=== PATIENT | female | born 1955 | race Caucasian/White ===

== ENCOUNTER 2023-06-20 20:48 | Outpatient (REF) | payer MEDICARE, OTHER, SELFPAY ==
[2023-06-25 12:09] LABS: Age Gdln ACOG Testing Note (.); Pap IG (Image Guided) Note (.)
== END 2023-06-20 20:49 | disposition home or self-care (01) ==
LOC: LAB 20:48
PROVIDERS: PCP Family Medicine; Visit Provider Obstetrics & Gynecology
DX: Z12.4 Encounter for screening for malignant neoplasm of cervix (principal)
CPT/HCPCS: G0145

== ENCOUNTER 2023-11-05 07:23 | Outpatient (RCR) | payer MEDICARE, OTHER, SELFPAY | END 2023-11-06 23:59 | disposition home or self-care (01) | LOC: INF 07:23 | PROVIDERS: PCP Family Medicine; Visit Provider Internal Medicine Hematology & Oncology | DX: C50.912 Malignant neoplasm of unspecified site of left female breast (principal); Z15.09 Genetic susceptibility to other malignant neoplasm; I10 Essential (primary) hypertension; Z87.891 Personal history of nicotine dependence | CPT/HCPCS: 36415; G0463 ==

== ENCOUNTER 2023-11-26 07:37 | Outpatient (RCR) | payer MEDICARE, OTHER, SELFPAY | END 2023-12-05 23:59 | disposition home or self-care (01) | LOC: INF 07:37 | PROVIDERS: PCP Family Medicine; Visit Provider Internal Medicine Hematology & Oncology | DX: C50.912 Malignant neoplasm of unspecified site of left female breast (principal); Z15.09 Genetic susceptibility to other malignant neoplasm | CPT/HCPCS: G0463 ==

== ENCOUNTER 2023-12-24 07:25 | Outpatient (RCR) | payer MEDICARE, OTHER, SELFPAY | END 2024-01-05 23:59 | disposition home or self-care (01) | LOC: INF 07:25 | PROVIDERS: PCP Family Medicine; Visit Provider Internal Medicine Hematology & Oncology | DX: C50.912 Malignant neoplasm of unspecified site of left female breast (principal); Z15.09 Genetic susceptibility to other malignant neoplasm; Z87.891 Personal history of nicotine dependence; I10 Essential (primary) hypertension; Z80.6 Family history of leukemia; Z17.0 Estrogen receptor positive status [ER+] | CPT/HCPCS: G0463 ==

== ENCOUNTER 2024-02-04 07:27 | Outpatient (RCR) | payer MEDICARE, OTHER, SELFPAY ==
[2024-02-04 09:49] LABS: Basophils Absolute Auto 0.1 10^3/uL (0.0-0.1); Basophils Percent Auto 0.8 % (0.2-2.0); Eosinophils Absolute Auto 0.1 10^3/uL (0.0-0.7); Eosinophils Percent Auto 1.2 % (0.9-7.0); Hematocrit 43.4 % (36.0-48.0); Immature Granulocytes Abs Auto 0.03 10^3/uL (0.00-0.03); Immature Granulocytes Pct Auto 0.4 % (0.0-0.5); Lymphocytes Absolute Auto 1.9 10^3/uL (1.2-3.8); Lymphocytes Percent Auto 21.7 % (20.5-60.0); Mean Corpuscular HGB Conc 32.3 g/dL (29.9-35.2); Mean Corpuscular Hemoglobin 29.2 pg (26.7-34.0); Mean Corpuscular Volume 90.4 fL (81.0-99.0); Mean Platelet Volume 9.9 fL (9.5-13.5); Monocytes Absolute Auto 0.6 10^3/uL (0.3-0.8); Monocytes Percent Auto 6.7 % (1.7-12.0); Neutrophils Absolute Auto 5.9 10^3/uL (1.4-6.5); Neutrophils Percent Auto 69.2 % (43.0-75.0); Platelet Count 289 10^3/uL (150-450); Red Cell Distribution Width 12.9 % (11.0-15.0); White Blood Count 8.6 10^3/uL (4.0-11.0)
[2024-02-04 10:03] LABS: Alanine Aminotransferase 41 U/L (14-59); Albumin Globulin Ratio 0.9; Albumin Level 3.5 g/dL (3.4-5.0); Alkaline Phosphatase 101 U/L (46-116); Anion Gap 15.3; Aspartate Amino Transferase 24 U/L (15-37); BUN Creatinine Ratio 21.9; Bilirubin Total 0.4 mg/dL (0.2-1.0); Calcium 9.3 mg/dL (8.5-10.1); Carbon Dioxide 24.6 mmol/L (21.0-32.0); Chloride 104 mmol/L (98-107); Estimated GFR (African America >60 (>=60); Estimated GFR (Non-African Ame >60 (>=60); Glucose 140 mg/dL (74-106); Potassium 3.9 mmol/L (3.5-5.1); Sodium 140 mmol/L (136-145); Total Protein 7.5 g/dL (6.4-8.2)
== END 2024-02-04 23:59 | disposition home or self-care (01) ==
LOC: INF 07:27
PROVIDERS: PCP Family Medicine; Visit Provider Internal Medicine Hematology & Oncology
DX: C50.912 Malignant neoplasm of unspecified site of left female breast (principal); Z15.09 Genetic susceptibility to other malignant neoplasm
CPT/HCPCS: 36415; 80053; 82306; 85025; G0463

== ENCOUNTER 2024-06-09 07:10 | Outpatient (RCR) | payer MEDICARE, OTHER, SELFPAY ==
[2024-06-09 09:50] LABS: Basophils Absolute Auto 0.1 10^3/uL (0.0-0.1); Basophils Percent Auto 0.7 % (0.2-2.0); Eosinophils Absolute Auto 0.1 10^3/uL (0.0-0.7); Eosinophils Percent Auto 0.8 % (0.9-7.0); Hemoglobin 14.5 g/dL (12.0-16.0); Immature Granulocytes Abs Auto 0.03 10^3/uL (0.00-0.03); Immature Granulocytes Pct Auto 0.3 % (0.0-0.5); Lymphocytes Absolute Auto 1.6 10^3/uL (1.2-3.8); Lymphocytes Percent Auto 18.6 % (20.5-60.0); Mean Corpuscular HGB Conc 32.2 g/dL (29.9-35.2); Mean Corpuscular Hemoglobin 29.7 pg (26.7-34.0); Monocytes Absolute Auto 0.5 10^3/uL (0.3-0.8); Neutrophils Absolute Auto 6.5 10^3/uL (1.4-6.5); Neutrophils Percent Auto 73.6 % (43.0-75.0); Platelet Count 314 10^3/uL (150-450); Red Blood Count 4.89 10^6/uL (4.20-5.40); Red Cell Distribution Width 13.1 % (11.0-15.0); White Blood Count 8.8 10^3/uL (4.0-11.0)
[2024-06-09 10:00] LABS: Alanine Aminotransferase 31 U/L (14-59); Albumin Level 3.6 g/dL (3.4-5.0); Alkaline Phosphatase 92 U/L (46-116); Anion Gap 16.1; Aspartate Amino Transferase 20 U/L (15-37); Bilirubin Total 0.4 mg/dL (0.2-1.0); Calcium 9.4 mg/dL (8.5-10.1); Carbon Dioxide 27.1 mmol/L (21.0-32.0); Chloride 104 mmol/L (98-107); Estimated GFR (African America >60 (>=60); Estimated GFR (Non-African Ame >60 (>=60); Globulin 3.7 g/dL; Glucose 154 mg/dL (74-106); Potassium 5.2 mmol/L (3.5-5.1); Sodium 142 mmol/L (136-145); Total Protein 7.3 g/dL (6.4-8.2)
== END 2024-07-06 23:59 | disposition home or self-care (01) ==
LOC: HEMC 07:10
PROVIDERS: PCP Family Medicine; Visit Provider Internal Medicine Hematology & Oncology
DX: C50.412 Malignant neoplasm of upper-outer quadrant of left female breast (principal); Z15.09 Genetic susceptibility to other malignant neoplasm; Z87.891 Personal history of nicotine dependence
CPT/HCPCS: 36415; 80053; 82306; 85025; G0463

== ENCOUNTER 2024-06-25 19:02 | Outpatient (REF) | payer MEDICARE, OTHER, SELFPAY ==
--- OUTSIDE RECORDS SUMMARY | 2024-06-25 19:07 | XMS_ITS | CCD ---
Author Organization [facility] CliniSywy Care Team Providers Care Child Health Associate Name Role Phone MD Quinton Dan Primary Care Provider Crow Kruse Attending Provider NI, DR FONSECA Primary Care Unavailable BIANCA ENGEL Admitting Unavailable MAREN, BIANCA Attending Unavailable EVELYN, DR SAVANNAH Hall Consulting Unavailable BIANCA ENGEL Consulting Unavailable SOO, DR COLLINS Admitting Unavailable SOO, DR COLLINS Attending Unavailable SOO, DR COLLINS Consulting Unavailable SOO, DR COLLINS Admitting Unavailable SOO, DR COLLINS Attending Unavailable UNION, DR EDGAR Irby Consulting Unavailable SOO, DR COLLINS Consulting Unavailable MD Quinton Dan Primary Care Provider MD Quinton Dan Attending Provider [phone] Rodney Peña Unavailable DO Rodney Peña Attending Provider Cecilia Vital Unavailable MD Quinton Dan Primary Care Provider [phone] MD Quinton Dan Primary Care Provider DO Rodney Peña Attending Provider Crow Kruse Attending Provider MD Quinton Dan Primary Care Provider Quinton Dan MD Primary Care Provider Quinton Dan MD Unavailable QUINTON DAN Primary Care Physician Unavail able Crow Kruse DO Unavailable Rodney Peña MD Unavailable MD Quinton Dan Primary Care Provider [phone] Crow Kruse Attending Provider MD Addison Hamm Attending Provider MD Silvia Eckert Referring Provider [phone] Crow KRUSE R Referring Unavailable NILL, Adrian R Attending Unavailable NILL, Adrian R Attending Unavailable NILL, Adrian R Referring Unavailable NILL, Adrian R Admitting Unavailable NILL, Adrian R Attending Unavailable NILL, Adrian R Attending Unavailable NILL, Adrian R Attending Unavailable NILL, Adrian R Referring Unavailable NILL, Adrian R Admitting Unavailable Rafia, Jeff L Consulting Unavailable Rafia, Jeff L Consulting Unavailable Rafai, Jeff L Consulting Unavailable Rafia, Jfef L Consulting Unavailable Rafia, Jeff L Consulting Unavailable Rafia, Jeff L Consulting Unavailable Rafia, Jeff L Consulting Unavailable Rafia, Jeff L Consulting Unavailable Rafia, Jeff L Consulting Unavailable Rafia, Jeff L Consulting Unavailable NILL, Adrian R Attending Unavailable NILL, Adrian R Referring Unavailable NILL, Adrian R Admitting Unavailable MD Quinton Dan Primary Care Provider MD Addison Hamm Attending Provider MD Silvia Eckert Referring Provider QUINTON DAN Attending Unavailable QUINTON DAN Attending Unavailable QUINTON DAN Attending Unavailable QUINTON DAN Attending Unavailable QUINTON DAN Attending Unavailable QUINTON DAN Attending Unavailable QUINTON DAN Attending Unavailable MD Quinton Dan Primary Care Provider MD Silvia Eckert Attending Provider Quinton Dan Primary Care Unavailable Crow Kruse Admitting Unavailable Crow Kruse Attending Unavailable Crow Kruse Admitting Unavailable Quinton Dan Primary Care Unavailable Maribel Krusey Attending Unavailable Quinton Dan Primary Care Unavailable Babar, Silvia Admitting Unavailable Sudheer Eckertorva Attending Unavailable Rodney Peña Admitting Unavailable Rodney Peña Attending Unavailable Quinton Dan Primary Care Unavailable Quinton Dan Primary Care Unavailable Crow Kruse Admitting Unavailable Crow Kruse Attending Unavailable Quinton Dan Primary Care Unavailable Addison Hamm Admitting Unavailable Addison Hamm Attending Unavailable Silvia Eckert Referring Unavailable Allergies Allergy Classification Reported Allergen(s) Allergy Type Date of Onset Reaction(s) Facility (20 sources) Amoxicillin; Translations: [Amoxicillin] Drug Allergy 08-08-20 14 [facility] (16 sources) Sulfamethoxazole; Translations: [sulfamethoxazole] Drug Allergy 11-10-19 22 Abdominal Pain, Abdominal Pain, stomach upset [facility] (11 sources) Trimethoprim; Translations: [trimethoprim] Drug Allergy 11-10-19 22 Abdominal Pain, Abdominal Pain, stomach upset [facility] (17 sources) erythromycin base; Translations: [Erythromycin Base] Allergy to substance 08-08-20 14 [facility] (10 sources) HYDROcodone; Translations: [HYDROcodone] Drug Allergy 11-10-19 15 Abdominal Pain, Abdominal Pain, stomach cramps and dry heaves [facility] (2 sources) Sulfamethoxazole / Trimethoprim; Translations: [Bactrim] Drug Allergy 08-08-20 14 [facility] (10 sources) traMADol; Translations: [traMADol] Drug Allergy 06-01-20 16 Vomiting [facility] (11 sources) Erythromycin; Translations: [erythromycin] Drug Allergy [facility] (4 sources) HYDROcodone Drug Allergy stomach cramps and dry heaves [facility] Other (10 sources) Sulfamethoxazole / Trimethoprim; Translations: [sulfamethoxazole-t rimethoprim] Drug Allergy stomach upset, Nausea [facility] (20 sources) homatropine; Translations: [homatropine] Drug Allergy 07-17-20 22 Vomiting (disorder) [facility] (5 sources) Fenofibrate Drug Allergy 10-16-19 24 [facility] Work Phone: (11 sources) HYDROcodone; Translations: [hydrocodone] Drug Allergy 07-17-20 22 Vomiting (disorder) [facility] (11 sources) traMADol; Translations: [tramadol] Drug Allergy 07-17-20 Nausea and vomiting (disorder) [facility] (5 sources) Amoxicillin-Pot Clavulanate Drug Allergy 07-17-20 [facility] (1 source) HYDROcodone Drug Allergy 06-12-20 [facility] (1 source) traMADol Drug Allergy 04-30-20 [facility] Medications Current Medications Medication Drug Class(es) Dates Sig (Normalized) Sig (Original) acetaminophen 325 mg / oxyCODONE hydrochloride 5 mg oral tablet (1 source) Opioid Agonist Start: 12-05-2023 End: 12-10-2023 take 1 tablet by mouth every six hours Percocet 5 mg-325 mg oral tablet 1 tab(s), Oral, q6hr, 10 tab(s), Refill(s) 0, not to exceed 4000 mg acetaminophen per day take with food or milk, [facility] [id number], 165, cm, 11/20/23 6:04:00 EST, Height/Length Dosing, 73.3, kg, 11/20/23 6:04:00 EST, Weight Dosing Start Date: 12/05/23 Stop Date: 12/10/23 Status: Ordered albuterol 0.83 mg/ml inhalation solution (5 sources) beta2-Adrenergic Agonist Start: 09-25-2023 albuterol (2.5 MG/3ML) 0.083% nebulizer solution Indications: Bronchitis Take 3 mL (2.5 mg) by nebulization every 6 (six) hours if needed for wheezing 150 mL 0 09/25/2023 Active amLODIPine 10 mg oral tablet (20 sources) Dihydropyridine Calcium Channel Leonel Start: 04-16-2023 End: 04-13-2024 take 10 mg by mouth once daily in the morning Amlodipine Active 10 MG PO Every morning April 16, 2023 12:00am Aspir-81 (2 sources) Aspir-81 3x week Active aspirin 81 mg delayed release oral tablet (15 sources) Platelet Aggregation Inhibitor, Nonsteroidal Anti-inflammatory Drug Start: 04-16-2023 take 1 tablet by mouth once Aspirin (Aspir-81) 81 mg Tablet,Delayed Release (Dr/Ec) Active 81 MG PO every Saturday, Saturday, and Sunday April 16, 2023 12:00am take 1 tablet by mouth in the mo rning aspirin 81 MG EC tablet Take 81 mg by mouth in the morning. 0 Active take 1 tablet by mouth twice leno ly Aspirin 81 81 MG 1 tablet Orally BID Active ciprofloxacin 500 mg oral tablet (20 sources) Quinolone Antimicrobial Start: 11-20-2023 End: 11-30-2023 take 1 tablet by mouth in the morning ciprofloxacin (Cipro) 500 MG tablet Indications: Diverticulitis Take 1 tablet (500 mg) by mouth in the morning and 1 tablet (500 mg) before bedtime. Do all this for 10 days. 20 tablet 0 11/20/2023 11/30/2023 Active Start: 11-10-2021 End: 04-16-2023 take 500 mg by mouth twice daily Ciprofloxacin Hcl Discontinued 500 MG PO Twice daily November 10, 2021 1:00am April 16, 2023 9:50am Start: 11-10-2021 End: 04-16-2023 take 1 dose by mouth every two hours Ciprofloxacin Hcl Discontinued 500 MG PO Twice daily November 10, 2021 1:00am April 16, 2023 9:50am Administer dose at least 2 hrs before/6 hrs after dairy products, calcium, zinc, and/or iron-containing products Cranberry preparation (13 sources) Non-Standardized Food Allergenic Extract, Non-Standardized Plant Allergenic Extract Start: 11-19-2023 cranberry oral table t See Instructions, Prophylaxis, Refill(s) 0 Start Date: 11/19/23 Status: Ordered Start: 04-16-2023 take 100 mg by mouth once daily at mealtime Cranberry Active 100 MG PO Every morning April 15, 2023 11:00pm administer with meals Start: 04-16-2023 take 100 mg by mouth once daily at mealtime Cranberry Active 100 MG PO Every morning April 16, 2023 12:00am administer with meals Culturelle Abdominal Support and Comfort (5 sources) Start: 11-19-2023 take 15 mg by mouth once daily Culturelle Abdominal Support and Comfort 15 mg, Oral, Daily Prophylaxis, Refill(s) 0 Start Date: 11/19/23 Status: Ordered docosahexaenoic acid 120 mg / eicosapentaenoic acid 180 mg oral capsule (5 sources) Start: 10-16-2023 End: 01-09-2025 take 1 capsule by mouth in the morning fish oil concentrate ([place]-3) 1000 MG capsule Indications: Mixed hyperlipidemia (CMS/HCC) Take 4 capsules (4 g) by mouth in the morning. Actually Eicosamax liquid 1 tsp = 4 grams. 0 10/16/2023 10/15/2024 Active Elderberry preparation (5 sources) Start: 11-19-2023 take 1 capsule by mouth once daily as needed elderberry 350 mg oral capsule 350 mg = 1 cap(s), Oral, Daily, PRN Prophylaxis, Refills(s) 0 Start Date: 11/19/23 Status: Ordered Fish Oils (6 sources) Start: 10-30-2023 take 4 capsules by mouth once daily Fish Oil 1000 mg oral capsule 4,000 mg = 4 cap(s), Oral, Daily, Refills(s) 0, Other (see comment) Start Date: 10/30/23 Status: Ordered Start: 10-30-2023 take 4 capsules by m outh once daily Fish Oil 1000 mg oral capsule 4,000 mg = 4 cap(s), Oral, Daily, Refills(s) 0 Start Date: 10/30/23 Status: Ordered Sasha Car Jensen, Rha mn ([facility]) 12 billion cell Tablet,Chewable (8 sources) Start: 04-16-2023 Sasha Car Jensen, Rha mn ([facility]) 12 billion cell Tablet,Chewable Active 1 TAB PO 4 times per week April 15, 2023 11:00pm Start: 04-16-2023 Law Car Jensen, Rhamn ([facility]) 12 billion cell Tablet,Chewable Active 1 TAB PO 4 times per week April 16, 2023 12:00am losartan potassium 100 mg oral tablet (20 sources) Angiotensin 2 Receptor Leonel Start: 11-10-2021 End: 04-13-2024 take 100 mg by mouth once daily in the morning Losartan Active 100 MG PO Every morning November 10, 2021 1:00am metroNIDAZOLE 250 mg oral tablet (20 sources) Nitroimidazole Antimicrobial Start: 11-20-2023 End: 11-30-2023 take 1 tablet by mouth in the morning, then take 1 tablet by mouth in the evening, then take 1 tablet by mouth at bedtime metroNIDAZOLE (Flagyl) 250 MG tablet Indications: Diverticulitis Take 1 tablet (250 mg) by mouth in the morning and 1 tablet (250 mg) in the evening and 1 tablet (250 mg) before bedtime. Do all this for 10 days. 30 tablet 0 11/20/2023 11/30/2023 Active Start: 11-10-2021 End: 04-16-2023 take 500 mg by mouth twice daily Metronidazole Discontinued 500 MG PO Twice daily November 10, 2021 1:00am April 16, 2023 9:51am mometasone furoate 1 mg/ml topical cream (3 sources) Corticosteroid Start: 12-26-2023 Mometasone Act osiel 1 APPLIC TOPICAL Daily December 26, 2023 12:00am Apply to radiation site, once a day, AFTER radiation treatment. Pd-Ec-Txgjh-Lutein- Herbal 293 (Alive Women's 50 Plus Gummy) 120 mcg-150 mcg -37.5 mg Tablet,Chewable (8 sources) Start: 04-16-2023 take 2 tablets by mouth once daily in the morning Pa-Qu-Yrgwn-Lutein -Herbal 293 (Alive Women's 50 Plus Gummy) 120 mcg-150 mcg -37.5 mg Tablet,Chewable Active 2 TAB PO Every morning April 15, 2023 11:00pm Start: 04-16-2023 take 2 tablets by [facility] once daily in the morning Ra-Bh-Jeouz-Lutein-Herbal 293 (Alive Women's 50 Plus Gummy) 120 mcg-150 mcg -37.5 mg Tablet,Chewable Active 2 TAB PO Every morning April 16, 2023 12:00am naproxen sodium 220 mg oral tablet (5 sources) Nonsteroidal Anti-inflammatory Drug Start: 11-19-2023 take 1 tablet by mouth every eight hours for headache Aleve Easy Open Arthritis 220 mg oral tablet 220 mg, 1 tab(s), Oral, q8hr for headache, 40 tab(s), Refill(s) 0 Start Date: 11/19/23 Status: Ordered oxyCODONE hydrochloride 5 mg oral capsule (7 sources) Opioid Agonist Start: 04-30-2023 take 5 mg by mouth every four to six hours Oxycodone Active 5 MG PO EVERY 4-6 HOURS 30 7 April 30, 2023 Tocopherols (Natural Mixed Tocopherols) 30 % powder (5 sources) Start: 10-16-2023 End: 10-15-2024 take 400 mg by mouth in the morning Tocopherols (Natural Mixed Tocopherols) 30 % powder Indications: Mixed hyperlipidemia (CMS/HCC) Take 400 mg by mouth in the morning. 0 10/16/2023 10/15/2024 Active Vit C-Zinc Citrate-Elderberry (Sambucus Elderberry) 30-1.1-25 mg Tablet,Chewable (8 sources) Start: 04-16-2023 take 2 tablets by mouth once daily in the morning Vit C-Zinc Citrate-Elderberry (Sambucus Elderberry) 30-1.1-25 mg Tablet,Chewable Active 2 TAB PO Every morning April 15, 2023 11:00pm Start: 04-16-2023 take 2 tablets by mo uth once daily in the morning Vit C-Zinc Citrate-Elderberry (Sambucus Elderberry) 30-1.1-25 mg Tablet,Chewable Active 2 TAB PO Every morning April 16, 2023 12:00am Completed/Discontinued Medications Medication Drug Class(es) Dates Sig (Normalized) Sig (Original) cefTRIAXone (4 sources) Cephalosporin Antibacterial Start: 06-30-2016 Rocephin 500 mg Jun, 250 mg Essential Biotic Complete Prob (8 sources) Start: 04-16-2023 take 1 capsule by mouth three times weekly Essential Biotic Complete Prob Active 1 CAP PO 3 Times a week April 15, 2023 11:00pm Start: 04-16-2023 take 1 capsule by mo uth three times weekly Essential Biotic Complete Prob Active 1 CAP PO 3 Times a week April 16, 2023 12:00am nabumetone (4 sources) Nonsteroidal Anti-inflammatory Drug Nabumetone Not-Taking Nabumetone 750 M G as directed Orally Not-Taking ondansetron 4 mg disintegrating oral tablet (10 sources) Serotonin-3 Receptor Antagonist Start: 11-10-2021 End: 04-16-2023 Ondansetron Discontinued 4 MG PO every 6 to 8 hours November 10, 2021 1:00am April 16, 2023 9:51am vitamin e 100 unt oral capsule (5 sources) Start: 11-19-2023 take 1 capsule by mouth once daily as needed vitamin E 100 intl units oral capsule 100 International_Unit = 1 cap(s), Oral, Daily, PRN Prophylaxis Start Date: 11/19/23 Status: Ordered Problems Active Problems Problem Classification Problem Date Documented Date Episodic/Chronic Abdominal pain (7 sources) Unspecified abdominal pain; Translations: [Pelvic and perineal pain] Onset: 07-26-2022 Episodic Acute bronchitis (4 sources) Acute bronchitis; Translations: [Acute bronchitis] Episodic Cancer of breast (20 sources) Infiltrating lobular carcinoma of breast; Translations: [Malignant neoplasm of unspecified site of left female breast] Onset: 10-29-2023 10-29-2023 Chronic Chronic kidney disease (11 sources) Chronic kidney disease stage 2; Translations: [Chronic kidney disease, stage 2 (mild)] Onset: 10-10-2020 04-16-2023 Chronic Conduction disorders (11 sources) Right bundle branch block; Translations: [Unspecified right bundle-branch block] Onset: 07-08-2015 04-16-2023 Chronic Diabetes mellitus without complication (6 sources) Diabetes mellitus 10-30-2023 Chronic Disorders of lipid metabolism (11 sources) Mixed hyperlipidemia; Translations: [Mixed hyperlipidemia] Onset: 08-19-2015 04-16-2023 Chronic Diverticulosis and diverticulitis (20 sources) Diverticulitis of colon; Translations: [Diverticulitis of large intestine without perforation or abscess without bleeding] Onset: 06-12-2022 11-10-2021 Chronic Essential hypertension (17 sources) Benign essential hypertension; Translations: [Essential (primary) hypertension] Onset: 07-08-2015 04-16-2023 Chronic Hypertension with complications and secondary hypertension (11 sources) Hypertensive renal disease; Translations: [Hypertensive chronic kidney disease with stage 1 through stage 4 chronic kidney disease, or unspecified chronic kidney disease] Onset: 04-14-2020 04-16-2023 Chronic Immunizations and screening for infectious disease (1 source) Encounter for screening for human papillomavirus (HPV); Translations: [ENC SCREENING HUMAN PAPILLOMAVIRUS] Onset: 06-23-2022 Episodic Joint disorders and dislocations; trauma-related (3 sources) Other tear of medial meniscus, current injury, right knee, initial encounter; Translations: [Other tear of medial meniscus, current injury, right knee, subsequent encounter] Episodic Malaise and fatigue (11 sources) Chronic fatigue syndrome; Translations: [Chronic fatigue syndrome] Onset: 06-29-2016 04-16-2023 Chronic Menopausal disorders (6 sources) Menopausal syndrome 12-18-2013 Chronic Noninfectious gastroenteritis (1 source) Noninfective gastroenteritis and colitis, unspecified; Translations: [NONINFECTIVE GE AND COLITIS UNS] Onset: 09-03-2022 Episodic Nonmalignant breast conditions (6 sources) Breast lump; Translations: [Unspecified lump in the left breast, unspecified quadrant] 10-21-2023 Episodic Other aftercare (1 source) half-way (current) use of aspirin; Translations: [SHELTER CURRENT USE OF ASPIRIN] Onset: 09-03-2022 Episodic Other aftercare (1 source) 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; Translations: [OTH SHELTER CURRENT DRUG THERAPY] Onset: 09-03-2022 Episodic Other aftercare (1 source) Encounter for removal of sutures Episodic Other connective tissue disease (1 source) Synovial cyst of popliteal space [Pepe], right knee Episodic Other ear and sense organ disorders (11 sources) Mixed conductive AND sensorineural hearing loss; Translations: [Mixed conductive and sensorineural hearing loss, unilateral, left ear with restricted hearing on the contralateral side] Onset: 08-11-2019 04-16-2023 Chronic Other nervous system disorders (11 sources) White matter disease; Translations: [White matter disease, unspecified] Onset: 07-23-2018 04-16-2023 Episodic Other nutritional; endocrine; and metabolic disorders (11 sources) Overweight; Translations: [Overweight] Onset: 08-15-2017 Resolved: 04-16-2023 04-16-2023 Episodic Other nutritional; endocrine; and metabolic disorders (6 sources) Overweight in adulthood with body mass index of 25 or more but less than 30 11-14-2023 Episodic Residual codes; unclassified (4 sources) Other specified postprocedural states Episodic Residual codes; unclassified (7 sources) History of arthroscopy of knee joint; Translations: [Other specified postprocedural states] 04-30-2023 Episodic Screening and history of mental health and substance abuse codes (11 sources) Ex-smoker; Translations: [Personal history of nicotine dependence] Onset: 08-15-2017 04-16-2023 Episodic Thyroid disorders (6 sources) Hypothyroidism 12-18-2013 Chronic Thyroid disorders (11 sources) Sick-euthyroid syndrome; Translations: [Sick-euthyroid syndrome] Onset: 08-19-2015 04-16-2023 Episodic Unclassified (1 source) Unspecified lump in the left breast, upper outer quadrant; Translations: [Unspecified lump in the left breast, upper outer quadrant] Onset: 10-21-2023 Unclassified (1 source) Encounter for screening mammogram for malignant neoplasm of breast; Translations: [Encounter for screening mammogram for malignant neoplasm of breast] Onset: 09-19-2023 Unclassified (1 source) Other tear of medial meniscus, current injury, right knee, subsequent encounter; Translations: [Other tear of medial meniscus, current injury, right knee, subsequent encounter] Onset: 06-27-2023 Past or Other Problems Problem Classification Problem Date Documented Date Episodic/Chronic Conditions associated with dizziness or vertigo (5 sources) Vertigo; Translations: [Dizziness and giddiness] Onset: 06-29-2016 04-16-2023 Episodic Other ear and sense organ disorders (5 sources) Tinnitus of left ear; Translations: [Tinnitus, left ear] Onset: 08-11-2019 04-16-2023 Episodic Other nutritional; endocrine; and metabolic disorders (5 sources) Body mass index 25-29 - overweight; Translations: [Overweight] Onset: 06-12-2022 04-16-2023 Episodic Other screening for suspected conditions (not mental disorders or infectious disease) (5 sources) Encounter for screening for malignant neoplasm of cervix; Translations: [Other abnormal and inconclusive findings on diagnostic imaging of breast] Onset: 06-19-2022 Episodic Otitis media and related conditions (5 sources) Perforation of tympanic membrane; Translations: [Unspecified perforation of tympanic membrane, unspecified ear] Onset: 12-28-2017 04-16-2023 Episodic Residual codes; unclassified (5 sources) Cardiovascular event risk; Translations: [Other specified personal risk factors, not elsewhere classified] Onset: 06-12-2022 04-16-2023 Episodic Results Test Name Value Interpretation Reference Range Facil ity MM diagnostic mammo LT w/CAD on 06-16-2024 MM diagnostic mammo LT w/CAD [facility] [place] [address] Mammography Report Signed Patient: Christal Chen MR#: [id number] : 1955 Acct:[id number] Age/Sex: 69 / F ADM Date: 06/16/24 Loc: [place] Room: Type: [facility] Attending Dr: Silvia Eckert MD Copies to: MD Quinton Corey MD Ordering Provider: Silvia Eckert MD Date of Service: 06/16/24 MM/MM diagnostic mammo LT w/CAD: PREV BREAST CA DIAGNOSTIC LEFT MAMMOGRAM - FULL FIELD DIGITAL WITH TOMOSYNTHESIS CLINICAL DATA: Left-sided breast cancer with recent lumpectomy and radiation Tomosynthesis Craniocaudal and mediolateral oblique views of the left breast were obtained using low-dose digital technique. Comparison is made to prior studies from 12/05/2023, 10/21/2023, 09/19/2023, 07/26/2022, 03/14/2019, and 03/11/2018. This examination was reviewed with the aid of CAD. Scattered fibroglandular tissue is present. Skin thickening is noted consistent with the history of previous radiation therapy. Benign-appearing calcifications are present. Posttreatment changes are noted in the upper outer left breast. This is new when compared to the prior exam. There are no dominant masses, typically malignant calcifications or architectural distortion, otherwise. MM/MM diagnostic mammo LT w/CAD IMPRESSION: POSTTREATMENT CHANGES ARE NOTED IN THE UPPER OUTER LEFT BREAST. THIS IS NEW WHEN COMPARED TO THE PRIOR EXAM. NO MAMMOGRAPHIC EVIDENCE OF MALIGNANCY. ROUTINE FOLLOW-UP IS RECOMMENDED IN ONE YEAR. RESULT CODE: 2 Benign Findings(s) DENSITY CODE: 2 (approximately 25-50% glandular) FOLLOW UP: 1YR The false-negative rate of mammography is approximately 10-percent. Management of a palpable abnormality must be based on clinical grounds. Impression dictated by: Cristian Jeffery M.D.06/16/2024 8:12 AM Dictation Location: [facility] Transcribed By: ROSALINDA 06/16/24811 Dictated By: Cristian Jeffery II, MD 06/16/24 075 Signed By: 06/16/24811 [facility] Consultation Noteon 02-10-20 Consultation Note [id number] .00TIFF Normal [facility] Consultation Noteon 01-06-20 Consultation Note [id number] .00TIFF Normal [facility] Consultation Noteon 01-05-20 Consultation Note [id number] .00TIFF Normal [facility] HER-2 IHC Rfx to FISHon 12-06 Fixation Time Comment Invalid Interpretation Code [facility] Comment on above: Result Comment: Tiss ue biopsy fixation was between 6 and 72 hours. Performed By: #### 1 [id number] ####[id number] [place] [address] Fixative Comment Invalid Interpretation Code [facility] Comment on above: Result Comment: 10% neutral buffered formalin Time to fixation (cold ischemic time) is less than or equal to 1 hour. Performed By: #### 1 [id number] ####[place] [id number] HER2 Ag Immune stain Ql (Tiss) 0 Invalid Interpretation Code [facility] Comment on above: Performed By: #### 1 [id number] ####[place] [id number] client solutions director name Nom (Provider) Comment Invalid Interpretation Code [facility] Comment on above: Result Comment: Thes e results were reviewed and interpreted by Kathy Lieberman MD [facility] [place], [place] Performed at: [facility] [address] [place], [place] [id number] [facility] Jonelle Torres Performed By: #### 1 [id number] ####[place] [id number] Reference Lab Test Reference Range Comment Invalid Interpretation Code [facility] Comment on above: Result Comment: Scor e Staining Pattern Interpretation ------ 0 No staining observed or incomplete, Negative faint membrane staining in less than or equal to 10% of tumor cells. 1+ Incomplete, faint membrane staining HER2-Low in >10% of tumor cells. Expression* 2+ Weak to moderate complete membrane staining observed in >10% of tumor cells. 3+ Intense, complete membrane staining HER2 Positive in >10% of tumor cells. * While current CAP/ASCO guidelines define HER2 1+ as Negative , a HER2 score of 1+ may be used to qualify patients with HER2-low cancers. HER2-low results (IHC 1+ or IHC 2+/NIKHIL non-amplified) by this test can be used to identify patients eligible for ENHERTU(R) (fam-trastuzumab deruxtecan-nxki) therapy according to the MATT- Breast 04 trial. For a score of 2+, correlation with FISH or equivalent test for amplification is necessary to determine Her2 expression status. IHC 2+ with NIKHIL non-amplified is considered HER2 low. IHC2+ with HER2 amplification by NIKHIL is considered HER2 positive. HER2 positive tumors (HER2 IHC score of 3+, or IHC 2+ with HER2 amplification by FISH), may benefit from HERCEPTIN(R) (Trastuzumab) or KADCYLA(R) (Trastuzumab emtansine) therapy. Unless otherwise indicated, only the invasive component is considered for scoring. PATHWAY anti-HER-2/rosamaria (4B5) Rabbit Monoclonal Primary Antibody (PATHWAY anti-HER2 (4B5) antibody) is a rabbit monoclonal antibody intended for laboratory use for the semi-quantitative detection of HER2 antigen by immunohistochemistry (IHC) in sections of formalin- fixed, paraffin-embedded normal and neoplastic breast tissue using the ultraView [place] DAB Detection Kit on a BenchMark ULTRA instrument. This IHC device is indicated for identifying breast cancer patients who are eligible for treatment with Herceptin(R) (IHC 3+ or IHC 2+/NIKHIL amplified), KADCYLA(R) (IHC 3+ or IHC 2+/NIKHIL amplified) or ENHERTU(R) (IHC 1+ or IHC 2+/NIKHIL non-amplified). Specimen Handling: FFPE tissue, preserved in 10% neutral buffered formalin, fixed for 18-24 hours. ASCO/CAP guidelines requires fixation for a minimum of 6 and a maximum of 72 hours. The time from biopsy/ excision to fixation in formalin (cold ischemic time) must be less than an hour. Time to fixation (cold ischemic time) greater than one hour should be interpreted with caution. Fixation times outside these guidelines, use of other fixatives, decalcification, or excessive time between acquisition and fixation may affect the staining and results should be interpreted accordingly. References: Jez Gonzalez et al. Trastuzumab Deruxtecan in Previously Treated HER2- Low Advanced Breast Cancer. N Engl J Med: 387(1):9-20. 2021Apr 12. Clinical Trial Deb PATHWAY anti-HER-2/rosamaria (4B5) Rabbit Monoclonal Primary Antibody Package Insert, 2022-07-05. Dejuan Villanuevaet al. Human Epidermal Growth Factor Receptor 2 Testing in Breast Cancer: [place] [employer] of [employer] On[employer]/College of [place] [employer] Clinical Practice Guideline Focused Update. J Clin Oncol 6:3450-4336. 2018 PMID: [id number]). Performed By: #### 1 [id number] ####[facility] [id number] [place] [address] Ambulatory Visit Summaryon 0 12-24-2023 Ambulatory Visit Summary CHRISTAL CHEN :1955 Visit Date:12/24/2023 Ambulatory Visit Instructions Your Care Team Attending Physician - TONY PATEL, Adrian Hall Primary Care Physician - NI PATEL, QUINTON Malik This Is Your Medications List amlodipine (amLODIPine 10 mg Tab) bacillus coagulans (Culturelle Abdominal Support and Comfort) cranberry (cranberry oral tablet) elderberry (elderberry 350 mg oral capsule) losartan (losartan 100 mg Tab) naproxen (Aleve Easy Open Arthritis 220 mg oral tablet) omega-3 polyunsaturated fatty acids (Fish Oil 1000 mg oral capsule) vitamin E (vitamin E 100 intl units oral capsule) Procedures Performed Lumpectomy of left breast (12/05/2023), Biopsy of breast, section, section, section, Closed reduction of nasal fracture, Colonoscopy, Colonoscopy, Meniscal repair, Myringotomy, Tonsillectomy and adenoidectomy, wisdom teeth. Medications What How Much When Instructions Unchanged amlodipine (amLODIPine 10 mg Tab) 1 Tablets By Mouth Every day Unchanged bacillus coagulans (Culturelle Abdominal Support and Comfort) 15 Milligram By Mouth Every day as needed for Prophylaxis Unchanged cranberry (cranberry oral tablet) See instructions Unchanged elderberry (elderberry 350 mg oral capsule) 1 Capsules By Mouth Every day as needed for Prophylaxis Unchanged losartan (losartan 100 mg Tab) 1 Tablets By Mouth Every day Unchanged naproxen (Aleve Easy Open Arthritis 220 mg oral tablet) 1 Tablets By Mouth Every 8 hours as needed for for headache Unchanged omega-3 polyunsaturated fatty acids (Fish Oil 1000 mg oral capsule) 4 Capsules By Mouth Every day Unchanged vitamin E (vitamin E 100 intl units oral capsule) 1 Capsules By Mouth Every day as needed for Prophylaxis Allergies Bactrim (Nausea) HYDROcodone (Vomiting) amoxicillin (Hives) erythromycin (Hives) homatropine (Vomiting) traMADol (Nausea and vomiting) Problems Ongoing - Any problem that you are currently receiving treatment for. BMI 27.0-27.9,adult Chronic fatigue syndrome Diverticulosis Former smoker HTN (hypertension) Hyperlipidemia Hypertensive nephropathy Invasive lobular carcinoma of left breast in female Lobular carcinoma of left breast Mixed conductive and sensorineural hearing loss Overweight RBBB (right bundle branch block) Sick-euthyroid syndrome Stage 2 chronic kidney disease White matter disease Historical - Any problem that you are no longer receiving treatment for. Diabetes Hypertension Hypothyroid Menopause Patient Survey You may receive a survey via text or e-mail asking about your office visit. Please share your experience with us by completing your survey. We appreciate your feedback and thank you for choosing us for your care. Normal [facility] General Surgery Office/Clini c Noteon 12-24-2023 General Surgery Office/Clinic Note Chief Complaint post operative follow up HPI Staff 19 day post operative follow up post left breast lumpectomy with sentinel biopsy. Minimal discomfort, scant use of Aleve. Denies bleeding or drainage. History of Present Illness almost 3 weeks s/p left breast lumpectomy with sentinel lymph node biopsy; doing well; some soreness of upper arm and axillary incision, no drainage; saw Oncologist today; referred for XRT; pathology reviewed, T1cN0 lesion, 3 sentinel lymph nodes negative for metastatic disease. Review of Systems ROS - Provider Constitutional: no fever, no sweats, no weight loss. Eyes: no glasses, no blurred vision, no visual loss. ENMT: no dentures, no hoarseness, no swallowing difficulties, no hearing loss, no ear infection(s), no nose bleeds. Cardiovascular: normal blood pressure, no chest pain, regular heartbeat, no heart murmur. Respiratory: no shortness of breath, no cough, no asthma, no wheezing. Gastrointestinal: no nausea, no vomiting, no diarrhea, no constipation, no blood in stool, no change in bowel habits, no abdominal pain, no hepatitis. Genitourinary: no kidney stones, no urine infection, no dysuria. Musculoskeletal: no pain, no weakness. Skin: no changing moles, no rash, no skin lumps. Neurologic: no seizures, no epilepsy, no headache. Psychiatric: no emotional or psychiatric problem. Heme/Lymph: no bleeding problems, no anemia, no blood clots, no transfusions. Allergy/Immunologic: no swollen lymph nodes/glands, no IV drug abuse. Other: Additional ROS info: Except as noted in the above Review of Systems and in the History of Present Illness, all other systems have been reviewed and are negative or noncontributory. Physical Exam skin: incisions healing well, no erythema or drainage, no ecchymoses. Assessment/Plan 1. Invasive lobular carcinoma of left breast in female (C50.412: Malignant neoplasm of upper-outer quadrant of left female breast) doing well; recommend new baseline left mammogram 6 months after completion of XRT, then bilateral yearly mammograms; call with problems/quesitons. Follow-up No qualifying data available Problem List/Past Medical History Ongoing BMI 27.0-27.9,adult Chronic fatigue syndrome Diverticulosis Former smoker HTN (hypertension) Hyperlipidemia Hypertensive nephropathy Invasive lobular carcinoma of left breast in female Lobular carcinoma of left breast Mixed conductive and sensorineural hearing loss Overweight RBBB (right bundle branch block) Sick-euthyroid syndrome Stage 2 chronic kidney disease White matter disease Historical Diabetes Hypertension Hypothyroid Menopause Procedure/Surgical History Lumpectomy of left breast (12/05/2023), Biopsy of breast, section, section, section, Closed reduction of nasal fracture, Colonoscopy, Colonoscopy, Meniscal repair, Myringotomy, Tonsillectomy and adenoidectomy, wisdom teeth. Medications Aleve Easy Open Arthritis 220 mg oral tablet, 220 mg= 1 tab(s), Oral, q8hr, PRN amLODIPine 10 mg Tab, 10 mg= 1 tab(s), Oral, Daily cranberry oral tablet, See Instructions, PRN Culturelle Abdominal Support and Comfort, 15 mg, Oral, Daily, PRN elderberry 350 mg oral capsule, 350 mg= 1 cap(s), Oral, Daily, PRN Fish Oil 1000 mg oral capsule, 4000 mg= 4 cap(s), Oral, Daily losartan 100 mg Tab, 100 mg= 1 tab(s), Oral, Daily vitamin E 100 intl units oral capsule, 100 International_Unit= 1 cap(s), Oral, Daily, PRN Allergies Bactrim (Nausea) HYDROcodone (Vomiting) amoxicillin (Hives) erythromycin (Hives) homatropine (Vomiting) traMADol (Nausea and vomiting) Social History Alcohol - Denies Alcohol Use, 12/28/2010 Substance Abuse - Denies Substance Abuse, 12/28/2010 Tobacco Never (less than 100 in lifetime) Tobacco Use:. Never Smokeless Tobacco Use:., 11/14/2023 Family History Heart disease: Father. Immunizations Vaccine Date Status Comments influenza virus vaccine, inactivated - Not Given Patient Refuses Normal [facility] Comment on above: Result Comment: Elec tronically Signed By: TONY PATEL, Adrian Hall\.br\Date and Time Signed: 12/24/23 14:31 EDT HER-2 IHC Rfx to [facility] 12-05 AP Tissue Block Number [id number] Invalid Interpretation Code [facility] Comment on above: Performed By: #### 1 [id number] ####[facility] [id number] [place] [address] Ambulatory Visit Summaryon 0 12-13-2023 Ambulatory Visit Summary CHRISTAL CHEN :1955 Visit Date:12/13/2023 Ambulatory Visit Instructions Your Care Team Attending Physician - TONY PATEL, Adrian Hall Primary Care Physician - NI PATEL, QUINTON Malik This Is Your Medications List amlodipine (amLODIPine 10 mg Tab) bacillus coagulans (Culturelle Abdominal Support and Comfort) cranberry (cranberry oral tablet) elderberry (elderberry 350 mg oral capsule) losartan (losartan 100 mg Tab) naproxen (Aleve Easy Open Arthritis 220 mg oral tablet) omega-3 polyunsaturated fatty acids (Fish Oil 1000 mg oral capsule) vitamin E (vitamin E 100 intl units oral capsule) Procedures Performed Lumpectomy of left breast (12/05/2023), Biopsy of breast, section, section, section, Closed reduction of nasal fracture, Colonoscopy, Colonoscopy, Meniscal repair, Myringotomy, Tonsillectomy and adenoidectomy, wisdom teeth. Medications What How Much When Instructions Unchanged amlodipine (amLODIPine 10 mg Tab) 1 Tablets By Mouth Every day Unchanged bacillus coagulans (Culturelle Abdominal Support and Comfort) 15 Milligram By Mouth Every day as needed for Prophylaxis Unchanged cranberry (cranberry oral tablet) See instructions Unchanged elderberry (elderberry 350 mg oral capsule) 1 Capsules By Mouth Every day as needed for Prophylaxis Unchanged losartan (losartan 100 mg Tab) 1 Tablets By Mouth Every day Unchanged naproxen (Aleve Easy Open Arthritis 220 mg oral tablet) 1 Tablets By Mouth Every 8 hours as needed for for headache Unchanged omega-3 polyunsaturated fatty acids (Fish Oil 1000 mg oral capsule) 4 Capsules By Mouth Every day Unchanged vitamin E (vitamin E 100 intl units oral capsule) 1 Capsules By Mouth Every day as needed for Prophylaxis Allergies Bactrim (Nausea) HYDROcodone (Vomiting) amoxicillin (Hives) erythromycin (Hives) homatropine (Vomiting) traMADol (Nausea and vomiting) Problems Ongoing - Any problem that you are currently receiving treatment for. BMI 27.0-27.9,adult Chronic fatigue syndrome Diverticulosis Former smoker HTN (hypertension) Hyperlipidemia Hypertensive nephropathy Invasive lobular carcinoma of left breast in female Lobular carcinoma of left breast Mixed conductive and sensorineural hearing loss Overweight RBBB (right bundle branch block) Sick-euthyroid syndrome Stage 2 chronic kidney disease White matter disease Historical - Any problem that you are no longer receiving treatment for. Diabetes Hypertension Hypothyroid Menopause Patient Survey You may receive a survey via text or e-mail asking about your office visit. Please share your experience with us by completing your survey. We appreciate your feedback and thank you for choosing us for your care. Normal [facility] General Surgery Office/Clini c Noteon 12-13-2023 General Surgery Office/Clinic Note Chief Complaint post operative follow up HPI Staff 8 day post operative follow up post left breast lumpectomy with sentinel biopsy. Denies discomfort, no use of pain medication. Denies bleeding, drainage or significant bruising. History of Present Illness 8 days s/p left breast lumpectomy with sentinel lymph node biopsy; doing well, mild soreness; no drainage, no pain meds. pathology pending. Review of Systems ROS - Provider Constitutional: no fever, no sweats, no weight loss. Eyes: no glasses, no blurred vision, no visual loss. ENMT: no dentures, no hoarseness, no swallowing difficulties, no hearing loss, no ear infection(s), no nose bleeds. Cardiovascular: normal blood pressure, no chest pain, regular heartbeat, no heart murmur. Respiratory: no shortness of breath, no cough, no asthma, no wheezing. Gastrointestinal: no nausea, no vomiting, no diarrhea, no constipation, no blood in stool, no change in bowel habits, no abdominal pain, no hepatitis. Genitourinary: no kidney stones, no urine infection, no dysuria. Musculoskeletal: no pain, no weakness. Skin: no changing moles, no rash, no skin lumps. Neurologic: no seizures, no epilepsy, no headache. Psychiatric: no emotional or psychiatric problem. Heme/Lymph: no bleeding problems, no anemia, no blood clots, no transfusions. Allergy/Immunologic: no swollen lymph nodes/glands, no IV drug abuse. Other: Additional ROS info: Except as noted in the above Review of Systems and in the History of Present Illness, all other systems have been reviewed and are negative or noncontributory. Physical Exam skin: incisions healing well, glue intact, no erythema or drainage; minimal resolving ecchymoses. Assessment/Plan 1. Invasive lobular carcinoma of left breast in female (C50.412: Malignant neoplasm of upper-outer quadrant of left female breast) doing well, continue to wear bra even at night for next 10 days; ibuprofen prn; f/u in 2 weeks, will call patient with pathology results, call sooner if problems/questions. Follow-up No qualifying data available Problem List/Past Medical History Ongoing BMI 27.0-27.9,adult Chronic fatigue syndrome Diverticulosis Former smoker HTN (hypertension) Hyperlipidemia Hypertensive nephropathy Invasive lobular carcinoma of left breast in female Lobular carcinoma of left breast Mixed conductive and sensorineural hearing loss Overweight RBBB (right bundle branch block) Sick-euthyroid syndrome Stage 2 chronic kidney disease White matter disease Historical Diabetes Hypertension Hypothyroid Menopause Procedure/Surgical History Lumpectomy of left breast (12/05/2023), Biopsy of breast, section, section, section, Closed reduction of nasal fracture, Colonoscopy, Colonoscopy, Meniscal repair, Myringotomy, Tonsillectomy and adenoidectomy, wisdom teeth. Medications Aleve Easy Open Arthritis 220 mg oral tablet, 220 mg= 1 tab(s), Oral, q8hr, PRN amLODIPine 10 mg Tab, 10 mg= 1 tab(s), Oral, Daily cranberry oral tablet, See Instructions, PRN Culturelle Abdominal Support and Comfort, 15 mg, Oral, Daily, PRN elderberry 350 mg oral capsule, 350 mg= 1 cap(s), Oral, Daily, PRN Fish Oil 1000 mg oral capsule, 4000 mg= 4 cap(s), Oral, Daily losartan 100 mg Tab, 100 mg= 1 tab(s), Oral, Daily vitamin E 100 intl units oral capsule, 100 International_Unit= 1 cap(s), Oral, Daily, PRN Allergies Bactrim (Nausea) HYDROcodone (Vomiting) amoxicillin (Hives) erythromycin (Hives) homatropine (Vomiting) traMADol (Nausea and vomiting) Social History Alcohol - Denies Alcohol Use, 12/28/2010 Substance Abuse - Denies Substance Abuse, 12/28/2010 Tobacco Never (less than 100 in lifetime) Tobacco Use:. Never Smokeless Tobacco Use:., 11/14/2023 Family History Heart disease: Father. Immunizations Vaccine Date Status Comments influenza virus vaccine, inactivated - Not Given Patient Refuses Normal [facility] Comment on above: Result Comment: Elec tronically Signed By: Adrian JIMENEZ MD\.br\Date and Time Signed: 12/13/23 16:16 EST IntraOperative Documentson 0 12-13-2023 IntraOperative Documents [id number] Normal [facility] Main OR Intraoperative Recor don 12-10-2023 Main OR Intraoperative Record IntraOp Document Type FT Summary Primary Physician: Adrian JIMENEZ MD Finalized Date/Time: 12/10/23 09:51:34 Pt. Name: CHRISTAL CHEN D.O.B./Sex: 1955 Female Med Rec #: [id number] Physician: Adrian JIMENEZ MD Financial #: [id number] Pt. Type: A Room/Bed: [facility] Admit/Disch: 12/05/23 06:51:15 - 12/05/23 17:20:00 Institution: Case Times FT Entry 1 Patient Times In Room 12/05/23 11:10:00 Out Room 12/05/23 13:12:00 Procedure Times Start 12/05/23 11:34:00 Stop 12/05/23 13:03:00 Anesthesia Times Start 12/05/23 11:10:00 Stop 12/05/23 13:12:00 Last Modified By: Breanna MCDONALD, Helen Mccormick 12/05/23 13:12:22 General Comments: 12/10/23 Chart opened to review and send charges [facility]oth CSFA Case Attendance FT Entry 1 Entry 2 Entry 3 Case Attendee Maxwell KOCH, Keegan JIMENEZ MD, Pedro Luis Hernandez Role Performed WASHERY BOSS Surgeon - Primary RETAIL MERCHANDISER TECHNICIAN Time In 12/05/23 11:10:00 12/05/23 11:10:00 12/05/23 11:10:00 Time Out 12/05/23 13:12:00 12/05/23 13:12:00 12/05/23 13:12:00 Procedure BREAST BIOPSY(.), BREAST BIOPSY(.), BREAST BIOPSY(.), SENTINEL NODE BIOPSY(.) SENTINEL NODE BIOPSY(.) SENTINEL NODE BIOPSY(.) Comments DR. COON SUPERVISING Last Modified By: Breanna MCDONALD, Helen Robledo RN, Helen Robledo RN, Helen Mccormick 12/05/23 Ella Mccormick 12/05/23 Ella Mccormick 12/05/23 13:12:23 13:12:23 13:12:23 Entry 4 Entry 5 Entry 6 Case Attendee Breanna MCDONALD, Helen Maier RN, CNOR, Henrietta Taylor VENEER STOCK LAYER, Blas Jhaveri Role Performed Batch Heat Treat Operator - Primary Batch Heat Treat Operator - Relief VENEER STOCK LAYER/SA Time In 12/05/23 11:15:00 12/05/23 11:10:00 12/05/23 11:15:00 Time Out 12/05/23 13:12:00 12/05/23 11:30:00 12/05/23 13:12:00 Procedure BREAST BIOPSY(.), BREAST BIOPSY(.), BREAST BIOPSY(.), SENTINEL NODE BIOPSY(.) SENTINEL NODE BIOPSY(.) SENTINEL NODE BIOPSY(.) Comments Last Modified By: Breanna MCDONALD, Helen Robledo RN, Helen Robledo RN, Helen Mccormick 12/05/23 Ella Mccormick 12/05/23 Ella Mccormick 12/05/23 13:12:23 13:12:23 13:12:23 Entry 7 Case Attendee Jovita Padilla CST Role Performed VENEER STOCK LAYER/SA Time In 12/05/23 11:10:00 Time Out 12/05/23 11:20:00 Procedure BREAST BIOPSY(.), SENTINEL NODE BIOPSY(.) Comments LUNCH RELIEF Last Modified By: Breanna MCDONALD, Helen Mccormick 12/05/23 13:12:23 General Comments: FANNY BARBOSA STUDENT, SCRUBBED IN FOR CASE -VTasha ROBLEDO RNautomobile racer Protocols FT Pre-Care Text: Implements protective measures prior to operative or invasive procedure, confirms identity before the operative or invasive procedure, verifies operative procedure, surgical site, and laterality Entry 1 Procedure(s) BREAST BIOPSY(.), Patient Identity Birthday, Blood Band, SENTINEL NODE BIOPSY(.) Verified (select at ID Band Check, Patient least 2): Participation Consents / H and P Anesthesia Consent, Operative Site Present Verified HandP, Surgery/Procedure Marking Verified Consent, Transfusion Consent Surgical Site Yes Laterality Verified Yes Verified Procedure Verified Yes Correct Patient Yes Position Verified Availability Equipment, Medication Prep Dry n/a Verified (If Applicable) PreOp Antibiotic Yes Time Out TONY PATEL, Harsha Mccurdy Participants Keegan Arreola CRNA, Osuna, Alejandro, Ferrer RN, Brandon Marcelo CST, James W Time Out Complete 12/05/23 11:34:00 Outcomes Met? Yes Last Modified By: Breanna MCDONALD, Helen Mccormick 12/05/23 11:47:59 Post-Care Text: The patient is free from signs and symptoms of injury caused by extraneous objects Allergy Information FT Pre-Care Text: Verifies allergies Entry 1 Allergies Reviewed? Yes Allergies Reviewed Self/Patient With Outcomes Met? Yes Last Modified By: Breanna MCDONALD, Helen Mccormick 12/05/23 11:48:05 Post-Care Text: The patient received appropriate medication(s) safely administered during the perioperative period Surgical Procedures FT Entry 1 Entry 2 Procedure Description Procedure BREAST BIOPSY SENTINEL NODE BIOPSY Modifiers . . Surgeon Description LEFT MAMMOGRAM GUIDED LEFT MAMMOGRAM GUIDED NEEDLE LOCALIZED NEEDLE LOCALIZED LUMPECTOMY WITH LUMPECTOMY WITH SENTINAL LYMPH NODE SENTINAL LYMPH NODE BIOPSY BIOPSY Primary Procedure Yes No Primary Surgeon TONY PATEL, Adrian JIMENEZ MD, Adrian Retana 12/05/23 11:34:00 12/05/23 11:34:00 Stop 12/05/23 13:03:00 12/05/23 13:03:00 Anesthesia Type General General Surgical Service General General Wound Class 1 - Clean 1 - Clean Last Modified By: Breanna RN, Helen Robledo RN, Helen Jaramillo P 12/05/23 Ella Mccormick 12/05/23 13:03:45 13:03:49 General Case Data FT Pre-Care Text: Classifies surgical wound, implements aseptic technique, initiates traffic control Entry 1 Case Information OR OR 6 FT Case Level Level 2 Wound Class 1 - Clean Specialty General ASA Class 3 Preop Diagnosis BREAST CANCER Postop Same As Preop Yes Postop Diagnosis BREAST CANCER Outcomes Met? Yes Last Modified By: Breanna (more content not included)... Normal [facility] Progress Note-Physicianon Progress Note-Physician Patient: CHRISTAL CHEN Age: 68 years Sex: Female : 1955 Associated Diagnoses: None Author: MD Jaymie, Laci Hays Postoperative Information Postoperative disposition: Postoperative disposition: To PACU. Optimetrix number: Optimetrix number [id number]. Anesthetic utilized: General. Health Status Allergies: Allergic Reactions (Selected) Severity Not Documented Amoxicillin- Hives. Bactrim- Nausea. Erythromycin- Hives. Nonallergic Reactions (Selected) Severity Not Documented Homatropine- Vomiting. HYDROcodone- Vomiting. TraMADol- Nausea and vomiting. Physical Examination VS/Measurements Pain Assessment: Controlled. General: Awake, Alert, Appropriate. Respiratory: Adequate air exchange. Cardiovascular: Stable, Normal peripheral perfusion. Neurological: Normal sensory function, Normal motor function. Assessment Anesthetic outcome No anesthetic complications noted. Adequate pain relief. able to void without difficulty, able to ambulate with assist, tolerating PO intake, no N/V. Review / Management Condition: Stable. Plan Transfer/Discharge: Transfer/Discharge Discharge when meets criteria ( To home ). Normal [facility] Comment on above: Result Comment: Elec tronically Signed By: MD Jaymie, Laci [place]\.br\Date and Time Signed: 12/09/23 08:12 EST Progress Note-Physician Patient: CHRISTAL CHEN Age: 68 years Sex: Female : 1955 Associated Diagnoses: None Author: MD Coon Ahmad F Preoperative Information Time patient last ate or drank:=== (npo 8 hours) Anesthesia history: Patient history: No prior anesthesia problems. Re-evaluation prior to induction: Completed, Initial evaluation reviewed. Review of Systems Respiratory: No shortness of breath. Cardiovascular: No chest pain. Hematology/Lymphatics : No bruising tendency, No bleeding tendency. Health Status Allergies: Allergic Reactions (All) Severity Not Documented Amoxicillin- Hives. Bactrim- Nausea. Erythromycin- Hives. Nonallergic Reactions (All) Severity Not Documented Homatropine- Vomiting. HYDROcodone- Vomiting. TraMADol- Nausea and vomiting. Current medications: (Selected) Prescriptions Prescribed Percocet 5 mg-325 mg oral tablet: 1 tab(s), Oral, q6hr, 10 tab(s), Refill(s) 0, not to exceed 4000 mg acetaminophen per day take with food or milk, [facility] [id number], 165, cm, 11/20/23 6:04:00 EST, Height/Length Dosing, 73.3, kg, 11/20/23 6:04:00 EST, Weight Dosing Documented Medications Documented Aleve Easy Open Arthritis 220 mg oral tablet: 220 mg, 1 tab(s), Oral, q8hr for headache, 40 tab(s), Refill(s) 0 Culturelle Abdominal Support and Comfort: 15 mg, Oral, Daily Prophylaxis, Refill(s) 0 Fish Oil 1000 mg oral capsule: 4,000 mg = 4 cap(s), Oral, Daily, Refills(s) 0, Other (see comment) amLODIPine 10 mg Tab: 10 mg = 1 tab(s), Oral, Daily, Refills(s) 0, High blood pressure cranberry oral tablet: See Instructions, Prophylaxis, Refill(s) 0 elderberry 350 mg oral capsule: 350 mg = 1 cap(s), Oral, Daily, PRN Prophylaxis, Refills(s) 0 losartan 100 mg Tab: 100 mg = 1 tab(s), Oral, Daily, Refills(s) 0, High blood pressure vitamin E 100 intl units oral capsule: 100 International_Unit = 1 cap(s), Oral, Daily, PRN Prophylaxis Problem list: All Problems Hyperlipidemia / SNOMED CT 33962603 / Confirmed HTN (hypertension) / SNOMED CT 9003519918 / Confirmed Chronic fatigue syndrome / SNOMED CT 75909953 / Confirmed Hypertensive nephropathy / SNOMED CT 81224572 / Confirmed Former smoker / SNOMED CT 26436368 / Confirmed Diverticulosis / SNOMED CT 9322699843 / Confirmed RBBB (right bundle branch block) / SNOMED CT 49066053 / Confirmed Stage 2 chronic kidney disease / SNOMED CT 0352140052 / Confirmed White matter disease / SNOMED CT 8516339023 / Confirmed 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 Hypothyroid (522692012): Resolved. Menopause (279448712): Resolved. Diabetes (319072109): Resolved. Family History: Heart disease Father Procedure history: Left mammogram guided needle localized lumpectomy with sentinel lymph node biopsy (922979443) on 12/05/2023 at 68 Years. wisdom teeth. section (30426585). Colonoscopy (305545561). Colonoscopy (665761747). Myringotomy (5847433932). Tonsillectomy and adenoidectomy (248757268). Closed reduction of nasal fracture (98334082). section (10833612). section (62643051). Meniscal repair (972491783). Biopsy of breast (633922941). Social History Social & Psychosocial Habits Alcohol 11/19/2023 Risk Assessment: Denies Alcohol Use Substance Abuse 11/19/2023 Risk Assessment: Denies Substance Abuse Tobacco 11/19/2023 Tobacco Use: Never (less than 100 in l Smokeless tobacco use: Never . Physical Examination Please see preop flow sheet Airway: Mallampati classification: II (soft palate, fauces, uvula visible). Respiratory: Lungs are clear to auscultation. Cardiovascular: Normal rate, Regular rhythm. Neurologic: Alert. Review / Management Results review Interpretation of Outside Results Chest x-ray results Radiology results ECG interpretation Condition Plan [place] [employer] (ASA) physical status classification: Class III. Anesthetic Preoperative Plan Anesthesia: General. . Anesthetic plan, risks, benefits, and alternatives discussed with the patient and/or family. Risks discussed: nausea, vomiting, headache, sore throat, dental injury, serious complications. Patient verbalized understanding. Communication: face to face with patient 5 minutes. [facility] Comment on above: Result Comment: Elec tronically Signed By: MD Jaymie, Laci [place]\.br\Date and Time Signed: 12/09/23 08:10 EST Consent for Anesthesiaon Consent for Anesthesia [id number]#1 .00TIFF [facility] Discharge Instructionson Discharge Instructions [id number]#1 .00TIFF [facility] IntraOperative Documentson 0 12-06-2023 IntraOperative Documents [id number] .00TIFF [facility] IntraOperative Documents [id number] .00TIFF [facility] Pre-Op Checkliston Pre-Op Checklist [id number]#1 .00TIFF Normal [facility] Consent for Treatmenton 11-08 Consent for Treatment [id number]#1 .00TIFF Normal [facility] Discharge Instructionson Discharge Instructions CHRISTAL CHEN :1955 Visit Date:12/05/2023 Inpatient Discharge Instructions Your Care Team Admitting Physician - Adrian JIMENEZ MD Referring Physician - Adrian JIMENEZ MD Reason for Your Visit BREAST CANCER Your Diagnosis Acute postoperative pain Breast cancer of upper-outer quadrant of left female breast Tests Performed Pathology Tissue Exam -- Results Pending -- MA Breast Needle Loc w/ Guidance, Left MA Surgical Specimen Left NM Lymphoscintigraphy Please visit your patient portal for your results or contact your primary care physician. This Is Your Medications List acetaminophen-oxycodo ne (Percocet 5 mg-325 mg oral tablet) amlodipine (amLODIPine 10 mg Tab) bacillus coagulans (Culturelle Abdominal Support and Comfort) cranberry (cranberry oral tablet) elderberry (elderberry 350 mg oral capsule) losartan (losartan 100 mg Tab) naproxen (Aleve Easy Open Arthritis 220 mg oral tablet) omega-3 polyunsaturated fatty acids (Fish Oil 1000 mg oral capsule) vitamin E (vitamin E 100 intl units oral capsule) Procedure History Biopsy of breast, section, section, section, Closed reduction of nasal fracture, Colonoscopy, Colonoscopy, Meniscal repair, Myringotomy, Tonsillectomy and adenoidectomy, wisdom teeth. What to do next Instructions From Your Doctor Event Name Event Result Discharge Instructions Freetext may shower tomorrow, remove dressing and leave incisions open to air, no tub baths for 10 days; no lifting > 10 lbs for 2 weeks; no driving while taking the Percocet; take ibuprofen or Aleve scheduled for first 5 days after surgery; wear bra at all times. Discharge Activity Arrange for a responsible adult supervision for 24 hours Discharge Restrictions No driving for 24 hrs, Do not operate machinery or tools, Do not make important decisions for 24 hours, Do not drink alcoholic beverages for 24 hours Discharge Diet(s) Regular Call Your Doctor For Persistent or heavy bleeding, Temperature above 101.5 degrees, Redness, swelling, or pus at operative site, Severe pain at the operative site, Persistent vomiting Wound Care Keep incision dry, Remove dressing as instructed Remove Dressing On 1 Discharge Instructions Discharge Instructions New Follow Up Appointments after Discharge Follow Up with Adrian JIMENEZ When: Within 7 to 10 days Where: [facility]ira [facility], [address] [address] [facility] (1) Medications What How Much When Why Instructions Next Dose New acetaminophen-oxycodo ne (Percocet 5 mg-325 mg oral tablet) 1 Tablets By Mouth Every 6 hours Acute postoperative pain not to exceed 4000 mg acetaminophen per day take with food or milk Pickup at [facility] [id number] Unchanged amlodipine (amLODIPine 10 mg Tab) 1 Tablets By Mouth Every day Unchanged bacillus coagulans (Culturelle Abdominal Support and Comfort) 15 Milligram By Mouth Every day as needed for Prophylaxis Unchanged cranberry (cranberry oral tablet) See instructions Unchanged elderberry (elderberry 350 mg oral capsule) 1 Capsules By Mouth Every day as needed for Prophylaxis Unchanged losartan (losartan 100 mg Tab) 1 Tablets By Mouth Every day Unchanged naproxen (Aleve Easy Open Arthritis 220 mg oral tablet) 1 Tablets By Mouth Every 8 hours as needed for for headache Unchanged omega-3 polyunsaturated fatty acids (Fish Oil 1000 mg oral capsule) 4 Capsules By Mouth Every day Unchanged vitamin E (vitamin E 100 intl units oral capsule) 1 Capsules By Mouth Every day as needed for Prophylaxis Pharmacy Information [facility] [id number]: [address], [place] [id number] [phone] Education Materials Breast Biopsy, Care After The following information offers guidance on how to care for yourself after your breast biopsy. Your health care provider may also give you more specific instructions. If you have problems or questions, contact your health care provider. What can I expect after the procedure? After your breast biopsy, it is common to have: ? Bruising on your breast. ? Numbness, tingling, or pain near your biopsy site. This site is where tissue was removed for testing. ? Bleeding or swelling at the biopsy site. ? Changes in the shape of your breast. These are most often short-term and depend on how much tissue was removed. Follow these instructions at home: Medicines ? Take liwq-mwj-kkejoxl and prescription medicines only as told by your health care provider. ? If you were given a sedative during the procedure, it can affect you for several hours. Do not drive or operate machinery until your health care provider says that it is safe. ? Do not drink alcohol while taking pain medicine. ? Ask your health care provider if the medicine prescribed to you requires you to avoid driving or using machinery. Biopsy site care ? Fol (more content not included)... Normal [facility] Comment on above: Result Comment: Elec tronically Signed By: Berta MCDONALD, Diallo [place]\.br\Date and Time Signed: 12/05/23 13:54 EST Inpatient Patient Summaryon 12-05-2023 Inpatient Patient Summary [address] [address] [facility] Clinical Discharge Instructions PERSON INFORMATION Name: CHRISTAL CHEN [facility]#:[id number] PHYSICIANS Admitting Physician: Adrian JIMENEZ MD Attending Physician: Adrian JIMENEZ MD PCP: NI PATEL, QUINTON Malik Discharge Diagnosis: Breast cancer of upper-outer quadrant of left female breast Comment: PATIENT EDUCATION INFORMATION Instructions: Post Op Patient Instructions - FT (CUSTOM) Medication Leaflets: Follow up: With: Address: When: Adrian JIMENEZ [address] [place] [address], [facility] [address] [id number] Business (1) Within 7 to 10 days MEDICATION LIST New Medications [facility] [id number], [address], [place] [id number], [phone] acetaminophen-oxycodo ne (Percocet 5 mg-325 mg oral tablet) 1 Tablets By Mouth every 6 hours. not to exceed 4000 mg acetaminophen per day take with food or milk. Refills: 0. Medications to Continue with No Changes Other Medications amlodipine (amLODIPine 10 mg Tab) 1 Tablets By Mouth every day. bacillus coagulans (Culturelle Abdominal Support and Comfort) 15 Milligram By Mouth every day as needed Prophylaxis. cranberry (cranberry oral tablet) as needed Prophylaxis. elderberry (elderberry 350 mg oral capsule) 1 Capsules By Mouth every day as needed Prophylaxis. losartan (losartan 100 mg Tab) 1 Tablets By Mouth every day. naproxen (Aleve Easy Open Arthritis 220 mg oral tablet) 1 Tablets By Mouth every 8 hours as needed for headache. omega-3 polyunsaturated fatty acids (Fish Oil 1000 mg oral capsule) 4 Capsules By Mouth every day. vitamin E (vitamin E 100 intl units oral capsule) 1 Capsules By Mouth every day as needed Prophylaxis. Comment: Normal [facility] Breast Needle Loc w/ Guid ance, Lefton 12-05-2023 MA Breast Needle Loc w/ Guidance, Left Exam Date/Time: 12/05/2023 09:54 EST Reason for Exam: BREAST CANCER Report [facility] [phone] IMPRESSION: PREOPERATIVE LOCALIZATION PROCEDURE LEFT BREAST. CLINICAL HISTORY: BREAST CANCER. COMMENT: The procedure was discussed with the patient. Using sterile technique, lidocaine infiltration for analgesia, and mammographic localization, a localization needle and wire were introduced into the left breast. The needle was removed and the wire left in place. The localization wire is in close proximity to the small metallic biopsy clip in the posterior upper outer left breast. Ordering Provider: Adrian JIMENEZ FINAL REPORT Dictated: 12/05/2023 1:06 pm Jeff Morataya M.D. Signed (Electronic Signature): 12/05/2023 1:06 pm Signed by: Jeff Morataya M.D. Transcribed by: EFRAIN Technologist: RUBI [facility] MA Surgical Specimen Lefton 12-05-2023 MA Surgical Specimen Left Exam Date/Time: 12/05/2023 12:50 EST Reason for Exam: Biopsy Report [facility] [phone] IMPRESSION: BIOPSY CLIP IN THE LEFT BREAST SURGICAL SPECIMEN. CLINICAL HISTORY: Biopsy. COMMENT: The left breast surgical specimen was radiographed. The end of the localization wire and the small metallic biopsy clip are located within the surgical specimen. Ordering Provider: Adrian JIMENEZ FINAL REPORT Dictated: 12/05/2023 12:54 pm Jeff Morataya M.D. Signed (Electronic Signature): 12/05/2023 12:54 pm Signed by: Jeff Morataya M.D. Transcribed by: EFRAIN Technologist: DIMPLE [facility] Main OR PACU I Recordon 11-08 Main OR PACU I Record PACU Phase I Docum ent Type FT Summary Primary Physician: Adrian JIMENEZ MD Finalized Date/Time: 12/05/23 14:39:43 Pt. Name: CHRISTAL CHEN /Sex: 1955 Female Med Rec #: [id number] Physician: Adrian JIMENEZ MD Financial #: [id number] Pt. Type: A Room/Bed: [place] [address] Admit/Disch: 12/05/23 06:51:15 - Institution: Case Times PACU I FT Pre-Care Text: Identifies barriers to communication and implements measures to provide psychological support Develops individualized plan of care, and ensures continuity of care Maintains patient's dignity and privacy, and maintains patient confidentiality Identifies and reports philosophical, cultural, and spiritual beliefs and values Identifies individual values and wishes concerning care Implements aseptic technique, and administers prescribed antibiotic therapy and immunizing agents as ordered Evaluates postoperative tissue perfusion Implements thermoregulation measures, and monitors body temperature Evaluates postoperative respiratory status Evaluates postoperative cardiac status Evaluates postoperative neurological status Assesses pain control, collaborated in initiating patient-controlled analgesia and implements alternative methods of pain control Verifies allergies, administers prescribed medications and solutions, evaluates response to medications Entry 1 In PACU I 12/05/23 13:14:00 Discharge from PACU 12/05/23 14:30:00 I Outcomes Met? Yes Last Modified By: Donna Manley RN 12/05/23 14:39:35 Post-Care Text: The patient demonstrates knowledge of the expected response to the operative or invasive procedure The patient's care is consistent with the individualized perioperative plan of care The patient's right to privacy is maintained The patient's value system, lifestyle, ethnicity, and culture are considered, respected, and incorporated into the perioperative plan of care The patient participates in decisions affecting his or her perioperative plan of care The patient is free from signs and symptoms of infection The patient has wound/tissue perfusion consistent with or improved from baseline levels established preoperatively The patient is at or returning to normothermia at the conclusion of the immediate postoperative period The patient's respiratory function is consistent with or improved from baseline levels established preoperatively The patient's cardiovascular status is consistent with or improved from baseline levels established preoperatively The patient's cardiovascular status is consistent with or improved from baseline levels established preoperatively The patient demonstrates and/or reports adequate pain control throughout the perioperative period The patient received appropriate medication(s), safely administered during the perioperative period Acuity Level PACU I FT Entry 1 Start Time 12/05/23 13:14:00 Stop Time 12/05/23 14:30:00 Acuity Level Acuity Level I Last Modified By: Donna Manley RN 12/05/23 14:39:24 Finalized By: Donna Manley RN Document Signatures Signed By: Donna Manley RN 12/05/23 14:39 Normal [facility] Main OR Preoperative Recordo n 12-05-2023 Main OR Preoperative Record PreOp Document Type FT Summary Primary Physician: Adrian JIMENEZ MD Finalized Date/Time: 12/05/23 11:57:58 Pt. Name: CHRISTAL CHEN Dakota ChoeB./Sex: 1955 Female Med Rec #: [id number] Physician: Adrian JIMENEZ MD Financial #: [id number] Pt. Type: Room/Bed: [place] [address] Admit/Disch: 12/05/23 06:51:15 - Institution: Case Times PreOp FT Pre-Care Text: Verifies consent for planned procedure, identifies individual values and wishes concerning care, includes family members in perioperative teaching Entry 1 Patient Times. In Pre Surgery 12/05/23 06:55:00 Out Pre Surgery 12/05/23 11:08:00 Outcomes Met? Yes Last Modified By: Helen Robledo RN 12/05/23 11:57:56 Post-Care Text: The patient participates in decisions affecting his or her perioperative plan of care Finalized By: Helen Robledo RN Document Signatures Signed By: Helen Robledo RN 12/05/23 11:57 Normal [facility] Monitor Recordon 12-05-2023 Monitor Record [id number]# 1.00TIFF Normal [facility] NM Lymphoscintigraphyon 11-08 NM Lymphoscintigraphy Exam Date/Time: 12/05/2023 10:31 EST Reason for Exam: BREAST CANCER Report IMPRESSION: NO LEFT AXILLARY SENTINEL LYMPH NODE UPTAKE OF ACTIVITY IS NOTED AT 15 MINUTES POSTINJECTION. CLINICAL HISTORY: BREAST CANCER. COMMENT: The procedure was discussed with the patient. A total of 526 uCi of 99m Technetium Lymphoseek were injected subdermally at 4 periareolar sites in the left breast. There is activity associated with injection sites, but no sentinel lymph node uptake of activity at the left axilla is noted at 15 minutes postinjection. Ordering Provider: Adrian JIMENEZ FINAL REPORT Dictated: 12/05/2023 1:09 pm Jeff Morataya M.D. Signed (Electronic Signature): 12/05/2023 1:09 pm Signed by: Jeff Morataya M.D. Transcribed by: EFRAIN Technologist: ESTEFANI Technical Comments Dose (mCi Tc99m Lymphoseek): 0.5 Normal [facility] Operative Reporton Operative Report SURGERY DATE: 12/05/2023 PREOPERATIVE DIAGNOSIS: Left breast cancer POSTOPERATIVE DIAGNOSIS: Left breast cancer OPERATION: Needle localized left breast lumpectomy with sentinel lymph node biopsy ANESTHESIA: General with laryngeal mask airway ESTIMATED BLOOD LOSS: Less than 15 mL INDICATIONS AND CONSENT: The patient is a 68-year-old female recently diagnosed with invasive lobular cancer of the left upper outer quadrant. She was noted to have limited disease by MRI in just the left breast and negative genetic workup. Indications, risks, benefits, alternatives of proceeding with needle localized lumpectomy and sentinel node biopsy are explained extensively to the patient including risk of bleeding, infection, scarring, pain, nerve injury, blood clot, pulmonary embolus, heart attack, anesthetic complications, need for further breast or axillary surgery or anesthetic complications. All of her questions were answered. Informed consent was obtained. PROCEDURE: The patient was brought to the Operating Room and placed in the supine position. General anesthesia was induced. She had previously undergone needle localization and sentinel node injection in Radiology. She was prepped and draped in the usual sterile fashion. Prior to prepping, 3 cc of half strength methylene blue were injected intradermally near the edge of the nipple/areolar border in the left upper outer quadrant. Curvilinear was then made in the left axilla below the area of hair-bearing skin and carried down through subcutaneous tissue using sharp dissection as well as electrocautery. The clavipectoral fascia was incised. There was noted to be enlarged lymph node in the upper portion of the mid axilla. This had some blue lymphatics going to it as well as partially blue lymph node. It was carefully dissected out. Lymphatics and vessels were controlled with the harmonic scalpel. Ex vivo there was no increased activity by the probe. It was sent off as blue but not hot lymph node. Several other enlarged nodes were identified which were neither blue nor hot by the probe. These were sent as not hot and not blue. Carefully probing the axilla, there were several small lymph nodes that were identified medially below the pectoralis major muscle. These did not have increased blue activity but did have increased activity with the probe. These were sent as hot and not blue. No other abnormal nodes were identified. The axilla was copiously irrigated. There was good hemostasis. The subcutaneous tissue was then reapproximated with interrupted 3-0 Monocryl suture. Skin was closed with a running 4-0 subcuticular Monocryl suture. A sterile towel was then placed over the incision. Curvilinear incision was then made in the left upper outer quadrant of the breast around the area of the wire which was inserted by Radiology. It was carried down through subcutaneous tissue using electrocautery. Superior and inferior skin flaps were raised. The area then around the wire was excised down to the pectoralis fascia. At least 2-3 cm around the wire was excised circumferentially. Hemostasis was achieved with electrocautery as well as with 3-0 Vicryl sutures. The specimen was marked with a short stitch superiorly and long stitch laterally. It was sent to Radiology where the specimen did show evidence of having the biopsy clip in place. The wound was irrigated. There was good hemostasis. The subcutaneous tissue was reapproximated with interrupted 3-0 Monocryl suture. Skin was then closed with a running 4-0 subcuticular Monocryl suture. Skin glue was then applied to both incisions as well as sterile pressure dressing and the patient's bra. Sponge and needle counts were correct x2 per nursing personnel. The patient tolerated the procedure well, was sent to Recovery Room in good condition. Jessica Turner FACS Dictated: 12/05/2023 [id number] Transcribed: 12/05/2023 cc:Jessica Nair [facility] Comment on above: Result Comment: Elec tronically Signed By: TONY PATEL, Adrian Hall\.br\Date and Time Signed: 12/05/23 14:37 EST Outpatient Surgery Discharge Instructionon 12-05-2023 Outpatient Surgery Discharge Instruction [place] [id number] Patient Discharge Instructions PERSON INFORMATION Name: CHRISTAL CHEN Date of : 1955 Current Date: 12/05/2023 13:33:30 PHYSICIANS Admitting Physician: Adrian JIMENEZ MD Discharge Diagnosis: Breast cancer of upper-outer quadrant of left female breast CHRISTAL CHEN has been given the following list of follow-up instructions, prescriptions, and patient education materials: PATIENT FOLLOW-UP INFORMATION Diet: Regular Discharge Activity: Arrange for a responsible adult supervision for 24 hours Discharge Restrictions: No driving for 24 hrs, Do not operate machinery or tools, Do not make important decisions for 24 hours, Do not drink alcoholic beverages for 24 hours Call Your Doctor For: Persistent or heavy bleeding, Temperature above 101.5 degrees, Redness, swelling, or pus at operative site, Severe pain at the operative site, Persistent vomiting Wound Care Instructions: Keep incision dry, Remove dressing as instructed Remove Your Dressing In 1 Days Additional Instructions: may shower tomorrow, remove dressing and leave incisions open to air, no tub baths for 10 days; no lifting > 10 lbs for 2 weeks; no driving while taking the Percocet; take ibuprofen or Aleve scheduled for first 5 days after surgery; wear bra at all times. IF UNABLE TO CONTACT YOUR PHYSICIAN AND YOU FEEL IT IS AN EMERGENCY, GO TO THE NEAREST EMERGENCY ROOM OR CALL 911 I GRADY CHENRICIA [place], have received the attached patient education materials/instruction s and have verbalized understanding: May we do a follow up call? Yes No I was present when discharge instructions were given Patient Signature Date Clinican/Nurse Signature Date Follow up: With: Address: When: Adrian Silva [address], [address], [facility] [address] [place] [address] [facility] (1) Within 7 to 10 days Pharmacy Information: You may receive a survey from [employer] asking you to rate your care experience. Your feedback is important and will help us understand what we do well and how we can improve the quality of care we provide to you, your loved ones and our community. It?s an honor to serve you. Thank you for choosing [facility] HERE ARE THE MEDICATION CHANGES THAT OCCURRED DURING YOUR HOSPITAL STAY New Medications [facility] [id number], [address] [place], [place] [id number], [phone] acetaminophen-oxycodo ne (Percocet 5 mg-325 mg oral tablet) 1 Tablets By Mouth every 6 hours. not to exceed 4000 mg acetaminophen per day take with food or milk. Refills: 0. Medications to Continue with No Changes Other Medications amlodipine (amLODIPine 10 mg Tab) 1 Tablets By Mouth every day. bacillus coagulans (Culturelle Abdominal Support and Comfort) 15 Milligram By Mouth every day as needed Prophylaxis. cranberry (cranberry oral tablet) as needed Prophylaxis. elderberry (elderberry 350 mg oral capsule) 1 Capsules By Mouth every day as needed Prophylaxis. losartan (losartan 100 mg Tab) 1 Tablets By Mouth every day. naproxen (Aleve Easy Open Arthritis 220 mg oral tablet) 1 Tablets By Mouth every 8 hours as needed for headache. omega-3 polyunsaturated fatty acids (Fish Oil 1000 mg oral capsule) 4 Capsules By Mouth every day. vitamin E (vitamin E 100 intl units oral capsule) 1 Capsules By Mouth every day as needed Prophylaxis. PATIENT EDUCATION INFORMATION Instructions: Medication Leaflets: [facility] Patient Education - Texton 0 12-05-2023 Patient Education - Text Obstetrics and Gynecology Breast Biopsy, Care After The following information offers guidance on how to care for yourself after your breast biopsy. Your health care provider may also give you more specific instructions. If you have problems or questions, contact your health care provider. What can I expect after the procedure? After your breast biopsy, it is common to have: ? Bruising on your breast. ? Numbness, tingling, or pain near your biopsy site. This site is where tissue was removed for testing. ? Bleeding or swelling at the biopsy site. ? Changes in the shape of your breast. These are most often short-term and depend on how much tissue was removed. Follow these instructions at home: Medicines ? Take slgv-qct-adzafqs and prescription medicines only as told by your health care provider. ? If you were given a sedative during the procedure, it can affect you for several hours. Do not drive or operate machinery until your health care provider says that it is safe. ? Do not drink alcohol while taking pain medicine. ? Ask your health care provider if the medicine prescribed to you requires you to avoid driving or using machinery. Biopsy site care ? Follow instructions from your health care provider about how to take care of your incision or puncture area. Make sure you: ? Wash your hands with soap and water for at least 20 seconds before and after you change your bandage (dressing). If soap and water are not available, use hand machine maintenance technician. ? Change your dressing as told by your health care provider. ? Leave any stitches (sutures), skin glue, or adhesive strips in place. These skin closures may need to stay in place for 2 weeks or longer. If adhesive strip edges start to loosen and curl up, you may trim the loose edges. Do not remove adhesive strips completely unless your health care provider tells you to do that. ? If you have sutures, keep them dry when bathing. ? Check your incision or puncture area every day for signs of infection. Check for: ? More redness, swelling, or pain. ? More fluid or blood. ? Warmth. ? Pus or a bad smell. ? Protect the biopsy area. Do not let the area get bumped. Managing pain If directed, put ice on the biopsy site to relieve tenderness. To do this: ? Put ice in a plastic bag. ? Place a towel between your skin and the bag. ? Leave the ice on for 20 minutes, 2?3 times a day. ? Remove the ice if your skin turns bright red. This is very important. If you cannot feel pain, heat, or cold, you have a greater risk of damage to the area. Activity ? If an incision was made during your biopsy, avoid activities that may pull the incision open. Avoid stretching, reaching above your head, exercise, sports, or lifting anything that is heavier than 3 lb (1.4 kg). ? Return to your normal activities as told by your health care provider. Ask your health care provider what activities are safe for you. General instructions ? Go back to your usual diet. ? Wear a good support bra for as long as told by your health care provider. ? Get checked for extra fluid around your lymph nodes (lymphedema) as often as told. ? Do not use any products that contain nicotine or tobacco. These products include cigarettes, chewing tobacco, and vaping devices, such as e-cigarettes. If you need help quitting, ask your health care provider. ? Keep all follow-up visits. This is important. Contact a health care provider if: ? You have more redness, swelling, or pain at your biopsy site. ? You have more fluid or blood coming from your biopsy site. ? Your biopsy site feels warm to the touch. ? You have pus or a bad smell coming from your biopsy site. ? Your biopsy site breaks open after any sutures or adhesive strips have been removed. ? You have a rash or a fever. Get help right away if: ? You have trouble breathing. ? You have red streaks around the biopsy site. Summary ? After a breast biopsy, it is common to have bruising, numbness, tingling, or pain near the biopsy site. ? Ask your health care provider if the medicine prescribed to you requires you to avoid driving or using machinery, or to stop drinking alcohol. ? If an incision was made during your procedure, avoid activities that may pull the incision open. Ask your health care provider what activities are safe for you. ? Wear a good support bra for as long as told by your health care provider. This information is not intended to replace advice given to you by your health care provider. Make sure you discuss any questions you have with your health care provider. Document Revised: 08/17/2022 Document Reviewed: 07/03/2022 [employer] Patient Education ? 2022 [employer]. Normal [facility] RAD - MISCon 12-05-2023 RAD - MISC [id number] #1.00TIFF [facility] Consultation Noteon 12-02-19 Consultation Note [id number]#1 .00TIFF [facility] Consent for Procedure/Surger yon 11-20-2023 Consent for Procedure/Surgery [id number]#1 .00TIFF [facility] Consultation Noteon 11-20-19 Consultation Note [id number]#1 .00TIFF [facility] MRI Breast w/o and w/ Contra st, Bilaton 11-20-2023 MRI Breast w/o and w/ Contrast, Bilat Exam Date/Time: 11/19/2023 11:56 EST Reason for Exam: Breast cancer, invasive, staging, prior to preop systemic therapy;Other (please specify) Report IMPRESSION: BI-RADS CATEGORY 6: KNOWN BIOPSY-PROVEN NEOPLASM. CLINICAL HISTORY: Breast cancer, invasive, staging, prior to preop systemic therapy. Ultrasound-guided biopsy left breast on 10/21/2023, 2:00, invasive lobular carcinoma. COMPARISON: Mammograms 09/19/2023 and left breast mammograms and ultrasound on 10/09/2023. COMMENT: Unenhanced and intravenous contrast enhanced images were obtained. There is a scattered amount of fibroglandular tissue in each breast. There is background parenchymal enhancement in each breast, with moderate to severe background parenchymal enhancement in each breast medially and with mild to moderate background parenchymal enhancement elsewhere in the breasts. The distribution of the background parenchymal enhancement is symmetric in comparing right to left. In the posterior left breast, 11 cm from the nipple, and lateral and superior to the nipple line, there is a focal susceptibility artifact, consistent with metallic biopsy clip. Contiguous with this, there is a focal irregularly contoured contrast enhancing mass lesion, with greatest diameter of 2 cm, that based on location and appearance is consistent with the recently biopsied lesion. No contrast-enhancing mass lesion is noted elsewhere in either breast. There are bilateral axillary lymph nodes, and the largest on the right has a long axis diameter of 2.3 cm, and on the left long axis diameter of 2 cm. There are additional smaller bilateral axillary lymph nodes. The bilateral axillary lymph nodes are relatively symmetric right to left. Differentiation between benign and neoplastic lymph nodes is not determined on this study. No chest wall mass is evident. Ordering Provider: Adrian JIMENEZ FINAL REPORT Dictated: 11/20/2023 3:07 pm Jeff Morataya M.D. Signed (Electronic Signature): 11/20/2023 3:07 pm Signed by: Jeff Morataya M.D. Transcribed by: EFRAIN Technologist: ANNIE Technical Comments [employer] Contrast amount in ml's: 7.5 Normal [facility] BMPon 11-19-2023 Anion gap [Moles/Vol] 13 mmol/L Normal 6-16 [facility] Comment on above: Performed By: #### 2 972251, [id number], [id number] ####[facility] [address] [place] [address] BUN/Creat Ratio 24 No Units High 10-20 [facility] Comment on above: Performed By: #### 2 733847, [id number], 3907953 ####[facility] [address] [place] [address] Calcium [Mass/Vol] 9.7 mg/dL Normal 8.9-11.1 [facility] Comment on above: Performed By: #### 2 249403, [id number], 3655618 ####[facility] [address] [place] [address] Chloride [Moles/Vol] 104 mmol/L Normal 101-111 [facility] Comment on above: Performed By: #### 2 513844, 57969585, 8839782 ####[facility] [address] [place] [address] CO2 [Moles/Vol] 26 mmol/L Normal 21-31 [facility] Comment on above: Performed By: #### 2 664333, 03584089, 7634854 ####[facility] [address] [place] [address] Creatinine [Mass/Vol] 0.8 mg/dL Normal 0.5-1.3 [facility] Comment on above: Performed By: #### 2 935506, [id number], 4120334 ####[facility] [address] [place] [address] Glucose [Mass/Vol] 145 mg/dL Normal 55-199 [facility] Comment on above: Performed By: #### 2 201467, 24486848, 7613397 ####[facility] [address] [place] [address] Potassium [Moles/Vol] 3.9 mmol/L Normal 3.5-5.3 [facility] Comment on above: Performed By: #### 2 578910, 07036671, 8218323 ####[facility] [address] [place] [address] Sodium [Moles/Vol] 139 mmol/L Normal 135-145 [facility] Comment on above: Performed By: #### 2 674322, 06218962, 2839575 ####[facility] [address] [place] [address] Urea nitrogen [Mass/Vol] 19 mg/dL Normal 5-21 [facility] Comment on above: Performed By: #### 2 182411, 40238439, 3883168 ####[facility] [address] [place] [address] CBC w/ Auto Diffon 4 Basophil Absolute 0.1 E9/L Normal 0.0-0.2 [facility] Comment on above: Performed By: #### 2 055765, 29212307, 5182120 ####[address] [address] Basophils/100 WBC (Bld) 1.0 % Normal 0.0-2.0 [facility] Comment on above: Performed By: #### 2 614631, 71109292, 9763299 ####[address] [address] Eos Absolute 0.1 E9/L Normal 0.0-0.5 [facility] Comment on above: Performed By: #### 2 720556, 61256526, 8669940 ####[address] [address] Eosinophils/100 WBC (Bld) 0.9 % Normal 0.0-8.0 [facility] Comment on above: Performed By: #### 2 678276, 77354835, 8220129 ####[address] [address] Erythrocyte distribution width (RBC) [Ratio] 13.5 % Normal 10.9-14.2 [facility] Comment on above: Performed By: #### 2 279045, 66266215, 1534021 ####[address] [address] Hematocrit (Bld) [Volume fraction] 46.0 % Normal 34.0-46.0 [facility] Comment on above: Performed By: #### 2 010287, 79936060, 2600784 ####[address] [address] Hemoglobin (Bld) [Mass/Vol] 15.2 g/dL Normal 12.0-16.0 [facility] Comment on above: Performed By: #### 2 711541, 14762513, 9326766 ####[address] [address] Lymph Absolute 1.7 E9/L Normal 1.0-4.0 [facility] Comment on above: Performed By: #### 2 863234, 87444380, 1438731 ####[address] [address] Lymphocytes/100 WBC (Bld) 19.1 % Normal 14.0-50.0 [facility] Comment on above: Performed By: #### 2 370964, 73968901, 2299181 ####[address] [address] MCH (RBC) [Entitic mass] 29.8 pg Normal 27.0-34.0 [facility] Comment on above: Performed By: #### 2 810045, 67188238, 0351363 ####[address] [address] MCHC (RBC) [Mass/Vol] 33.3 g/dL Normal 31.4-36.0 [facility] Comment on above: Performed By: #### 2 412755, 54514461, 0995285 ####[address] [address] MCV (RBC) [Entitic vol] 89.5 fL Normal 80.0-100.0 [facility] Comment on above: Performed By: #### 2 421840, 12807515, 5259282 ####[address] [address] Archuleta Absolute 0.5 E9/L Normal 0.2-1.0 [facility] Comment on above: Performed By: #### 2 582967, 57210925, 5148642 ####[address] [address] Monocytes/100 WBC (Bld) 5.5 % Normal 4.0-14.0 [facility] Comment on above: Performed By: #### 2 211805, 01339666, 9629408 ####[facility] [address] [place] [address] Neutro Absolute 6.5 E9/L Normal 2.0-7.5 [facility] Comment on above: Performed By: #### 2 367686, 95224109, 1746637 ####[address] [address] Neutro Auto 73.5 % Normal 36.0-75.0 [facility] Comment on above: Performed By: #### 2 707518, 46204891, 6449164 ####[address] [address] Platelet 309.0 E9/L Normal 150.0-500.0 [facility] Comment on above: Performed By: #### 2 498699, 14277903, 9420407 ####[address] [address] Platelet mean volume (Bld) [Entitic vol] 8.7 fL Normal 6.4-10.8 [facility] Comment on above: Performed By: #### 2 752682, 39936837, 1337516 ####[address] [address] RBC 5.1 E12/L Normal 4.3-5.9 [facility] Comment on above: Performed By: #### 2 935426, 64391134, 3736982 ####[address] [address] WBC 8.8 E9/L Normal 4.0-11.0 [facility] Comment on above: Performed By: #### 2 789369, 88250592, 1381750 ####[address] [place] [address] CHEMISTRYOrdered By: SYSTEM SYSTEM on 11-19-2023 Anion gap [Moles/Vol] 13 mmol/L Normal 6 - 16 mEq/L R emisol Chem Calcium [Mass/Vol] 9.7 mg/dL Normal 8.9 - 11.1 mg/dL Remisol Chem Chloride [Moles/Vol] 104 mmol/L Normal 101 - 111 mmol/ L [facility] CO2 [Moles/Vol] 26 mmol/L Normal 21 - 31 mmol/L Remis ol Chem Creatinine [Mass/Vol] 0.8 mg/dL Normal 0.5 - 1.3 mg/d L Remisol Chem eGFR 80 mL/min/1.73 m2 Normal >=59mL/min /1.73 m2 Remisol Chem Glucose [Mass/Vol] 145 mg/dL Normal 55 - 199 mg/dL Re misol Chem Potassium [Moles/Vol] 3.9 mmol/L Normal 3.5 - 5.3 mmol /L Remisol Chem Sodium [Moles/Vol] 139 mmol/L Normal 135 - 145 mmol/L Remisol Chem Urea nitrogen [Mass/Vol] 19 mg/dL Normal 5 - 21 mg/dL Rem[facility] Chem Urea nitrogen/Creatinine [Mass ratio] 24 mg/mg High 10 - 20 Rem[facility] Chem Consent for Treatmenton 11-07 Consent for Treatment [id number]#1 .00TIFF Normal [facility] Consent for Treatment [id number]#1 .00TIFF Normal [facility] HEMATOLOGYOrdered By: SYSTEM SYSTEM on 11-19-2023 Basophil Absolute 0.1 E9/L Normal 0.0 - 0.2 E9/L Rem isol Heme Basophils/100 WBC (Bld) 1.0 % Normal 0.0 - 2.0 % Remisol Heme Eos Absolute 0.1 E9/L Normal 0.0 - 0.5 E9/L Remisol Heme Eosinophils/100 WBC (Bld) 0.9 % Normal 0.0 - 8.0 % Remisol Heme Erythrocyte distribution width (RBC) [Ratio] 13.5 % Normal 10.9 - 14.2 % Remisol Heme Hematocrit (Bld) [Volume fraction] 46.0 % Normal 34.0 - 46.0 % Remisol Heme Hemoglobin (Bld) [Mass/Vol] 15.2 g/dL Normal 12.0 - 16.0 gm/dL Remisol Heme Lymph Absolute 1.7 E9/L Normal 1.0 - 4.0 E9/L Remiso l Heme Lymphocytes/100 WBC (Bld) 19.1 % Normal 14.0 - 50.0 % Remisol Heme MCH (RBC) [Entitic mass] 29.8 pg Normal 27.0 - 34.0 pg Remisol Heme MCHC (RBC) [Mass/Vol] 33.3 g/dL Normal 31.4 - 36.0 gm/dL Remisol Heme MCV (RBC) [Entitic vol] 89.5 fL Normal 80.0 - 100.0 fL Remisol Heme Archuleta Absolute 0.5 E9/L Normal 0.2 - 1.0 E9/L Remisol Heme Monocytes/100 WBC (Bld) 5.5 % Normal 4.0 - 14.0 % Remisol Heme Neutro Absolute 6.5 E9/L Normal 2.0 - 7.5 E9/L Remis ol Heme Neutro Auto 73.5 % Normal 36.0 - 75.0 % Remisol Heme Platelet 309.0 E9/L Normal 150.0 - 500.0 E9/L Remisol Heme Platelet mean volume (Bld) [Entitic vol] 8.7 fL Normal 6.4 - 10.8 fL Remisol Heme RBC 5.1 E12/L Normal 4.3 - 5.9 E12/L Remisol Heme WBC 8.8 E9/L Normal 4.0 - 11.0 E9/L Remisol Heme RAD - MRI Screening Formon 0 11-19-2023 RAD - MRI Screening Form [id number]# 1.00TIFF Normal [facility] XR Chest 2 Viewson 4 XR Chest 2 Views Exam Date/Time: 11/19/2023 11:59 EST Reason for Exam: P.A.T. Report IMPRESSION: ATELECTASIS OR FIBROSIS LEFT LUNG BASE. CLINICAL HISTORY: P.A.T.. COMMENT: The heart is normal in size. There is a hiatal hernia. The mediastinum is otherwise unremarkable. Increased density at the left lung base may be due to atelectasis or fibrosis. The right lung appears clear. No consolidated airspace opacification nor pleural effusion is evident. Ordering Provider: Blas Aguirre FINAL REPORT Dictated: 11/19/2023 2:17 pm Jeff Morataya M.D. Signed (Electronic Signature): 11/19/2023 2:17 pm Signed by: Jeff Morataya M.D. Transcribed by: EFRAIN Technologist: DEON Technical Comments Radiation Dose: Ka,r in mGy = . DAP = . Normal [facility] eGFRon 11-19-2023 eGFR 80 mL/min/1.73 m2 Normal >=59 [facility] Comment on above: Order Comment: Order added by Discern Expert. Performed By: #### 2 414861, [id number], [id number] ####[facility] [address] [place] [address] Physician Orderon 11-18-2023 Physician Order [id number]# 1.00TIFF Normal [facility] Lab Reportson 11-15-2023 Lab Reports [id number]#1 .00TIFF Normal [facility] Ambulatory Visit Summaryon 0 11-14-2023 Ambulatory Visit Summary CHRISTAL CHEN :1955 Visit Date:11/14/2023 Ambulatory Visit Instructions Your Diagnosis Malignant neoplasm of upper-outer quadrant of left female breast Lobular carcinoma of left breast Your Care Team Attending Physician - TONY PATEL, Adrian Hall Primary Care Physician - NI PATEL, QUINTON Malik Referring Physician - Crow KRUSE DO This Is Your Medications List amlodipine (amLODIPine 10 mg Tab) losartan (losartan 100 mg Tab) omega-3 polyunsaturated fatty acids (Fish Oil 1000 mg oral capsule) Procedures Performed Biopsy of breast, section, section, section, Closed reduction of nasal fracture, Colonoscopy, Colonoscopy, Meniscal repair, Myringotomy, Tonsillectomy and adenoidectomy, wisdom teeth. Discharge Vitals Heart Rate (Peripheral) 91 Respiratory Rate 16 Blood Pressure 138/85 Height 163.8 cm Height 64 in Weight 73.7 kg Weight 162.14 lb BMI 27.47 What to do next Scheduled Follow-Up Appointments Saturday 9:30 AM EST Where: [facility] Saturday 1:00 PM EST Where: [facility] 2023 9:00 AM EST Where: [facility] 2023 9:30 AM EST Where: [facility] 2023 11:30 AM EST Where: [facility] You Need to Complete the Following MA Breast Needle Loc w/ Guidance, Left, 11/14/23, Routine, Order for Future Visit, Transport Mode: Ambulatory, Reason: Breast Cancer, personal history of, No, Malignant neoplasm of upper-outer quadrant of left female breast Normal Lobular carcinoma of left breast, No, pp_set_radiology _subspecialty, Not Required, [facility]...\.br\ NM Lymphoscintigrap hy, 12/05/23, Routine, Transport Mode: Ambulatory, Reason: BREAST CANCER, 162, MEDICARE, pp_set_radiology _subspecialty, Required & Missing, No, [facility]\.br\ Medications\.br\ What How Much When Instructions\.br \ Unchanged amlodipine (amLODIPine 10 mg Tab) 1 Tablets By Mouth Every day\.br\ Unchanged losartan (losartan 100 mg Tab) 1 Tablets By Mouth Every day\.br\ Unchanged omega-3 polyunsaturated fatty acids (Fish Oil 1000 mg oral capsule) 4 Capsules By Mouth Every day\.br\ Medications and Immunizations Administered\.br \ Not Given\.br\ influenza virus vaccine, inactivated, Patient Refuses\.br\ Allergies\.br\ Bactrim (Nausea)\.br\ HYDROcodone (Vomiting)\.br\ amoxicillin (Hives)\.br\ erythromycin (Hives)\.br\ homatropine (Vomiting)\.br\ traMADol (Nausea and vomiting)\.br\ Problems\.br\ Ongoing - Any problem that you are currently receiving treatment for.\.br\ BMI 27.0-27.9,adult\ .br\ Chronic fatigue syndrome\.br\ Diabetes\.br\ Diverticulosis\. br\ Former smoker\.br\ HTN (hypertension)\. br\ Hyperlipidemia\. br\ Hypertensive nephropathy\.br\ Invasive lobular carcinoma of left breast in female\.br\ Lobular carcinoma of left breast\.br\ Mixed conductive and sensorineural hearing loss\.br\ Overweight\.br\ RBBB (right bundle branch block)\.br\ Sick-euthyroid syndrome\.br\ Stage 2 chronic kidney disease\.br\ White matter disease\.br\ Historical - Any problem that you are no longer receiving treatment for.\.br\ Hypertension\.br \ Hypothyroid\.br\ Menopause\.br\ Patient Survey\.br\ You may receive a survey via text or e-mail asking about your office visit. Please share your experience with us by completing your survey. We appreciate your feedback and thank you for choosing us for your care.\.br\ \.br\ [facility] Consent for Procedure/Surger yon 11-14-2023 Consent for Procedure/Surgery [id number]#1 .00TIFF Normal [facility] Pathology Noteon 11-14-2023 Pathology Note [id number]#1 .00TIFF Normal [facility] Outside Mammographyon 2023 Outside Mammography [id number]#1 .00TIFF Normal [facility] Outside Mammographyon 2023 Outside Mammography [id number]#1 .00TIFF Normal [facility] Pathology Noteon 10-31-2023 Pathology Note [id number]#1 .00TIFF Normal [facility] RAD - Ultrasound Reporton RAD - Ultrasound Report [id number]#1. 00TIFF Normal [facility] Physician Referralon 024 Physician Referral [id number]#1. 00TIFF Normal [facility] Reji 10-21-2023 L Specimen: [id number] Received: 10/21/23 Status: SHAILA Paz Num: [id number] Spec Type: Surgical Subm Dr: Nura Diaz Jr, DO Tissues: A BREAST CORE NO CALCS (LT BREAST BX) Procedures: HE/2, Gross/Micro L4, CAM5.2, E CADHERIN, ER, NE, IHC First AB, IHC Add AB/2, GATA3 Age/ Patient Sex Location Account Attending Physician AprilChristal 68/F WIELE [id number] Crow Kruse SPEC NUM: [id number] RECD: 10/21/23120 STATUS: SHAILA PAZ NUM: [id number] SHABNAM: 10/21/23-[address] [facility] [address]: Nura Diaz Jr, DO ENTERED: 10/21/23-[address] [facility] DR: SPEC TYPE: Surgical DEPT: S ORDERED: HE/2, Gross/Micro L4, CAM5.2, E CADHERIN, ER, NE, IHC First AB, IHC Add AB/2, GATA3 ORDERED: HE/2, Gross/Micro L4, CAM5.2, E CADHERIN, ER, NE, IHC First AB, IHC Add AB/2, IMMUNOHISTOCHEM/2, GATA3 Supplemental Report Addendum 2 Entered: 11/17/23-1326 Supplemental for findings of Oncotype Dx breast recurrence score report: -Recurrent score (RS) result: 17 -Distant recurrence risk at 9 years: 5% -Group average absolute chemotherapy (CT) benefit: <1% Addendum Signed (signature on file) David Vargas MD 11/17/23 1986 -------- Addendum 1 Entered: 10/28/235866 Supplemental for findings of HER2 breast by immunohistochemistry from [facility]: -Negative, Score 0 -------- Specimen: [id number] Received: 10/21/23 Status: SHAILA Paz Num: [id number] Spec Type: Surgical Subm Dr: Nura Diaz Jr, DO Tissues: A BREAST CORE NO CALCS (LT BREAST BX) Procedures: HE/2, Gross/Micro L4, CAM5.2, E CADHERIN, ER, NE, IHC First AB, IHC Add AB/2, GATA3 -------- Patient: Christal Chen [id number] (Continued) -------- Specimen: [id number] Received: 10/21/23 (Continued) Supplemental Report (Continued) Signed (signature on file) David Vargas MD 10/23/23 1248 -------- Specimen: [id number] Received: 10/21/23 Status: SHAILA Paz Num: [id number] Spec Type: Surgical Subm Dr: Nura Diaz Jr, DO Tissues: A BREAST CORE NO CALCS (LT BREAST BX) Procedures: HE/2, Gross/Micro L4, CAM5.2, E CADHERIN, ER, NE, IHC First AB, IHC Add AB/2, GATA3 -------- Patient: Christal Chen [id number] (Continued) -------- Specimen: [id number] Received: 10/21/23 (Continued) Supplemental Report (Continued) Addendum Signed (signature on file) David Vargas MD 10/28/23 0842 -------- Pathological Diagnosis Left breast lesion at 2:00, 10 cm from nipple, core biopsies: - Invasive lobular carcinoma - Please also see cancer summary and synoptic report below [facility] CASE SUMMARY SPECIMEN Procedure: Needle biopsy Specimen Laterality: Left TUMOR Histologic Type: Invasive lobular carcinoma Glandular (Acinar) / Tubular Differentiation: Score 3 Nuclear Pleomorphism: Score 1 Mitotic Rate: Score 1 Overall Grade: Grade 1 (scores of 3, 4 or 5) Largest Invasive Focus in this Limited Biopsy Sample: At least - 9 mm Ductal Carcinoma In Situ (DCIS): Not identified Lobular Carcinoma In Situ (LCIS): Not identified Lymphatic and / or Vascular Invasion: Not identified Microcalcifications: Not identified Tumor biomarkers Test(s) Performed: Estrogen Receptor (ER) Status: Positive (greater than 10% of cells demonstrate nuclear positivity) Percentage of Cells with Nuclear Positivity: 91-100% Average Intensity of Staining: Moderate Progesterone Receptor (PgR) Status: Negative (less than 1%) - Internal control cells present and stain as expected HER2 by Immunohistochemistry: Pending further testing at the reference laboratory to follow Comment(s): -E-cadherin, GATA3, and CAM5.2 immunostains with provided controls also showing findings supporting the above interpretation -------- Specimen: [id number] Received: 10/21/23120 Status: SHAILA Rudy Num: [id number] Spec Type: Surgical Subm Dr: Nura Diaz Jr, DO Tissues: A BREAST CORE NO CALCS (LT BREAST BX) Procedures: HE/2, Gross/Micro L4, CAM5.2, E CADHERIN, ER, NE, IHC First AB, IHC Add AB/2, GATA3 (more content not included)... Normal [facility] RUST breast ndl core biopsy LT on 10-21-2023 US breast ndl core biopsy LT [facility] [place] [address] Ultrasound Report Signed with Addenda Patient: Christal Chen MR#: [id number] : 1955 Acct:[id number] Age/Sex: 68 / F ADM Date: 10/21/23 Loc: [facility] Room: Type: [facility] Attending Dr: Crow Kruse Ordering Provider: Crow Kruse Date of Service: 10/21/23 US/US breast ndl core biopsy LT: R92.0 ([id number]) MM/MM post biopsy LT w/CAD: POST U/S BX WITH CLIP Copies to: Crow Kruse ADDENDUM 1 Addendum for pathology: Ultrasound-guided biopsy left breast mass 2:00 position: Invasive lobular carcinoma. ER/NE positive. NE negative. Finding is malignant and concordant with imaging. Surgical/oncologic management is recommended. Impression dictated by: Nura Diaz Jr., D.OTasha10/24/2023 9:31 AM Dictation Location: [place] [address] Addendum Dictated By: Nura Diaz Jr DO Addendum Signed By: 10/24/23930 Addendum Cosigned By: DD/ TD/TT: 10/24/23 ULTRASOUND GUIDED VACUUM-ASSISTED HOLOGIC ATEC SYSTEM CORE BIOPSIES OF THE LEFT BREAST: CLINICAL DATA: Mass 2:00 position left breast PROCEDURE: The risks, benefits and alternatives to an ultrasound guided vacuum-assisted Hologic ATEC system core biopsy procedure were discussed with the patient and written informed consent was obtained. Ultrasonographic survey of the 2:00 position of the left breast was performed by nuclear medicine technologist . Additional scanning of the right axilla demonstrated no suspicious lymph nodes. The patient's overlying skin was anesthetized with 1% lidocaine. The deeper soft tissues up to and around the mass were anesthetized with lidocaine mixed with epinephrine. Following this, multiple core biopsies of the left breast mass were performed using a 12-gauge [employer] vacuum-assisted core biopsy needle under ultrasound guidance. Multiple core biopsy specimens were obtained. A metallic post biopsy marker was then placed. Post procedure mammograms were performed. The patient tolerated the procedure well without immediate postprocedural complication. POSTPROCEDURE MAMMOGRAMS: Craniocaudal and true lateral views of the left breast were performed using low dose digital technique. The postbiopsy marker is seen at the biopsy site without evidence of migration. US/US breast ndl core biopsy LT IMPRESSION: STATUS POST ULTRASOUND GUIDED VACUUM-ASSISTED CORE BIOPSIES OF THE LEFT BREAST. RESULT CODE: NL Impression dictated by: Nura Diaz Jr., D.OTasha10/21/2023 11:30 AM Dictation Location: [facility] Tech: Marlena Gutierrez; Tanashyam Preciado Transcribed By: ROSALINDA 10/21/23 1130 Dictated By: Nura Diaz Jr DO 10/21/23 1105 Signed By: 10/21/23 1130 Normal [facility] US breast LT limitedon 10-09 US breast LT limited [facility] [place] [address] Mammography Report Signed Patient: Christal Chen MR#: [id number] : 1955 Acct:[id number] Age/Sex: 68 / F ADM Date: 10/09/23 Loc: [place] Room: Type: [facility] Attending Dr: Crow Kruse Copies to: DO Quinton Mcgregor MD Ordering Provider: Crow Kruse DO Date of Service: 10/09/23 MM/MM special view LT w/CAD: R92.8 ([id number]) US/US breast LT limited: R92.8 DIAGNOSTIC LEFT BREAST MAMMOGRAM - FULL FIELD DIGITAL WITH TOMOSYNTHESIS CLINICAL DATA: Focal asymmetry in left breast Tomosynthesis mediolateral and spot compressed Craniocaudal and mediolateral oblique views of the left breast were obtained using low-dose digital technique. Comparison is made to prior studies from 09/19/2023, 07/26/2022, 03/14/2019, and 03/11/2018. This examination was reviewed with the aid of CAD. Scattered fibroglandular tissue is noted bilaterally. Punctate benign-appearing calcifications are present bilaterally. There is a persistent focal asymmetry with spiculated margins in the left breast at approximately the 2 to 3:00 position 11 cm from the nipple. There has been no significant interval change. Limited left breast ultrasound: There is a taller than wide hypoechoic to anechoic 1.3 x 1.5 x 0.9 cm structure with irregular margins and surrounding architectural distortion at the 2:00 position in the left breast 10 cm from nipple there this is suspicious for malignancy. MM/MM special view LT w/CAD IMPRESSION: There is a taller than wide hypoechoic to anechoic 1.3 x 1.5 x 0.9 cm structure with irregular margins and surrounding architectural distortion at the 2:00 position in the left breast 10 cm from nipple there this is suspicious for malignancy. Further evaluation with ultrasound-guided biopsy is recommended. RESULT CODE: 4 Suspicious Abnormality - Biopsy Considered DENSITY CODE: 2 (approximately 25-50% glandular) FOLLOW UP: BIO The false-negative rate of mammography is approximately 10-percent. Management of a palpable abnormality must be based on clinical grounds. Impression dictated by: Cristian Jeffery M.D.10/09/2023 8:48 AM Dictation Location: [facility] Transcribed By: [facility] 10/09/23 0848 Dictated By: Cristian Jeffery II, MD 10/09/23 08 Signed By: 10/09/23 0848 Normal [facility] MM screening mammo BI w/CADo n 09-19-2023 MM screening mammo BI w/CAD [facility] [place] [address] Mammography Report Signed Patient: Christal Chen MR#: [id number] : 1955 Acct:[id number] Age/Sex: 68 / F ADM Date: 09/19/23 Loc: [place] Room: Type: [facility] Attending Dr: Crow Kruse Copies to: DO Quinton Mcgregor MD Ordering Provider: Crow Kruse DO Date of Service: 09/19/23 MM/MM screening mammo BI w/CAD: SCREENING CLINICAL DATA: Screening for malignancy. SCREENING MAMMOGRAM - FULL FIELD DIGITAL WITH TOMOSYNTHESIS AND CAD COMPARISON:Mammograms dating back to 2014 Tomosynthesis craniocaudal and mediolateral oblique views of both breasts were obtained using low- dose digital technique. This examination was reviewed with the aid of CAD. The breast tissue is composed of scattered fibroglandular densities. Focal asymmetry upper outer quadrant of the left breast, posterior depth with what appears to be underlying architectural distortion. MM/MM screening mammo BI w/CAD IMPRESSION: Focal asymmetry upper outer QUADRANT of the left breast, posterior depth with what appears to be underlying architectural distortion. SPOT COMPRESSION/TRUE LATERAL VIEWS, POSSIBLE ULTRASOUND ARE RECOMMENDED. RESULT CODE: 0 Incomplete: Needs Additional Imaging Evaluation DENSITY CODE: 2 (approximately 25-50% glandular) FOLLOW UP: ADD The false-negative rate of mammography is approximately 10-percent. Management of a palpable abnormality must be based on clinical grounds. Patient was entered into a reminder system with a target due date for the next mammogram. Impression dictated by: Nura Diaz Jr., D.OTasha09/19/2023 9:57 AM Dictation Location: [facility] Transcribed By: ROSALINDA 09/19/23 0957 Dictated By: Nura Diaz Jr, DO 09/19/23 0953 Signed By: 09/19/23 0957 Normal [facility] Alanine aminotransferase [En zymatic activity/volume] in Serum or PlasmaOrdered By: Rodney Peña on 04-16-2023 ALT [Catalytic activity/Vol] 24 U/L 7-52 [facility] Albumin [Mass/volume] in Ser um or Plasma by Bromocresol green (BCG) dye binding methoOrdered By: Rodney Peña on 04-16-2023 Albumin BCG dye [Mass/Vol] 4.4 g/dL 3.5-5.7 [facility] Alkaline phosphatase [Enzyma tic activity/volume] in Serum or PlasmaOrdered By: Rodney Peña on 04-16-2023 ALP [Catalytic activity/Vol] 86 U/L 34-104 [facility] Aspartate aminotransferase [ Enzymatic activity/volume] in Serum or PlasmaOrdered By: Rodney Peña on 04-16-2023 AST [Catalytic activity/Vol] 18 U/L 13-39 [facility] Basophils Auto (Bld) [#/Vol] Ordered By: Rodney Peña on 04-16-2023 Basophils (Bld) [#/Vol] 0.1 10*3/uL 0.0-0.2 [facility] Basophils/100 WBC Auto (Bld) Ordered By: Rodney Peña on 04-16-2023 Basophils/100 WBC (Bld) 0.6 % . [facility] Bilirubin.total [Mass/volume ] in Serum or PlasmaOrdered By: Rodney Peña on 04-16-2023 Bilirubin [Mass/Vol] 0.5 mg/dL 0.3-1.0 [facility] Calcium [Mass/volume] in Ser um or PlasmaOrdered By: Rodney Peña on 04-16-2023 Calcium [Mass/Vol] 9.5 mg/dL 8.6-10.3 [facility] Carbon dioxide, total [Moles /volume] in Serum or PlasmaOrdered By: Rodney Peña on 04-16-2023 CO2 [Moles/Vol] 23.3 mmol/L 21.0-31.0 [facility] Chloride [Moles/volume] in S sophia or PlasmaOrdered By: Rodney Peña on 04-16-2023 Chloride [Moles/Vol] 105 mmol/L 98-107 [facility] Creatinine [Mass/volume] in Serum or PlasmaOrdered By: Rodney Peña on 04-16-2023 Creatinine [Mass/Vol] 0.63 mg/dL 0.60-1.20 [facility] Eosinophils Auto (Bld) [#/Vo l]Ordered By: Rodney Peña on 04-16-2023 Eosinophils (Bld) [#/Vol] 0.1 10*3/uL 0.0-0.45 [facility] Eosinophils/100 WBC Auto (Bl d)Ordered By: Rodney Peña on 04-16-2023 Eosinophils/100 WBC (Bld) 0.7 % . [facility] Erythrocyte distribution wid th Auto (RBC) [Ratio]Ordered By: Rodney Peña on 04-16-2023 Erythrocyte distribution width (RBC) [Ratio] 12.9 % 11.9-15.3 [facility] Globulin Calc (S) [Mass/Vol] Ordered By: Rodney Peña on 04-16-2023 Globulin (S) [Mass/Vol] 3.0 g/dL [facility] Glucose [Mass/volume] in Ser um or PlasmaOrdered By: Rodney Peña on 04-16-2023 Glucose [Mass/Vol] 124 mg/dL 70-100 [facility] Comment on above: ADA recommended refe rence range Glucose mean value [Mass/vol ume] in Blood Estimated from glycated hemoglobinOrdered By: Rodney Peña on 04-16-2023 Average glucose Estimated from glycated hemoglobin (Bld) [Mass/Vol] 151 mg/dL [facility] Hematocrit Auto (Bld) [Volum e fraction]Ordered By: Rodney Peña on 04-16-2023 Hematocrit (Bld) [Volume fraction] 44.4 % 34.0-46.4 [facility] Hemoglobin [Mass/volume] in BloodOrdered By: Rodney Peña on 04-16-2023 Hemoglobin (Bld) [Mass/Vol] 14.8 g/dL 11.8-15.4 [facility] Laboratory - Hematology and Cell countsOrdered By: Rodney Peña on 04-16-2023 HbA1c (Bld) [Mass fraction] 6.9 % 4.3-5.6 [facility] Comment on above: Increased risk for d iabetes: 5.7 - 6.4diabetes: >6.4glycemic control for adults with diabetes: <7.0 Leukocytes [#/volume] correc eulalia for nucleated erythrocytes in Blood by Automated counOrdered By: Rodney Peña on 04-16-2023 WBC corrected for nucl RBC Auto (Bld) [#/Vol] 9.1 10*3/uL 3.8-11.6 [facility] Lymphocytes Auto (Bld) [#/Vo l]Ordered By: Rodney Peña on 04-16-2023 Lymphocytes (Bld) [#/Vol] 1.7 10*3/uL 1.00-4.8 [facility] Lymphocytes/100 WBC Auto (Bl d)Ordered By: Rodney Peña on 04-16-2023 Lymphocytes/100 WBC (Bld) 18.2 % . [facility] MCH Auto (RBC) [Entitic mass ]Ordered By: Rodney Peña on 04-16-2023 MCH (RBC) [Entitic mass] 29.5 pg 24.7-34.3 [facility] MCHC Auto (RBC) [Mass/Vol]Or dered By: Rodney Peña on 04-16-2023 MCHC (RBC) [Mass/Vol] 33.3 g/dL 32.0-35.0 [facility] MCV Auto (RBC) [Entitic vol] Ordered By: Rodney Peña on 04-16-2023 MCV (RBC) [Entitic vol] 88.6 fL 80-100 [facility] Monocytes Auto (Bld) [#/Vol] Ordered By: Rodney Peña on 04-16-2023 Monocytes (Bld) [#/Vol] 0.4 10*3/uL 0.0-0.8 [facility] Monocytes/100 WBC Auto (Bld) Ordered By: Rodney Peña on 04-16-2023 Monocytes/100 WBC (Bld) 4.1 % . [facility] Neutrophils Auto (Bld) [#/Vo l]Ordered By: Rodney Peña on 04-16-2023 Neutrophils (Bld) [#/Vol] 6.9 10*3/uL 1.8-7.7 [facility] Neutrophils/100 WBC Auto (Bl d)Ordered By: Rodney Peña on 04-16-2023 Neutrophils/100 WBC (Bld) 76.4 % . [facility] No Panel InformationOrdered By: Rodney Peña on 04-16-2023 Estimated GFR (CKD-EPI) > 60.0 mL/Min [facility] Creatinine Clearance (Chem N/A [facility] Nucleated erythrocytes [Pres ence] in Blood by Automated countOrdered By: Rodney Peña on 04-16-2023 Nucleated RBC Auto Ql (Bld) 0.0 /100{WBC} 0-0.5 [facility] Platelet mean volume Auto (B ld) [Entitic vol]Ordered By: Rodney Peña on 04-16-2023 Platelet mean volume (Bld) [Entitic vol] 8.0 fL 6.3-10.7 [facility] Platelets Auto (Bld) [#/Vol] Ordered By: Rdoney Peña on 04-16-2023 Platelets (Bld) [#/Vol] 338 10*3/uL 150-450 [facility] Potassium [Moles/volume] in Serum or PlasmaOrdered By: Rodney Peña on 04-16-2023 Potassium [Moles/Vol] 4.0 mmol/L 3.5-5.1 [facility] Protein [Mass/volume] in Ser um or PlasmaOrdered By: Rodney Peña on 04-16-2023 Protein [Mass/Vol] 7.4 g/dL 6.4-8.9 [facility] RBC Auto (Bld) [#/Vol]Ordere d By: Rodney Peña on 04-16-2023 RBC (Bld) [#/Vol] 5.00 10*6/uL 3.60-5.00 [facility] Serum or plasma albumin/glob ulin mass ratioOrdered By: Rodney Peña on 04-16-2023 Albumin/Globulin [Mass ratio] 1.5 {ratio} [facility] Serum or plasma anion gap de terminationOrdered By: Rodney Peña on 04-16-2023 Anion gap [Moles/Vol] 14.7 mmol/L 6.0-15.0 [facility] Sodium [Moles/volume] in Ser um or PlasmaOrdered By: Rodney Peña on 04-16-2023 Sodium [Moles/Vol] 139 mmol/L 136-145 [facility] Urea nitrogen [Mass/volume] in Serum or PlasmaOrdered By: Rodney Peña on 04-16-2023 Urea nitrogen [Mass/Vol] 13 mg/dL 7-25 [facility] WBC Auto (Bld) [#/Vol]Ordere d By: Rodney Peña on 04-16-2023 WBC (Bld) [#/Vol] 9.1 10*3/uL 3.8-11.6 [facility] AMYLASEon 08-29-2022 Amylase [Catalytic activity/Vol] 70 U/L Normal 25-115 [facility] Comment on above: Performed By: #### C MP, TEENA, LIPA #### [facility] [address] [place] [address] [address] Joe Vargas CBC AUTO DIFFon 08-29-2022 BASO # 0.1 103/ul Normal 0.0-0.1 [facility] Comment on above: Performed By: #### C BC #### [facility] [address] [place] [address] Dr. Joe Vargas Basophils/100 WBC (Bld) 0.7 % Normal 0.2-2.0 [facility] Comment on above: Performed By: #### C BC #### [facility] [address] [place] [address] Dr. Joe Vargas EO # 0.1 103/ul Normal 0.0-0.7 [facility] Comment on above: Performed By: #### C BC #### [facility] [address] [place] [address] Dr. Joe Vargas Eosinophils/100 WBC (Bld) 0.9 % Normal 0.9-7.0 [facility] Comment on above: Performed By: #### C BC #### [facility] [address] [place] [address] Dr. Joe Vargas Erythrocyte distribution width (RBC) [Ratio] 12.6 % Normal 11.0-15.0 [facility] Comment on above: Performed By: #### C BC #### [facility] [address] [place] [address] Dr. Joe Vargas Hematocrit (Bld) [Volume fraction] 45.5 % Normal 36.0-48.0 [facility] Comment on above: Performed By: #### C BC #### [facility] [address] [place] [address] Dr. Joe Vargas Hemoglobin (Bld) [Mass/Vol] 15.4 g/dL Normal 12.0-16.0 [facility] Comment on above: Performed By: #### C BC #### [facility] [address] [place] [address] Dr. Joe Vargas IG # 0.04 10e3/ul Critically high 0.00-0.03 [facility] Comment on above: Performed By: #### C BC #### [facility] [address] [place] [address] Dr. Joe Vargas IG % 0.4 % Normal 0.0-0.5 [facility] Comment on above: Performed By: #### C BC #### [facility] [address] [place] [address] Dr. Joe Vargas LYMPH # 1.9 103/ul Normal 1.2-3.8 [facility] Comment on above: Performed By: #### C BC #### [facility] [address] [place] [address] Dr. Joe Vargas Lymphocytes/100 WBC (Bld) 20.5 % Normal 20.5-60.0 [facility] Comment on above: Performed By: #### C BC #### [facility] [address] [place] [address] Dr. Joe Vargas MANUAL DIFF REQ NO Normal [facility] Comment on above: Performed By: #### C BC #### [facility] [address] [place] [address] Dr. Joe Vargas MCH (RBC) [Entitic mass] 30.1 pg Normal 26.7-34.0 [facility] Comment on above: Performed By: #### C BC #### [facility] [address] [place] [address] Dr. Joe Vargas MCHC (RBC) [Mass/Vol] 33.8 g/dL Normal 29.9-35.2 [facility] Comment on above: Performed By: #### C BC #### [facility] [address] [place] [address] Dr. Joe Vargas MCV (RBC) [Entitic vol] 88.9 fL Normal 81.0-99.0 [facility] Comment on above: Performed By: #### C BC #### [facility] [address] [place] [address] Dr. Joe Vargas MONO # 0.6 103/ul Normal 0.3-0.8 [facility] Comment on above: Performed By: #### C BC #### [facility] [address] [place] [address] Dr. Joe Vargas Monocytes/100 WBC (Bld) 6.2 % Normal 1.7-12.0 [facility] Comment on above: Performed By: #### C BC #### [facility] [address] [place] [address] Dr. Joe Vargas NEUT # 6.7 103/ul Critically high 1.4-6.5 [facility] Comment on above: Performed By: #### C BC #### [facility] [address] [place] [address] Dr. Joe Vargas Neutrophils/100 WBC (Bld) 71.3 % Normal 43.0-75.0 [facility] Comment on above: Performed By: #### C BC #### [facility] [address] [place] [address] Dr. Joe Vargas Platelet mean volume (Bld) [Entitic vol] 11.1 fL Normal 9.5-13.5 [facility] Comment on above: Performed By: #### C BC #### [facility] [address] [place] [address] Dr. Joe Vargas PLT 277 103/ul Normal 150-450 [facility] Comment on above: Performed By: #### C BC #### [facility] [address] [place] [address] Dr. Joe Vargas RBC 5.12 106/ul Normal 4.20-5.40 [facility] Comment on above: Performed By: #### C BC #### [facility] [address] [place] [address] Dr. Joe Vargas WBC 9.4 103/ul Normal 4.0-11.0 [facility] Comment on above: Performed By: #### C BC #### [facility] [address] [place] [address] ABD/PELV W CONon 08-29-20 CT ABD/PELV W CON EXAMINATION: CT ABD/PELV W CON HISTORY: GENERALIZED ABDOMINAL PAIN ; acute right upper quadrant pain COMPARISON: No relevant comparison available. TECHNIQUE: Axial, Coronal, and Sagittal images were obtained without and/or with IV contrast as indicated by examination type. Dose reduction techniques were achieved by using automated exposure control and/or adjustment of mA and/or kV according to patient size and/or use of iterative reconstruction technique. FINDINGS: LUNG BASES: No visible pulmonary or pleural disease. LIVER: Fatty infiltration. No enlargement, atrophy, suspicious density, or significant focal lesion. BILIARY: No dilatation or calcification. PANCREAS: No lesion, fluid collection, or abnormal duct dilatation. SPLEEN: No enlargement or focal lesion. ADRENALS: No mass or enlargement. KIDNEYS: Small benign-appearing left renal cyst. No mass, obstruction, or calcification. BOWEL/MESENTERY: Small hiatal hernia. Marked diverticulosis of sigmoid colon without acute inflammatory changes. Circumference wall thickening of terminal ileum, 9 mm in thickness; no surrounding inflammatory changes. Normal appendix AORTA/VASCULAR: No aneurysm or dissection. RETROPERITONEUM: No mass or adenopathy. LYMPH NODES: No adenopathy. URINARY BLADDER: No visible focal wall thickening, lesion, or calculus. PELVIC ORGANS: No visible mass. Pelvic organs appropriate for patient age. ABDOMINAL WALL: Small fat filled paraumbilical and infraumbilical hernia without strangulation. BONES: L4-L5 mild grade 1 anterior listhesis with posterior disc bulging likely causing moderate central canal and foramen narrowing. OTHER: Negative. IMPRESSION: 1. Mild supratentorial wall thickening of terminal ileum, nonspecific but typically associated with Crohn's disease. No surrounding inflammatory changes, or bowel obstruction. 2. 2 separate small fat filled ventral hernias without bowel involvement or strangulation. 3. L4-L5 degenerative disc disease likely causing moderate central canal and foramen narrowing. 4. Small hiatal hernia and marked sigmoid diverticulosis. Electronically authenticated by: SAVANNAH RIVAS Date: 2022-08-29 09:33 Normal [facility] ER URINE PROFILEon 2 Bilirubin Ql (U) Negative Normal NEGATIVE [facility] Comment on above: Performed By: #### E RUR #### [facility] Laboratory [address] [address] [address] Joe Vargas Clarity (U) CLEAR Normal CLEAR [facility] Comment on above: Performed By: #### E RUR #### [facility] [address] [address] [address] Joe Vargas Color (U) LT. YELLOW Normal YELLOW [facility] Comment on above: Performed By: #### E RUR #### [facility] [address] [place] [address] Dr. Joe RESENDEZ A micrscopic examination will be performed if indicated. Normal [facility] Comment on above: Performed By: #### E RUR #### [facility] [address] [place] [address] Dr. Joe Vargas Glucose Ql (U) Negative Normal NEGATIVE [facility] Comment on above: Performed By: #### E RUR #### [facility] [address] [place] [address] Dr. Joe Vargas Hemoglobin Ql (U) Negative Normal NEGATIVE [facility] Comment on above: Performed By: #### E RUR #### [facility] [address] [place] [address] Dr. Joe Vargas Ketones Ql (U) Negative Normal NEGATIVE [facility] Comment on above: Performed By: #### E RUR #### [facility] [address] [place] [address] Dr. Joe Vargas LEUKOCYTES Negative Normal NEGATIVE [facility] Comment on above: Performed By: #### E RUR #### [facility] [address] [place] [address] Dr. Joe Vargas Nitrite Ql (U) Negative Normal NEGATIVE [facility] Comment on above: Performed By: #### E RUR #### [facility] [address] [place] [address] Dr. Joe Vargas pH (U) 6.0 [pH] Normal 5-9 [facility] Comment on above: Performed By: #### E RUR #### [facility] [address] [place] [address] Dr. Joe Vargas SPEC GRAVITY <=1.005 Abnormal 1.005-<=1.025 [facility] Comment on above: Performed By: #### E RUR #### [facility] [address] [place] [address] Dr. Joe Vargas UA PROTEIN Negative Normal NEGATIVE/ TRACE [facility] Comment on above: Performed By: #### E RUR #### [facility] [address] [place] [address] Dr. Joe Vargas UR MICRO IND NOT INDICATED Normal [facility] Comment on above: Performed By: #### E RUR #### [facility] [address] [place] [address] Dr. Joe Vargas Urobilinogen Qn (U) 0.2 {Flora'U}/dL Normal 0.2 - 1. 0 [facility] Comment on above: Performed By: #### E RUR #### [facility] [address] [place] [address] Dr. Joe Vargas LIPASEon 08-29-2022 Lipase [Catalytic activity/Vol] 243.0 U/L Normal 73.0-393.0 [facility] Comment on above: Performed By: #### C MP, TEENA, LIPA #### [facility] [address] [place] [address] Dr. Joe Vargas PROF 14(COMP METB)on 022 Albumin [Mass/Vol] 4.0 g/dL Normal 3.4-5.0 [facility] Comment on above: Performed By: #### C MP TEENA, LIPA #### [facility] [address] [place] [address] Dr. Joe Vargas Albumin/Globulin [Mass ratio] 1.0 {ratio} Normal [facility] Comment on above: Performed By: #### C MP, TEENA, LIPA #### [facility] [address] [place] [address] Dr. Joe Vargas ALP [Catalytic activity/Vol] 92 U/L Normal 46-116 [facility] Comment on above: Performed By: #### C MP, TEENA, LIPA #### [facility] [address] [place] [address] Dr. Joe Vargas ALT [Catalytic activity/Vol] 43 U/L Normal 14-59 [facility] Comment on above: Performed By: #### C MP, TEENA, LIPA #### [facility] [address] [place] [address] Dr. Joe Vargas Anion gap [Moles/Vol] 10.4 mmol/L Normal [facility] Comment on above: Performed By: #### C MP, TEENA, LIPA #### [facility] [address] [address] [address] Joe Vargas AST [Catalytic activity/Vol] 18 U/L Normal 15-37 [facility] Comment on above: Performed By: #### C MP, TEENA, LIPA #### [facility] [address] [place] [address] Dr. Joe Vargas Bilirubin [Mass/Vol] 0.4 mg/dL Normal 0.2-1.0 [facility] Comment on above: Performed By: #### C MP, TEENA, LIPA #### [facility] [address] [place] [address] Dr. Joe Vargas Calcium [Mass/Vol] 9.2 mg/dL Normal 8.5-10.1 [facility] Comment on above: Performed By: #### C MP TEENA, LIPA #### [facility] [address] [place] [address] Dr. Joe Vargas Chloride [Moles/Vol] 104 mmol/L Normal 98-107 [facility] Comment on above: Performed By: #### C MP, TEENA, LIPA #### [facility] [address] [place] [address] Dr. Joe Vargas CO2 [Moles/Vol] 28.5 mmol/L Normal 21.0-32.0 [facility] Comment on above: Performed By: #### C MP, TEENA, LIPA #### [facility] [address] [place] [address] Dr. Joe Vargas Creatinine [Mass/Vol] 0.65 mg/dL Normal 0.55-1.02 [facility] Comment on above: Performed By: #### C MP TEENA, LIPA #### [facility] [address] [place] [address] Dr. Joe Vargas EGFR-AF GREENLANDIC >60 Normal >=60 [facility] Comment on above: Performed By: #### C MP, TEENA, LIPA #### [facility] [address] [place] [address] Dr. Joe Vargas EGFR-NON AF GREENLANDIC >60 Normal >=60 [facility] Comment on above: Performed By: #### C TEENA ECKERT LIPA #### [facility] [address] [place] [address] Dr. Joe Vargas Globulin (S) [Mass/Vol] 4.0 g/dL Normal [facility] Comment on above: Performed By: #### C TEENA ECKERT LIPA #### [facility] [address] [place] [address] Dr. Joe Vargas Glucose [Mass/Vol] 129 mg/dL Critically high 74-106 T [facility] Comment on above: Performed By: #### C TEENA ECKERT LIPA #### [facility] [address] [place] [address] Dr. Joe Vargas Potassium [Moles/Vol] 4.5 mmol/L Normal 3.5-5.1 [facility] Comment on above: Performed By: #### C TEENA ECKERT LIPA #### [facility] [address] [place] [address] Dr. Joe Vargas Protein [Mass/Vol] 8.0 g/dL Normal 6.4-8.2 [facility] Comment on above: Performed By: #### C TEENA ECKERT LIPA #### [facility] [address] [place] [address] Dr. Joe Vargas Sodium [Moles/Vol] 141 mmol/L Normal 136-145 [facility] Comment on above: Performed By: #### C TEENA ECKERT LIPA #### [facility] [address] [place] [address] Dr. Joe Vargas Urea nitrogen [Mass/Vol] 17.0 mg/dL Normal 7.0-18.0 [facility] Comment on above: Performed By: #### C TEENA ECKERT LIPA #### [facility] [address] [place] [address] Dr. Joe Vargas Urea nitrogen/Creatinine [Mass ratio] 26.1 mg/mg Normal [facility] Comment on above: Performed By: #### C TEENA ECKERT LIPA #### [facility] [address] [address] [address] Joe Vargas US PELVIS AND TRANSVAGon US PELVIS AND TRANSVAG EXAMINATION: US PELVIS AND TRANSVAG HISTORY: Pelvic and perineal pain COMPARISON: No relevant comparison available. FINDINGS: The uterus is retroverted. The uterus is normal in size, contour and echotexture measuring 7.3 x 3.9 x 4.7 cm. Focal myometrial mass measuring 1.5 x 1.3 x 0.9 cm. The endometrium measures 3 mm, normal The right ovary measures 2.4 x 1.5 x 1.7 cm. Normal color and Doppler flow Echogenic area measuring 8 mm with acoustic shadowing. The left ovary measures 1.9 x 1.5 x 1.5 cm. Normal color and Doppler flow. IMPRESSION: 1.5 cm myometrial mass. A fibroid is statistically favored 8 mm echogenic focus in the right ovary. Calcification favored, nonspecific Electronically authenticated by: EDGAR KEYES Date: 2022-07-26 17:19 Normal [facility] PAP ACOG PANEL 2: 30 to 65on 06-25-2022 . . Normal [facility] Comment on above: Performed By: #### [id number] #### [facility] [address] [address] [address] Joe Vargas Age Gdln ACOG Testing Comment Normal [facility] Comment on above: Result Comment: <21 or >65 or no age provided Performed By: #### [id number] #### [facility] [address] [address] [address] Joe Vargas DIAGNOSIS: Comment Normal [facility] Comment on above: Result Comment: NEGA TIVE FOR INTRAEPITHELIAL LESION OR MALIGNANCY. Performed By: #### [id number] #### [facility] [address] [address] [address] Joe Vargas Methodology: Comment [facility] Comment on above: Result Comment: This liquid based ThinPrep(R) pap test was screened with the use of an image guided system. Performed By: #### 4 [id number] #### [facility] [address] [address] [address] Joe Vargas Note: Comment [facility] Comment on above: Result Comment: The Pap smear is a screening test designed to aid in the detection of premalignant and malignant conditions of the uterine cervix. It is not a diagnostic procedure and should not be used as the sole means of detecting cervical cancer. Both false-positive and false-negative reports do occur. . Performed By: #### [id number] #### [facility] [address] [address] [address] Joe Vargas Performed by: Comment Normal [facility] Comment on above: Result Comment: Farrah Glover, Fire Chief (ASCP) Performed By: #### 4 [id number] #### [facility] [address] [address] [address] Joe Vargas Specimen adequacy: Comment Normal [facility] Comment on above: Result Comment: Sati sfactory for evaluation. Endocervical and/or squamous metaplastic cells (endocervical component) are present. Performed By: #### 4 [id number] #### [facility] [address] [address] [address] Joe Vargas Q - CULTURE,URINE,ROUTINEon 11-23-2021 CULTURE, URINE, ROUTINE SEE NOTE Abnormal [facility] Carpenter Comment on above: Order Comment: [facility] performed at: [facility], [facility], [address] [place] [address], [address] [place] [address], [id number], Die Baker: Herve Sahni MD [facility] Collection Date/Time: [id number] [facility] Results Received Date/Time: [facility] Reported Date/Time: FASTING: NO Result Comment: CULT URE, URINE, ROUTINE Micro Number: [id number] Test Status: Final Specimen Source: Urine Specimen Quality: Adequate Result: Greater than 100,000 CFU/mL of Escherichia coli (ESBL) E.coli (ESBL) INT TARYN AMOX/CLAVULANATE I 16 AMPICILLIN R >=32 1 AMP/SULBACTAM R >=32 CEFAZOLIN R >=64 2 CEFEPIME I 8 CEFTRIAXONE R >=64 CIPROFLOXACIN R >=4 ERTAPENEM S <=0.5 GENTAMICIN S <=1 IMIPENEM S <=0.25 LEVOFLOXACIN R >=8 NITROFURANTOIN S <=16 PIP/TAZOBACTAM S <=4 TOBRAMYCIN S <=1 TRIMETHOPRIM/SULFA R >=320 ESBL RESULT: * 3 S=Susceptible I=Intermediate R=Resistant * = Not Tested NR = Not Reported NN = See Therapy Comments THERAPY COMMENTS Note 1: Extended spectrum beta-lactamase (ESBL) producing organisms demonstrate decreased activity with penicillins, cephalosporins and aztreonam. Note 2: For uncomplicated UTI caused by E. coli, K. pneumoniae or P. mirabilis: Cefazolin is susceptible if TARYN <32 mcg/mL and predicts susceptible to the oral agents cefaclor, cefdinir, cefpodoxime, cefprozil, cefuroxime, cephalexin and loracarbef. Note 3: The organism has been confirmed as an ESBL web producer. Performed By: #### [id number] #### [facility] [address] [place] [id number] Comprehensive Metabolic Pane [facility] 09-20-2021 Albumin [Mass/Vol] 4.6 g/dL Normal 3.6-5.1 [facility] Comment on above: Performed By: #### L IPD, CMP, LDLD #### [facility] [address] [place], [place] [id number] Albumin/Globulin [Mass ratio] 1.8 {ratio} Normal 1.0-2.5 [facility] Comment on above: Performed By: #### L IPD, CMP, LDLD #### [facility] [address] [place], [place] [id number] ALP [Catalytic activity/Vol] 99 U/L Normal 35-119 [facility] Comment on above: Performed By: #### L IPD, CMP, LDLD #### [facility] [address] [place], [place] [id number] ALT [Catalytic activity/Vol] 61 U/L High 6-33 [facility] Comment on above: Result Comment: 09/06 Female reference range changed. Performed By: #### L IPD, CMP, LDLD #### [facility] [address] [place], [place] [id number] Anion gap [Moles/Vol] 19 mmol/L Normal 12-20 [facility] Comment on above: Result Comment: Effe ctive 10/12/2019 reference range changed. Performed By: #### L IPD, CMP, LDLD #### [facility] [address] [place], [place] [id number] AST [Catalytic activity/Vol] 33 U/L Normal 9-34 [facility] Comment on above: Performed By: #### L IPD, CMP, LDLD #### [facility] [address] [place], [place] [id number] Bilirubin [Mass/Vol] 0.36 mg/dL Normal 0.30-1.20 [facility] Comment on above: Performed By: #### L IPD, CMP, LDLD #### [facility] [address] [place], [place] [id number] BUN/CREA 26 Ratio High 6-22 [facility] Comment on above: Performed By: #### L IPD, CMP, LDLD #### [facility] [address] [place], [place] [id number] Calcium [Mass/Vol] 9.7 mg/dL Normal 8.6-10.2 [facility] Comment on above: Performed By: #### L IPD, CMP, LDLD #### [facility] [address] [place], [place] [id number] Chloride [Moles/Vol] 101 mmol/L Normal 98-107 [facility] Comment on above: Performed By: #### L IPD, CMP, LDLD #### [facility] [address] [place], [place] [id number] CO2 [Moles/Vol] 24 mmol/L Normal 20-31 [facility] Comment on above: Performed By: #### L IPD, CMP, LDLD #### [facility] [address] [place], [place] [id number] Creatinine [Mass/Vol] 0.6 mg/dL Normal 0.6-1.4 [facility] Comment on above: Performed By: #### L IPD, CMP, LDLD #### [facility] [address] [place], [place] [id number] eGFRAA 117 mL/min/1.73m2 Normal >60 [facility] Comment on above: Performed By: #### L IPD, CMP, LDLD #### [facility] [address] [place], [place] [id number] eGFRNAA 97 mL/min/1.73m2 Normal >60 [facility] Specialist Comment on above: Performed By: #### L IPD, CMP, LDLD #### [facility] [address] [place], [place] [id number] Globulin (S) [Mass/Vol] 2.5 g/dL Normal 1.9-3.7 [facility] Comment on above: Performed By: #### L IPD, CMP, LDLD #### [facility] [address] [place], [place] [id number] Glucose [Mass/Vol] 128 mg/dL High 65-[address] [facility] Special[facility] Comment on above: Result Comment: For FASTING Glucose --- ADA reference ranges: Normal 65-99 mg/dl Prediabetes 100-125 Diabetes >/= 126 Performed By: #### L IPD, CMP, LDLD #### [facility] [address] [place], [place] [id number] Potassium [Moles/Vol] 4.3 mmol/L Normal 3.5-5.5 [facility] Comment on above: Performed By: #### L IPD, CMP, LDLD #### [facility] [address] [place], [place] [id number] Protein [Mass/Vol] 7.1 g/dL Normal 6.1-8.[address] [facility] Comment on above: Performed By: #### L IPD, CMP, LDLD #### [facility] [address] [place], [place] [id number] Sodium [Moles/Vol] 140 mmol/L Normal 135-146 [facility] Comment on above: Performed By: #### L IPD, CMP, LDLD #### [facility] [address] [place], [place] [id number] Urea nitrogen [Mass/Vol] 16 mg/dL Normal 7-25 [facility] Comment on above: Performed By: #### L IPD, CMP, LDLD #### [facility] [address] [facility] [place] [id number] LDL-Directon 09-20-2021 Cholesterol in LDL [Mass/Vol] 166 mg/dL Normal [facility] Comment on above: Result Comment: LDL ATP III CLASSIFICATION LDL less than 100 mg/dl Optimal LDL 100-129 mg/dl Near or above optimal LDL 130-159 Borderline high LDL 160-189 High LDL greater than 189 mg/dl Very High Performed By: #### L IPD, CMP, LDLD #### [facility] [address] [place], [place] [id number] Lipid Panelon 09-20-2021 Cholesterol [Mass/Vol] 292 mg/dL High 125-200 [facility] Comment on above: Result Comment: Low risk < 200mg/dL Borderline risk 201-239 mg/dl High risk > or equal to 240 Performed By: #### L IPD, CMP, LDLD #### [facility] [address] [place], [place] [id number] Cholesterol in HDL [Mass/Vol] 46 mg/dL Normal >40 [facility] Trim Carpenter Comment on above: Result Comment: High Cardiovascular Risk HDL <40 mg/dL Low Cardiovascular Risk HDL > or equal to 60 mg/dl Performed By: #### L IPD, CMP, LDLD #### [facility] [address] [place], [place] [id number] Cholesterol in VLDL [Mass/Vol] 88 mg/dL Normal [facility] Specialist Comment on above: Performed By: #### L IPD, CMP, LDLD #### [facility] [address] [place], [place] [id number] Cholesterol.total/Chol esterol in HDL [Mass ratio] 6 {ratio} Normal [facility] Specialist Comment on above: Performed By: #### L IPD, CMP, LDLD #### [facility] [address] [place], [place] [id number] LDLD REFLEX LDL-DIRECT Normal [facility] Specialist Comment on above: Performed By: #### L IPD, CMP, LDLD #### [facility] [address] [facility] [place] [id number] Triglyceride [Mass/Vol] 441 mg/dL High 30-150 [facility] Trim Carpenter Comment on above: Result Comment: TRIG ATPIII CLASSIFICATIONS TRIG less than 150 mg/dl Normal TRIG 150-199 mg/dl Borderline High TRIG 200-500 mg/dl High TRIG greather than 500 mg/dl Very High Performed By: #### L IPD, CMP, LDLD #### [facility] [address] [place], [place] [id number] Vital Signs Date Time Vital Sign Value Performing Clinician Facility 02-27-2024 10:42-0400 Body weight 75.29 kg MD Quinton Dan Work Phone: [facility] 02-27-2024 10:42-0400 Diastolic blood pressure 89 mm[Hg] MD Quinton Dan Work Phone: [facility] 02-27-2024 10:42-0400 Heart rate 77 /min MD Quinton Dan Work Phone: [facility] 02-27-2024 10:42-0400 Respiratory rate 18 /min MD Quinton Dan Work Phone: [facility] 02-27-2024 10:42-0400 SaO2% (BldA) [Mass fraction] 97 % MD Quinton Dan Work Phone: [facility] 02-27-2024 10:42-0400 Systolic blood pressure 145 mm[Hg] MD Quinton Dan Work Phone: [facility] 12-26-2023 13:03-0400 Body height 162.56 cm MD Quinton Dan Work Phone: [facility] 12-26-2023 13:03-0400 Body mass index (BMI) [Ratio] 27.8 kg/m2 MD Quinton Dan Work Phone: [facility] 12-26-2023 13:03-0400 Body weight 73.48 kg MD Quinton Dan Work Phone: [facility] 12-26-2023 13:03-0400 Diastolic blood pressure 62 mm[Hg] MD Quinton Dan Work Phone: [facility] 12-26-2023 13:03-0400 Heart rate 87 /min MD Quinton Dan Work Phone: [facility] 12-26-2023 13:03-0400 Respiratory rate 16 /min MD Quinton Dan Work Phone: [facility] 12-26-2023 13:03-0400 SaO2% (BldA) [Mass fraction] 99 % MD Quinton Dan Work Phone: [facility] 12-26-2023 13:03-0400 Systolic blood pressure 148 mm[Hg] MD Quinton Dan Work Phone: [facility] 12-05-2023 17:13-0500 Heart rate 73 /min Adrian NILL [facility] 12-05-2023 17:13-0500 SaO2% (BldA) [Mass fraction] 96 % Adrian NILL [facility] 12-05-2023 17:13-0500 Respiratory rate 18 /min Adrian NILL [facility] 12-05-2023 17:12-0500 Diastolic blood pressure 86 mm[Hg] Adrian NILL [facility] 12-05-2023 17:12-0500 Mean blood pressure 101 mm[Hg] Adrian NILL [facility] 12-05-2023 17:12-0500 Systolic blood pressure 132 mm[Hg] Adrian NILL [facility] 12-05-2023 14:37-0500 Heart rate 88 /min Adrian NILL [facility] 12-05-2023 14:37-0500 SaO2% (BldA) [Mass fraction] 98 % Adrian NILL [facility] 12-05-2023 14:35-0500 Respiratory rate 16 /min Adrian NILL [facility] 12-05-2023 14:34-0500 Diastolic blood pressure 76 mm[Hg] Adrian NILL [facility] 12-05-2023 14:34-0500 Mean blood pressure 91 mm[Hg] Adrian NILL [facility] 12-05-2023 14:34-0500 Systolic blood pressure 119 mm[Hg] Adrian NILL [facility] 12-05-2023 14:25-0500 Blood Pressure Location Adrian NILL [facility] 12-05-2023 14:25-0500 Body temperature 97.16 [degF] Adrian NILL [facility] 12-05-2023 14:25-0500 Mean blood pressure 87 mm[Hg] Adrian NILL [facility] 12-05-2023 14:25-0500 Respiratory rate 10 /min Adrian NILL [facility] 12-05-2023 14:10-0500 Blood Pressure Location Adrian NILL [facility] 12-05-2023 14:10-0500 Mean blood pressure 82 mm[Hg] Adrian NILL [facility] 12-05-2023 14:10-0500 Respiratory rate 12 /min Adrian NILL [facility] 12-05-2023 14:00-0500 Mean blood pressure 79 mm[Hg] Adrian NILL [facility] 12-05-2023 13:14-0500 Body temperature 97.52 [degF] Adrian NILL [facility] 12-05-2023 07:09-0500 Body temperature 97.7 [degF] Adrian NILL [facility] 11-20-2023 08:27-0500 Body height 163.8 cm Quinton Dan MD Work Phone: [facility] 11-20-2023 08:27-0500 Body mass index (BMI) [Ratio] 27.04 kg/m2 Quinton Dan MD Work Phone: [facility] 11-20-2023 08:27-0500 Body weight 72.58 kg Quinton Dan MD Work Phone: [facility] 11-19-2023 10:05-0500 Diastolic blood pressure 81 mm[Hg] Adrian NILL [facility] 11-19-2023 10:05-0500 Heart rate 90 /min Adrian NILL [facility] 11-19-2023 10:05-0500 Mean blood pressure 97 mm[Hg] Adrian NILL [facility] 11-19-2023 10:05-0500 Systolic blood pressure 128 mm[Hg] Adrian NILL [facility] 11-19-2023 10:05-0500 Heart rate 88 /min Adrian NILL [facility] 11-19-2023 10:05-0500 SaO2% (BldA) [Mass fraction] 96 % Adrian NILL [facility] 11-19-2023 10:04-0500 Diastolic blood pressure 76 mm[Hg] Adrian NILL [facility] 11-19-2023 10:04-0500 Mean blood pressure 90 mm[Hg] Adrian NILL [facility] 11-19-2023 10:04-0500 Systolic blood pressure 119 mm[Hg] Adrian NILL [facility] 11-19-2023 10:04-0500 Respiratory rate 18 /min Adrian NILL [facility] 11-14-2023 09:37-0500 Blood Pressure Location Adrian NILL [facility] [place] 11-14-2023 09:37-0500 Diastolic blood pressure 85 mm[Hg] Adrian NILL [facility] [place] 11-14-2023 09:37-0500 Heart rate 91 /min Adrian NILL [facility] [place] 11-14-2023 09:37-0500 Respiratory rate 16 /min Adrian NILL [facility] [place] 11-14-2023 09:37-0500 Systolic blood pressure 138 mm[Hg] Adrian NILL [facility] [place] 10-21-2023 11:05-0500 Body temperature 98.2 [degF] MD Quinton Dan Work Phone: [facility] 10-21-2023 11:05-0500 Diastolic blood pressure 83 mm[Hg] MD Quinton Dan Work Phone: [facility] 10-21-2023 11:05-0500 Heart rate 102 /min MD Quinton Dan Work Phone: [facility] 10-21-2023 11:05-0500 Respiratory rate 20 /min MD Quinton Dan Work Phone: [facility] 10-21-2023 11:05-0500 SaO2% (BldA) [Mass fraction] 99 % MD Quinton Dan Work Phone: [facility] 10-21-2023 11:05-0500 Systolic blood pressure 143 mm[Hg] MD Quinton Dan Work Phone: [facility] 06-12-2023 08:00-0400 Body height 167.64 cm Rodney Peña Other [employer] Other 06-12-2023 08:00-0400 Body mass index (BMI) [Ratio] 26.79 kg/m2 Rodney Peña Other [employer] Other 06-12-2023 08:00-0400 Body weight 75.3 kg Rodney Peña Other [employer] Other 04-30-2023 13:47-0400 Body height 163.83 cm MD Quinton Dan Work Phone: [facility] 04-30-2023 13:47-0400 Body mass index (BMI) [Ratio] 28.3 kg/m2 MD Quinton Dan Work Phone: [facility] 04-30-2023 13:47-0400 Body weight 76 kg MD Quinton Dan Work Phone: [facility] 04-30-2023 12:20-0400 Diastolic blood pressure 76 mm[Hg] MD Quinton Dan Work Phone: [facility] 04-30-2023 12:20-0400 Heart rate 73 /min MD Quinton Dan Work Phone: [facility] 04-30-2023 12:20-0400 Respiratory rate 16 /min MD Quinton Dan Work Phone: [facility] 04-30-2023 12:20-0400 SaO2% (BldA) [Mass fraction] 96 % MD Quinton Dan Work Phone: [facility] 04-30-2023 12:20-0400 Systolic blood pressure 132 mm[Hg] MD Quinton Dan Work Phone: [facility] 04-30-2023 11:25-0400 Body temperature 97 [degF] MD Quinton Dan Work Phone: [facility] 04-30-2023 11:00-0400 Inhaled oxygen flow rate 10 L/min MD Quinton Dan Work Phone: [facility] 04-05-2023 11:00-0400 Body height 167.64 cm Rodney Peña Other [employer] [facility] [employer] Other 04-05-2023 11:00-0400 Body mass index (BMI) [Ratio] 26.63 kg/m2 Rodney Peña Other [employer] Other 04-05-2023 11:00-0400 Body weight 74.84 kg Rodney Peña Other [employer] Other Encounters Encounter Date Encounter Type Care Provider Facility Start: 06-16-2024 End: 06-16-2024 Patient encounter procedure MD Quinton Dan Work Phone: [facility] Work Phone: Start: 06-16-2024 End: 06-16-2024 ambulatory MD Quinton Dan Work Phone: [facility] Work Phone: Start: 04-27-2024 End: 04-27-2024 ambulatory QUINTON DAN Not Available Start: 04-06-2024 End: 04-06-2024 ambulatory QUINTON DAN Not Available Start: 02-27-2024 End: 02-27-2024 ambulatory MD Quinton Dan Work Phone: [facility] Work Phone: Start: 02-27-2024 End: 02-27-2024 Patient encounter procedure MD Quinton Dan Work Phone: [facility] Work Phone: Start: 02-27-2024 Registered Recurring MD Quinton Dan Work Phone: [facility] Work Phone: Start: 02-27-2024 ambulatory Quinton Dan Facili ty:[facility] Start: 02-06-2024 End: 02-06-2024 ambulatory QUINTON DAN Not Available Start: 01-20-2024 Non-patient / Non-visit MD Aimee Dan Work Phone: [facility] Work Phone: Start: 01-16-2024 Non-patient / Non-visit MD Aimee Dan Work Phone: [facility] Work Phone: Start: 01-07-2024 Non-patient / Non-visit MD Aimee Dan Work Phone: [facility] Work Phone: Start: 12-26-2023 Registered Recurring MD Quinton Dan Work Phone: [facility] Work Phone: Start: 12-26-2023 End: 12-26-2023 ambulatory MD Quinton Dan Work Phone: [facility] Work Phone: Start: 12-26-2023 End: 12-26-2023 Patient encounter procedure MD Quinton Dan Work Phone: [facility] Work Phone: Start: 12-24-2023 End: 12-25-2023 ambulatory Adrian JIMENEZ Facility:[facility] [place] Start: 12-24-2023 End: 12-24-2023 Patient encounter procedure Adrian JIMENEZ General Surgery [facility] [place] Start: 12-13-2023 End: 12-14-2023 ambulatory Adrian R NILL Facility: [place] Start: 12-13-2023 End: 12-13-2023 Patient encounter procedure Adrian R NILL General Surgery Nill/Said [place] Start: 12-05-2023 End: 12-05-2023 ambulatory Adrian R NILL Facility:[facility] Start: 12-05-2023 End: 12-05-2023 Admission to same day surgery center Adrian R NILL [facility] Start: 11-20-2023 Bamboo flowsheet Quinton albright MD Work Phone: [facility] Start: 11-20-2023 Bamboo flowsheet Quinton albright MD Work Phone: [facility] Start: 11-20-2023 End: 11-20-2023 Office outpatient visit 25 minutes Quinton Dan MD Work Phone: [facility] Comment on above: Diverticulitis (Prim emy Dx); Diverticulosis of colon Start: 11-20-2023 End: 11-20-2023 ambulatory QUINTON DAN Not Available Start: 11-19-2023 Chart abstracting Quinton huerta MD Work Phone: [facility] Start: 11-19-2023 End: 11-20-2023 ambulatory Adrian R NILL Facility:[facility] Start: 11-19-2023 End: 11-20-2023 ambulatory Adrian R NILL Facility:[facility] Start: 11-19-2023 End: 11-19-2023 Patient encounter procedure Adrian R NILL [facility] Start: 11-19-2023 End: 11-19-2023 Patient encounter procedure Adrian R NILL [facility] Start: 11-14-2023 End: 11-15-2023 ambulatory Crow COTTONO Facility:[facility] Start: 11-14-2023 End: 11-14-2023 Patient encounter procedure Adrian JIMENEZ [facility] [place] Start: 11-11-2023 ambulatory Crow KRUSE Facility:[facility] Start: 11-10-2023 Chart abstracting Quinton huerta MD Work Phone: [facility] Start: 10-29-2023 ambulatory Crow KRUSE Facility:[facility] [place] Start: 10-21-2023 End: 10-21-2023 Admission to same day surgery center MD Quinton Dan Work Phone: [facility] Start: 10-21-2023 End: 10-21-2023 ambulatory MD Quinton Dan Work Phone: [facility] Work Phone: Start: 10-14-2023 End: 10-14-2023 ambulatory QUINTON DAN Not Available Start: 10-09-2023 End: 10-09-2023 Patient encounter procedure MD Quinton Dan Work Phone: [facility] Work Phone: Start: 10-09-2023 End: 10-09-2023 ambulatory MD Quinton Dan Work Phone: [facility] Work Phone: Start: 10-02-2023 End: 10-02-2023 ambulatory QUINTON DAN Not Available Start: 09-25-2023 End: 09-25-2023 ambulatory QUINTON DAN Not Available Start: 09-19-2023 End: 09-19-2023 Patient encounter procedure MD Quinton Dan Work Phone: [facility] Work Phone: Start: 09-19-2023 End: 09-19-2023 ambulatory MD Quinton Dan Work Phone: [facility] Work Phone: Start: 06-27-2023 End: 06-27-2023 ambulatory MD Quinton Dan Work Phone: [facility] Work Phone: Start: 06-27-2023 End: 06-27-2023 Discharged Recurring MD Quinton Dan Work Phone: [facility] [place] Work Phone: Start: 06-12-2023 End: 06-12-2023 ambulatory Rodney Peña Other [employer] Other Start: 06-12-2023 Postop follow up vis it related to original px Rodney Peña [facility] Start: 05-07-2023 End: 05-07-2023 ambulatory Cecilia Vital Other [employer] Other Start: 05-07-2023 Postop follow up vis it related to original px Cecilia Amanuel [facility] Start: 05-02-2023 End: 05-02-2023 ambulatory Rodney Peña Other [employer] Other Start: 05-02-2023 Telephone encounter Rodney Peña [facility] Start: 04-30-2023 End: 04-30-2023 Admission to same day surgery center MD Quinton Dan Work Phone: [facility] [address] [place] Start: 04-16-2023 End: 04-16-2023 ambulatory MD Quinton Dan Work Phone: [facility] Work Phone: Start: 04-16-2023 End: 04-16-2023 Patient encounter procedure MD Quinton Dan Work Phone: [facility] Work Phone: Start: 04-05-2023 End: 04-05-2023 ambulatory Rodney Peña Other [employer] Other Start: 04-05-2023 Encounter for other preprocedural examination Rodney Peña [facility] Start: 04-05-2023 Office outpatient ne w 45 minutes Rodney Peña [facility] Start: 03-08-2023 End: 03-08-2023 ambulatory MD Quinton Dan Work Phone: [facility] Work Phone: Start: 03-08-2023 End: 03-08-2023 Patient encounter procedure MD Quinton Dan Work Phone: [facility] [address] Work Phone: Start: 08-29-2022 End: 08-29-[address] QUINTON DAN Facility:[facility] Start: 07-26-2022 End: 07-27-[address] CROW KRUSE Facility:[facility] Start: 07-26-2022 End: 07-26-2022 ambulatory MD Quinton Dan Work Phone: [facility] Work Phone: Start: 07-26-2022 End: 07-26-2022 Patient encounter procedure MD Quinton Dan Work Phone: [facility] Start: 06-19-2022 End: 06-19-[address] CROW KRUSE Facility:[facility] Procedures Date Procedure Procedure Detail Performing Clinician Start: 06-16-2024 Mammography of left breast MD Quinton Dan Work Phone: Start: 12-05-2023 Biopsy of breast Michae catrina JIMENEZ Start: 12-05-2023 Lumpectomy of left breast Adrian JIMENEZ Start: 10-21-2023 Core needle biopsy o f breast using ultrasound guidance MD Quinton Dan Work Phone: Start: 10-21-2023 Mammography of left breast MD Quinton Dan Work Phone: Start: 10-09-2023 Mammography of left breast MD Quinton Dan Work Phone: Start: 10-09-2023 Ultrasonography of l eft breast MD Quinton Dan Work Phone: Start: 09-19-2023 Screening mammograph y of bilateral breasts MD Quinton Dan Work Phone: Start: 04-30-2023 Arthroscopy of knee MD Quinton Dan Work Phone: Start: 03-08-2023 X-ray of right knee MD Quinton Dan Work Phone: Start: 11-07-2022 Colonoscopy Quinton Smith eyeusman PATEL Work Phone: Start: 07-26-2022 Dual energy X-ray absorptiometry MD Quinton Dan Work Phone: Start: 07-26-2022 Screening mammograph y of bilateral breasts MD Quinton Dan Work Phone: Biopsy of breast Adrian Tyler section Adrian NIL L section Adrian NIL L Closed reduction of nasal fracture Adrian NILL Colonoscopy Adrian NILL Repair of meniscus Adrian N ILL Tonsillectomy and adenoidectomy Adrian NILL Tympanotomy Adrian NILCatrina wisdom teeth Adrian JIMENEZ Plan of Treatment Date Care Activity Detail Author Start: 11-07-2032 Screening for malign ant neoplasm of colon [facility] Start: 06-25-2024 End: 06-25-2024 Patient encounter procedure 06/25/2024 8:30 AM EDT Office Visit [facility] [address] [place] [address] Crow Kruse DO [address] [place] [address] [facility] Start: 06-20-2024 Medicare Annual Wellness (AWV) Medicare Annual Wellness (AWV) [facility] Start: 04-06-2024 End: 04-06-2024 Patient encounter procedure 04/06/2024 8:30 AM EDT Office Visit [facility] [address] [facility] [place] [address] Quinton Dan MD [address] [facility] [place] [address] (Fax) [facility] Start: 11-20-2023 End: 11-20-2023 Patient encounter procedure [facility] Comment on above: Arrived Start: 11-11-2023 End: 11-11-2023 Patient encounter procedure 11/11/2023 9:00 AM EST Office Visit [facility] [address] [facility] [place] [address] Quinton Dan MD [address] [facility] [place] [address] (Fax) [facility] Start: 06-07-2023 Influenza vaccination Influenza Vacc ine (#1) [facility] Start: 04-30-2023 [facility] Start: 04-30-2023 [facility] Start: 02-09-2021 Pneumococcal Vaccine : 65+ Years (1 - PCV) Pneumococcal Vaccine: 65+ Years (1 - PCV) [facility] Start: 1955 Screening for malign ant neoplasm of colon [facility] Computed tomography for radiotherapy planning [facility] Patient referral [facility] Work Phone: Immunizations Immunization Date Immunization Notes Care Provider Bravo alicea 07-21-2018 influenza, injectable, quadrivalent, preservative free Quinton Dan MD Work Phone: [facility] 07-21-2018 influenza virus vaccine, unspecified formulation Quinton Dan MD Work Phone: [facility] 07-17-2018 Influenza, injectable, Madin [place] Canine Kidney, preservative free, quadrivalent Quinton Dan MD Work Phone: [facility] 09-03-2015 influenza, seasonal, injectable, preservative free Quinton Dan MD Work Phone: [facility] 07-08-2015 influenza, injectable, quadrivalent, preservative free Quinton Dan MD Work Phone: [facility] 07-14-2014 influenza, seasonal, injectable Quinton Dan MD Work Phone: [facility] 08-15-2013 influenza, seasonal, injectable, preservative free Quinton Dan MD Work Phone: [facility] 08-11-2013 tetanus toxoid, reduced diphtheria toxoid, and acellular pertussis vaccine, adsorbed Quinton Dan MD Work Phone: [facility] NEGATED: Highlighted row has not occurred!11-14-2023 influenza virus vaccine, unspecified formulation Adrian JIMENEZ [facility] [place] Payers Date Payer Category Payer Self-pay [id number] 2021 Medicare MEDICARE MEDICAR E PART B [id number] 2021-[place] [address] [place] [address] Medicare [id number] 2012 Unknown [id number] 1959 Medicare [id number] 1959 Unknown [id number] 1956 Unknown [id number] 2.16.840.1.573609.3.579 .2.593 1956 Unknown [id number] 2.16.840.1.865048.3.579 .2.593 1956 Unknown [id number] 2.16.840.1.384154.3.579 .2.593 1956 Unknown [id number] 2.16.840.1.658678.3.579 .2.727 1956 Unknown [id number] 2.16.840.1.735894.3.579 .2.727 1956 Unknown [id number] 2.16.840.1.156894.3.579 .2.727 1956 Unknown [id number] 2.16.840.1.197023.3.579 .2.727 1956 Unknown [id number] 2.16.840.1.088649.3.579 .2.727 1956 Unknown [id number] 2.16.840.1.431654.3.579 .2.727 1956 Unknown [id number] 2.16.840.1.906646.3.579 .2.727 1956 Unknown [id number] 2.16.840.1.620481.3.579 .2.1259 1956 Unknown [id number] 2.16.840.1.322379.3.579 .2.1259 1956 Unknown [id number] 2.16.840.1.106394.3.579 .2.1259 1956 Unknown [id number] 2.16.840.1.685295.3.579 .2.1258 1956 Unknown [id number] 2.16.840.1.427274.3.579 .2.1258 1956 Unknown [id number] 2.16.840.1.472602.3.579 .2.1258 1956 Unknown [id number] 2.16.840.1.184059.3.579 .2.1259 Private Health Insurance [facility] [id number] Private Health Insurance [id number] Unknown Regular Insurance [id number] Unknown [id number] 2.16.840.1.942463.19 Unknown [id number] 2.16.840.1.504360.3.579 .2.531 Unknown [id number] 2.16840.1.227546.3.579 .2.531 Unknown [id number] 2.16840.1.940675.3.579 .2.531 Unknown [id number] 2.16840.1.021029.3.579 .2.531 Unknown [id number] 2.16840.1.164559.3.579 .2.531 Unknown [id number] 2.840.1.722896.3.579 .2.531 Social History Date Type Detail Facility Start: 11-10-2021 End: 10-21-2023 Tobacco smoking status NHIS Never smoked tobacco (finding) [facility] Start: 1955 Sex Assigned At Female [facility] Start: 04-21-2023 End: 09-25-2023 Sex Assigned At [facility] Start: 10-02-2023 Tobacco smoking stat [facility] Ex-smoker [facility] History of tobacco use Current smoker [facility] History of tobacco use Cigarette Smoker [facility] Start: 10-02-2023 Tobacco use and exposure Smokeless tobacco non-user [facility] Start: 11-10-2023 End: 11-20-2023 Alcohol intake Ex-drinker (finding) [facility] Start: 04-21-2023 End: 09-25-2023 History of Social function [facility] Within the last year , have you been afraid of your partner or ex-partner? Patient refused [facility] Are you now , , , , never or living with a partner? Refused [facility] Do you feel stress - tense, restless, nervous, or anxious, or unable to sleep at night because your mind is troubled all the time - these days [OSQ] Only a little [facility] (I/We) worried wheth er (my/our) food would run out before (I/we) got money to buy more. DK or Refused [facility] Start: 04-19-2023 Alcohol Comment Caffeine intak e: coffee [facility] Start: 1955 Sex Assigned At Not on file [facility] Goals Date Patient Goal Desired Activity /State Functional Status Date Assessment Result Facility 11-19-2023 Functional Status No [facility] 11-14-2023 Functional Status N/A [facility] [place] Clinical Notes 04-05-2023 to 12-05-2023 Quinton Dan MD - 11/20/2023 8:30 AM ESTRadiology Note Date & Type Note Facility 12-05-2023 Hospital Discharge instructions Patient Education 12/05/2023 13:52:39 Breast Biopsy, Care After Breast Biopsy, Care After The following information offers guidance on how to care for yourself after your breast biopsy. Your health care provider may also give you more specific instructions. If you have problems or questions, contact your health care provider. What can I expect after the procedure? After your breast biopsy, it is common to have: Bruising on your breast. Numbness, tingling, or pain near your biopsy site. This site is where tissue was removed for testing. Bleeding or swelling at the biopsy site. Changes in the shape of your breast. These are most often short-term and depend on how much tissue was removed. Follow these instructions at home: Medicines Take qqlm-uht-oxskyrj and prescription medicines only as told by your health care provider. If you were given a sedative during the procedure, it can affect you for several hours. Do not drive or operate machinery until your health care provider says that it is safe. Do not drink alcohol while taking pain medicine. Ask your health care provider if the medicine prescribed to you requires you to avoid driving or using machinery. Biopsy site care Follow instructions from your health care provider about how to take care of your incision or puncture area. Make sure you: ?Wash your hands with soap and water for at least 20 seconds before and after you change your bandage (dressing). If soap and water are not available, use hand machine maintenance technician. ?Change your dressing as told by your health care provider. ?Leave any stitches (sutures), skin glue, or adhesive strips in place. These skin closures may need to stay in place for 2 weeks or longer. If adhesive strip edges start to loosen and curl up, you may trim the loose edges. Do not remove adhesive strips completely unless your health care provider tells you to do that. If you have sutures, keep them dry when bathing. Check your incision or puncture area every day for signs of infection. Check for: ?More redness, swelling, or pain. ?More fluid or blood. ?Warmth. ?Pus or a bad smell. Protect the biopsy area. Do not let the area get bumped. Managing pain If directed, put ice on the biopsy site to relieve tenderness. To do this: Put ice in a plastic bag. Place a towel between your skin and the bag. Leave the ice on for 20 minutes, 2 3 times a day. Remove the ice if your skin turns bright red. This is very important. If you cannot feel pain, heat, or cold, you have a greater risk of damage to the area. Activity If an incision was made during your biopsy, avoid activities that may pull the incision open. Avoid stretching, reaching above your head, exercise, sports, or lifting anything that is heavier than 3 lb (1.4 kg). Return to your normal activities as told by your health care provider. Ask your health care provider what activities are safe for you. General instructions Go back to your usual diet. Wear a good support bra for as long as told by your health care provider. Get checked for extra fluid around your lymph nodes (lymphedema) as often as told. Do not use any products that contain nicotine or tobacco. These products include cigarettes, chewing tobacco, and vaping devices, such as e-cigarettes. If you need help quitting, ask your health care provider. Keep all follow-up visits. This is important. Contact a health care provider if: You have more redness, swelling, or pain at your biopsy site. You have more fluid or blood coming from your biopsy site. Your biopsy site feels warm to the touch. You have pus or a bad smell coming from your biopsy site. Your biopsy site breaks open after any sutures or adhesive strips have been removed. You have a rash or a fever. Get help right away if: You have trouble breathing. You have red streaks around the biopsy site. Summary After a breast biopsy, it is common to have bruising, numbness, tingling, or pain near the biopsy site. Ask your health care provider if the medicine prescribed to you requires you to avoid driving or using machinery, or to stop drinking alcohol. If an incision was made during your procedure, avoid activities that may pull the incision open. Ask your health care provider what activities are safe for you. Wear a good support bra for as long as told by your health care provider. This information is not intended to replace advice given to you by your health care provider. Make sure you discuss any questions you have with your health care provider. Document Revised: 08/17/2022 Document Reviewed: 07/03/2022 [employer] Patient Education 2022 [employer]. 12/05/2023 13:22:39 Post Op Patient Instructions - FT (CUSTOM) Follow Up Care 11/19/2023 10:30:49 With:Adrian JIMENEZ Address: [address] [place] [address], [facility] [address] [phone] Business (1) When:7 to 10 days [facility] 12-05-2023 Note Patient: MARY CHEN Age: 68 years Sex: Female : 1955 Associated Diagnoses: None Author: NILL MD, Adrian R Subjective no changes to [facility] Comment on above: Result Comment: Elec tronically Signed By: Adrian JIMENEZ MD\.br\Date and Time Signed: 12/05/23 07:42 EST 11-20-2023 Note [id number] [facility] 11-20-2023 History of Present illness Narrative Patient ID: Christal Chen is a 68 y.o. female who presents for: Diverticulitis Patient complains of diarrhea and LLQ abdominal pain. The pain is described as pressure-like, and is a 5/10 in intensity. Onset was 4 days ago. Symptoms have been gradually worsening since that time. Associated symptoms: none. Aggravating factors: bowel movement and eating. Alleviating factors: none. The patient denies chills, fever, nausea, and vomiting. Review of Systems Constitutional: Negative for chills and fever. Respiratory: Negative for cough, shortness of breath and wheezing. Cardiovascular: Negative for chest pain and palpitations. Gastrointestinal: Positive for abdominal pain. Genitourinary: Negative for frequency and urgency. Objective In general she appears her usual self in no distress. There is no evidence of icterus, jaundice, and her mucosal surfaces are moist. No specific CVA tenderness. The abdomen is soft and nondistended. There is no organomegaly or masses. There is only some mild to moderate tenderness in the left lower quadrant with some guarding. There is no evidence of true rebound or peritoneal signs. Visit Vitals Ht 5' 4.5 Wt 160 lb BMI 27.04 kg/m OB Status Postmenopausal Smoking Status Former BSA 1.82 m Allergies Allergen Reactions Amoxicillin Other Reaction(s): Welts / Rash Amoxicillin-Pot Clavulanate Other Reaction(s): Unknown Erythromycin Base Other Reaction(s): Abdominal Pain Homatropine Other Reaction(s): vomiting Hydrocodone Other Reaction(s): vomiting Sulfamethoxazole Other Reaction(s): Nausea Tramadol Other Reaction(s): nausea and vomiting Tricor [Fenofibrate] myalgias Current Outpatient Medications Medication Instructions albuterol 2.5 mg, Nebulization, Every 6 hours PRN amLODIPine (NORVASC) 10 mg, Oral, Daily aspirin 81 mg, Oral, Daily ciprofloxacin (CIPRO) 500 mg, Oral, 2 times daily fish oil concentrate 4 g, Oral, Daily, Actually Eicosamax liquid 1 tsp = 4 grams losartan (COZAAR) 100 mg, Oral, Daily metroNIDAZOLE (FLAGYL) 250 mg, Oral, 3 times daily Natural Mixed Tocopherols 400 mg, Oral, Daily Assessment/Plan Diagnoses and all orders for this visit: Diverticulitis - ciprofloxacin (Cipro) 500 MG tablet; Take 1 tablet (500 mg) by mouth in the morning and 1 tablet (500 mg) before bedtime. Do all this for 10 days. - metroNIDAZOLE (Flagyl) 250 MG tablet; Take 1 tablet (250 mg) by mouth in the morning and 1 tablet (250 mg) in the evening and 1 tablet (250 mg) before bedtime. Do all this for 10 days. I discussed with her going to a full liquid diet for 2 days. In prescribing a new medication consideration of the following encompasses moderate decision making: the current prescriptions and supplements, the current allergies and medication intolerances, the current medical conditions, and potential drug interactions. Drug interaction screening is reviewed and there are moderate to major severity ratings to consider during prescription drug management. If the new medication is considered a controlled substance, then the OARRS and NARX scores are obtained and reviewed. Risks, benefits, and reason for starting their medication were discussed. The patient was given a chance to ask questions today and all questions were answered. The patient is to contact us, preferably by using the patient portal, or call if any other questions arise or if any problems occur with the adjustment in their medication. 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 I discussed how this is related to chronic constipation. She states she moves her bowels regularly and she is not taking anything to help them. She does have laxative at home though. I discussed with her that I really want her to try regular twice daily dosing day and in the out for at least 2 weeks of either Benefiber, inulin, or MiraLAX. I discussed with her how this could be preventative for the diverticulosis. documented in this encounter [facility] 11-17-2023 Note HPI Staff 68 year old female presents on consultation from Dr. rKuse for invasive lobular carcinoma left breast. Denies breast pain. Denies palpable lumps. Denies skin changes. Denies nipple discharge or inversion. No known family history of breast cancer. History of Present Illness 68 yo female with h/o htn, hyperlipidemia, CKD, RBBB, referred for invasive lobular carcinoma of left breast; patient had routine screening mammograms that revealed distortion left upper outer quadrant; compression/magnification views and US obtained, revealed 1.3 x 1.5 x 0.9 cm irregular mass with surrounding architectural distortion at 2 0'clock position of left breast; patient denies breast pain, no skin changes or nipple discharge, no previous breast biopsies; seen by Oncology, had Oncotype Dx, 17, negative genetic workup; no asa or NSAID use; no hormone therapy; no tobacco use; no fmhx of GI malignancy or IBD. Review of Systems PHQ Score Initial Depression Screen Score: 0 SCORE ROS - Provider Constitutional: no fever, no sweats, no weight loss. Eyes: no glasses, no blurred vision, no visual loss. ENMT: no dentures, no hoarseness, no swallowing difficulties, no hearing loss, no ear infection(s), no nose bleeds. Cardiovascular: normal blood pressure, no chest pain, regular heartbeat, no heart murmur. Respiratory: no shortness of breath, no cough, no asthma, no wheezing. Gastrointestinal: no nausea, no vomiting, no diarrhea, no constipation, no blood in stool, no change in bowel habits, no abdominal pain, no hepatitis. Genitourinary: no kidney stones, no urine infection, no dysuria. Musculoskeletal: no pain, no weakness. Skin: no changing moles, no rash, no skin lumps. Neurologic: no seizures, no epilepsy, no headache. Psychiatric: no emotional or psychiatric problem. Heme/Lymph: no bleeding problems, no anemia, no blood clots, no transfusions. Allergy/Immunologic: no swollen lymph nodes/glands, no IV drug abuse. Other: Additional ROS info: Except as noted in the above Review of Systems and in the History of Present Illness, all other systems have been reviewed and are negative or noncontributory. Physical Exam Vitals & Measurements HR: 91(Peripheral) RR: 16 BP: 138/85 HT: 64 in HT: 163.8 cm WT: 73.7 kg WT: 162.14 lb BMI: 27.47 HEENT: normal conjunctiva, sclera clear, no scleral icterus, EOM intact, PERRLA. oral mucosa moist without lesions Neck: trachea midline , no mass, symmetric, no thyromegaly or nodules. no adenopathy Respiratory: lungs CTA, respirations non labored. Cardiovascular: regular rate and rhythm, no murmur, , no pedal edema or varicosities. Chest (Breasts): symmetric, no discharge, no palpable breast or axillary lumps, masses or tenderness; no skin or nipple changes. Gastrointestinal: soft, non distended, no tenderness, no masses, no palpable hernias, diastasis recti no, no hepatosplenomegaly. normal bs Lymphatic: no cervical adenopathy, no axillary adenopathy, no supraclavicular adenopathy. Musculoskeletal: gait, digits and nails without infection, nodes, cyanosis, clubbing. Skin: no rashes, no lesions, no ulcers, no subcutaneous nodules, induration. Psychiatric/Neuro: oriented to time, place, person, judgement normal, affect appropriate for age, insight intact, no focal deficits. Tests: labs reviewed, x-rays reviewed, review of old records completed , Discussed surgical options, risks, and possible complications with patient. Assessment/Plan 1. Malignant neoplasm of upper-outer quadrant of left female breast (C50.412: Malignant neoplasm of upper-outer quadrant of left female breast) plan bilateral breast MRI for operative planning, due to increased risk of multifocal and bilateral disease, as well as to better determine extent of lesion since mammogram/US not as reliable for lobular carcinoma; plan needle-localized left breast lumpectomy with sentinel lymph node biopsy, informed consent obtained. Levaquin 750 mg IV prior to OR SCDs 2. Lobular carcinoma of left breast (C50.912: Malignant neoplasm of unspecified site of left female breast) see # 1 Follow-up No qualifying data available Problem List/Past Medical History Ongoing BMI 27.0-27.9,adult Chronic fatigue syndrome Diabetes Diverticulosis Former smoker HTN (hypertension) Hyperlipidemia Hypertensive nephropathy Invasive lobular carcinoma of left breast in female Lobular carcinoma of left breast Mixed conductive and sensorineural hearing loss Overweight RBBB (right bundle branch block) Sick-euthyroid syndrome Stage 2 chronic kidney disease White matter disease Historical Hypertension Hypothyroid Menopause Procedure/Surgical History Biopsy of breast, section, section, section, Closed reduction of nasal fracture, Colonoscopy, Colonoscopy, Meniscal repair, Myringotomy, Tonsillectomy and adenoidectomy, wisdom teeth. Medications amLODIPine 10 mg Tab, 10 mg= 1 tab(s), Oral, Daily Fish (more content not included)... [facility] Comment on above: Result Comment: Elec tronically Signed By: TONY PATEL, Adrian Goldsmith\Date and Time Signed: 11/17/23 11:29 EST 11-14-2023 Evaluation + Plan note Future Scheduled TestsMA Breast Needle Loc w/ Guidance, Left 11/14/23NM Lymphoscintigraphy 11/14/23 [facility] 06-12-2023 Evaluation note Encounter Date Diagnosis Assessment Notes Jun, Tear of medial meniscus of right knee, unspecified tear type, unspecified whether old or current tear, subsequent encounter (ICD-10 - S83.241D) Christal is here now 6 weeks s/p right knee arthroscopy with partial medial meniscectomy. She is doing well. She has no complaints today. She is not taking pain medications. She is still in physical therapy and like to continue this for a little bit longer. She is increasing activities as tolerated without restrictions. At this point I would allow her to return to all activities without restrictions. We will be treating her arthritis from here on out. Anti-inflammat ories as needed. Return with any issues or if she would like to have her Pepe's cyst drained Jun, Status post arthroscopic knee surgery (ICD-10 - Z98.890) Jun, Other specified postprocedural states (ICD-10 - Z98.890) Patient is progressing well from surgery. Continue physical therapy exercises. Discussed may consider aspiration of pepe's cyst if does not resolve and is bothersome. Progress activity as tolerated. Instructed on NSAIDs as needed for discomort/swe lling. Call with questions/con cerns. Jun, Other See orders for this visit as documented in the electronic medical record. [facility] Other 08-01-2023 Evaluation note* Encounter Date Diagnosis Assessment Notes Treatment Notes Treatment Clinical Notes May, Tear of medial meniscus of right knee, unspecified tear type, unspecified whether old or current tear, subsequent encounter (ICD-10 - S83.241D) May, Status post arthroscopic knee surgery (ICD-10 - Z98.890) Physical examination of the right knee was performed today. Patient is progressing well, she is advised to ice and elevate the knee when needed. Sutures were removed today. Order for therapy was given. Patient can f/u in [address] Peña. May, Other specified postprocedural states (ICD-10 - Z98.890) May, Encounter for remova l of sutures (ICD-10 - Z48.02) [facility] Other 06-30-2023 Evaluation note* Encounter Date Diagnosis Assessment Notes Treatment Notes Treatment Clinical Notes Mar, Acute medial meniscus tear of right knee, initial encounter (ICD-10 - S83.241A) Christal presents with right knee DJD and medial meniscus tear. At this juncture we have discussed the findings and diagnosis as well as personally reviewed appropriate imaging and performed interpretation of related testing and examination with the patient in office today. Prior medical notes from Dr. Dan and history have been reviewed. Today we have discussed degenerative joint disease of the knee and its treatment. Imaging was discussed and explained to the patient. We discussed recommended conservative therapies including physical therapy, anti-inflammatory medications, and weight loss strategies. We also discussed other treatment options including cortisone injections, Visco supplementation injections which are options for treatment. I have laid out the course of knee DJD including the end-stage treatment of total joint arthroplasty. The patient recognizes and understands our options and goals and we will move forward with our treatment. Based on her clinical exam as well as history I believe she is having symptoms from her medial meniscus tear. We did discuss conservative treatment options including physical therapy and anti-inflammatory medications/injection s but she opts for surgical treatment with knee arthroscopy. At this juncture we have discussed the findings and diagnosis as well as reviewed appropriate imaging and performed interpretation of testing. Surgical intervention is recommended. Prior medical notes and history have been reviewed. Surgical versus non-operative management have been discussed in detail and non-operative management was given as an option. The risks of surgical intervention were given. Pre-operative optimization will be done prior to surgical procedure to limit verónica-operative risks. I have discussed the planned procedure, how and who performs the procedure, and the personnel involved. Cardiovascular, pulmonary, and other life threatening episodes can occur during surgery although there is a low risk of these happening. Surgical risks including bleeding, neurovascular injury, wound closure problems and infection were discussed. Verónica-operative risks including infection, bleeding, wound healing problems, and need for further surgery were discussed. It was discussed that there is a possibility of blood transfusion with any surgical procedure and the risks involved in receiving a blood transfusion. Possibility of, and need for, future bracing or DME use, physical or occupational therapy, mental therapy, rehabilitation, pain management and need for secondary procedures was discussed. I have warned against smoking and the use of tobacco products due to the risks associated with them, in particular, poor healing. 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 I have advised to follow all post-operative instructions in order to obtain the best outcome. Informed consent has been verbally affirmed and signed as indicated. We have explicitly discussed the possibility of symptomatic arthritis after this procedure. The patient has been involved in our cooperative treatment plan and agrees to move forward with treatment at this time. Radiograph images and MRI results reviewed with patient. Discussed treatment options as cortisone injection to the knee versus knee arthroscopy. Patient opts to proceed with arthroscopy at this time. We will plan on arthroscopy and menisectemy. We have discussed continued non-operative treatments including gentle exercise, use of medications and activity modification. Patient states that they would like to proceed with surgery at this time. We discussed the surgery process in detail including nothing by mouth 8 hrs prior to sugery, thorough washing of leg pior to coming to surgery. We discussed the multiple potential risks of anesthesia including respiratory, cardiac and patient positioning issues. We discussed the multiple risks of surgery particularly wound infection, deep venous thrombosis(DVT), persistent swelling, pain and stiffness after surgery, as well as worsening of pre-existing arthritic symptoms. Patient has agreed to understanding of these risks and would like to proceed. Mar, Synovial cyst of popliteal space [Pepe], right knee (ICD-10 - M71.21) Mar, Pre-op exam (ICD-10 - Z01.818) Mar, Other See orders for this visit as documented in the electronic medical record. [facility] Other Evaluation + Plan note Future Appointments Appointment Date:11/19/2023 09:30:00 AM Scheduled Provider: Location:[facility] Appointment Type:Surgical PAT FT Appointment Date:11/19/2023 01:00:00 PM Scheduled Provider: [facility] Type:MRI Breast (FT) Appointment Date:12/05/2023 09:00:00 AM Scheduled Provider: Location:.MAMMOGRAM Appointment Type:MA Needle Loc (FT) Appointment Date:12/05/2023 09:30:00 AM Scheduled Provider: Location:.[facility] Appointment Type:NM Lymphoscintigraphy (FT) Appointment Date:12/05/2023 11:30:00 AM Scheduled Provider: Location:[facility] Appointment Type:Surgery FT Future Scheduled Tests Radiology* MA Breast Needle Loc w/ Guidance, Left 11/14/23 * MA Breast Needle Loc w/ Guidance, Left 12/05/23 * MRI Breast w/o and w/ Contrast, Bilat 11/19/23 * NM Lymphoscintigraphy 11/14/23 * NM Lymphoscintigraphy 12/05/23 [facility] [place] Evaluation + Plan note Future Appointments Appointment Date:12/05/2023 09:00:00 AM Scheduled Provider: [facility] Appointment Type:MA Needle Loc (FT) Appointment Date:12/05/2023 09:30:00 AM Scheduled Provider: Location:.[facility] Appointment Type:NM Lymphoscintigraphy (FT) Appointment Date:12/05/2023 11:30:00 AM Scheduled Provider: Location:[facility] Appointment Type:Surgery FT Future Scheduled Tests Radiology* MA Breast Needle Loc w/ Guidance, Left 11/14/23 * MA Breast Needle Loc w/ Guidance, Left 12/05/23 * NM Lymphoscintigraphy 11/14/23 * NM [facility]intigraphy [facility] Future [facility]ments Appointment Date:12/24/2023 01:00:00 PM Scheduled Provider:Adrian JIMENEZ MD Location: [facility] Appointment Type: Post Op 15 Future Scheduled Tests Radiology* MA Breast Needle Loc w/ Guidance, Left 11/14/23 * NM Lymphoscintigraphy 11/14/23 [facility] [place] Evaluation noteNo assessment information available [facility] Work Phone: Evaluation noteNo InformationNortLehigh [facility] [employer] Other Evaluation note* Diagnosis Diverticulitis- Primary Diverticulitis of colon (without mention of hemorrhage) Diverticulosis of colon Diverticulosis of colon (without mention of hemorrhage) [facility] Diagnosis Onset Date Resolution Status Left breast mass acute Breast cancer, left acute [facility] Work Phone: Evaluation note* Diagnosis Onset Date Resolution Status Breast cancer, left acute Breast cancer, left acute [facility] Work Phone: Evaluation note* Diagnosis Onset Date Resolution Status Left breast mass acute [facility] Work Phone: History general Narrative - Reported* Type Description Date Medical History high blood pressure Surgical History csection Hospitalization History childbirth [facility] Other History general Narrative - Reported* Type Description Date Medical History high blood pressure Surgical History csection Surgical History Arthroscopic partial right medial meniscectomy, medial femoral chondroplasty 2022 Hospitalization History childbirth [facility] Other Hospital course Narrative No data available for this section [facility] [place] [facility] Discharge instructions No data available for this section [facility] [place] Progress note No data available for this section [facility] [place] Progrtst note Author Addison Hamm [facility] December 26, 2023 1:37pm Note Date/Time December 26, 2023 12: 15pm [facility] [place] [address] Cancer Center Note Signed Patient: Christal Chen MR#: [id number] : 1955 Acct:[id number] Age/Sex: 68 / F Type: REG AMB Date of Service: 12/26/23 Copies to: MD Quinton Corey MD Michael R Nill, MD [facility]~ Assessment & Plan (1) Breast cancer, left: Plan: CT simulation prone position (wait at least 2 weeks for healing) -plan for wholebreast radiation 26 Bender in 5 fractions daily Assessment: 68-year-old female with pT1cN0 invasive lobular carcinoma of the left breast, ERpositive NE negative HER2 negative. On December 05, 2023 patient underwent leftbreast lumpectomy and sentinel lymph node biopsy. Final pathology showed 1.8 cmof grade 1 invasive lobular carcinoma with associated LCIS. The surgical marginwas 5 mm from invasive carcinoma. The previous biopsy site was present. 0 out of 3 lymph nodes. There was no LVSI. Her Oncotype returned 17 and she is planned for endocrine therapy. We discussed the role of adjuvant radiation in the treatment of invasive lobularcarcinoma. We discussed whole breast radiation as well as partial breast radiation. Overall this is very favorable pathology however it is lobular and NE negative. Patient is agreeable to whole breast radiation in the prone position for cardiac sparing. Her incision and cavity appear very lateral whichshould be conducive to prone positioning. We discussed delivery of the FAST FORWARD regimen, 26 Bender in 5 fractions delivered daily. Patient does need additional time to heal so we will push her simulation out 2 weeks. I provided a general overview of radiation treatment planning and delivery. We discussed the need for immobilization and CT simulation. Short and long-term side effects were reviewed in detail and her questions were answered. She was consented to receive care. Orders: Orders CT Simulation 1 Week C50.912 - Malignant neoplasm of unspecified site of left female breast Medications: New mometasone 0.1% Apply to radiation site, once a day, AFTER radiation treatment. 1 applic topical DAILY 45 grams 0RF C50.912 - Malignant neoplasm of unspecified site of left female breast History of Present Illness HPI 68-year-old female who presented with an abnormal screening mammogram. Oncologic history: September 2023 screening mammogram showed a focal asymmetry in the upper outer quadrant of the left breast. Posterior depth with architectural distortion. October 09, 2023 patient underwent diagnostic mammogram confirming the focal asymmetry with spiculated margins in the left breast 2 to 3 o'clock position, 11cm from the nipple. ultrasound of the breast noting a persistent focal asymmetry with spiculated margins in the left breast approximately 2 to 3 o'clock position 11 cm from the nipple. Patient was Toller hypoechoic measuring1.5 cm with irregular margins and surrounding architectural distortion. October 21, 2023 Ultrasound-guided biopsy with pathology confirming invasive lobular carcinoma, grade 1. ER positive NE negative HER2 was 0. Oncotype testing returned 17. November 20, 2023 MRI of the breast shows a focal mass in the left breast measuring 2 cm. There were bilateral axillary lymph nodes but these were symmetric. They measured 2 and 2.3 cm. All December 05, 2023 patient underwent left breast lumpectomy and sentinel lymph node biopsy. Final pathology showed 1.8 cm of grade 1 invasive lobular carcinoma with associated LCIS. The surgical margin was 5 mm from invasive carcinoma. The previous biopsy site was present. 0 out of 3 lymph nodes. There was no LVSI. pT1cN0 [employer] testing was sent and negative for genetic mutation. She has seen medical oncology and is planned for 5 years of endocrine therapy. Intake Vitals/Pain Assessment 12/26/23 13:03 Height 5 ft 4 in Weight 73.482 kg BMI 27.8 Body Fat % 43.43 BP 148/62 H Blood Pressure Location Lt brachial Position Sitting Pulse 87 Pulse Source NIBP Respiration 16 Pulse Oximetry (%) 99 Oxygen Delivery Method room air Are you having pain? No Intake Visit Reasons: New Patient, Left Breast Cancer Allergies amoxicillin Allergy (Unknown, Unverified 06/12/23 08:10) Hives erythromycin base Allergy (Unknown, Unverified 06/12/23 08:10) Hives hydrocodone Allergy (Unknown, Unverified 06/12/23 08:10) Abdominal Pain, stomach cramps and dry heaves sulfamethoxazole [From Bactrim] Allergy (Unknown, Unverified 06/12/23 08:10) Abdominal Pain, stomach upset trimethoprim [From Bactrim] Allergy (Unknown, Unverified 06/12/23 08:10) Abdominal Pain, stomach upset homatropine Adverse Reaction (Verified 04/30/23 08:21) Abdominal Pain tramadol Adverse Reaction (Verified 04/30/23 08:21) Vomiting Nurse's Note: Patient presents to clinic to discuss radiation treatment options for left breast cancer. [facility] Medical History Medical History (Updated 12/26/23 @ 10:25 by Addison Hamm MD) Breast cancer, left Arthritis Perforated eardrum Pt. reports hole in left eardrum Hypertension Diverticulitis Surgical History Surgical History History of tubal ligation History of ear surgery left ear to repair hole in eardrum History of nasal surgery H/O section x3 Family History Family History Mother Leukemia Father Stroke Diabetes Brother Heart problem Father History of stroke Father History of stroke Legacy FamHx Problem: Diagnosed with Stroke Mother Cancer Legacy FamHx Problem: Diagnosed with Cancer Leukemia Social History Social History Smoking status: Never smoker Within the past year, how often did you have a drink containing alcohol: monthly or less Physical Exam EXAM Physical exam: KPS 90 General: Alert and oriented, no acute distress. HEENT: Normocephalic, extraocular movements intact Chest: Normal work of breathing on room air Breast: Left breast shows surgical incisions healing well. Residual Steri-Strips in place. Mild resolving hematoma midline with residual blue ink. No palpable mass or abnormality. Questionable seroma in the left sella. Contralateral breast within normal limits. Breasts are bilaterally dense. Lymph: No palpable cervical, supraclavicular, axillary lymphadenopathy bilaterally. Abdomen: Nonacute MSK: Extremities within normal limits Results - [facility] (Rad [facility]c) LAB RESULTS No Data to Display Dictated By: Addison Hamm MD DD/ [id number] Signed By: <Electronically signed by Addison Hamm MD> 12/26/23 [facility] Work Phone: Progress note Author Addison Hamm [facility] February 27, 2024 11:12am Note Date/Time February 27, 2024 9:54a m [facility] [place] [address] Cancer Center Note Signed Patient: Christal Chen MR#: [id number] : 1955 Acct:[id number] Age/Sex: 69 / F Type: [facility] Date of Service: 02/27/24 Copies to: MD Quinton Corey MD~ Assessment & Plan (1) Breast cancer, left: Plan: Return to clinic as needed Assessment: 68-year-old female with pT1cN0 invasive lobular carcinoma of the left breast, ERpositive NE negative HER2 negative. On December 05, 2023 patient underwent leftbreast lumpectomy and sentinel lymph node biopsy. Final pathology showed 1.8 cmof grade 1 invasive lobular carcinoma with associated LCIS. The surgical marginwas 5 mm from invasive carcinoma. The previous biopsy site was present. 0 out of 3 lymph nodes. There was no LVSI. Her Oncotype returned 17 and she is planned for endocrine therapy. January 24, 2024 patient completed whole breast radiation using fast forward to 26Gray in 5 fractions daily. She was treated in the prone position for cardiac sparing. She returns to clinic today and has done quite well with no significant skin change from the radiation. She has been initiated on anastrozole and has follow-up with medical oncology. She also has follow-up scheduled with surgery. We will discharge her today and the other providers care. We are happy to see her back if there is a need for additional radiation or radiation related concern. History of Present Illness HPI 68-year-old female who presented with an abnormal screening mammogram. Oncologic history: September 2023 screening mammogram showed a focal asymmetry in the upper outer quadrant of the left breast. Posterior depth with architectural distortion. October 09, 2023 patient underwent diagnostic mammogram confirming the focal asymmetry with spiculated margins in the left breast 2 to 3 o'clock position, 11cm from the nipple. ultrasound of the breast noting a persistent focal asymmetry with spiculated margins in the left breast approximately 2 to 3 o'clock position 11 cm from the nipple. Patient was Toller hypoechoic measuring1.5 cm with irregular margins and surrounding architectural distortion. October 21, 2023 Ultrasound-guided biopsy with pathology confirming invasive lobular carcinoma, grade 1. ER positive NE negative HER2 was 0. Oncotype testing returned 17. November 20, 2023 MRI of the breast shows a focal mass in the left breast measuring 2 cm. There were bilateral axillary lymph nodes but these were symmetric. They measured 2 and 2.3 cm. All December 05, 2023 patient underwent left breast lumpectomy and sentinel lymph node biopsy. Final pathology showed 1.8 cm of grade 1 invasive lobular carcinoma with associated LCIS. The surgical margin was 5 mm from invasive carcinoma. The previous biopsy site was present. 0 out of 3 lymph nodes. There was no LVSI. pT1cN0 [employer] testing was sent and negative for genetic mutation. She has seen medical oncology and is planned for 5 years of endocrine therapy. January 24, 2024 patient completed whole breast radiation using fast forward to 26Gray in 5 fractions daily. She was treated in the prone position for cardiac sparing. Tolerated radiation therapy well with no significant dermatitis at theend of treatment. Patient returns to clinic today and denies any significant side effects from theradiation. She has been initiated on anastrozole which she is tolerating well with no complaints. Intake Vitals/Pain Assessment 02/27/24 10:42 Weight 75.296 kg BP 145/89 H Blood Pressure Location Rt brachial Position Sitting Pulse 77 Pulse Source NIBP Respiration 18 Pulse Oximetry (%) 97 Oxygen Delivery Method room air Are you having pain? No Intake Visit Reasons: 1 Month Follow Up Allergies amoxicillin Allergy (Unknown, Unverified 06/12/23 08:10) Hives erythromycin base Allergy (Unknown, Unverified 06/12/23 08:10) Hives hydrocodone Allergy (Unknown, Unverified 06/12/23 08:10) Abdominal Pain, stomach cramps and dry heaves sulfamethoxazole [From Bactrim] Allergy (Unknown, Unverified 06/12/23 08:10) Abdominal Pain, stomach upset trimethoprim [From Bactrim] Allergy (Unknown, Unverified 06/12/23 08:10) Abdominal Pain, stomach upset homatropine Adverse Reaction (Verified 04/30/23 08:21) Abdominal Pain tramadol Adverse Reaction (Verified 04/30/23 08:21) Vomiting [facility] Medical History Medical History (Updated 12/26/23 @ 10:25 by Addison Hamm MD) Breast cancer, left Arthritis Perforated eardrum Pt. reports hole in left eardrum Hypertension Diverticulitis Surgical History Surgical History History of tubal ligation History of ear surgery left ear to repair hole in eardrum History of nasal surgery H/O section x3 Family History Family History Mother Leukemia Father Stroke Diabetes Brother Heart problem Father History of stroke Father History of stroke Legacy FamHx Problem: Diagnosed with Stroke Mother Cancer Legacy FamHx Problem: Diagnosed with Cancer Leukemia Social History Social History Smoking status: Never smoker Within the past year, how often did you have a drink containing alcohol: monthly or less Physical Exam EXAM Physical exam: KPS 90 General: Alert and oriented, no acute distress. HEENT: Normocephalic, extraocular movements intact Chest: Normal work of breathing on room air Breast: Left breast shows no skin change from the prior radiation. Lateral surgical incisions are well-healed. No palpable mass or abnormality. Abdomen: Nonacute MSK: Extremities within normal limits [facility] - [facility] (Rad Onc) LAB RESULTS No Data to Display Dictated By: Addison Hamm MD DD/ [id number] Signed By: <Electronically signed by Addison Hamm MD> 02/27/24 [facility] Work Phone: Summary Purpose Family History No Family History Records Found Relationship Condition Age at Onset Recorded Date/T valeri Not Specified Leukemia Unknown father Cerebrovascular accident (CVA) Unknown Diabetes mellitus Unknown brother Heart problem Unknown Relationship Condition Age at Onset Recorded Date/T valeri Not Specified Leukemia Unknown father Cerebrovascular accident (CVA) Unknown Diabetes mellitus Unknown brother Heart problem Unknown father Unknown History of stroke Unknown father History of stroke Unknown Not Specified Unknown Malignant neoplasm Unknown Leukemia Unknown Relationship Condition Age at Onset Recorded Date/T valeri mother Leukemia Unknown father Cerebrovascular accident (CVA) Unknown Diabetes mellitus Unknown brother Heart problem Unknown father Unknown History of stroke Unknown father History of stroke Unknown mother Unknown Malignant neoplasm Unknown Leukemia Unknown Advance Directives No Advanced Directives Records Found Advance Directive Response Recorded Date/ Time Advance Directives No March 04 9:30am Advance Directive Response Recorded Date/ Time Advance Directives No March 04 8 8:30am Documents on File Type Date Recorded 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 Advance Directives and Living Will 04/14/2020 2019-12-01 Power Of Machine 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 Advance Directives and Living Will 04/14/2020 2019-12-01 Living wi ll Chief Complaint and Reason for Visit Chief Complaint Z78.0 Chief Complaint M25.561 Knee Pain Chief Complaint Knee Pain Knee Pain s/p menisectomy - right knee Chief Complaint s/p menisectomy - ri ght knee Screening Chief Complaint Screening r92.8 Chief Complaint r92.8 Mass New Patient, Left Breast Cancer breast cancer Reason for Visit Left breast mass Breast cancer, left Chief Complaint New Patient, Left Br east Cancer Left Breast Cancer Left Breast Cancer Left Breast Cancer Left Breast Cancer 1 Month Follow Up Reason for Visit Breast cancer, left Breast cancer, left Chief Complaint Screening r92.8 Mass Reason for Visit Left breast mass Chief Complaint hx left sided breast ca Additional Source Comments INFORMATION SOURCE (unrecogn ized section and content) DATE CREATED AUTHOR 11/26/2021 [facility] Special[facility] DATE CREATED AUTHOR AUTHOR'S ORGANIZ ATION 09/03/2022 [facility] DATE CREATED AUTHOR AUTHOR'S ORGANIZ ATION 02/11/2024 [place] DATE CREATED AUTHOR AUTHOR'S ORGANIZ ATION 04/29/2024 [facility] DATE CREATED AUTHOR AUTHOR'S ORGANIZ ATION 06/23/2024 [facility] y[facility] Care Teams (unrecognized sec tion and content) Team Status: Inactive Member Role Status Dates Quinton Dan MD Primary Care Provider Active Crow Kruse Attending Provider Active Team Status: Active Member Role Status Dates Quinton Dan MD Primary Care Provider Active Team Status: Inactive Member Role Status Dates Quinton Dan MD Primary Care Provider, Attending Provider Active Team Status: Inactive Member Role Status Dates Quinton Dan MD Primary Care Provider Active Rodney Peña DO Attending Provider Active Child Health Associate Relationship Specialty Start Date End Date Quinton Dan MD [address] [place] [phone] PCP - General Family Medicine 02/21/23 Quinton Dan MD [address] [facility] [place] [address] PCP - ACO Reach 02/28/23 Child Health Associate Relationship Specialty Start Date End Date Quinton Dan MD [address] [place] [phone] PCP - General Family Medicine 02/21/23 Quinton Dan MD [address] [place] [address] (Fax) PCP - ACO Reach 02/28/23 Crow Kruse DO [facility] [address] [facility] [place] [address] Referring Physician Obstetrics and Gynecology 11/14/23 Rodney Peña MD [address] [place] [phone] Referring Physician Orthopaedic Surgery 11/14/23 Child Health Associate Relationship Specialty Start Date End Date Quinton Dan MD [address] [place] [address] PCP - General Family [facility] 02/21/23 Quinton Dan MD [address] [place] [address] (Fax) PCP - ACO Reach 02/28/23 Crow Kruse DO [facility] [address] [place], [place] [id number] Referring Physician Obstetrics and Gynecology 11/14/23 Rodney Peña MD [address] [place] [phone] Referring Physician Orthopaedic Surgery 11/14/23 Team Status: Inactive Member Role Status Dates Quinton Dan MD Primary Care Provider Active Start: October 09, 2023 End: October 09, 2023 Crow Kruse Attending Provider Active Start: Elfego emy 2023 End: October 09, 2023 Team Status: Inactive Member Role Status Dates Quinton Dan MD Primary Care Provider Active Start: October 21, 2023 End: October 21, 2023 Crow Kruse Attending Provider Active Start: Elfego hall 2023 End: October 21, 2023 Team Status: Inactive Member Role Status Dates Quinton Dan MD Primary Care Provider Active Start: December 26, 2023 End: December 26, 2023 Addison Hamm MD Attending Provider Active Start: December 26, 2023 End: December 26, 2023 Silvia Eckert MD Referring Provider Active St art: December 26, 2023 End: December 26, 2023 Team Status: Active Member Role Status Dates Quinton Dan MD Primary Care Provider Active Start: December 26, 2023 Addison Hamm MD Attending Provider Active Start: December 26, 2023 Silvia Eckert MD Referring Provider Active St art: December 26, 2023 Team Status: Active Member Role Status Dates Quinton Dan MD Primary Care Provider Active Start: January 07, 2024 Addison Hamm MD Attending Provid er, Other Provider Active Start: January 07, 2024 Silvia Eckert MD Referring Provider Active St art: January 07, 2024 Team Status: Active Member Role Status Dates Quinton Dan MD Primary Care Provider Active Start: January 16, 2024 Addison Hamm MD Attending Provid er, Other Provider Active Start: January 16, 2024 Silvia Eckert MD Referring Provider Active St art: January 16, 2024 Team Status: Active Member Role Status Dates Quinton Dan MD Primary Care Provider Active Start: January 20, 2024 Addison Hamm MD Attending Provid er, Other Provider Active Start: January 20, 2024 Silvia Eckert MD Referring Provider Active St art: January 20, 2024 Team Status: Active Member Role Status Dates Quinton Dan MD Primary Care Provider Active Start: February 27, 2024 Addison Hamm MD Attending Provider Active Start: February 27, 2024 Silvia Eckert MD Referring Provider Active St art: February 27, 2024 Team Status: Inactive Member Role Status Dates Quinton Dan MD Primary Care Provider Active Start: February 27, 2024 End: February 27, 2024 Addison Hamm MD Attending Provider Active Start: February 27, 2024 End: February 27, 2024 Team Status: Inactive Member Role Status Dates Quinton Dan MD Primary Care Provider Active Start: September 19, 2023 End: September 19, 2023 Crow Kruse Attending Provider Active Start: 2022 End: September 19, 2023 Team Status: Inactive Member Role Status Dates Quinton Dan MD Primary Care Provider Active Start: June 16, 2024 End: June 16, 2024 Silvia Eckert MD Attending Provider Active St art: June 16, 2024 End: June 16, 2024 Goals (unrecognized section and content) Goals may be documented in a n alternate sectionGoals may be documented in an alternate sectionNo InformationGoals may be documented in an alternate sectionNo InformationNo InformationNo InformationGoals may be documented in an alternate sectionGoals may be documented in an alternate section No data available for this section No data available for this section No data available for this section No data available for this section No data available for this section No data available for this sectionGoals may be documented in an alternate sectionGoals may be documented in an alternate sectionGoals may be documented in an alternate sectionGoals may be documented in an alternate section REASON FOR VISIT (unrecogniz ed section and content) Reason Comments Abdominal Pain FOR RECORDS PERTAINING TO PATIENTS WHO ARE OR HAVE BEEN ENROLLED IN A CHEMICAL DEPENDENCY/SUBSTANCEABUSE PROGRAM, SOME INFORMATION MAY BE OMITTED. This clinical summary was aggregated from multiple sources. Caution should be exercised in using it in the provision of clinical care. This summary normalizes information from multiple sources, and as a consequence, information in this document may materially change the coding, format and clinical context of patient data. In addition, data may be omitted in some cases. CLINICAL DECISIONS SHOULD BE BASED ON THE PRIMARY CLINICAL RECORDS. [facility] [place] [employer] [facility] provides no warranty or guarantee of the accuracy or completeness of information in this document.
[2024-06-30 16:10] LABS: Age Gdln ACOG Testing Note (.); Pap IG (Image Guided) Note (.)
== END 2024-06-25 19:03 | disposition home or self-care (01) ==
LOC: LAB 19:02
PROVIDERS: PCP Family Medicine; Visit Provider Obstetrics & Gynecology
DX: Z01.419 Encounter for gynecological examination (general) (routine) without abnormal findings (principal)
CPT/HCPCS: 88175

== ENCOUNTER 2024-12-15 07:32 | Outpatient (RCR) | payer MEDICARE, OTHER, SELFPAY ==
[2024-12-07 14:03] LABS: Basophils Absolute Auto 0.1 10^3/uL (0.0-0.1); Basophils Percent Auto 0.5 % (0.2-2.0); Eosinophils Absolute Auto 0.1 10^3/uL (0.0-0.7); Eosinophils Percent Auto 0.8 % (0.9-7.0); Hemoglobin 15.4 g/dL (12.0-16.0); Immature Granulocytes Abs Auto 0.03 10^3/uL (0.00-0.03); Immature Granulocytes Pct Auto 0.2 % (0.0-0.5); Lymphocytes Absolute Auto 2.7 10^3/uL (1.2-3.8); Lymphocytes Percent Auto 21.8 % (20.5-60.0); Mean Corpuscular HGB Conc 33.5 g/dL (29.9-35.2); Mean Corpuscular Hemoglobin 29.7 pg (26.7-34.0); Mean Corpuscular Volume 88.8 fL (81.0-99.0); Mean Platelet Volume 9.9 fL (9.5-13.5); Monocytes Absolute Auto 0.7 10^3/uL (0.3-0.8); Monocytes Percent Auto 6.1 % (1.7-12.0); Neutrophils Absolute Auto 8.6 10^3/uL (1.4-6.5); Neutrophils Percent Auto 70.6 % (43.0-75.0); Platelet Count 325 10^3/uL (150-450); Red Blood Count 5.18 10^6/uL (4.20-5.40); Red Cell Distribution Width 12.3 % (11.0-15.0); White Blood Count 12.2 10^3/uL (4.0-11.0)
[2024-12-07 14:22] LABS: Alanine Aminotransferase 51 U/L (14-59); Albumin Globulin Ratio 0.8; Albumin Level 3.8 g/dL (3.4-5.0); Alkaline Phosphatase 114 U/L (46-116); Aspartate Amino Transferase 30 U/L (15-37); BUN Creatinine Ratio 23.4; Bilirubin Total 0.6 mg/dL (0.2-1.0); Calcium 9.8 mg/dL (8.5-10.1); Carbon Dioxide 26.7 mmol/L (21.0-32.0); Chloride 102 mmol/L (98-107); Estimated GFR (African America >60 (>=60 mL/min/1.73m^2); Estimated GFR (Non-African Ame 51 (>=60 mL/min/1.73m^2); Globulin 4.6 g/dL; Glucose 128 mg/dL (74-106); Potassium 3.7 mmol/L (3.5-5.1); Sodium 141 mmol/L (136-145); Total Protein 8.4 g/dL (6.4-8.2)
== END 2024-12-16 08:02 | disposition home or self-care (01) ==
LOC: HEMC 07:32
PROVIDERS: PCP Family Medicine; Visit Provider Internal Medicine Hematology & Oncology
DX: C50.412 Malignant neoplasm of upper-outer quadrant of left female breast (principal); Z15.09 Genetic susceptibility to other malignant neoplasm; Z87.891 Personal history of nicotine dependence
CPT/HCPCS: 36415; 80053; 82306; 85025; G0463

== ENCOUNTER 2025-06-22 08:51 | Outpatient (RCR) | payer MEDICARE, OTHER, SELFPAY ==
[2025-06-14 11:24] LABS: Hematocrit 46.2 % (36.0-48.0); Hemoglobin 15.4 g/dL (12.0-16.0); Immature Granulocytes Abs Auto 0.04 10^3/uL (0.00-0.03); Immature Granulocytes Pct Auto 0.4 % (0.0-0.5); Lymphocytes Absolute Auto 2.0 10^3/uL (1.2-3.8); Mean Corpuscular HGB Conc 33.3 g/dL (29.9-35.2); Mean Corpuscular Hemoglobin 30.1 pg (26.7-34.0); Mean Corpuscular Volume 90.2 fL (81.0-99.0); Platelet Count 279 10^3/uL (150-450); Red Blood Count 5.12 10^6/uL (4.20-5.40); White Blood Count 10.4 10^3/uL (4.0-11.0)
[2025-06-14 11:38] LABS: Alanine Aminotransferase 59 U/L (14-59); Albumin Globulin Ratio 0.8; Albumin Level 3.8 g/dL (3.4-5.0); Alkaline Phosphatase 109 U/L (46-116); Anion Gap 17.1; Aspartate Amino Transferase 33 U/L (15-37); Blood Urea Nitrogen 15.0 mg/dL (7.0-18.0); Calcium 9.3 mg/dL (8.5-10.1); Carbon Dioxide 26.1 mmol/L (21.0-32.0); Chloride 102 mmol/L (98-107); Estimated GFR (African America >60 (>=60 mL/min/1.73m^2); Estimated GFR (Non-African Ame >60 (>=60 mL/min/1.73m^2); Globulin 4.6 g/dL; Glucose 142 mg/dL (74-106); Potassium 4.2 mmol/L (3.5-5.1); Sodium 141 mmol/L (136-145); Total Protein 8.4 g/dL (6.4-8.2)
== END 2025-07-06 23:59 | disposition home or self-care (01) ==
LOC: HEMC 08:51
PROVIDERS: PCP Family Medicine; Visit Provider Internal Medicine Hematology & Oncology
DX: C50.412 Malignant neoplasm of upper-outer quadrant of left female breast (principal); Z15.09 Genetic susceptibility to other malignant neoplasm; I10 Essential (primary) hypertension; Z17.0 Estrogen receptor positive status [ER+]; Z17.32 Human epidermal growth factor receptor 2 negative status; Z87.891 Personal history of nicotine dependence; Z80.6 Family history of leukemia; M25.50 Pain in unspecified joint; Z79.899 Other long term (current) drug therapy
CPT/HCPCS: 36415; 80053; 82306; 85025; G0463

== ENCOUNTER 2025-06-28 12:52 | Outpatient (REF) | payer MEDICARE, OTHER, SELFPAY ==
--- OUTSIDE RECORDS SUMMARY | 2024-02-04 05:15 | XMS_ITS ---
Author Organization [facility] in [place] Address [address] [place] [address] Care Team Providers Care Crime Lab Analyst Name Role Phone Ahmet PATEL, Quinton Primary Care Provider Unavail Silvia Anguiano Unavailable [phone] REASON FOR VISIT MD Encounters Encounter Location Date Provider Diagnosis [facility] Oncology [address] [place] [phone] 02/04/2024 Silvia Eckert Plan Of Treatment Next Appt Details Provider Name:Silvia Eckert , 12/21/2025 09:00:00 AM, [address] [place], [address], Progress Notes * Chantale MARTINEZ ADOB:[birth year] (70 yo F)Acc No.[id number]:02/04/2024 UNLOCKED PROGRESS NOTE Progress Notes Patient: Chantale MORALES Provider: Dakota Eckert M.D. :1955 A ge:68 Y S ex:Female Date:02/04/2024 Address:[address] [place] [phone] Pcp:Quinton Leo MD Subjective: * Chief Complaints: * 1 . MD. * Medical History: Objective: * Vitals: Assessment: Plan: * Treatment: * * Electronic signature of Preston Eckert MD, [id number] on 06/28/2025 at 08:22 AM EDT Sign off status: Pending Visit Status: V CRYSTALG (Voice) * Provider: Dakota Eckert M.D. Date: 0 02/04/2024 Generated for Marely james/Ethan/Carson on: 0 06/28/2025 08:22 AM EDT
--- OUTSIDE RECORDS SUMMARY | 2024-06-09 04:30 | XMS_ITS ---
Author Organization [facility] in [place] Address [address] [place] [address] Care Team Providers Care Brooch Maker Novelty Name Role Phone Ahmet PATEL, Quinton Primary Care Provider Unavail Silvia Anguiano Unavailable [phone] REASON FOR VISIT MD Encounters Encounter Location Date Provider Diagnosis [facility] Oncology [address] [place] [phone] 06/09/2024 Silvia Eckert Plan Of Treatment Next Appt Details Provider Name:Silvia Eckert , 12/21/2025 09:00:00 AM, [address] [place], [address], Progress Notes * Chantale MARTINEZ ADOB:[birth year] (70 yo F)Acc No.[id number]:06/09/2024 UNLOCKED PROGRESS NOTE Progress Notes Patient: Chantale MORALES Provider: Dakota Eckert M.D. :1955 A ge:69 Y S ex:Female Date:06/09/2024 Address:[address] [place] [phone] Pcp:Quinton Leo MD Subjective: * Chief Complaints: * 1 . MD. * Medical History: Objective: * Vitals: Assessment: Plan: * Treatment: * * Electronic signature of Preston Eckert MD, [id number] on 06/28/2025 at 08:22 AM EDT Sign off status: Pending Visit Status: V CRYSTALG (Voice) * Provider: Dakota Eckert M.D. Date: 0 06/09/2024 Generated for Marely james/Ethan/Carson on: 0 06/28/2025 08:22 AM EDT
--- OUTSIDE RECORDS SUMMARY | 2024-11-24 04:00 | XMS_ITS ---
Author Organization [facility] [place] Address [address] [place] [address] Care Team Providers Care Radiation Monitor Name Role Phone Ahmet PATEL, Quinton Primary Care Provider Unavail Silvia Anguiano Unavailable [phone] REASON FOR VISIT MD Encounters Encounter Location Date Provider Diagnosis [facility] [address] [place] [phone] 11/24/2024 Silvia Eckert Plan Of Treatment Next Appt Details Provider Name:Silvia Eckert , 12/21/2025 09:00:00 AM, [address] [place], [address], Progress Notes * Chantale MARTINEZ ADOB:[birth year] (70 yo F)Acc No.[id number]:11/24/2024 UNLOCKED PROGRESS NOTE Progress Notes Patient: Chantale MORALES Provider: Dakota Eckert M.D. :1955 A ge:69 Y S ex:Female Date:11/24/2024 Address:[address] [place] [phone] Pcp:Quinton Leo MD Subjective: * Chief Complaints: * 1 . MD. * Medical History: Objective: * Vitals: Assessment: Plan: * Treatment: * * Electronic signature of Preston Eckert MD, [id number] on 06/28/2025 at 08:22 AM EDT Sign off status: Pending Visit Status: C ANC (Cancelled) * Provider: Dakota Eckert M.D. Date: 0 11/24/2024 Generated for Marely james/Ethan/Carson on: 0 06/28/2025 08:22 AM EDT
--- OUTSIDE RECORDS SUMMARY | 2024-12-15 04:30 | XMS_ITS ---
Author Organization [facility] [place] Address [address] [place] [address] Care Team Providers Care Toll Collector Name Role Phone Ahmet PATEL, Quinton Primary Care Provider Unavail Silvia Anguiano Unavailable [phone] REASON FOR VISIT MD Encounters Encounter Location Date Provider Diagnosis [facility] [address] [place] [phone] 12/15/2024 Silvia Eckert Plan Of Treatment Next Appt Details Provider Name:Silvia Eckert , 12/21/2025 09:00:00 AM, [address] [place], [address], Progress Notes * Chantale MARTINEZ ADOB:[birth year] (70 yo F)Acc No.[id number]:12/15/2024 UNLOCKED PROGRESS NOTE Progress Notes Patient: Chantale MORALES Provider: Dakota Eckert M.D. :1955 A ge:69 Y S ex:Female Date:12/15/2024 Address:[address] [place] [phone] Pcp:Quinton Leo MD Subjective: * Chief Complaints: * 1 . MD. * Medical History: Objective: * Vitals: Assessment: Plan: * Treatment: * * Electronic signature of Preston Eckert MD, [id number] on 06/28/2025 at 08:22 AM EDT Sign off status: Pending Visit Status: Salvador JONES (Voice) * Provider: Dakota Eckert M.D. Date: 0 12/15/2024 Generated for Marely james/Ethan/Carson on: 0 06/28/2025 08:22 AM EDT
--- OUTSIDE RECORDS SUMMARY | 2025-06-22 05:00 | XMS_ITS ---
Author Organization [facility] [place] Address [address] [place] [address] Care Team Providers Care Process Improvement Engineer Name Role Phone Ahmet PATEL, Quinton Primary Care Provider Unavail Silvia Anguiano Unavailable [phone] REASON FOR VISIT MD Encounters Encounter Location Date Provider Diagnosis [facility] [address] [place] [phone] 06/22/2025 Silvia Eckert Plan Of Treatment Next Appt Details Provider Name:Silvia Eckert , 12/21/2025 09:00:00 AM, [address] [place], [address], Progress Notes * Chantale MARTINEZ ADOB:[birth year] (70 yo F)Acc No.[id number]:06/22/2025 UNLOCKED PROGRESS NOTE Progress Notes Patient: Chantale MORALES Provider: Dakota Eckert M.D. :1955 A ge:70 Y S ex:Female Date:06/22/2025 Address:[address] [place] [phone] Pcp:Quinton Leo MD Subjective: * Chief Complaints: * 1 . MD. * Medical History: Objective: * Vitals: Assessment: Plan: * Treatment: * * Electronic signature of Preston Eckert MD, [id number] on 06/28/2025 at 08:22 AM EDT Sign off status: Pending Visit Status: Salvador JONES (Voice) * Provider: Dakota Eckert M.D. Date: 0 06/22/2025 Generated for Marely james/Ethan/Carson on: 0 06/28/2025 08:22 AM EDT
--- OUTSIDE RECORDS SUMMARY | 2025-06-28 08:30 | XMS_ITS | Encounter Summary ---
Author Organization [facility] Address [address] [place] [address] Care Team Providers Care Arboreal Scientist Name Role Phone Quinton Leo MD Primary Care Provider [phone] Quinton Leo MD Unavailable [phone] Crow Kruse DO Unavailable Rodney Peña MD Unavailable [phone] Silvia Eckert MD Unavailable [phone] Reason for Visit * Reason Comments Gynecologic Exam Encounter Details Date Type Department Care Team (Late Contact Info) Description 06/28/2025 8:30 AM EDT Office Visit [facility] [address] [place] [address] Crow Kruse DO [address] [place] [address] Well woman exam with routine gynecological exam; Osteoporosis, post-menopausal Social History Tobacco Use Types Packs/Day Years Used Date Smoking Tobacco: Former Cigarettes Smokeless Tobacco: Never Alcohol Use Standard Drinks/Week Comments Not Currently 0 (1 standard drink = 0.6 oz pur e alcohol) Caffeine intake: coffee Humiliation, Afraid, Rape, and Kick questionnair e Answer Date Recorded Within the last year, have y ou been afraid of your partner or ex-partner? Patient declined 04/21/2023 Within the last year, have y ou been humiliated or emotionally abused in other ways by your partner or ex-partner? Patient declined 04/21/2023 Within the last year, have y ou been kicked, hit, slapped, or otherwise physically hurt by your partner or ex-partner? Patient declined 04/21/2023 Within the last year, have y ou been raped or forced to have any kind of sexual activity by your partner or ex-partner? Patient declined 04/21/2023 Social Connection and Isolation Panel [NHANES] A nswer Date Recorded In a typical week, how many times do you talk on the phone with family, friends, or neighbors? Never 04/27/2024 Frequency of Social Gatherings with Friends and Family Not on file 04/27/2024 Attends Restorationism Services Not on file 04/27 Do you belong to any clubs o r organizations such as mormonism groups, unions, fraternal or athletic groups, or school groups? Patient declined 04/27/2024 How often do you attend meet ings of the clubs or organizations you belong to? Patient declined 04/27/2024 Are you , , di vorced, , never , or living with a partner? Patient declined 04/27/2024 AUDIT-C Answer Date Recorded Q1: How often do you have a drink containing alc ohol? Patient declined 04/27/2024 Average Number of Drinks Not on file Frequency of Binge Drinking Not on file 04/07 Overall Financial Resource Strain (CARDIA) Answe r Date Recorded How hard is it for you to pa y for the very basics like food, housing, medical care, and heating? Patient declined 04/27/2024 PHQ-2 Answer Date Recorded Patient Health Questionnaire-2 Score 0 03/29/2025 [facility] - Occupational Stress Questionnaire Answer Date Recorded Do you feel stress - tense, restless, nervous, or anxious, or unable to sleep at night because your mind is troubled all the time - these days? Only a little 04/21/2023 Exercise Vital Sign Answer Date Recorde d On average, how many days pe r week do you engage in moderate to strenuous exercise (like a brisk walk)? Patient declined On average, how many minutes do you engage in exercise at this level? Patient declined 04/21/2023 Hunger Vital Sign Answer Date Recorded Within the past 12 months, y ou worried that your food would run out before you got the money to buy more. Patient declined Within the past 12 months, t he food you bought just didn't last and you didn't have money to get more. Patient declined PRAPARE - Transportation Answer Date Re corded In the past 12 months, has l ack of transportation kept you from medical appointments or from getting medications? Patient declined 04/21/2023 In the past 12 months, has l ack of transportation kept you from meetings, work, or from getting things needed for daily living? Patient declined 04/21/2023 Housing Stability Vital Sign Answer Donis e Recorded In the last 12 months, was t here a time when you were not able to pay the mortgage or rent on time? Patient refused 04/21/20 23 Number of Places Lived in the Last Year Not on f ile 04/21/2023 In the last 12 months, was t here a time when you did not have a steady place to sleep or slept in a usp (including now)? Patient refused 04/21/2023 Comments No Sex and Gender Information Value Date Recorded Sex Assigned at Not on file Legal Sex Female 7:08 PM EDT Gender Identity Not on file Sexual Orientation Not on file documented as of this encounter Last Filed Vital Signs Vital Sign Reading Time Taken Comments Blood Pressure 122/78 06/28/2025 8:39 AM EDT Pulse - - Temperature - - Respiratory Rate - - Oxygen Saturation - - Inhaled Oxygen Concentration - - Weight 77.1 kg (170 lb) 06/28/2025 8:39 AM EDT Height - - Body Mass Index 29.18 03/29/2025 8:23 AM EDT documented in this encounter Progress Notes * Kellie Cano NP - 06/28/2025 8:30 AM EDT Reason for Appointment: Patient ID: Chantale Chen is a 70 y.o. female who presents for Gynecologic Exam Patient presents today for Annual Exam. MEDICATIONS Current Outpatient Medications Medication Instructions amLODIPine (NORVASC) 10 mg, Oral, Daily anastrozole (ARIMIDEX) 1 mg, Daily atorvastatin (LIPITOR) 20 mg, Oral, Daily calcium citrate (CALCITRATE) 950 mg, Daily Elderberry 500 mg, Daily losartan (COZAAR) 100 mg, Oral, Daily Multiple Vitamins-Minerals (Alive Energy 50+) tablet 50 mg, Daily nebivolol (BYSTOLIC) 5 mg, Oral, Daily ALLERGIES Allergies Allergen Reactions Amoxicillin Other Reaction(s): Welts / Rash Amoxicillin-Pot Clavulanate Other Reaction(s): Unknown Erythromycin Base Other Reaction(s): Abdominal Pain Homatropine Other Reaction(s): vomiting Hydrocodone Other Reaction(s): vomiting Sulfamethoxazole Other Reaction(s): Nausea Tramadol Other Reaction(s): nausea and vomiting Tricor [Fenofibrate] myalgias PROBLEMS Active Ambulatory Problems Diagnosis Date Noted Primary hypertension 07/08/2015 Cardiovascular event risk 06/12/2022 Chronic fatigue syndrome 06/29/2016 Hypertensive nephropathy 04/14/2020 Diverticulosis of colon 06/12/2022 Former smoker 08/15/2017 Mixed conductive and sensorineural hearing loss of left ear with restricted hearing of right ear 08/11/2019 Mixed hyperlipidemia 08/19/2015 Overweight with body mass index (BMI) 25.0-29.9 06/12/2022 Perforation of tympanic membrane 12/28/2017 Right bundle branch block 07/08/2015 Sick-euthyroid syndrome 08/19/2015 Stage 2 chronic kidney disease 10/10/2020 Tinnitus of left ear 08/11/2019 Vertigo 06/29/2016 White matter disease 07/23/2018 Heart murmur 03/29/2025 Resolved Ambulatory Problems Diagnosis Date Noted Overweight 08/15/2017 Lobular carcinoma of left breast (HCC) 10/29/2023 Past Medical History: Diagnosis Date Arthritis Bladder infection 10/2013 Breast cancer (HCC) Chicken pox Chronic kidney disease (CKD), stage II (mild) Diverticulitis 2013 ESS (euthyroid sick syndrome) Mixed dyslipidemia Seizure disorder (HCC) Thyroid disease Type 2 diabetes mellitus without complication, without long-term current use of insulin (HCC) Unspecified perforation of tympanic membrane, left ear HISTORY PAST MEDICAL HISTORY SOCIAL HISTORY Past Medical History: Diagnosis Date Arthritis Bladder infection 10/2013 Breast cancer (HCC) Chicken pox Chronic kidney disease (CKD), stage II (mild) Diverticulitis 2013 ESS (euthyroid sick syndrome) Mixed dyslipidemia Overweight Seizure disorder (HCC) Thyroid disease Type 2 diabetes mellitus without complication, without long-term current use of insulin (HCC) Unspecified perforation of tympanic membrane, left ear White matter disease on CT Social History Tobacco Use Smoking status: Former Types: Cigarettes Smokeless tobacco: Never Vaping Use Vaping status: Never Used Substance Use Topics Alcohol use: Not Currently Comment: Caffeine intake: coffee Drug use: Never FAMILY HISTORY Family History Problem Relation Name Age of Onset Cancer Mother Heart disease Father Hypertension Son Hyperlipidemia Son Coronary artery disease Other Cancer Other Diabetes Other SURGICAL HISTORY Past Surgical History: Procedure Laterality Date BI US GUIDED BREAST LOCALIZATION AND BIOPSY LEFT Left 11/08/2023 BI US GUIDED BREAST LOCALIZATION AND BIOPSY LEFT SECTION, LOW TRANSVERSE COLONOSCOPY 2006 COLONOSCOPY 11/07/2022 MYRINGOTOMY Left 01/11/2011 OTHER SURGICAL HISTORY 2014 Treatment bladder infection OTHER SURGICAL HISTORY 08/08/2014 ER visit for abd pain OTHER SURGICAL HISTORY 03/06/2006 [facility] [place] TONSILLECTOMY & ADENOIDECTOMY <AGE 13 REVIEW OF SYSTEMS Review of Systems: Review of Systems Constitutional: Negative. HENT: Negative. Eyes: Negative. Respiratory: Negative. Cardiovascular: Negative. Gastrointestinal: Negative. Genitourinary: Negative. Musculoskeletal: Negative. Skin: Negative. Neurological: Negative. All other systems reviewed and are negative. Hematological: Negative. Endocrine: Negative. Allergic/Immunologic: Negative. OBJECTIVE Objective: Physical Exam Constitutional: Appearance: Normal appearance. She is well-developed. Genitourinary: Vulva normal. Breasts: Breasts are soft. Right: Normal. Left: Normal. Cardiovascular: Rate and Rhythm: Normal rate and regular rhythm. Pulmonary: Effort: Pulmonary effort is normal. Breath sounds: Normal breath sounds. Abdominal: General: Bowel sounds are normal. There is no distension. Palpations: Abdomen is soft. Tenderness: There is no abdominal tenderness. There is no guarding or rebound. Musculoskeletal: General: No swelling. Normal range of motion. Right lower leg: No edema. Left lower leg: No edema. Neurological: Mental Status: She is alert and oriented to person, place, and time. Skin: General: Skin is warm and dry. Psychiatric: Mood and Affect: Mood normal. Behavior: Behavior normal. Vitals and nursing note reviewed. Exam conducted with a railway patrol officer present. Vitals: Estimated body mass index is 29.18 kg/m?? as calculated from the following: Height as of 03/29/25: 5' 4 . Weight as of this encounter: 170 lb. BP: 122/78 No LMP recorded. Patient is postmenopausal. ASSESSMENT & PLAN ICD-10-CM 1. Well woman exam with routine gynecological exam Z01.419 THIN PREP TIS PAP AND HR HPV DNA 2. Osteoporosis, post-menopausal M81.0 DEXA bone density Annual Exam: Patient presents today for an annual exam. Patient states she is doing well and has no complaints. Pap was obtained without difficulty. Orders Placed This Encounter Procedures DEXA bone density Follow Up: Patient is to return in one year for annual unless needed otherwise. Documented by Kellie Cano NP on behalf of: Crow Kruse DO documented in this encounter Plan of Treatment Upcoming Encounters Date Type Department Care Team (Late st Contact Info) Description 09/27/2025 8:30 AM EST Office Visit [facility] [address] [place] [phone] Quinton Leo MD [address] [address] (Fax) 02/24/2026 8:00 AM EDT Office Visit [facility] [address] [address] Quinton Leo MD [address] [place] [phone] (Fax) 07/04/2026 10:00 AM EDT Procedure Visit [facility] [address] [facility] [address] Crow Kruse DO [address] [place] [address] Scheduled Orders Name Type Priority Associated Diagnoses Orde r Schedule DEXA bone density Imaging Routine Osteoporosis, post-menopausal Expected: 06/28/2025 (Approximate), Expires: 06/28/2026 THIN PREP TIS PAP AND HR HPV DNA Pathology and Cytology Routine Well woman exam with routine gynecological exam Ordered: 06/28/2025 documented as of this encounter Visit Diagnoses Diagnosis Well woman exam with routine gynecological exam Routine gynecological examination Osteoporosis, post-menopausal Senile osteoporosis documented in this encounter Care Teams Arboreal Scientist Relationship Specialty Start Date End Date Quinton Leo MD PCP - General Family Medicine 02/21/23 Quinton Leo MD [address] [address] PCP - ACO Reach 02/28/23 Crow Kruse DO [address] [place] [address] Referring Physician Obstetrics and Gynecology 11/14/23 Rodney Peña MD [address] [place] [address] Referring Physician Orthopaedic Surgery 11/14/23 Silvia Eckert MD [address] [place] [phone] Referring Physician Oncology 02/22/25 documented as of this encounter
--- OUTSIDE RECORDS SUMMARY | 2025-06-28 12:56 | XMS_ITS | Encounter Summary ---
Author Organization [facility] Address [address] [place] [address] Care Team Providers Care Forensics Analyst Name Role Phone Quinton Leo MD Primary Care Provider [phone] Quinton Leo MD Unavailable [phone] Crow Kruse DO Unavailable Rodney Peña MD Unavailable [phone] Silvia Eckert MD Unavailable [phone] Magaly Morel RN Unavailable [phone] Encounter Details Date Type Department Care Team (Late st Contact Info) Description 10/16/2023 Orders Only [facility] [place] [facility] [address] [facility] [place] [address] Quinton Leo MD 112 [facility] [address] [place] [address] Social History Tobacco Use Types Packs/Day Years [...] the phone with family, friends, or neighbors? Patient declined 04/21/2023 How often do you get togethe r with friends or relatives? Patient declined 04/21/2023 How often do you attend baptist or holiness serv ices? Patient declined 04/21/2023 Active Member of Clubs or Organizations Not on f ile 04/21/2023 How often do you attend meet ings of the clubs or organizations you belong to? Patient declined 04/21/2023 Are you , , di vorced, , never , or living with a partner? Patient declined 04/21/2023 AUDIT-C Answer Date Recorded Q1: How often do you have a drink containing alc ohol? Patient declined 04/21/2023 Q2: How many drinks containi ng alcohol do you have on a typical day when you are drinking? Patient declined 04/21/2023 Q3: How often do you have si x or more drinks on one occasion? Patient declined 04/21/2023 Overall Financial Resource Strain (CARDIA) Answe r Date Recorded How hard is it for you to pa y for the very basics like food, housing, medical care, and heating? Patient declined 04/21/2023 PHQ-2 Answer Date Recorded Patient Health Questionnaire-2 Score 0 03/07/2023 [facility] [place] of Occupat ional Health - Occupational Stress [...] place to sleep or slept in a skilled nursing (including now)? Patient refused 04/21/2023 Comments No Sex and Gender Information Value Date Recorded Sex Assigned at Not on file Legal Sex Female 7:08 PM EDT Gender Identity Not on file Sexual Orientation Not on file documented as of this encounter Plan of Treatment Upcoming Encounters Date Type Department Care Team (Late st Contact Info) Description 09/27/2025 8:30 AM EST Office Visit [facility] [address] [address] [place] [address] Quinton Leo MD [address] [place] [address] [place] [address] (Fax) 02/24/2026 8:00 AM EDT Office Visit [facility] [address] [address] [place] [address] Quinton Leo MD [address] [address] [place] [address] 07/04/2026 10:00 AM EDT Procedure Visit [facility] [address] [facility] [place] [address] Crow Kruse DO [address] [place] [address] documented as of this encounter Visit Diagnoses Not on filedocumented in this encounter Care Teams Forensics Analyst Relationship Specialty Start Date End Date Quinton Leo MD (Fax) PCP - General Family Medicine 02/21/23 Quinton Leo MD 112 [facility] [address] [place] [address] (Fax) PCP - ACO Reach 02/28/23 Crow Kurse DO [address] [facility] [place] [address] Referring Physician Obstetrics and Gynecology 11/14/23 Rodney Peña MD [address] [place] [address] Referring Physician Orthopaedic Surgery 11/14/23 Silvia Eckert MD [address] [place] [address] Referring Physician Oncology 02/22/25 Magaly Morel, TAMARA [address] [facility] [address] [place] [address] Registered Nurse Family Medicine 03/15/25 03/26/25 documented as of this encounter
--- OUTSIDE RECORDS SUMMARY | 2025-06-28 12:56 | XMS_ITS | Patient Health Record ---
Author Organization [facility] [place] Address [address] [place] [address] Care Team Providers Care Sap Abap Developer Name Role Phone Quinton Leo MD Primary Care Provider Unavail able Silvia Eckert Unavailable [phone] Results Component Value Reference Range Notes CBC AUTO DIFF (Not yet revie wed by provider) Interpretation: Performing Lab: Notes/Report: [facility] , White Blood Count 10.4 4.0-11.0 10 3/uL Red Blood Count 5.12 4.20-5.40 10 6/uL Hemoglobin 15.4 12.0-16.0 g/dL Hematocrit 46.2 36.0-48.0 % Mean Corpuscular Volume 90.2 81.0-99.0 fL Mean Corpuscular Hemoglobin 30.1 26.7-34.0 pg Mean Corpuscular HGB Conc 33.3 29.9-35.2 g/dL Red Cell Distribution Width 12.6 11.0-15.0 % Platelet Count 279 150-450 10 3/uL Mean Platelet Volume 10.6 9.5-13.5 fL Neutrophils Percent Auto 74.3 43.0-75.0 % Lymphocytes Percent Auto 19.1 20.5-60.0 % Monocytes Percent Auto 4.6 1.7-12.0 % Eosinophils Percent Auto 0.9 0.9-7.0 % Basophils Percent Auto 0.7 0.2-2.0 % Immature Granulocytes Pct Auto 0.4 0.0-0.5 % Neutrophils Absolute Auto 7.7 1.4-6.5 10 3/uL Lymphocytes Absolute Auto 2.0 1.2-3.8 10 3/uL Monocytes Absolute Auto 0.5 0.3-0.8 10 3/uL Eosinophils Absolute Auto 0.1 0.0-0.7 10 3/uL Basophils Absolute Auto 0.1 0.0-0.1 10 3/uL Immature Granulocytes Abs Auto 0.04 0.00-0.03 10 3/uL Performing Lab: see note ML - [facility] LB VITAMIN D 25 [place] (Not yet rev iewed by provider) Interpretation: Performing Lab: Notes/Report: [facility] , Vitamin D 46.7 20-<30 ng/mL Vit D insufficient 30-100 ng/mL Vit D sufficient <20 ng/mL Vit D deficient >100 ng/mL Potential Toxicity Performing Lab: see note - [facility] LB PROF 14(COMP METB) (Not yet reviewed by provider) Interpretation: Performing Lab: Notes/Report: [facility] , Sodium 141 136-145 mmol/L Potassium 3.7 3.5-5.1 mmol/L Chloride 102 98-107 mmol/L Carbon Dioxide 26.7 21.0-32.0 mmol/L Anion Gap 16.0 Glucose 128 74-106 mg/dL Blood Urea Nitrogen 25.0 7.0-18.0 mg/dL Creatinine 1.07 0.55-1.02 mg/dL Estimated GFR ( [place] >60 >=60 mL/mi n/1.73m 2 Estimated GFR (Non- [place] 51 >=60 mL/mi n/1.73m 2 BUN Creatinine Ratio 23.4 Calcium 9.8 8.5-10.1 mg/dL Bilirubin Total 0.6 0.2-1.0 mg/dL Aspartate Amino Transferase 30 15-37 U/L Alanine Aminotransferase 51 14-59 U/L Alkaline Phosphatase 114 46-116 U/L Total Protein 8.4 6.4-8.2 g/dL Albumin Level 3.8 3.4-5.0 g/dL Globulin 4.6 Albumin Globulin Ratio 0.8 Performing Lab: see note ML - [facility] LB CBC AUTO DIFF (Not yet revie wed by provider) Interpretation: Performing Lab: Notes/Report: [facility] , White Blood Count 12.2 4.0-11.0 10 3/uL Red Blood Count 5.18 4.20-5.40 10 6/uL Hemoglobin 15.4 12.0-16.0 g/dL Hematocrit 46.0 36.0-48.0 % Mean Corpuscular Volume 88.8 81.0-99.0 fL Mean Corpuscular Hemoglobin 29.7 26.7-34.0 pg Mean Corpuscular HGB Conc 33.5 29.9-35.2 g/dL Red Cell Distribution Width 12.3 11.0-15.0 % Platelet Count 325 150-450 10 3/uL Mean Platelet Volume 9.9 9.5-13.5 fL Neutrophils Percent Auto 70.6 43.0-75.0 % Lymphocytes Percent Auto 21.8 20.5-60.0 % Monocytes Percent Auto 6.1 1.7-12.0 % Eosinophils Percent Auto 0.8 0.9-7.0 % Basophils Percent Auto 0.5 0.2-2.0 % Immature Granulocytes Pct Auto 0.2 0.0-0.5 % Neutrophils Absolute Auto 8.6 1.4-6.5 10 3/uL Lymphocytes Absolute Auto 2.7 1.2-3.8 10 3/uL Monocytes Absolute Auto 0.7 0.3-0.8 10 3/uL Eosinophils Absolute Auto 0.1 0.0-0.7 10 3/uL Basophils Absolute Auto 0.1 0.0-0.1 10 3/uL Immature Granulocytes Abs Auto 0.03 0.00-0.03 10 3/uL Performing Lab: see note ML - [facility] LB VITAMIN D 25 [place] (Not yet rev iewed by provider) Interpretation: Performing Lab: Notes/Report: [facility] , Vitamin D 42.1 <20 ng/mL Vit D deficient 20-<30 ng/mL Vit D insufficient >100 ng/mL Potential Toxicity 30-100 ng/mL Vit D sufficient Performing Lab: see note ML - [facility] LB PROF 14(COMP METB) (Not yet reviewed by provider) Interpretation: Performing Lab: Notes/Report: [facility] , Sodium 141 136-145 mmol/L Potassium 4.2 3.5-5.1 mmol/L Chloride 102 98-107 mmol/L Carbon Dioxide 26.1 21.0-32.0 mmol/L Anion Gap 17.1 Glucose 142 74-106 mg/dL Blood Urea Nitrogen 15.0 7.0-18.0 mg/dL Creatinine 0.88 0.55-1.02 mg/dL Estimated GFR ( [place] >60 >=60 mL/mi n/1.73m 2 Estimated GFR (Non- [place] >60 >=60 mL/mi n/1.73m 2 BUN Creatinine Ratio 17.0 Calcium 9.3 8.5-10.1 mg/dL Bilirubin Total 0.5 0.2-1.0 mg/dL Aspartate Amino Transferase 33 15-37 U/L Alanine Aminotransferase 59 14-59 U/L Alkaline Phosphatase 109 46-116 U/L Total Protein 8.4 6.4-8.2 g/dL Albumin Level 3.8 3.4-5.0 g/dL Globulin 4.6 Albumin Globulin Ratio 0.8 Performing Lab: see note ML - [facility] LB Reason For Referral No Information Encounters Encounter Location Date Provider Diagnosis [facility] [address] [place] [address] 12/15/2024 Silvia Eckert [facility] [address] [place] [address] 06/22/2025 Silvia Eckert Plan Of Treatment Pending Test Test Name Order Date CBC AUTO DIFF 02/04/2024 CBC AUTO DIFF 06/09/2024 CBC AUTO DIFF 12/07/2024 CBC AUTO DIFF 06/14/2025 PROF 14(COMP METB) 06/14/2025 PROF 14(COMP METB) 12/07/2024 PROF 14(COMP METB) 02/04/2024 PROF 14(COMP METB) 06/09/2024 VITAMIN D 25 [place] 02/04/2024 VITAMIN D 25 [place] 12/07/2024 VITAMIN D 25 [place] 06/09/2024 VITAMIN D 25 [place] 06/14/2025 Next Appt Details Provider Name:Silvia Eckert , 12/21/2025 09:00:00 AM, [address] [place], [address], Insurance Providers Payer Name Payer Address Payer Phone Subscriber Number Group Number Insured Name Patient Relationship to Insured Coverage Start Date Coverage End Date [place] [address] [place] [address] [id number] Chantale Chen Self - patient is the insured 1 JESSI 330Arielle BOWEN Osmar 8 MEDICARE SUPP CLMS DEPT [place] [phone] Chantale Chen Self - patient is the insured
--- OUTSIDE RECORDS SUMMARY | 2025-06-28 12:56 | XMS_ITS | Encounter Summary ---
Author Organization [facility] Address [address] [place] [address] Care Team Providers Care Radiation Protection Engineer Name Role Phone Quinton Leo MD Primary Care Provider [phone] Quinton Leo MD Unavailable [phone] Crow Kruse DO Unavailable Rodney Peña MD Unavailable [phone] Silvia Eckert MD Unavailable [phone] Magaly Morel RN Unavailable Encounter Details Date Type Department Care Team (Late st Contact Info) Description 07/27/2024 Abstract [facility] [address] [place] [address] Crow Kruse DO [address] [facility] [address] [place], [place] [id number] Social History Tobacco Use Types Packs/Day Years [...] and Family Not on file 04/27/2024 Attends Yazidism Services Not on file 04/27 Do you belong to any clubs o r organizations such as temple groups, unions, fraternal or athletic groups, or [...] Average Number of Drinks Not on file 024 Frequency of Binge Drinking Not on file 04/07 Overall Financial Resource Strain (CARDIA) Answe r Date Recorded How hard is it for you to pa y for the very basics like food, housing, medical care, and heating? Patient declined 04/27/2024 PHQ-2 Answer Date Recorded Patient Health Questionnaire-2 Score 0 03/07/2023 [facility] of Occupat ional Health - Occupational Stress [...] place to sleep or slept in a alf (including now)? Patient refused 04/21/2023 Comments No [...] 8:30 AM EST Office Visit [facility] [address] [place] [address] Quinton Leo MD [address] [address] [place] [address] 02/24/2026 8:00 AM EDT Office Visit [facility] [address] [address] [place] [address] Quinton Leo MD [address] [place] [address] (Fax) 07/04/2026 10:00 AM EDT Procedure Visit [facility] 102 [facility] [place] [address] Crow Kruse DO [address] [place] [address] documented as of this encounter Visit Diagnoses Not on filedocumented in this encounter Care Teams Radiation Protection Engineer Relationship Specialty Start Date End Date Quinton Leo MD (Fax) PCP - General Family Medicine 02/21/23 Quinton Leo MD 112 [facility] 100 [place] [address] PCP - ACO Reach 02/28/23 Crow Kruse DO [address], [facility]11 Referring Physician Obstetrics and Gynecology 11/14/23 Rodney Peña MD [address] [place] [address] Referring Physician Orthopaedic Surgery 11/14/23 Silvia Eckert MD [address] [id number] Referring Physician Oncology 02/22/25 Magaly Morel, TAMARA [address] [place] [address] Registered Nurse Family Medicine 03/15/25 03/26/25 documented as of this encounter
--- OUTSIDE RECORDS SUMMARY | 2025-06-28 12:56 | XMS_ITS | Encounter Summary ---
Author Organization [facility] Address [address] [place] [address] Care Team Providers Care Senior Insight Manager International Name Role Phone Quinton Leo MD Primary Care Provider + [phone] Quinton Leo MD Unavailable [phone] Crow Kruse DO Unavailable Rodney Peña MD Unavailable [phone] Silvia Eckert MD Unavailable [phone] Encounter Details Date Type Department Care Team (Late st Contact Info) Description 06/14/2025 Clinisync Result Encounter [facility] External Department Unsolicited Provider, Generic External Data Social History Tobacco Use Types Packs/Day Years [...] and Family Not on file 04/27/2024 Attends Hinduism Services Not on file 04/27 Do you belong to any clubs o r organizations such as adventism groups, unions, fraternal or athletic groups, or [...] Recorded Patient Health Questionnaire-2 Score 0 03/29/2025 [facility] of Occupat ional Health - Occupational [...] place to sleep or slept in a senior care (including now)? Patient refused 04/21/2023 Comments No [...] 8:30 AM EST Office Visit [facility] [place] [facility] [address] [place] [address] Quinton Leo MD 112 [address] [place] [address] (Fax) 02/24/2026 8:00 AM EDT Office Visit [facility] [place] [facility] 112 [facility] 100 [place] [address] Quinton Leo MD 112 [facility] 100 [place] [address] (Fax) 07/04/2026 10:00 AM EDT Procedure Visit [facility] [address] [facility] [place] [address] Crow Kruse DO [address] [facility] [place] [address] documented as of this encounter Procedures Procedure Name Priority Date/Time Associated Diagnosis Comments TBH VITAMIN D 25 [place] Routine 06/14/2025 1 1:06 AM EDT [facility] CMP (CMP) (FOR REMOTE [facility] USE) Routine 06/14/2025 11:06 AM EDT ALL CBC WITH AUTO DIFF Routine 06/14/2025 11:06 AM EDT documented in this encounter Results * TBH VITAMIN D 25 [place] (06/14/2025 11:06 AM EDT) VITAMIN D 42.1 ng/mL TB Comment: <20 ng/mL Vit D deficient 20-<30 ng/mL Vit D insufficient 30-100 ng/mL Vit D sufficient >100 ng/mL Potential Toxicity 06/14/2025 11:0 6 AM EDT 06/14/2025 11:09 AM EDT Narrative CLINISYNC - 06/14/2025 12:01 PM EDT Generic External Data Provider YANE malagon Result [facility] * (ABNORMAL) [facility] CMP (CMP) (FOR REMOTE [facility] USE) (06/14/2025 11:06 AM EDT) SODIUM 141 136 - 145 mmol/L TBH POTASSIUM 4.2 3.5 - 5.1 mmol/L TBH CHLORIDE 102 98 - 107 mmol/L TBH CARBON DIOXIDE 26.1 21.0 - 32.0 mmol/L TBH ANION GAP 17.1 TBH GLUCOSE 142(H) 74 - 106 mg/dL TBH BLOOD UREA NITROGEN 15.0 7.0 - 18.0 mg/dL TBH CREATININE 0.88 0.55 - 1.02 mg/dL TBH TBH EGFR-AF MACEDONIAN >60 >=60 mL/min/1. 73m 2 TBH TBH EGFR-NON AF MACEDONIAN >60 >=60 mL/min/1. 73m 2 TBH BUN CREATININE RATIO 17.0 TBH CALCIUM 9.3 8.5 - 10.1 mg/dL TBH BILIRUBIN TOTAL 0.5 0.2 - 1.0 mg/dL TBH ASPARTATE AMINO TRANSFERASE 33 15 - 37 U/L TBH ALANINE AMINOTRANSFERASE 59 14 - 59 U/L TBH ALKALINE PHOSPHATASE 109 46 - 116 U/L TBH TOTAL PROTEIN 8.4(H) 6.4 - 8.2 g/dL TBH ALBUMIN LEVEL 3.8 3.4 - 5.0 g/dL TBH GLOBULIN 4.6 g/dL TBH ALBUMIN GLOBULIN RATIO 0.8 TB 06/14/2025 11:0 6 AM EDT 06/14/2025 11:09 AM EDT Narrative CLINISYNC - 06/14/2025 11:40 AM EDT us Generic External Data Provider CLINISYNC F inal Result [facility] * (ABNORMAL) ALL CBC WITH AUTO DIFF (06/14/2025 11:06 AM EDT) TB WBC 10.4 4.0 - 11.0 10 3/uL TBH TB RBC 5.12 4.20 - 5.40 10 6/uL TBH TB HGB 15.4 12.0 - 16.0 g/dL TB TB HCT 46.2 36.0 - 48.0 % TBH TB MCV 90.2 81.0 - 99.0 fL TB TB MCH 30.1 26.7 - 34.0 pg TBH TB MCHC 33.3 29.9 - 35.2 g/dL TB TB RDW 12.6 11.0 - 15.0 % TBH TBH PLT 279 150 - 450 10 3/uL TBH TB MPV 10.6 9.5 - 13.5 fL TBH NEUTROPHILS PERCENT AUTO 74.3 43.0 - 75.0 % TBH LYMPHOCYTES PERCENT AUTO 19.1(L) 20.5 - 60.0 % TBH MONOCYTES PERCENT AUTO 4.6 1.7 - 12.0 % TBH TBH EO % 0.9 0.9 - 7.0 % TBH BASOPHILS PERCENT AUTO 0.7 0.2 - 2.0 % TBH IMMATURE GRANULOCYTES PCT AUTO 0.4 0.0 - 0.5 % TBH NEUTROPHILS ABSOLUTE AUTO 7.7(H) 1.4 - 6.5 10 3/uL TBH LYMPHOCYTES ABSOLUTE AUTO 2.0 1.2 - 3.8 10 3/uL TBH MONOCYTES ABSOLUTE AUTO 0.5 0.3 - 0.8 10 3/uL TBH TBH EO # 0.1 0.0 - 0.7 10 3/uL TBH BASOPHILS ABSOLUTE AUTO 0.1 0.0 - 0.1 10 3/uL TBH IMMATURE GRANULOCYTES ABS AUTO 0.04(H) 0.00 - 0.03 10 3/uL TBH 06/14/2025 11:0 6 AM EDT 06/14/2025 11:09 AM EDT Narrative CLINISYNC - 06/14/2025 11:29 AM EDT us Generic External Data Provider CLINISYNC F inal Result CLINISYNC TB documented in this encounter Visit Diagnoses Not on filedocumented in this encounter Care Teams Senior Insight Manager International Relationship Specialty Start Date End Date Quinton Leo MD (Fax) PCP - General Family Medicine 02/21/23 Quinton Leo MD [address] [address] (Fax) PCP - ACO Reach 02/28/23 Crow Kruse DO [address] [place] [address] Referring Physician Obstetrics and Gynecology 11/14/23 Rodney Peña MD [address] [place] [address] Referring Physician Orthopaedic Surgery 11/14/23 Silvia Eckert MD [address] [place] [address] Referring Physician Oncology 02/22/25 documented as of this encounter
--- OUTSIDE RECORDS SUMMARY | 2025-06-28 12:56 | XMS_ITS | Encounter Summary ---
Author Organization [facility] Address [address] [place] [address] Care Team Providers Care Advertising Internship Name Role Phone Quinton Leo MD Primary Care Provider + [phone] Quinton Leo MD Unavailable [phone] Crow Kruse DO Unavailable Rodney Peña MD Unavailable [phone] Silvia Eckert MD Unavailable [phone] Encounter Details Date Type Department Care Team (Latest Contact Info) Description 06/21/2025 Travel Social History Tobacco Use Types Packs/Day Years [...] and Family Not on file 04/27/2024 Attends Presybeterian Services Not on file 04/27 Do you belong to any clubs o r organizations such as protestant groups, unions, fraternal or athletic groups, or [...] Recorded Patient Health Questionnaire-2 Score 0 03/29/2025 [facility] of Occupat ional Health - Occupational Stress [...] place to sleep or slept in a [place] health care facility (including now)? Patient refused 04/21/2023 Comments No [...] Visit [facility] [place] [facility] [address] [address] [place] [address] Quinton Leo MD [address] [address] [place] [address] (Fax) 02/24/2026 8:00 AM EDT Office Visit [facility] [place] [facility] 112 [address] [place] [address] Quinton Leo MD [address] [address] [place] [address] (Fax) 07/04/2026 10:00 AM EDT Procedure Visit [facility] [address] [place] [address] Crow Kruse DO 102 [facility] [address] [place], [place] [phone] documented as of this encounter Visit Diagnoses Not on filedocumented in this encounter Care Teams Advertising Internship Relationship Specialty Start Date End Date Quinton Leo MD PCP - General Family Medicine 02/21/23 Quinton Leo MD 112 [facility] 100 [place] [address] PCP - ACO Reach 02/28/23 Crow Kruse DO [address] [place] [address] Referring Physician Obstetrics and Gynecology 11/14/23 Rodney Peña MD [address] [place] [address] Referring Physician Orthopaedic Surgery 11/14/23 Silvia Eckert MD 1400 [place] [address] Referring Physician Oncology 02/22/25 documented as of this encounter
--- OUTSIDE RECORDS SUMMARY | 2025-06-28 12:56 | XMS_ITS | Clinical Summary ---
Author Organization [facility] Address [address] [place] [address] Care Team Providers Care Extension Associate Name Role Phone Quinton Leo MD Primary Care Provider [phone] Quinton Leo MD Unavailable [phone] Crow Kruse DO Unavailable Rodney Peña MD Unavailable [phone] Silvia Eckert MD Unavailable [phone] Allergies Active Allergy Reactions Criticality Noted Date Comments Amoxicillin 07/17/2022 Other Reaction(s): Welts / Rash Amoxicillin-Pot Clavulanate 07/17/20 22 Other Reaction(s): Unknown Erythromycin Base 07/17/2022 Other Reaction(s): Abdominal Pain Homatropine 07/17/2022 Other Reaction(s): vomiting Hydrocodone 07/17/2022 Other Reaction(s): vomiting Sulfamethoxazole 07/17/2022 Other Reaction(s): Nausea Tramadol 07/17/2022 Other Reaction(s): nausea and vomiting Fenofibrate 10/16/2023 myalgias Medications anastrozole (Arimidex) 1 MG chemo tablet Take 1 mg by mouth Daily. 4 Active Elderberry 500 MG capsule Take 500 mg by mouth Daily Active calcium citrate (Calcitrate) 950 (200 Ca) MG tablet Take 950 mg by mouth Daily Active Multiple Vitamins-Minerals (Alive Energy 50+) tablet Take 50 mg by mouth Daily Active amLODIPine (Norvasc) 10 MG tabletIndications:P rimary hypertension Take 1 tablet (10 mg) by mouth Daily 90 tablet 1 5 09/25/20 25 Active nebivolol (Bystolic) 5 MG tabletIndications:P rimary hypertension Take 1 tablet (5 mg) by mouth Daily 90 tablet 1 5 09/25/20 25 Active losartan (Cozaar) 100 MG tabletIndications:P rimary hypertension Take 1 tablet (100 mg) by mouth Daily 90 tablet 1 5 09/25/20 25 Active atorvastatin (Lipitor) 20 MG tabletIndications:M ixed hyperlipidemia Take 1 tablet (20 mg) by mouth Daily 90 tablet 1 5 09/25/20 25 Active Active Problems Problem Noted Date Diagnosed Date Heart murmur 03/29/2025 Cardiovascular event risk 06/12/2022 Diverticulosis of colon 06/12/2022 Overweight with body mass index (BMI) 25.0-29.9 06/12/2022 Stage 2 chronic kidney disease 10/10/2020 Hypertensive nephropathy 04/14/2020 Mixed conductive and sensori neural hearing loss of left ear with restricted hearing of right ear 08/11/2019 Tinnitus of left ear 08/11/2019 White matter disease 07/23/2018 Perforation of tympanic membrane 12/28/2017 Former smoker 08/15/2017 Chronic fatigue syndrome 06/29/2016 Vertigo 06/29/2016 Mixed hyperlipidemia 08/19/2015 Sick-euthyroid syndrome 08/19/2015 Primary hypertension 07/08/2015 Right bundle branch block 07/08/2015 Resolved Problems Problem Noted Date Diagnosed Date Resolved Date Lobular carcinoma of left breast 10/29/2023 02/22/2025 Overweight 08/15/2017 04/16/2023 Encounters Date Type Department Care Team Description 06/28/2025 8:30 AM EDT Office Visit [facility] [address] [place] [address] Crow Kruse, DO Well woman exam with routine gynecological exam; Osteoporosis, post-menopausal 06/28/2025 Abstract [facility] [address] [place] [address] Crow Kruse, DO 06/28/2025 Bamboo flowsheet [facility] [address] [place] [address] [place] [address] Crow Kruse, DO 06/21/2025 Travel 06/14/2025 Clinisync Result Encounter NOMS External Department Unsolicited Provider, Generic External Data 03/29/2025 8:30 AM EDT Office Visit [facility] [address] [place] [address] [place] [address] Quinton Leo MD Heart murmur (Primary Dx); Primary hypertension ; Hypertensive nephropathy ; Mixed hyperlipidemia ; Former smoker; Overweight with body mass index (BMI) 25.0-29.9 03/29/2025 Bamboo flowsheet [facility] [place] [address] [address] [place] [address] Quinton Leo MD 03/29/2025 Travel from Last 3 Months Immunizations Immunization Administration Dates Next Due Influenza, injectable, MDCK, preservative free, quadrivalent 07/17/2018 Influenza, injectable, quadrivalent, preservativ e free 07/21/2018,07/08/2015 Influenza, seasonal, injectable 07/14/2014 Influenza, seasonal, injectable, preservative fr ee 09/03/2015,08/15/2013 Tdap 08/11/2013 Family History Medical History Relation Name Comments Heart disease Father Cancer Mother Cancer Other 1 Coronary artery disease Other 1 Diabetes Other 1 Hyperlipidemia Son Hypertension Son Relation Name Status Comments Brother 3 brothers Daughter Alive 2 daughter Father Mother Other 1 Fam hx Other 2 spouse Sister 1 sister Son Alive 1 son Social History Tobacco Use Types Packs/Day Years Used Date Smoking Tobacco: Former Cigarettes Smokeless Tobacco: Never Tobacco Cessation:Counseling Given: Yes Alcohol Use Standard Drinks/Week Comments Not Currently [...] and Family Not on file 04/27/2024 Attends Rastafarian Services Not on file 04/27 Do you belong to any clubs o r organizations such as sikhism groups, unions, fraternal or athletic groups, or [...] or rent on time? Patient refused 04/21/20 Number of Places Lived in the Last Year Not on f ile 04/21/2023 In the last 12 months, was t here a time when you did not have a steady place to sleep or slept in a senior living (including now)? Patient refused 04/21/2023 Comments No Sex and Gender Information Value Date Recorded Sex Assigned at Not on file Legal Sex Female 7:08 PM EDT Gender Identity Not on file Sexual Orientation Not on file Last Filed Vital Signs Vital Sign Reading Time Taken Comments Blood Pressure 122/78 06/28/2025 8:39 AM EDT Pulse 78 03/29/2025 8:23 AM EDT Temperature 36.7 C (98 F) 08/14/2024 2:18 PM EST Respiratory Rate - - Oxygen Saturation 98% 03/29/2025 8:23 AM EDT Inhaled Oxygen Concentration - - Weight 77.1 kg (170 lb) 06/28/2025 8:39 AM EDT Height 162.6 cm (5' 4 ) 03/29/2025 8:23 AM EDT Body Mass Index 29.18 03/29/2025 8:23 AM EDT Plan of Treatment Upcoming Encounters Date Type Department Care Team (Late st Contact Info) Description 09/27/2025 8:30 AM EST Office Visit [facility] [place] 112 [facility] 100 [place] [address] Quinton Leo MD 112 [facility] 100 [place] [address] (Fax) 02/24/2026 8:00 AM EDT Office Visit [facility] [place] 100 [facility] 112 [facility] 100 [place] [address] Quinton Leo MD 112 [facility] 100 [place] [address] (Fax) 07/04/2026 10:00 AM EDT Procedure Visit [facility] [address] [facility] [place] [address] Crow Kruse DO [address] [facility] [place] [address] Health Maintenance Due Date Last Done Comments CT Colonography 1956 FIT-DNA 1956 FIT 1956 FOBT 1955 Sigmoidoscopy 1955 Influenza Vaccine (#1) 2025 8, 07/17/2018, 09/03/2015, Additional history exists Medicare Annual Wellness (AWV) 02/22/2026 0 02/22/2025, 06/20/2023, 06/19/2022, Additional history exists Colonoscopy 11/07/2032 11/07/2022, 0210/2022, 11/12/2014 Colorectal Cancer Screening 11/07/2032 Mammogram Discontinued 10/03/2023, 07/08, 03/11/2018 Pneumococcal Vaccine: 65+ Years Discontinued Procedures Procedure Name Priority Date/Time Associated Diagnosis Comments TBH VITAMIN D 25 [place] Routine 06/14/2025 1 1:06 AM EDT [facility] CMP (CMP) (FOR REMOTE [facility] USE) Routine 06/14/2025 11:06 AM EDT ALL CBC WITH AUTO DIFF Routine 06/14/2025 11:06 AM EDT BI MAMMOGRAM DIAGNOSTIC BILATERAL Routine 10/03/2023 12:02 PM EST Mammogram abnormal COLONOSCOPY Routine 11/07/2022 12:00 PM EST Unspecified abdominal pain Abnormal findings on diagnostic imaging of other abdominal regions, including retroperitoneum from Last 3 Months or Most Recently Relevant to Health Maintenance Results * TBH VITAMIN D 25 [place] (06/14/2025 11:06 AM EDT) VITAMIN D 42.1 ng/mL TB Comment: <20 ng/mL Vit D deficient 20-<30 ng/mL Vit D insufficient 30-100 ng/mL Vit D sufficient >100 ng/mL Potential Toxicity 06/14/2025 11:0 6 AM EDT 06/14/2025 11:09 AM EDT Narrative CLINISYNC - 06/14/2025 12:01 PM EDT us Generic External Data Provider [facility] F inal [facility] * (ABNORMAL) [facility] CMP (CMP) (FOR REMOTE [facility] USE) (06/14/2025 11:06 AM EDT) SODIUM 141 136 - 145 mmol/L TBH POTASSIUM 4.2 3.5 - 5.1 mmol/L TBH CHLORIDE 102 98 - 107 mmol/L TBH CARBON DIOXIDE 26.1 21.0 - 32.0 mmol/L TBH ANION GAP 17.1 TBH GLUCOSE 142(H) 74 - 106 mg/dL TBH BLOOD UREA NITROGEN 15.0 7.0 - 18.0 mg/dL TBH CREATININE 0.88 0.55 - 1.02 mg/dL TBH TBH EGFR-AF ALGERIAN >60 >=60 mL/min/1. 73m 2 TBH TBH EGFR-NON AF ALGERIAN >60 >=60 mL/min/1. 73m 2 TBH BUN [...] Narrative CLINISYNC - 06/14/2025 11:40 AM EDT Generic External Data Provider [facility] F inal Result [facility] * (ABNORMAL) ALL CBC WITH AUTO DIFF (06/14/2025 11:06 AM EDT) TB WBC 10.4 4.0 - 11.0 10 3/uL TBH TBH RBC 5.12 4.20 - 5.40 10 6/uL TBH TB HGB 15.4 12.0 - 16.0 g/dL TB TB HCT 46.2 36.0 - 48.0 % TBH TB MCV 90.2 81.0 - 99.0 fL TB TB MCH 30.1 26.7 - 34.0 pg TBH TB MCHC 33.3 29.9 - 35.2 g/dL TB TBH RDW 12.6 11.0 - 15.0 % TBH TBH PLT 279 150 - 450 10 3/uL TBH TBH MPV 10.6 9.5 - 13.5 fL TBH [...] Narrative CLINISYNC - 06/14/2025 11:29 AM EDT Generic External Data Provider CLINISYNC F inal Result [facility] * Bilateral diagnostic mammogram (10/03/2023 12:02 PM EST) us Crow Kruse DO IMG BI PROCEDURES Final Result Performing Organization Address [facility]/ZIP Co de Phone Number [facility] [address] [place] [address], * Colonoscopy (11/07/2022 12:00 PM EST) Anatomical Region Laterality Modality Endoscopy 11/07/2022 12:0 0 PM EST Narrative 11/07/2022 12:00 PM EST PERFORMED AT [facility] LOCATION:[id number] Procedure Note CONVERSION, GENERIC - 02/20/2023 PERFORMED AT [facility] LOCATION:[id number] Kenney Irby MD ENDOSCOPY PROCEDURE ORDERABL ES Final Result from Last 3 Months or Most Recently Relevant to Health Maintenance Insurance MEDICARE [facility] [place] [id number] Advance Directives Documents on File Type Date Recorded Patient Recreational Assistant Expl anation Advance Directives and Living Will 04/14/2020 2019-12-01 Power Of Evaluation Analyst Advance Directives and Living Will 04/14/2020 2019-12-01 Living wi Care Teams Extension Associate Relationship Specialty Start Date End Date Quinton Leo MD (Fax) PCP - General Family Medicine 02/21/23 Quinton Leo MD 112 [facility] 100 [place] [address] (Fax) PCP - ACO Reach 02/28/23 Crow Kruse DO [address] [place] [address] Referring Physician Obstetrics and Gynecology 11/14/23 Rodney Peña MD [address] [place] [address] Referring Physician Orthopaedic Surgery 11/14/23 Silvia Eckert MD [address] [place] [address] Referring Physician Oncology 02/22/25
--- OUTSIDE RECORDS SUMMARY | 2025-06-28 12:56 | XMS_ITS | Encounter Summary ---
Author Organization [facility] Address [address] [place] [address] Care Team Providers Care Paint Roller Winder Name Role Phone Quinton Leo MD Primary Care Provider [phone] Quinton Leo MD Unavailable [phone] Crow Kruse DO Unavailable Rodney Peña MD Unavailable [phone] Silvia Eckert MD Unavailable [phone] Magaly Morel RN Unavailable Encounter Details Date Type Department Care Team (Late st Contact Info) Description 12/24/2023 Abstract [facility] [address] [place] [address] Adrian Shelton MD [address] [place] [phone] Social History Tobacco Use Types Packs/Day Years [...] declined 04/21/2023 How often do you attend sikh or alevism serv ices? Patient declined 04/21/2023 Active Member [...] Recorded Patient Health Questionnaire-2 Score 0 03/07/2023 [facility] of Occupat ional Health - Occupational Stress [...] place to sleep or slept in a correction (including now)? Patient refused 04/21/2023 Comments No [...] Visit [facility] [address] [address] [place] [address] Quinton Leo MD [address] [address] [place] [address] (Fax) 02/24/2026 8:00 AM EDT Office Visit [facility] [place] [facility] 112 [facility] 100 [place] [address] Quinton Leo MD [address] [address] [place] [address] 07/04/2026 10:00 AM EDT Procedure Visit [facility] [address] [facility] [place] [address] Crow Kruse DO [address] [facility] [address] [place] [address] documented as of this encounter Visit Diagnoses Not on filedocumented in this encounter Care Teams Paint Roller Winder Relationship Specialty Start Date End Date Quinton Leo MD (Fax) PCP - General Family Medicine 02/21/23 Quinton Leo MD 112 [facility] 100 [place] [address] (Fax) PCP - ACO Reach 02/28/23 Crow Kruse DO [address] [facility] [address] [place] [address] Referring Physician Obstetrics and Gynecology 11/14/23 Rodney Peña MD [address] [facility] [address] [place] [address] Referring Physician Orthopaedic Surgery 11/14/23 Silvia Eckert MD [address] [place] [address] Referring Physician Oncology 02/22/25 Magaly Morel, TAMARA [address] [place] [address] Registered Nurse Family Medicine 03/15/25 03/26/25 documented as of this encounter
--- OUTSIDE RECORDS SUMMARY | 2025-06-28 12:56 | XMS_ITS | Encounter Summary ---
Author Organization [facility] Address [address] [place] [address] Care Team Providers Care Ice Seller Name Role Phone Quinton Leo MD Primary Care Provider [phone] Quinton Leo MD Unavailable [phone] Crow Kruse DO Unavailable Rodney Peña MD Unavailable [phone] Silvia Eckert MD Unavailable [phone] Magaly Morel RN Unavailable Encounter Details Date Type Department Care Team (Late st Contact Info) Description 06/09/2024 Abstract [facility] [place] [facility] [address] [facility] [place] [address] Crwo Kruse DO [address] [facility] [address] [place], [place] [id number] Social History Tobacco Use Types Packs/Day Years [...] and Family Not on file 04/27/2024 Attends Gnosticism Services Not on file 04/27 Do you belong to any clubs o r organizations such as yazidism groups, unions, fraternal or athletic groups, or [...] Recorded Patient Health Questionnaire-2 Score 0 03/07/2023 [facility] - Occupational [...] place to sleep or slept in a fpc (including now)? Patient refused 04/21/2023 Comments No [...] 8:30 AM EST Office Visit [facility] [place] [facility] [address] [place] [address] Quinton Leo MD [address] [address] [place] [address] 02/24/2026 8:00 AM EDT Office Visit [facility] [place] [facility] [address] [address] [place] [address] Quinton Leo MD 112 [address] [place] [address] (Fax) 07/04/2026 10:00 AM EDT Procedure Visit [facility] [place] [facility] [address] [place] [address] Crow Kruse DO [address] [place] [address] documented as of this encounter Visit Diagnoses Not on filedocumented in this encounter Care Teams Ice Seller Relationship Specialty Start Date End Date Quinton Leo MD (Fax) PCP - General Family Medicine 02/21/23 Quinton Leo MD 112 [facility] 100 [place] [address] PCP - ACO Reach 02/28/23 Crow Kruse DO [address] [place], [facility]11 Referring Physician Obstetrics and Gynecology 11/14/23 Rodney Peña MD [address] [place] [address] Referring Physician Orthopaedic Surgery 11/14/23 Silvia Eckert MD [address] [id number] Referring Physician Oncology 02/22/25 Magaly Morel, TAMARA [address] [place] [address] Registered Nurse Family Medicine 03/15/25 03/26/25 documented as of this encounter
--- OUTSIDE RECORDS SUMMARY | 2025-06-28 12:56 | XMS_ITS | Encounter Summary ---
Author Organization [facility] Address [address] [place] [address] Care Team Providers Care Bull Chain Operator Name Role Phone Quinton Leo MD Primary Care Provider [phone] Quinton Leo MD Unavailable [phone] Crow Kruse DO Unavailable Rodney Peña MD Unavailable [phone] Silvia Eckert MD Unavailable [phone] Magaly Morel RN Unavailable Encounter Details Date Type Department Care Team (Late st Contact Info) Description 10/31/2023 Orders Only [facility] [place] [facility] [address] [facility] [address] Olga Rush LPN Social History Tobacco Use Types Packs/Day Years [...] declined 04/21/2023 How often do you attend islam or jainism serv ices? Patient declined 04/21/2023 Active Member [...] Recorded Patient Health Questionnaire-2 Score 0 03/07/2023 [facility] Occupat ional Health - Occupational [...] place to sleep or slept in a intermediate (including now)? Patient refused 04/21/2023 Comments No [...] Visit [facility] [place] [facility] [address] [place] [address] Quinton Leo MD 112 [address] [place] [address] (Fax) 02/24/2026 8:00 AM EDT Office Visit [facility] [place] [facility] [address] [address] [place] [address] Quinton Leo MD 112 [address] [place] [address] (Fax) 07/04/2026 10:00 AM EDT Procedure Visit [facility] [place] [facility] [address] [place] [address] Crow Kruse DO [address] [place] [address] documented as of this encounter Visit Diagnoses Not on filedocumented in this encounter Care Teams Bull Chain Operator Relationship Specialty Start Date End Date Quinton Leo MD (Fax) PCP - General Family Medicine 02/21/23 Quinton Leo MD 112 [facility] [address] [place] [address] (Fax) PCP - ACO Reach 02/28/23 Crow Kruse DO [address] [place] [address] Referring Physician Obstetrics and Gynecology 11/14/23 Rodney Peña MD [address] [place] [address] Referring Physician Orthopaedic Surgery 11/14/23 Silvia Eckert MD [address] [id number] Referring Physician Oncology 02/22/25 Magaly Morel, TAMARA [address] [place] [address] Registered Nurse Family Medicine 03/15/25 03/26/25 documented as of this encounter
--- OUTSIDE RECORDS SUMMARY | 2025-06-28 12:56 | XMS_ITS | Encounter Summary ---
Author Organization [facility] Address [address] [place] [address] Care Team Providers Care Enrollment Processor Name Role Phone Quinton Leo MD Primary Care Provider [phone] Quinton Leo MD Unavailable [phone] Crow Kruse DO Unavailable Rodney Peña MD Unavailable [phone] Silvia Eckert MD Unavailable [phone] Magaly Morel RN Unavailable Encounter Details Date Type Department Care Team (Late st Contact Info) Description 12/27/2023 Abstract [facility] [place] 521 Family Medicine [address] [place] [address] Addison Hamm MD [address] [place] [address] Social History Tobacco Use Types Packs/Day Years [...] declined 04/21/2023 How often do you attend gnosticism or moravian serv ices? Patient declined 04/21/2023 Active Member [...] Recorded Patient Health Questionnaire-2 Score 0 03/07/2023 [facility] of Occupat ional Health - Occupational Stress [...] place to sleep or slept in a group home (including now)? Patient refused 04/21/2023 Comments No [...] [facility] [facility] [address] [address] [place] [address] Quinton Leo MD [address] [address] [place] [address] (Fax) 02/24/2026 8:00 AM EDT Office Visit [facility] [place] 100 Family Medicine [address] [address] [place] [address] Quinton Leo MD [address] [address] [place] [address] 07/04/2026 10:00 AM EDT Procedure Visit [facility] [place] [facility] [address] [place] [address] Crow Kruse DO [address] [place] [address] documented as of this encounter Visit Diagnoses Not on filedocumented in this encounter Care Teams Enrollment Processor Relationship Specialty Start Date End Date Quinton Leo MD (Fax) PCP - General Family Medicine 02/21/23 Quinton Leo MD 112 [facility] [address] [place] [address] (Fax) PCP - ACO Reach 02/28/23 Crow Kruse DO [address] [place] [address] Referring Physician Obstetrics and Gynecology 11/14/23 Rodney Peña MD [address] [place] [address] Referring Physician Orthopaedic Surgery 11/14/23 Silvia Eckert MD [address] [place] [address] Referring Physician Oncology 02/22/25 Magaly Morel, TAMARA [address] [facility] [address] [facility] 230 [place] [address] Registered Nurse Family Medicine 03/15/25 03/26/25 documented as of this encounter
--- OUTSIDE RECORDS SUMMARY | 2025-06-28 12:57 | XMS_ITS | Encounter Summary ---
Author Organization [facility] Address [address] [place] [address] Care Team Providers Care Flatwork Finisher Name Role Phone Quinton Leo MD Primary Care Provider [phone] Quinton Leo MD Unavailable [phone] Crow Kruse DO Unavailable Rodney Peña MD Unavailable [phone] Silvia Eckert MD Unavailable [phone] Encounter Details Date Type Department Care Team (Late Contact Info) Description 06/28/2025 Abstract [facility] [place] [facility] [address] [place] [address] Crow Kruse DO [address] [facility] [address] [place], [facility]11 Social History Tobacco Use Types Packs/Day Years [...] and Family Not on file 04/27/2024 Attends Moravian Services Not on file 04/27 Do you belong to any clubs o r organizations such as presybeterian groups, unions, fraternal or athletic groups, or [...] Recorded Patient Health Questionnaire-2 Score 0 03/29/2025 [facility] Occupat ional Health - Occupational [...] place to sleep or slept in a fci (including now)? Patient refused 04/21/2023 Comments No [...] Visit [facility] [place] [facility] [address] [place] [address] Quinton Leo MD 112 [address] [place] [address] 02/24/2026 8:00 AM EDT Office Visit [facility] [place] [facility] [address] [address] [place] [address] Quinton Leo MD [address] [address] [place] [address] (Fax) 07/04/2026 10:00 AM EDT Procedure Visit [facility] [place] [facility] [address] [place] [address] Crow Kruse DO [address] [place] [address] documented as of this encounter Visit Diagnoses Not on filedocumented in this encounter Care Teams Flatwork Finisher Relationship Specialty Start Date End Date Quinton Leo MD (Fax) PCP - General Family Medicine 02/21/23 Quinton Leo MD 112 [facility] [address] [place] [address] PCP - ACO Reach 02/28/23 Crow Kruse DO 102 [address] [place], [facility]11 Referring Physician Obstetrics and Gynecology 11/14/23 Rodney Peña MD 102 [address] [place], [facility]11 Referring Physician Orthopaedic Surgery 11/14/23 Silvia Eckert MD [address] [place], [place] [address] Referring Physician Oncology 02/22/25 documented as of this encounter
--- OUTSIDE RECORDS SUMMARY | 2025-06-28 12:57 | XMS_ITS | Encounter Summary ---
Author Organization [facility] Address [address] [place] [address] Care Team Providers Care Generator Repairer Name Role Phone Quinton Leo MD Primary Care Provider [phone] Quinton Leo MD Unavailable [phone] Crow Kruse DO Unavailable Rodney Peña MD Unavailable [phone] Silvia Eckert MD Unavailable [phone] Encounter Details Date Type Department Care Team (Late Contact Info) Description 06/28/2025 Parveenboo flowsheet [facility] [place] [facility] [address] [facility] [place] [address] Crow Kruse DO 102 [facility] [address] [place], [facility]11 Social History Tobacco Use Types Packs/Day [...] and Family Not on file 04/27/2024 Attends Hindu Services Not on file 04/27 Do you belong to any clubs o r organizations such as restorationist groups, unions, fraternal or athletic groups, or [...] Recorded Patient Health Questionnaire-2 Score 0 03/29/2025 [facility] of Occupat ional Health - [...] place to sleep or slept in a longterm (including now)? Patient refused 04/21/2023 Comments No [...] Visit [facility] [place] [facility] [address] [place] [address] Quinton Leo MD [address] [address] [place] [address] 02/24/2026 8:00 AM EDT Office Visit [facility] [address] [address] [place] [address] Quinton Leo MD [address] [place] [address] (Fax) 07/04/2026 10:00 AM EDT Procedure Visit [facility] [place] [facility] [address] [place] [address] Crow Kruse DO [address] [place] [address] documented as of this encounter Visit Diagnoses Not on filedocumented in this encounter Care Teams Generator Repairer Relationship Specialty Start Date End Date Quinton Leo MD (Fax) PCP - General Family Medicine 02/21/23 Quinton Leo MD 112 [facility] [address] [place] [address] PCP - ACO Reach 02/28/23 Crow Kruse DO [address] [place] [address] Referring Physician Obstetrics and Gynecology 11/14/23 Rodney Peña MD [address] [address] Referring Physician Orthopaedic Surgery 11/14/23 Silvia Eckert MD [address] [place], [place] [address] Referring Physician Oncology 02/22/25 documented as of this encounter
--- OUTSIDE RECORDS SUMMARY | 2025-06-28 12:57 | XMS_ITS | Encounter Summary ---
Author Organization [facility] Address [address] [place] [address] Care Team Providers Care Automation Design Engineer Name Role Phone Quinton Leo MD Primary Care Provider [phone] Quinton Leo MD Unavailable [phone] Crow Kruse DO Unavailable Rodney Peña MD Unavailable [phone] Silvia Eckert MD Unavailable [phone] Magaly Morel RN Unavailable [phone] Reason for Referral * Imaging (Routine) - Closed Specialty Diagnoses / Procedures [facility] To Contact Radiology Diagnoses Internal derangement of right knee Acute pain of right knee Procedures MR knee right wo IV contrast Quinton Leo MD 112 [facility] [address] [place] [address] Phone: tel: fax: [facility] [address] [place] [address] Phone: tel: fax: Referral ID Status Reason Start Date Expiration Date Visits Re quested Visits Authorized [id number] Closed 03/19/2023 09/15/2023 1 1 Encounter Details Date Type Department Care Team (Late Contact Info) Description 03/19/2023 Orders Only [facility] [place] 521 Family Medicine [address] [place] [address] Quinton Leo MD 112 [facility] 100 [place] [address] (Fax) Internal derangement of right knee (Primary Dx); Acute pain of right knee Social History Tobacco Use Types Packs/Day Years Used Date Smoking Tobacco: Never Assessed PHQ-2 Answer Date Recorded Patient Health Questionnaire-2 Score 0 03/07/2023 Comments Unknown Sex and Gender Information Value Date Recorded Sex Assigned at Not on file Legal Sex Female 7:08 PM EDT Gender Identity Not on file Sexual Orientation Not on file COVID-19 Exposure Response Date Recorded In the last 10 days, have yo u been in contact with someone who was confirmed or suspected to have Coronavirus/COVID-19? No / Unsure 03/20/2023 3:02 PM EDT documented as of this encounter Plan of Treatment Upcoming Encounters Date Type Department Care Team (Late Contact Info) Description 09/27/2025 8:30 AM EST Office Visit [facility] [place] 100 Family Medicine 112 [address] [place] [address] Quinton Leo MD 112 [address] [place] [address] (Fax) 02/24/2026 8:00 AM EDT Office Visit [facility] [place] [facility] Family Medicine 112 [facility] 100 [place] [address] Quinton Leo MD 112 [address] [place] [address] (Fax) 07/04/2026 10:00 AM EDT Procedure Visit [facility] [place] [facility] [address] [place] [address] Crow Kruse DO [address] [place] [address] documented as of this encounter Results * MR knee right wo IV contrast (03/25/2023 10:48 AM EDT) Anatomical Region Laterality Modality Lower Extremities, Knee Right Magnetic Resonance 03/25/2023 12:4 4 PM EDT Impressions 03/25/2023 12:51 PM EDT Complex tear of the body through posterior horn of the medial meniscus. Mild osteoarthritis. ELECTRONICALLY SIGNED BY: Collin Chacon DO Narrative 03/25/2023 12:51 PM EDT Exam: MR KNEE RIGHT WO IV CONTRAST History: Knee pain and internal derangment Technique: Multiplanar multisequence MRI of the knee was performed without contrast. Comparison: None available Findings: Quadriceps and patellar tendons are intact. Small joint effusion. Nonspecific prepatellar/infrapatellar subcutaneous soft tissue edema. Anterior and posterior cruciate ligaments are intact. The medial collateral ligament, lateral collateral ligament, and popliteus are intact. Complex tear of the body through posterior horn of the medial meniscus including complete radial tear of the posterior horn. The lateral meniscus is intact. Several tiny partial-thickness cartilage defects of the weightbearing medial femoral condyle without subcortical bone marrow edema. There are a few tiny full- thickness cartilage defects of the median patellar ridge and medial patellar facet with a few tiny foci of subcortical bone marrow edema. Popliteal fossa structures are intact. Santos's cyst measures approximately 2.5 cm in AP dimension by 3.5 cm in transverse dimension by 6.5 cm in craniocaudal dimension. Procedure Note Collin Chacon DO - 03/25/2023 Exam: MR KNEE RIGHT WO IV CONTRAST History: Knee pain and internal derangment Technique: Multiplanar multisequence MRI of the knee was performed withoutcontrast. Comparison: None available Findings: Quadriceps and patellar tendons are intact. Small joint effusion.Nonspecific prepatellar/infrapatellar subcutaneous soft tissue edema. Anterior and posterior cruciate ligaments are intact. The medial collateral ligament, lateral collateral ligament, and popliteusare intact. Complex tear of the body through posterior horn of the medial meniscusincluding complete radial tear of the posterior horn. The lateral meniscusis intact. Several tiny partial-thickness cartilage defects of the weightbearingmedial femoral condyle without subcortical bone marrow edema. There are afew tiny full- thickness cartilage defects of the median patellar ridge andmedial patellar facet with a few tiny foci of subcortical bone marrowedema. Popliteal fossa structures are intact. Santos's cyst measures approximately2.5 cm in AP dimension by 3.5 cm in transverse dimension by 6.5 cm incraniocaudal dimension. IMPRESSION: Complex tear of the body through posterior horn of the medial meniscus. Mild osteoarthritis. ELECTRONICALLY SIGNED BY: Collin Chacon DO us Quinton Leo MD IMG MRI PROCEDURES Final Res ult documented in this encounter Visit Diagnoses Diagnosis Internal derangement of right knee- Primary Acute pain of right knee Internal derangement of right knee Acute pain of right knee documented in this encounter Care Teams Automation Design Engineer Relationship Specialty Start Date End Date Quinton Leo MD PCP - General Family Medicine 02/21/23 Quinton Leo MD [address] [place] [address] PCP - ACO Reach 02/28/23 Crow Kruse DO 102 [place] [address] Referring Physician Obstetrics and Gynecology 11/14/23 Rodney Peña MD 102 [place] [address] Referring Physician Orthopaedic Surgery 11/14/23 Silvia Eckert MD [address] [place] [address] Referring Physician Oncology 02/22/25 Magaly Morel, TAMARA [address] [address] Registered Nurse Family Medicine 03/15/25 03/26/25 documented as of this encounter
--- OUTSIDE RECORDS SUMMARY | 2025-06-28 12:57 | XMS_ITS | Encounter Summary ---
Author Organization [facility] Address [address] [place] [address] Care Team Providers Care Ems Coordinator Name Role Phone Quinton Leo MD Primary Care Provider [phone] Quinton Leo MD Unavailable [phone] Crow Kurse DO Unavailable Rodney Peña MD Unavailable [phone] Silvia Eckert MD Unavailable [phone] Magaly Morel RN Unavailable [phone] Encounter Details Date Type Department Care Team (Late st Contact Info) Description 03/21/2023 Orders Only [facility] [place] 521 Family Medicine [address] [facility] [place] [address] Quinton Leo MD 112 [facility] [address] [place] [address] Social History Tobacco Use Types Packs/Day Years [...] 8:30 AM EST Office Visit [facility] [place] [facility] 112 [facility] 100 [place] [address] Quinton Leo MD 112 [facility] 100 [place] [address] (Fax) 02/24/2026 8:00 AM EDT Office Visit [facility] [place] 100 Family [facility] [address] [place] [address] Quinton Leo MD 112 [address] [place] [address] (Fax) 07/04/2026 10:00 AM EDT Procedure Visit [facility] [place] [facility] [address] [facility] [place] [address] Crow Kruse DO [address] [facility] [place] [address] documented as of this encounter Procedures Procedure Name Priority Date/Time Associated Diagnosis Comments X KNEE RIGHT (3 V) Routine 03/08/2023 8:51 AM EDT documented in this encounter Results * X KNEE RIGHT (3 V) (03/08/2023 8:51 AM EDT) Anatomical Region Laterality Modality Radiographic Karie ging Quinton Leo MD IMG XR PROCEDURES Final Resu lt documented in this encounter Visit Diagnoses Not on filedocumented in this encounter Care Teams Ems Coordinator Relationship Specialty Start Date End Date Quinton Leo MD (Fax) PCP - General Family Medicine 02/21/23 Quinton Leo MD 112 [address] [place] [address] PCP - ACO Reach 02/28/23 Crow Kruse DO [address] [place] [id number] Referring Physician Obstetrics and Gynecology 11/14/23 Rodney Peña MD [address] [place] [phone] Referring Physician Orthopaedic Surgery 11/14/23 Silvia Eckert MD [address] [place] [address] Referring Physician Oncology 02/22/25 Magaly Morel, TAMARA [address] [place] [address] Registered Nurse Family Medicine 03/15/25 03/26/25 documented as of this encounter
--- OUTSIDE RECORDS SUMMARY | 2025-06-28 12:58 | XMS_ITS | CCD ---
Author Organization [facility] Inform ion Partnership [facility] Care Team Providers Care Stroboroma Operator Name Role Phone MD Quinton Dan Primary Care Provider Crow Kruse Attending Provider DR QUINTON DAN Primary Care Unavailable BIANCA ENGEL Admitting Unavailable MAREN, BIANCA Attending Unavailable EVELYN, DR SAVANNAH Hall Consulting Unavailable BIANCA ENGEL Consulting Unavailable URIAH, DR COLLINS Admitting Unavailable URIAH, DR COLLINS Attending Unavailable URIAH, DR COLLINS Consulting Unavailable URIAH, DR COLLINS Admitting Unavailable URIAH, DR COLLINS Attending Unavailable CLYDE, DR EDGAR Irby Consulting Unavailable URIAH, DR COLLINS Consulting Unavailable MD Quinton Dan Primary Care Provider [phone] MD Quinton Dan Attending Provider [phone] Rodney Peña Unavailable DO Rodney Peña Attending Provider [phone] Cecilia Vital Unavailable MD Quinton Dan Primary Care Provider MD Quinton Dan Primary Care Provider DO Rodney Peña Attending Provider Crow Kruse Attending Provider MD Quinton Dan Primary Care Provider Quinton Dan MD Primary Care Provider [phone] Quinton Dan MD Unavailable [phone] QUINTON DAN Primary Care Physician Unavail able Crow Kruse DO Unavailable Rodney Peña MD Unavailable MD Quinton Dan Primary Care Provider Crow Kruse Attending Provider MD Addison Hamm Attending Provider MD Silvia Eckert Referring Provider Crow KRUSE Referring Unavailable NILL, Adrian Hall Attending Unavailable NILL, Adrian R Attending Unavailable NILL, Adrian R Referring Unavailable NILL, Adrian R Admitting Unavailable NILL, Adrian R Attending Unavailable NILL, Adrian R Attending Unavailable NILL, Adrian R Attending Unavailable NILL, Adrian R Referring Unavailable NILL, Adrian R Admitting Unavailable Rafia, Jeff Catrina Consulting Unavailable Rafia, Jeff L Consulting Unavailable Rafia, Jeff L Consulting Unavailable Rafia, Jeff Catrina Consulting Unavailable Rafia, Jeff Tyler Consulting Unavailable Rafia, Jeff Catrina Consulting Unavailable Rafia, Jeff Catrina Consulting Unavailable Rafia, Jeff Catrina Consulting Unavailable Rafia, Jeff Catrina Consulting Unavailable Rafia, Jeff L Consulting Unavailable NILL, Adrian R Attending Unavailable NILL, Adrina R Referring Unavailable NILL, Adrian R Admitting Unavailable MD Quinton Dan Primary Care Provider [phone] MD Addsion Hamm Attending Provider MD Silvia Eckert Referring Provider [phone] MD Quinton Dan Primary Care Provider MD Silvia Eckert Attending Provider DO Crow Kruse Attending Provider MD Silvia Eckert Referring Provider Quinton Dan MD Primary Care Provider [phone] Quinton Dan MD Unavailable Quinton Dan MD Unavailable Quinton Dan MD Primary Care Provider [phone] Crow Kruse DO Attending Provider Silvia Eckert Admitting Unavailable Silvia Eckert Attending Unavailable Quinton Dan Primary Care Unavailable Babar Silvia Referring Unavailable Hemenatalee Edward J Primary Care Unavailable Uriah, Crow Admitting Unavailable Uriah, Crow Attending Unavailable Babar Silvia Referring Unavailable Hemenatalee Eddebra J Primary Care Unavailable Noris, Norleena R Admitting Unavailable Noris, Norleena R Attending Unavailable Hemenatalee Edward J Primary Care Unavailable Uriah, Crow Admitting Unavailable Uriah, Crow Attending Unavailable Rodney Peña MD Unavailable Silvia Eckert MD Unavailable [phone] HEMENATALEE EDWARD J Attending Unavailable HEMEYER, EDWARD J Attending Unavailable HEMEYER, EDWARD J Attending Unavailable HEMEYER, EDWARD J Attending Unavailable HEMEYER, EDWARD J Attending Unavailable HEMENATALEE, EDWARD J Attending Unavailable SALLY KRUSEY Attending Unavailable HEMEQUINTON ALBRIGHT J Attending Unavailable QUINTIN HARRINGTON Attending Unavailable HEMENATALEE, EDDEBRA J Attending Unavailable Allergies Allergy Classification Reported Allergen(s) Allergy Type Date of Onset Reaction(s) Facility (20 sources) Amoxicillin; Translations: [Amoxicillin] Drug Allergy 08-08-20 14 [facility] (20 sources) Sulfamethoxazole; Translations: [sulfamethoxazole] Drug Allergy 11-10-19 22 Abdominal Pain, Abdominal Pain, stomach upset [facility] (13 sources) Trimethoprim; Translations: [trimethoprim] Drug Allergy 11-10-19 22 Abdominal Pain, Abdominal Pain, stomach upset [facility] (20 sources) erythromycin base; Translations: [Erythromycin Base] Allergy to substance 08-08-20 14 [facility] (12 sources) HYDROcodone; Translations: [HYDROcodone] Drug Allergy 11-10-19 15 Abdominal Pain, Abdominal Pain, stomach cramps and dry heaves [facility] (2 sources) Sulfamethoxazole / Trimethoprim; Translations: [Bactrim] Drug Allergy 08-08-20 [address] [facility] (12 sources) traMADol; Translations: [traMADol] Drug Allergy 06-01-20 [address] [facility] (11 sources) Erythromycin; Translations: [erythromycin] Drug Allergy [facility] (4 sources) HYDROcodone Drug Allergy stomach cramps and dry heaves [employer] Other (10 sources) Sulfamethoxazole / Trimethoprim; Translations: [sulfamethoxazole-t rimethoprim] Drug Allergy stomach upset, Nausea [facility] (20 sources) homatropine; Translations: [homatropine] Drug Allergy 07-17-20 Vomiting (disorder) [facility] (20 sources) Fenofibrate Drug Allergy 10-16-19 [facility] Healthcare Work Phone: (20 sources) HYDROcodone; Translations: [hydrocodone] Drug Allergy 07-17-20 Vomiting (disorder) [facility] (20 sources) traMADol; Translations: [tramadol] Drug Allergy 07-17-20 Nausea and vomiting (disorder) [facility] (20 sources) Amoxicillin-Pot Clavulanate Drug Allergy 07-17-20 [facility] (1 source) HYDROcodone Drug Allergy 06-12-20 [facility] (1 source) traMADol Drug Allergy 04-30-20 23 [facility] Medications Current Medications Medication Drug Class(es) [...] per day take with food or milk, [facility] [id number], 165, cm, 11/20/23 6:04:00 EST, Height/Length Dosing, [...] Dihydropyridine Calcium Channel Leonel Start: 04-16-2023 End: 09-25-2025 take 1 tablet by mouth once daily amLODIPine (Norvasc) 10 MG tablet Indications: Primary hypertension Take 1 tablet (10 mg) by mouth Daily 90 tablet 1 03/29/2025 09/25/2025 Active anastrozole 1 mg oral tablet (20 sources) Aromatase Inhibitor Start: 12-27-2023 take 1 tablet by mouth once daily anastrozole (Arimidex) 1 MG chemo tablet Take 1 mg by mouth Daily. 12/27/2023 Active Aspir-81 (2 sources) Aspir-81 3x week Active aspirin 81 mg delayed release oral tablet (17 sources) Platelet Aggregation Inhibitor, Nonsteroidal Anti-inflammatory Drug Start: 04-16-2023 take 1 tablet by mouth once Aspirin (Aspir-81) 81 mg Tablet,Delayed Release (Dr/Ec) Active 81 MG PO every Saturday, Saturday, and Saturday April 15, 2023 11:00pm take 1 tablet by mouth in the mo rning aspirin 81 MG EC tablet Take 81 mg by mouth in the morning. 0 Active take 1 tablet by mouth twice leno ly Aspirin 81 81 MG 1 tablet Orally BID Active atorvastatin 20 mg oral tablet (20 sources) HMG-CoA Reductase Inhibitor Start: 01-26-2025 End: 09-25-2025 take 1 tablet by mouth once daily atorvastatin (Lipitor) 20 MG tablet Indications: Mixed hyperlipidemia Take 1 tablet (20 mg) by mouth Daily 90 tablet 1 03/29/2025 09/25/2025 Active Start: 09-28-2024 End: 12-27-2024 take 1 tablet by mouth once daily atorvastatin (Lipitor) 20 MG tablet Indications: Mixed hyperlipidemia (CMS/HCC) Take 1 tablet (20 mg) by mouth Daily 09/28/2024 Active Start: 05-04-2024 End: 09-28-2024 take 1 tablet by mouth once daily atorvastatin (Lipitor) 40 MG tablet Indications: Mixed hyperlipidemia (CMS/HCC) Take 1 tablet (40 mg) by mouth Daily 90 tablet 05/04/2024 09/28/2024 Discontinued (Reorder) calcium citrate 950 mg oral tablet (20 sources) take 1 tablet by mouth once daily calcium citrate (Calcitrate) 950 (200 Ca) MG tablet Take 950 mg by mouth Daily Active ciprofloxacin 500 mg oral tablet (20 sources) Quinolone Antimicrobial Start: 11-20-19 End: 11-30-19 take 1 tablet by mouth in the morning ciprofloxacin (Cipro) 500 MG tablet Indications: Diverticulitis Take 1 tablet (500 mg) by mouth in the morning and 1 tablet (500 mg) before bedtime. Do all this for 10 days. 20 tablet 0 11/20/2023 11/30/2023 Active Start: 11-10-2021 End: 04-16-2023 take 1 tablet by mouth twice daily Ciprofloxacin Hcl 500 mg tablet Discontinued 500 MG PO Twice daily November 10, 2021 12:00am April 16, 2023 8:50am Start: 11-10-2021 End: 04-16-2023 take 1 tablet by mouth every two hours Ciprofloxacin Hcl 500 mg Tablet Discontinued 500 MG PO Twice daily November 10, 2021 12:00am April 16, 2023 8:50am Administer dose at least 2 hrs before/6 hrs after dairy products, calcium, zinc, and/or iron-containing products Cranberry preparation (15 sources) Non-Standardized Food Allergenic Extract, Non-Standardized Plant Allergenic Extract Start: 11-19-2023 cranberry oral table t See Instructions, Prophylaxis, Refill(s) 0 Start Date: 11/19/23 Status: Ordered Start: 04-16-2023 take 1 capsule by [facility] once daily at mealtime Cranberry 500 mg Capsule Active 100 MG PO Every morning April [...] / eicosapentaenoic acid 180 mg oral capsule (8 sources) Start: 10-16-2023 End: 10-15-2024 take 1 capsule by mouth in the morning fish oil concentrate ([place]-3) 1000 MG capsule Indications: Mixed hyperlipidemia (CMS/HCC) Take 4 capsules (4 g) by mouth in the morning. Actually Eicosamax liquid 1 tsp = 4 grams. 10/16/2023 06/25/2024 Discontinued Elderberry preparation (20 sources) Start: 11-19-2023 take 1 capsule by mouth once daily as needed elderberry 350 mg oral capsule 350 mg = 1 cap(s), Oral, Daily, PRN Prophylaxis, Refills(s) 0 Start Date: 11/19/23 Status: Ordered take 1 capsule by mouth once leno ly Elderberry 500 MG capsule Take 500 mg by mouth Daily Active Fish Oils (6 sources) Start: 10-30-2023 take 4 capsules by m [...] Status: Ordered Sasha Car Jensen, Rha mn ([facility]) 12 billion cell Tablet,Chewable (10 sources) Start: 04-16-2023 Sasha Car Jensen, Rha mn ([facility]) 12 billion cell Tablet,Chewable Active 1 TAB PO 4 times per week April 15, 2023 11:00pm Start: 04-16-2023 Law Car Jensen,Rhamn ([facility]) 12 billion cell Tablet,Chewable Active 1 TAB PO 4 times per week April 16, 2023 12:00am losartan potassium 100 mg oral tablet (20 sources) Angiotensin 2 Receptor Leonel Start: 11-10-2021 End: 09-25-2025 take 1 tablet by mouth once daily losartan (Cozaar) 100 MG tablet Indications: Primary hypertension Take 1 tablet (100 mg) by mouth Daily 90 tablet 1 03/29/2025 09/25/2025 Active metroNIDAZOLE 250 mg oral tablet (20 sources) [...] 11/30/2023 Active Start: 11-10-2021 End: 04-16-2023 take 1 tablet by mouth twice daily Metronidazole 500 mg tablet Discontinued 500 MG PO Twice daily November 10, 2021 12:00am April 16, 2023 8:51am mometasone furoate 1 mg/ml topical cream (5 sources) Corticosteroid Start: 12-26-2023 Mometasone 0.1 % cream Active 1 APPLIC TOPICAL Daily December 25, 2023 11:00pm Apply to radiation site, once a day, AFTER radiation treatment. Multiple Vitamins-Minerals (Alive Energy 50+) tablet (20 sources) take 1 tablet by mouth once daily Multiple Vitamins-Minerals (Alive Energy 50+) tablet Take 50 mg by mouth Daily Active Ey-Fz-Ykemx-Lutein- Herbal 293 (Alive Women's 50 Plus Gummy) 120 mcg-150 mcg -37.5 mg Tablet,Chewable (10 sources) Start: 04-16-2023 take 2 tablets by mouth once daily in the morning Aj-Ln-Wiukr-Lutein -Herbal 293 (Alive Women's 50 Plus Gummy) 120 mcg-150 mcg -37.5 mg Tablet,Chewable Active 2 TAB PO Every morning April 15, 2023 11:00pm Start: 04-16-2023 take 2 tablets by [facility] once daily in the morning Wd-Fq-Swrqe-Lutein-Herbal 293 (Alive Women's 50 Plus Gummy) 120 [...] Refill(s) 0 Start Date: 11/19/23 Status: Ordered nebivolol 5 mg oral tablet (20 sources) Start: 04-06-2024 End: 09-25-2025 take 1 tablet by mouth once daily nebivolol (Bystolic) 5 MG tablet Indications: Primary hypertension Take 1 tablet (5 mg) by mouth Daily 90 tablet 1 03/29/2025 09/25/2025 Active niacin 500 mg extended release oral tablet (13 sources) Nicotinic Acid End: 09-28-2024 take 1 tablet by mouth at bedtime niacin (Slo-Niacin) 500 MG ER tablet Take 500 mg by mouth at bedtime Do not crush or chew. 09/28/2024 Discontinued (Therapy completed) oxyCODONE hydrochloride 5 mg oral capsule (9 sources) Opioid Agonist Start: 04-30-2023 take 1 capsule by mouth every four to six hours as needed for pain Oxycodone 5 mg capsule Active 5 MG PO EVERY 4-6 HOURS as needed for pain 30 April 30, 2023 predniSONE 10 mg oral tablet (3 sources) Start: 04-30-2024 End: 06-25-2024 predniSONE (Deltasone) 10 MG tablet Indications: Knee strain, left, initial encounter Every 2 day tapering dose; 5,5,4,4,3,3,2,2,1, 1,0.5,0.5 31 tablet 04/30/2024 06/25/2024 Discontinued Tocopherols (Natural Mixed Tocopherols) 30 % powder (5 sources) Start: 10-16-2023 End: 10-15-2024 take 400 mg by mouth in the morning Tocopherols (Natural Mixed Tocopherols) 30 % powder Indications: Mixed hyperlipidemia (CMS/HCC) Take 400 mg by mouth in the morning. 0 10/16/2023 10/15/2024 Active Vit C-Zinc Citrate-Elderberry (Sambucus Elderberry) 30-1.1-25 mg Tablet,Chewable (10 sources) Start: 04-16-2023 take 2 tablets by [...] 06-30-2016 Rocephin 500 mg Jun, 250 mg cefuroxime 500 mg oral tablet (4 sources) Cephalosporin Antibacterial Start: 11-24-2024 End: 12-01-2024 take 1 tablet by mouth in the morning cefuroxime (Ceftin) 500 MG tablet Indications: Acute recurrent maxillary sinusitis Take 1 tablet (500 mg) by mouth in the morning and 1 tablet (500 mg) before bedtime. Do all this for 7 days. 14 tablet 11/24/2024 12/01/2024 Start: 07-30-2024 End: 08-09-2024 take 1 tablet by mouth in the morning cefuroxime (Ceftin) 250 MG tablet Indications: Acute cystitis with hematuria Take 1 tablet (250 mg) by mouth in the morning and 1 tablet (250 mg) before bedtime. Do all this for 10 days. 20 tablet 07/30/2024 08/09/2024 Active clotrimazole 10 mg oral lozenge (3 sources) Azole Antifungal Start: 02-15-2025 End: 03-01-2025 take 1 tablet by mouth four times daily clotrimazole (Mycelex) 10 MG jacquie Indications: Enteritis, noninfectious Take 1 tablet (10 mg) by mouth 4 (four) times a day for 14 days After meals and before bedtime suck on lozenger 56 tablet 02/15/2025 03/01/2025 Essential Biotic Complete Prob (10 sources) Start: 04-16-2023 take 1 capsule by mouth three times weekly Essential Biotic Complete Prob Active 1 CAP PO 3 Times a week April 15, 2023 11:00pm Start: 04-16-2023 take 1 capsule by mo uth three times weekly Essential Biotic Complete Prob Active 1 CAP PO 3 Times a week April 16, 2023 12:00am fluconazole 200 mg oral tablet (5 sources) Azole Antifungal Start: 02-15-2025 End: 03-01-2025 take 1 tablet by mouth once daily fluconazole (Diflucan) 200 MG tablet Indications: Enteritis, noninfectious Take 1 tablet (200 mg) by mouth Daily for 14 days 14 tablet 02/15/2025 03/01/2025 Start: 08-14-2024 End: 08-14-2024 take 1 tablet by mouth once fluconazole (Diflucan) 150 MG tablet Indications: Acute vaginitis Take 1 tablet (150 mg) by mouth 1 (one) time for 1 dose 1 tablet 08/14/2024 08/14/2024 nabumetone (4 sources) Nonsteroidal Anti-inflammatory Drug Nabumetone Not-Taking Nabumetone 750 M G as directed Orally Not-Taking ondansetron 4 mg disintegrating oral tablet (12 sources) Serotonin-3 Receptor Antagonist Start: 11-10-2021 End: 04-16-2023 Ondansetron 4 mg Tablet,Disintegrating Discontinued 4 MG PO every 6 to 8 hours as needed for Nausea November 10, 2021 12:00am April 16, 2023 8:51am vitamin e 100 unt oral capsule (5 sources) Start: 11-19-2023 take 1 capsule by mouth once daily as needed vitamin E 100 intl units oral capsule 100 International_Unit = 1 cap(s), Oral, Daily, PRN Prophylaxis Start Date: 11/19/23 Status: Ordered Problems Active Problems Problem Classification Problem Date Documented Date Episodic/Chronic Abdominal pain (9 sources) Unspecified abdominal pain; Translations: [Pelvic and perineal pain] Onset: 07-26-2022 Episodic Acute bronchitis (4 sources) Acute bronchitis; Translations: [Acute bronchitis] Episodic Chronic kidney disease (20 sources) Chronic kidney disease stage 2; Translations: [Chronic kidney disease, stage 2 (mild)] Onset: 10-10-2020 04-16-2023 Chronic Conduction disorders (20 sources) Right bundle branch block; Translations: [Unspecified right bundle-branch block] Onset: 07-08-2015 04-16-2023 Chronic Diabetes mellitus without complication (6 sources) Diabetes mellitus 10-30-2023 Chronic Diseases of mouth; excluding dental (2 sources) Glossitis; Translations: [Glossitis] 01-26-2025 Episodic Disorders of lipid metabolism (20 sources) Mixed hyperlipidemia; Translations: [Mixed hyperlipidemia] Onset: 08-19-2015 04-16-2023 Chronic Diverticulosis and diverticulitis (20 sources) Diverticulitis of colon; Translations: [Diverticulitis of large intestine without perforation or abscess without bleeding] Onset: 06-12-2022 11-10-2021 Chronic Essential hypertension (20 sources) Benign essential hypertension; Translations: [Essential (primary) hypertension] Onset: 07-08-2015 04-16-2023 Chronic Fluid and electrolyte disorders (2 sources) Hyperkalemia; Translations: [Hyperkalemia] 07-30-2024 Episodic Genitourinary symptoms and ill-defined conditions (2 sources) Dysuria; Translations: [Dysuria] 08-17-2024 Episodic Heart valve disorders (8 sources) Heart murmur; Translations: [Cardiac murmur, unspecified] Onset: 03-29-2025 03-29-2025 Episodic Hypertension with complications and secondary hypertension (20 sources) Hypertensive renal disease; Translations: [Hypertensive chronic kidney disease with stage 1 through stage 4 chronic kidney disease, or unspecified chronic kidney disease] Onset: 04-14-2020 04-16-2023 Chronic Immunizations and screening for infectious disease (1 source) Encounter for screening for human papillomavirus (HPV); Translations: [ENC SCREENING HUMAN PAPILLOMAVIRUS] Onset: 06-23-2022 Episodic Inflammatory diseases of female pelvic organs (2 sources) Acute vaginitis; Translations: [Acute vaginitis] 08-14-2024 Episodic Joint disorders and dislocations; trauma-related (3 sources) Other tear of medial meniscus, current injury, right knee, initial encounter; Translations: [Other tear of medial meniscus, current injury, right knee, subsequent encounter] Episodic Malaise and fatigue (20 sources) Chronic fatigue syndrome; Translations: [Chronic fatigue syndrome] Onset: 06-29-2016 04-16-2023 Chronic Menopausal disorders (6 sources) Menopausal syndrome 12-18-2013 Chronic Noninfectious gastroenteritis (1 source) Noninfective gastroenteritis and colitis, unspecified; Translations: [NONINFECTIVE GE AND COLITIS UNS] Onset: 09-03-2022 Episodic Nonmalignant breast conditions (8 sources) Breast lump; Translations: [Unspecified lump in the left breast, unspecified quadrant] 10-21-2023 Episodic Osteoporosis (2 sources) Postmenopausal osteoporosis; Translations: [Age-related osteoporosis without current pathological fracture] 06-28-2025 Chronic Other aftercare (1 source) terminal computer operator (current) use of aspirin; Translations: [CARE HOME CURRENT USE OF ASPIRIN] Onset: 09-03-2022 Episodic Other aftercare (1 source) Other terminal gauger (current) drug therapy; Translations: [OTH CARE HOME CURRENT DRUG THERAPY] Onset: 09-03-2022 Episodic Other aftercare (1 source) Encounter for removal of sutures Episodic Other connective tissue disease (1 source) Synovial cyst of popliteal space [Pepe], right knee Episodic Other ear and sense organ disorders (20 sources) Mixed conductive AND sensorineural hearing loss; Translations: [Mixed conductive and sensorineural hearing loss, unilateral, left ear with restricted hearing on the contralateral side] Onset: 08-11-2019 04-16-2023 Chronic Other nutritional; endocrine; and metabolic disorders (6 sources) Overweight in adulthood with body mass index of 25 or more but less than 30 11-14-2023 Episodic Other screening for suspected conditions (not mental disorders or infectious disease) (7 sources) Encounter for screening for malignant neoplasm of cervix; Translations: [Other abnormal and inconclusive findings on diagnostic imaging of breast] Onset: 06-19-2022 Episodic Other upper respiratory infections (2 sources) Acute recurrent maxillary sinusitis; Translations: [Acute maxillary sinusitis] 11-24-2024 Episodic Residual codes; unclassified (4 sources) Other specified postprocedural states Episodic Residual codes; unclassified (9 sources) History of arthroscopy of knee joint; Translations: [Other specified postprocedural states] 04-30-2023 Episodic Residual codes; unclassified (2 sources) Active advance directive (copy within chart) ; Translations: [Other specified health status] 02-16-2025 Episodic Thyroid disorders (6 sources) Hypothyroidism 12-18-2013 Chronic Urinary tract infections (2 sources) Acute cystitis; Translations: [Acute cystitis with hematuria] 07-30-2024 Episodic Past or Other Problems Problem Classification Problem Date Documented Date Episodic/Chronic Cancer of breast (20 sources) Infiltrating lobular carcinoma of breast; Translations: [Malignant neoplasm of unspecified site of left female breast] Onset: 10-29-2023 Resolved: 02-22-2025 10-29-2023 Chronic Conditions associated with dizziness or vertigo (20 sources) Vertigo; Translations: [Dizziness and giddiness] Onset: 06-29-2016 04-16-2023 Episodic Other ear and sense organ disorders (20 sources) Tinnitus of left ear; Translations: [Tinnitus, left ear] Onset: 08-11-2019 04-16-2023 Episodic Other nervous system disorders (20 sources) White matter disease; Translations: [White matter disease, unspecified] Onset: 07-23-2018 04-16-2023 Episodic Other nutritional; endocrine; and metabolic disorders (20 sources) Body mass index 25-29 - overweight; Translations: [Overweight] Onset: 06-12-2022 04-16-2023 Episodic Other nutritional; endocrine; and metabolic disorders (20 sources) Overweight; Translations: [Overweight] Onset: 08-15-2017 Resolved: 04-16-2023 04-16-2023 Episodic Otitis media and related conditions (20 sources) Perforation of tympanic membrane; Translations: [Unspecified perforation of tympanic membrane, unspecified ear] Onset: 12-28-2017 04-16-2023 Episodic Residual codes; unclassified (20 sources) Cardiovascular event risk; Translations: [Other specified personal risk factors, not elsewhere classified] Onset: 06-12-2022 04-16-2023 Episodic Residual codes; unclassified (2 sources) Postmenopausal state; Translations: [Asymptomatic menopausal state] 06-25-2024 Episodic Residual codes; unclassified (1 source) Asymptomatic menopausal state; Translations: [Asymptomatic menopausal state] Onset: 07-27-2024 Episodic Screening and history of mental health and substance abuse codes (20 sources) Ex-smoker; Translations: [Personal history of nicotine dependence] Onset: 08-15-2017 04-16-2023 Episodic Thyroid disorders (20 sources) Sick-euthyroid syndrome; Translations: [Sick-euthyroid syndrome] Onset: 08-19-2015 04-16-2023 Episodic Results Test Name Value Interpretation Reference Range Facil ity ALL CBC WITH AUTO DIFFon BASOPHILS ABSOLUTE AUTO 0.1 [facility] Basophils/100 WBC (Bld) 0.7 % 0.2 - 2.0 % [facility] Eosinophils/100 WBC (Bld) 0.9 % 0.9 - 7.0 % [facility] Erythrocyte distribution width (RBC) [Ratio] 12.6 % 11.0 - 15.0 % [facility] Hematocrit (Bld) [Volume fraction] 46.2 % 36.0 - 48.0 % [facility] Hemoglobin (Bld) [Mass/Vol] 15.4 g/dL 12.0 - 16.0 g/dL [facility] IMMATURE GRANULOCYTES ABS AUTO 0.04 High [facility] Immature granulocytes/100 WBC (Bld) 0.4 % 0.0 - 0.5 % [facility] Interpretation and review of laboratory results Abnormal [facility] LYMPHOCYTES ABSOLUTE AUTO 2 [facility] Lymphocytes/100 WBC (Bld) 19.1 % Low 20.5 - 60.0 % [facility] MCH (RBC) [Entitic mass] 30.1 pg 26.7 - 34.0 pg [facility] MCHC (RBC) [Mass/Vol] 33.3 g/dL 29.9 - 35.2 g/ dL [facility] MCV (RBC) [Entitic vol] 90.2 fL 81.0 - 99.0 fL [facility] MONOCYTES ABSOLUTE AUTO 0.5 [facility] Monocytes/100 WBC (Bld) 4.6 % 1.7 - 12.0 % [facility] NEUTROPHILS ABSOLUTE AUTO 7.7 High [facility] Neutrophils/100 WBC (Bld) 74.3 % 43.0 - 75.0 % [facility] Platelet mean volume (Bld) [Entitic vol] 10.6 fL 9.5 - 13.5 fL [facility] EO # 0.1 [facility] PLT 279 [facility] RBC 5.12 [facility] WBC 10.4 [facility] ALL CBC WITH AUTO DIFFon BASOPHILS ABSOLUTE AUTO 0.1 [facility] Basophils/100 WBC (Bld) 0.5 % 0.2 - 2.0 % [facility] Eosinophils/100 WBC (Bld) 0.8 % Low 0.9 - 7.0 % [facility] Erythrocyte distribution width (RBC) [Ratio] 12.3 % 11.0 - 15.0 % [facility] Hematocrit (Bld) [Volume fraction] 46 % 36.0 - 48.0 % [facility] Hemoglobin (Bld) [Mass/Vol] 15.4 g/dL 12.0 - 16.0 g/dL [facility] IMMATURE GRANULOCYTES ABS AUTO 0.03 [facility] Immature granulocytes/100 WBC (Bld) 0.2 % 0.0 - 0.5 % [facility] Interpretation and review of laboratory results Abnormal [facility] LYMPHOCYTES ABSOLUTE AUTO 2.7 [facility] Lymphocytes/100 WBC (Bld) 21.8 % 20.5 - 60.0 % [facility] MCH (RBC) [Entitic mass] 29.7 pg 26.7 - 34.0 pg [facility] MCHC (RBC) [Mass/Vol] 33.5 g/dL 29.9 - 35.2 g/ dL [facility] MCV (RBC) [Entitic vol] 88.8 fL 81.0 - 99.0 fL [facility] MONOCYTES ABSOLUTE AUTO 0.7 [facility] Monocytes/100 WBC (Bld) 6.1 % 1.7 - 12.0 % [facility] NEUTROPHILS ABSOLUTE AUTO 8.6 High [facility] Neutrophils/100 WBC (Bld) 70.6 % 43.0 - 75.0 % [facility] Platelet mean volume (Bld) [Entitic vol] 9.9 fL 9.5 - 13.5 fL [facility] EO # 0.1 [facility] PLT 325 [facility] RBC 5.18 [facility] WBC 12.2 High [facility] MM diagnostic mammo BI w/CAD on 11-30-2024 MM diagnostic mammo BI w/CAD [facility] [place] [address] Mammography Report Signed Patient: Christal Chen MR#: [id number] : 1955 Acct:[id number] Age/Sex: 69 / F ADM Date: 11/30/24 Loc: [place] Room: Type: [facility] Attending Dr: Crow Kruse DO Copies to: Crow Dan MD Ordering Provider: Crow Kruse Date of Service: 11/30/24 MM/MM diagnostic mammo BI w/CAD: Z85.3 CLINICAL DATA: History of left-sided breast cancer status post lumpectomy with radiation in 2023. BilateralDIAGNOSTIC MAMMOGRAM - WITH TOMOSYNTHESIS AND CAD COMPARISON:Mammograms dating back to 2021. Tomosynthesis imaging was obtained using low-dose digital technique. This examination was reviewed with the aid of CAD. FINDINGS: The breasts are composed of scattered fibroglandular densities. Presumed posttreatment changes involving the left breast with associated skin thickening. No new areas of architectural distortion, worrisome masses or suspicious microcalcifications. MM/MM diagnostic mammo BI w/CAD IMPRESSION: NO MAMMOGRAPHIC EVIDENCE OF MALIGNANCY. ROUTINE FOLLOW-UP IS RECOMMENDED IN ONE YEAR. RESULT CODE: 1 Negative DENSITY CODE: 2 (approximately 25-50% glandular) FOLLOW UP: 1YR The false-negative rate of mammography is approximately 10-percent. Management of a palpable abnormality must be based on clinical grounds. Patient was entered into a reminder system with a target due date for the next mammogram. Impression dictated by: Nura Diaz Jr., DTashaOTasha11/30/2024 8:27 AM Dictation Location: [facility] Transcribed By: [facility] 11/30/24826 Dictated By: Nura Diaz Jr, DO 11/30/24823 Signed By: 11/30/24826 Normal [facility] Mammography reportOrdered By : Nura Diaz on 11-30-2024 Diagnostic imaging study [facility] Main [place] [address] [place] [address] Mammography Report Signed Patient: Christal Chen MR#: [id number] : 1955 Acct:[id number] Age/Sex: 69 / F ADM Date: 5 Loc: [place] Room: Type: [facility] Attending Dr: Crow Kruse DO Copies to: Crow Dan MD~ Ordering Provider: Crow Kruse Date of Service: 11/30/24 MM/MM diagnostic mammo BI w/CAD: Z85.3 CLINICAL DATA: History of left-sided breast cancer status post lumpectomy with radiation in 2023. BilateralDIAGNOSTIC MAMMOGRAM - WITH TOMOSYNTHESIS AND CAD COMPARISON:Mammograms dating back to 2021. Tomosynthesis imaging was obtained using low-dose digital technique. This examination was reviewed with the aid of CAD. FINDINGS: The breasts are composed of scattered fibroglandular densities. Presumed posttreatment changes involving the left breast with associated skin thickening.No new areas of architectural distortion, worrisome masses or suspicious microcalcifications. MM/MM diagnostic mammo BI w/CAD IMPRESSION: NO MAMMOGRAPHIC EVIDENCE OF MALIGNANCY. ROUTINE FOLLOW-UP IS RECOMMENDED IN ONE YEAR. RESULT CODE: 1 Negative DENSITY CODE: 2 (approximately 25-50% glandular) FOLLOW UP: 1YR The false-negative rate of mammography is approximately 10-percent. Management of a palpable abnormality must be based on clinical grounds. Patient was entered into a reminder system with a target due date for the next mammogram. Impression dictated by: Nura Diaz Jr., Daija11/30/2024 8:27 AM Dictation Location: [facility] Transcribed By: [facility] 11/30/24826 Dictated By: Nura Diaz Jr, DO 11/30/24823 Signed By: 11/30/24826 [facility] COMPREHENSIVE METABOLIC PANE [facility] 09-25-2024 Albumin [Mass/Vol] 4.8 g/dL Normal 3.6-5.1 [facility] Comment on above: Performed By: #### 6 23 #### [facility]/[place] [id number] [facility] [place], [place] Consulting Group Analyst: Suman Hartman M.D.,PhD #### 7600, [phone] #### [facility] [address], [address] [place] [address] Consulting Group Analyst: Herve Sahni MD Albumin/Globulin [Mass ratio] 1.7 {ratio} Normal 1.0-2.5 [facility] Comment on above: Performed By: #### 6 23 #### [facility]/[place] [id number] [facility] [place] Consulting Group Analyst: Suman Hartman M.D.,PhD #### 7600, [phone] #### [facility] [address], [address] [place], [place] [phone] Consulting Group Analyst: Herve Sahni MD ALP [Catalytic activity/Vol] 101 U/L Normal 37-153 [facility] Comment on above: Performed By: #### 6 23 #### [facility]/[address] [place] Consulting [employer] Analyst: Suman Hartman M.D.,PhD #### 7600, [phone] #### [facility] [address], [address] [place], [place] [id number] Consulting Group Analyst: Herve Sahni MD ALT [Catalytic activity/Vol] 30 U/L High 6-29 [facility] Comment on above: Performed By: #### 6 23 #### [facility]/[address] [place] [employer] Analyst: Suman Hartman M.D.,PhD #### 7600, 11625 #### [facility] [address] Consulting Group Analyst: Herve Sahni MD AST [Catalytic activity/Vol] 28 U/L Normal 10-35 [facility] Comment on above: Performed By: #### 6 23 #### [facility]/[address] [place] [employer] Analyst: Suman aHrtman M.D.,PhD #### 7600, 48862 #### [facility] [address] Consulting Group Analyst: Herve Sahni MD Bilirubin [Mass/Vol] 0.7 mg/dL Normal 0.2-1.2 [facility] Comment on above: Performed By: #### 6 23 #### [facility]/[address] [place] Consulting Group Analyst: Suman Hartman M.D.,PhD #### 7600, 71605 #### [facility] [address], [address] [place], [place] [id number] Consulting Group Analyst: Herve Sahni MD BUN/CREATININE RATIO SEE NOTE: Normal 6-22 [facility] Comment on above: Result Comment: Not Reported: BUN and Creatinine are within reference range. Performed By: #### 6 23 #### [facility]/[address] [place] Consulting [employer] Analyst: Suman Hartman M.D.,PhD #### 7600, [phone] #### [facility] [address], [address] [place] [address] Consulting Group Analyst: Herve Sahni MD Calcium [Mass/Vol] 10.5 mg/dL High 8.6-10.4 [facility] Comment on above: Performed By: #### 6 23 #### [facility]/[address] [place] [employer] Analyst: Suman Hartman M.D.,PhD #### 7600, [phone] #### [facility] [address], [address] [place] [address] Consulting Group Analyst: Herve Sahni MD Chloride [Moles/Vol] 103 mmol/L Normal 98-110 [facility] t Diagnostics Comment on above: Performed By: #### 6 23 #### [facility]/[address] [place] [employer] Analyst: Suman Hartman M.D.,PhD #### 7600, 50134 #### [facility] [address], [address] [place] [address] Consulting Group Analyst: Herve Sahni MD CO2 [Moles/Vol] 23 mmol/L Normal 20-32 [facility] Comment on above: Performed By: #### 6 23 #### [facility]/[address] [place] Consulting Group Analyst: Suman Hartman M.D.,PhD #### 7600, 65859 #### [facility] [address], [address] [place] [address] Consulting Group Analyst: Herve Sahni MD Creatinine [Mass/Vol] 0.71 mg/dL Normal 0.50-1.05 [facility] st Diagn[facility] Comment on above: Performed By: #### 6 23 #### [facility]/[address] [place] Consulting Group Analyst: Suman Hartman M.D.,PhD #### 7600, 82249 #### [facility] of [address], [address] [place] [address] Consulting Group Analyst: Herve Sahni MD GFR/1.73 sq M.predicted among non-blacks MDRD (S/P/Bld) [Vol rate/Area] 93 mL/min/{1.73_m2} Normal > OR = 60 [facility] Comment on above: Performed By: #### 6 23 #### [facility]/[address] [place] Consulting Group Analyst: Suman Hartman M.D.,PhD #### 7600, 38894 #### [facility] [address], [address] [place] [address] Consulting Group Analyst: Herve Sahni MD Globulin (S) [Mass/Vol] 2.9 g/dL Normal 1.9-3.7 [facility] Comment on above: Performed By: #### 6 23 #### [facility]/[address] [place], [place] Consulting Group Analyst: Suman Hartman M.D.,PhD #### 7600, [phone] #### [facility] [address], [address] [place] [address] Consulting Group Analyst: Herve Sahni MD Glucose [Mass/Vol] 99 mg/dL Normal 65-99 [facility] Comment on above: Result Comment: Fasting reference interval Performed By: #### 6 23 #### [facility]/[address] [place], [place] Consulting Group Analyst: Suman Hartman M.D.,PhD #### 7600, [phone] #### [facility] [address], [address] [place], [place] [address] Consulting Group Analyst: Herve Sahni MD Potassium [Moles/Vol] 4.3 mmol/L Normal 3.5-5.3 [facility] st [facility] Comment on above: Performed By: #### 6 23 #### [facility]/[place] 7092125 [facility] [place] Consulting Group Analyst: Suman Hartman M.D.,PhD #### 7600, 42150 #### [facility] [address] Consulting Group Analyst: Herve Sahni MD Protein [Mass/Vol] 7.7 g/dL Normal 6.1-8.1 [facility] Comment on above: Performed By: #### 6 23 #### [facility]/[address] [place] [employer]ing [employer] Analyst: Suman Hartman M.D.,PhD #### 7600, 83972 #### [facility] [place] [address] Consulting Group Analyst: Herve Sahni MD Sodium [Moles/Vol] 140 mmol/L Normal 135-146 [facility] Comment on above: Performed By: #### 6 23 #### [facility]/[address] [place] Consulting Group Analyst: Suman Hartman M.D.,PhD #### 7600, 27271 #### [facility] of [address] Consulting Group Analyst: Herve Sahni MD Urea nitrogen [Mass/Vol] 17 mg/dL Normal 7-25 [facility] Comment on above: Performed By: #### 6 23 #### [facility]/[place] [id number] [facility] [place] Consulting Group Analyst: Suman Hartman M.D.,PhD #### 7600, 42019 #### [facility] [address], [address] [place] [address] Consulting Group Analyst: Herve Sahni MD LIPID PANEL, [address] Cholesterol [Mass/Vol] 195 mg/dL Normal <200 [facility] Comment on above: Order Comment: FASTI NG:YES FASTING: YES Performed By: #### 6 23 #### [facility]/[address] [place] [employer]ing Group Analyst: Suman Hartman M.D.,PhD #### 7600, 99465 #### [facility] [address], [address] [place] [address] Consulting Group Analyst: Herve Sahni MD Cholesterol in HDL [Mass/Vol] 65 mg/dL Normal > OR = 50 [facility] Comment on above: Order Comment: FASTI NG:YES FASTING: YES Performed By: #### 6 23 #### [facility]/[address] [place] Consulting Group Analyst: Suman Hartman M.D.,PhD #### 7600, 41363 #### [facility] [place] [address] Consulting Group Analyst: Herve Sahni MD Cholesterol in LDL [Mass/Vol] 101 mg/dL High [facility] Comment on above: Order Comment: FASTI NG:YES FASTING: YES Result Comment: Refe rence range: <100 Desirable range <100 mg/dL for primary prevention; <70 mg/dL for patients with CHD or diabetic patients with > or = 2 CHD risk factors. LDL-C is now calculated using the Ines calculation, which is a validated novel method providing better accuracy than the Friedewald equation in the estimation of LDL-C. Alejandro RAMESH et al. DAYA. 2013;310(19): 4921-4716 (http://education.Big Think.Atticous/faq/SMW344) Performed By: #### 6 23 #### [facility]/[place] [address] [facility] Dr [place], [place] Consulting Group Analyst: Suman Hartman M.D.,PhD #### 7600, 57284 #### [facility] [address], [address] [place] [address] Consulting Group Analyst: Herve Sahni MD Cholesterol.total/Cho lesterol in HDL [Mass ratio] 3.0 {ratio} Normal <5.0 [facility] Comment on above: Order Comment: FASTI NG:YES FASTING: YES Performed By: #### 6 23 #### [facility]/[place] [address] [facility] Dr [place] Consulting Group Analyst: Suman Hartman M.D.,PhD #### 7600, 03790 #### [facility] [address], [address] [place], [place] [id number] Consulting Group Analyst: Herve Sahni MD NON HDL CHOLESTEROL 130 mg/dL (calc) High <130 [facility] Comment on above: Order Comment: FASTI NG:YES FASTING: YES Result Comment: For patients with diabetes plus 1 major ASCVD risk factor, treating to a non-HDL-C goal of <100 mg/dL (LDL-C of <70 mg/dL) is considered a therapeutic option. Performed By: #### 6 23 #### [facility]/[place] [address] [facility] Dr [place] Consulting Group Analyst: Suman Hartman M.D.,PhD #### 7600, 48314 #### [facility] [address], [address] [place], [place] [address] Consulting Group Analyst: Herve Sahni MD Triglyceride [Mass/Vol] 174 mg/dL High <150 [facility] Comment on above: Order Comment: FASTI NG:YES FASTING: YES Performed By: #### 6 23 #### [facility]/[address] [place] [employer]ing [employer] Analyst: Suman Hartman M.D.,PhD #### 7600, 50780 #### [facility] [address], [address] [place], [place] [address] Consulting Group Analyst: Herve Sahni MD MAGNESIUM, RBCon 09-25-2024 MAGNESIUM, RBC 6.2 mg/dL Normal 4.0-6.4 [facility] Comment on above: Result Comment: This test was developed and its analytical performance characteristics have been determined by [facility] [place]. It has not been cleared or approved by the U.S. Food and Drug Administration. This assay has been validated pursuant to the CLIA regulations and is used for clinical purposes. Performed By: #### 6 23 #### [facility] [address] [facility] [place] Consulting Group Analyst: Suman Hartman M.D.,PhD #### 7600, 87270 #### [facility] [address], [address] [place] [address] Consulting Group Analyst: Herve Sahni MD No Panel Informationon 08-18 ACINETOBACTER BAUMANII 0 [facility] ACINETOBACTER BAUMANII Not detected [facility] LORENA ALBICANS, PARAPSILOSIS, TROPICALIS 0 [facility] LORENA ALBICANS, PARAPSILOSIS, TROPICALIS Not detected [facility] LORENA GLABRATA 0 [facility] LORENA GLABRATA Not detected [facility] LORENA KRUSEI 0 [facility] LORENA KRUSEI Not detected [facility] CITROBACTER FREUNDII 0 [facility] CITROBACTER FREUNDII Not detected NO [facility] ENTEROBACTER AEROGENES, CLOACAE 0 [facility] ENTEROBACTER AEROGENES, CLOACAE Not detected [facility] ENTEROCOCCUS FAECALIS, FAECIUM 0 [facility] ENTEROCOCCUS FAECALIS, FAECIUM Not detected [facility] ESCHERICHIA COLI 0 [facility] ESCHERICHIA COLI Not detected [facility] KLEBSIELLA PNEUMONIAE, OXYTOCA 0 [facility] KLEBSIELLA PNEUMONIAE, OXYTOCA Not detected [facility] MORGANELLA MORGANII 0 [facility] MORGANELLA MORGANII Not detected [facility] PROTEUS MIRABILIS, VULGARIS 0 [facility] PROTEUS MIRABILIS, VULGARIS Not detected [facility] PSEUDOMONAS AERUGINOSA 0 [facility] PSEUDOMONAS AERUGINOSA Not detected [facility] SERRATIA MARCESCENS 0 [facility] SERRATIA MARCESCENS Not detected [facility] STAPHYLOCOCCUS AUREUS 0 [facility] STAPHYLOCOCCUS AUREUS Not detected N [facility] STAPHYLOCOCCUS EPIDERMIDIS, HAEMOLYTICUS, LUGDUNENSIS, SAPROPHYTICUS (URINA 0 [facility] STAPHYLOCOCCUS EPIDERMIDIS, HAEMOLYTICUS, LUGDUNENSIS, SAPROPHYTICUS (URINA Not detected [facility] STREPTOCOCCUS AGALACTIAE (GROUP B STREP) 0 [facility] STREPTOCOCCUS AGALACTIAE (GROUP B STREP) Not detected [facility] STREPTOCOCCUS PYOGENES (GROUP A STREP) 0 [facility] STREPTOCOCCUS PYOGENES (GROUP A STREP) Not detected [facility] No Panel Informationon 08-16 ATOPOBIUM VAGINAE 0 [facility] ATOPOBIUM VAGINAE Not detected [facility] BVAB 2,3 (BACTERIAL VAGINOSIS ASSOCIATED BACTERIA 2, 3); MOBILUNCUS SPP 0 [facility] BVAB 2,3 (BACTERIAL VAGINOSIS ASSOCIATED BACTERIA 2, 3); MOBILUNCUS SPP Not detected [facility] LORENA ALBICANS, PARAPSILOSIS, TROPICALIS 0 [facility] LORENA ALBICANS, PARAPSILOSIS, TROPICALIS Not detected [facility] LORENA GLABRATA 0 [facility] LORENA GLABRATA Not detected [facility] LORENA KRUSEI 0 [facility] LORENA KRUSEI Not detected [facility] CHLAMYDIA TRACHOMATIS 0 [facility] CHLAMYDIA TRACHOMATIS Not detected N [facility] GARDNERELLA VAGINALIS 0 [facility] GARDNERELLA VAGINALIS Not detected N [facility] HERPES SIMPLEX VIRUS 1 0 [facility] HERPES SIMPLEX VIRUS 1 Not detected [facility] HERPES SIMPLEX VIRUS 2 0 [facility] HERPES SIMPLEX VIRUS 2 Not detected [facility] MEGASPHAERA (TYPES 1, 2) 0 [facility] MEGASPHAERA (TYPES 1, 2) Not detected [facility] NEISSERIA GONORRHOEAE 0 [facility] NEISSERIA GONORRHOEAE Not detected N [facility] TRICHOMONAS VAGINALIS 0 [facility] TRICHOMONAS VAGINALIS Not detected N [facility] Urinalysis macro (dipstick) panel (U)on 07-30-2024 Bilirubin, UA Negative Negative - 4(7 0) +++ mg/dL [facility] Blood, UA Positive Negative - 50 Kevin/mcL [facility] Clarity, UA Clear [facility] Color, UA Light Yellow [facility] Glucose, UA Negative Negative - 2000(110) ++++ mg/dL [facility] Interpretation and review of laboratory results Abnormal [facility] Ketones, UA Negative Negative - 160(16) ++++ mg/dL [facility] Leukocytes, UA 2+ Negative - 500+++ Prashant/mcL [facility] Nitrite, UA Negative Negative - Positive [facility] pH, UA 6 5 - 9 [facility] Protein, UA Trace Negative - 2000(20) ++++ mg/dL [facility] Spec Grav, UA 1.005 1 - 1.03 [facility] Urobilinogen, UA 0.2 0.2 - 12 mg/dL [facility] IGP,APTIMA HPV,AGE GDLNon -2023 AGE GDLN ACOG TESTING Note . [facility] Comment on above: TESTS RESULT FLAG U NITS REF RANGE LAB Clinician Provided Cytology Information Source.............Cervix;Endocervix No. of containers..01 ThinPrep Vial Age Algo ACOG Josefina... Note 01 <21 or >65 or no age provided FLAG LEGEND: L-Low Normal,H-High Normal,LL-Alert Low,HH-Alert High <-Panic Low,>-Panic High,A-Abnormal,AA-Critical Abnormal Performed at: 01 =G [facility] [address] Sheila Worthington MD, PAP IG (IMAGE GUIDED) Note . [facility] Comment on above: TESTS RESULT FLAG UN ITS REF RANGE LAB DIAGNOSIS: 02 NEGATIVE FOR INTRAEPITHELIAL LESION OR MALIGNANCY. CELLULAR CHANGES ASSOCIATED WITH ATROPHY ARE PRESENT. Specimen adequacy: 02 Satisfactory for evaluation. Endocervical and/or squamous metaplastic cells (endocervical component) are present. Performed by: 02 Naveen Arreola, Software Engineering Supervisor ([facility]) . 02 Note: Note 03 The Pap smear is a screening test designed to aid in the detection of premalignant and malignant conditions of the uterine cervix. It is not a diagnostic procedure and should not be used as the sole means of detecting cervical cancer. Both false-positive and false-negative reports do occur. Test Methodology: Note 03 This liquid based ThinPrep(R) pap test was screened with the use of an image guided system. FLAG LEGEND: L-Low Normal,H-High Normal,LL-Alert Low,HH-Alert High <-Panic Low,>-Panic High,A-Abnormal,AA-Critical Abnormal Performed at: 02 [facility] [address] [address] [place] [address] Clint Giraldo MD, [address] [address] Sheila Worthington MD, Performed at: - [facility] [id number] University Counselor: Sheila Worthington MD, Phone: [phone] Performed at: [facility] [address] [address] [place], [place] [id number] University Counselor: Clint Giraldo MD, Phone: [phone] BRUSH-SPATULA CERVIX ENDOCERVIX [facility] MM diagnostic mammo LT w/CAD on 06-16-2024 MM diagnostic mammo LT w/CAD [facility] Main [place] [address] [place] [address] Mammography Report Signed Patient: Christal Chen MR#: [id number] : 1955 Acct:[id number] Age/Sex: 69 / F ADM Date: 06/16/24 Loc: [place] Room: Type: [facility] Attending Dr: Silvia Eckert MD Copies to: [...] Cristian Jeffery M.D.06/16/2024 8:12 AM Dictation Location: [facility] Transcribed By: [facility] 06/16/24811 Dictated By: Cristian Jeffery II, MD 06/16/24751 Signed By: 06/16/24811 Normal [facility] Consultation Noteon 02-10-20 Consultation Note [id number] .00TIFF Normal [facility] Consultation Noteon 01-06-20 Consultation Note [id number] .00TIFF Normal [facility] Consultation Noteon 01-05-20 Consultation Note [id number]#1 .00TIFF Normal [facility] HER-2 IHC Rfx to [facility] 12-06 Fixation Time Comment Invalid Interpretation Code [facility] Comment on above: Result Comment: Tiss ue biopsy fixation was between 6 and 72 hours. Performed By: #### 1 [id number] ####[place] [id number] Fixative Comment Invalid Interpretation Code [facility] Comment on above: Result Comment: 10% neutral buffered formalin Time to fixation (cold ischemic time) is less than or equal to 1 hour. Performed By: #### 1 [id number] ####[place] 9059457 HER2 Ag Immune stain Ql (Tiss) 0 Invalid Interpretation Code [facility] Comment on above: Performed By: #### 1 [id number] ####[place] 9059457 broadcast operations director name Nom (Provider) Comment Invalid Interpretation Code [facility] Comment on above: Result Comment: Thes e results were reviewed and interpreted by Kathy Lieberman MD [facility] [place], [place] Performed at: [facility] [address] [facility] [place], [place] [id number] [facility] Jonelle Torres Performed By: #### 1 [id number] ####[facility] [address] [place] [address] Reference Lab Test Reference Range Comment Invalid Interpretation Code [facility] Comment on above: Result Comment: Scor [...] and neoplastic breast tissue using the ultraView [place] DAB Detection Kit on a BenchMark ULTRA instrument. This IHC device is indicated for identifying breast cancer patients who are eligible for treatment with Herceptin(R) (IHC 3+ or IHC 2+/NIKHIL amplified), KADCYLA(R) (IHC 3+ or IHC 2+/NIKHIL amplified) or ENHERTU(R) (IHC 1+ or IHC 2+/NIHKIL non-amplified). Specimen Handling: FFPE tissue, preserved in [...] J Med: 387(1):9-20. 2021Apr 12. Clinical Trial Dbe PATHWAY anti-HER-2/rosamaria (4B5) Rabbit Monoclonal Primary Antibody Package Insert, 2022-07-05. Dejuan Villanuevaet al. Human Epidermal Growth Factor Receptor 2 Testing in Breast Cancer: [place] Society of Clinical Oncology/College of [place] Pathologists Clinical Practice Guideline Focused Update. J Clin Oncol 6:4334-4743. 2018 PMID: 50327520). Performed By: #### 1 [id number] ####[facility] [address] [place] [address] Ambulatory Visit Summaryon 0 12-24-2023 Ambulatory Visit [...] you for choosing us for your care. Corrina [facility] General Surgery Office/Clini c Noteon 12-24-2023 [...] inactivated - Not Given Patient Refuses Normal [facility] Comment on above: Result Comment: Elec tronically Signed By: TONY PATEL, Adrian Hall\amparo\Date and Time Signed: 12/24/23 14:31 EDT HER-2 IHC Rfx to Jocelynn 12-05 AP Tissue Block Number [id number] [id number] Invalid Interpretation Code [facility] Comment on above: Performed By: #### 1 [id number] ####[facility] [address] [place] [address] Ambulatory Visit Summaryon 0 12-13-2023 Ambulatory Visit Summary CHRISTAL CHEN :1955 Visit Date:12/13/2023 Ambulatory Visit Instructions Your Care Team Attending Physician - TONY PATEL, Adrian Hall Primary Care Physician - NI PATEL, QUINTON Mlaik This Is Your Medications List amlodipine (amLODIPine [...] you for choosing us for your care. Corrina [facility] General Surgery Office/Clini c Noteon 12-13-2023 General [...] inactivated - Not Given Patient Refuses Normal [facility] Comment on above: Result Comment: Elec tronically Signed By: TONY PATEL, Adrian Goldsmith\Date and Time Signed: 12/13/23 16:16 EST IntraOperative Documentson 0 12-13-2023 IntraOperative Documents [id number]# 1.00TIFF Normal [facility] Main OR Intraoperative Recor don 12-10-2023 Main OR Intraoperative Record IntraOp Document Type FT Summary Primary Physician: Adrian JIMENEZ MD Finalized Date/Time: 12/10/23 09:51:34 Pt. Name: CHRISTAL CHEN /Sex: 1955 Female Med Rec #: [id number] Physician: Adrian JIMENEZ MD Financial #: [id number] Pt. Type: A Room/Bed: [place] [address] Admit/Disch: 12/05/23 06:51:15 - 12/05/23 17:20:00 Institution: [...] JIMENEZ MD, Pedro Luis Hernandez Role Performed STATIONS SUPERINTENDENT Surgeon - Primary NAVIGATING OFFICER Time In 12/05/23 11:10:00 12/05/23 11:10:00 12/05/23 11:10:00 Time Out 12/05/23 13:12:00 12/05/23 13:12:00 12/05/23 13:12:00 Procedure BREAST BIOPSY(.), BREAST BIOPSY(.), BREAST BIOPSY(.), SENTINEL NODE BIOPSY(.) SENTINEL NODE BIOPSY(.) SENTINEL NODE BIOPSY(.) Comments DR. COON SUPERVISING Last Modified By: Breanna MCDONALD, Helen Robledo RN, Helen Robledo RN, Helen Mccormick 12/05/23 Ella P 12/05/23 Ella Mccormick 12/05/23 13:12:23 13:12:23 13:12:23 Entry 4 Entry 5 Entry 6 Case Attendee Breanna MCDONALD, Helen Maier RN, CNOR, Henrietta Taylor CST, Blas hJaveri Role Performed Applications Programmer Analyst - Primary Applications Programmer Analyst - Relief SENIOR ANALYTIC CONSULTANT/SA Time In 12/05/23 11:15:00 12/05/23 11:10:00 12/05/23 11:15:00 Time Out 12/05/23 13:12:00 12/05/23 11:30:00 12/05/23 13:12:00 Procedure BREAST BIOPSY(.), BREAST BIOPSY(.), BREAST BIOPSY(.), SENTINEL NODE BIOPSY(.) SENTINEL NODE BIOPSY(.) SENTINEL NODE BIOPSY(.) Comments Last Modified By: Breanna RN, Helen Robledo RN, Helen Robledo RN, Helen Mccormick 12/05/23 Ella Mccormick 12/05/23 Ella P 12/05/23 13:12:23 13:12:23 13:12:23 Entry 7 Case Attendee Valerie MERCHANT, Jovita Cai Role Performed SENIOR ANALYTIC CONSULTANT/SA Time In 12/05/23 11:10:00 Time Out 12/05/23 11:20:00 Procedure BREAST BIOPSY(.), SENTINEL NODE BIOPSY(.) Comments LUNCH RELIEF Last Modified By: Breanna MCDONALD, Helen Mccormick 12/05/23 13:12:23 General Comments: FANNY BARBOSA STUDENT, SCRUBBED IN FOR LENORE ROBLEDO RN Perioperative Protocols FT Pre-Care Text: Implements protective measures [...] PreOp Antibiotic Yes Time Out TONY PATEL, Adrian Hall, Given Participants Maxwell OKCH, Mirtha Baumann Alejandro, Breanna RN, Brandon Marcelo SENIOR ANALYTIC CONSULTANT, Blas Pierce Time Out Complete 12/05/23 11:34:00 Outcomes Met? Yes Last Modified By: Helen Robledo RN 12/05/23 11:47:59 Post-Care Text: The patient is free from signs and symptoms of injury caused by extraneous objects Allergy Information FT Pre-Care Text: Verifies allergies Entry 1 Allergies Reviewed? Yes Allergies Reviewed Self/Patient With Outcomes Met? Yes Last Modified By: Helen Robledo RN 12/05/23 11:48:05 Post-Care Text: The patient received [...] 1 - Clean Last Modified By: Breanna MCDONALD, Helen Robledo RN, Helen Mccormick 12/05/23 Ella Mccormick 12/05/23 13:03:45 13:03:49 General [...] By: Breanna (more content not included)... Normal [facility] Progress Note-Physicianon Progress Note-Physician Patient: CHRISTAL CHEN Age: 68 years Sex: Female : 1955 Associated Diagnoses: None Author: MD Jaymie, Laci Hays Postoperative Information Postoperative disposition: Postoperative disposition: To PACU. Optimetrix number: Optimetrix number [id number]. Anesthetic utilized: General. Health Status Allergies: Allergic [...] meets criteria ( To home ). Normal [facility] Comment on above: Result Comment: Elec tronically [...] per day take with food or milk, [facility] [id number], 165, cm, 11/20/23 6:04:00 EST, Height/Length Dosing, [...] list: All Problems Hyperlipidemia / SNOMED CT 59739661 / Confirmed HTN (hypertension) / SNOMED CT 2477505722 / Confirmed Chronic fatigue syndrome / SNOMED CT 40963287 / Confirmed Hypertensive nephropathy / SNOMED CT 19058847 / Confirmed Former smoker / SNOMED CT 49372170 / Confirmed Diverticulosis / SNOMED CT 5919471195 / Confirmed RBBB (right bundle branch block) / SNOMED CT 77885870 / Confirmed Stage 2 chronic kidney disease / SNOMED CT 3848546222 / Confirmed White matter disease / SNOMED CT 8423306624 / Confirmed 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 Hypothyroid (547553470): Resolved. Menopause (492753314): Resolved. Diabetes (701187144): Resolved. Family History: Heart disease Father Procedure history: Left mammogram guided needle localized lumpectomy with sentinel lymph node biopsy (728933935) on 12/05/2023 at 68 Years. wisdom teeth. section (). Colonoscopy (583971797). Colonoscopy (576979933). Myringotomy (1819335306). Tonsillectomy and adenoidectomy (395841771). Closed reduction of nasal fracture (60577267). section (). section (). Meniscal repair (970983839). Biopsy of breast (680681040). Social History Social & Psychosocial Habits Alcohol [...] results Radiology results ECG interpretation Condition Plan [place] Society of Anesthesiologists (ASA) physical status classification: Class III. Anesthetic Preoperative Plan Anesthesia: General. . Anesthetic plan, risks, benefits, and alternatives discussed with the patient and/or family. Risks discussed: nausea, vomiting, headache, sore throat, dental injury, serious complications. Patient verbalized understanding. Communication: face to face with patient 5 minutes. [facility] Comment on above: Result Comment: Elec tronically Signed By: MD Jaymie, Laci Hays\.br\Date and Time Signed: 12/09/23 08:10 EST Consent for Anesthesiaon Consent for Anesthesia [id number]#1 .00TIFF [facility] Discharge Instructionson Discharge Instructions [id number]#1 .00TIFF [facility] IntraOperative Documentson 0 12-06-2023 IntraOperative Documents [id number]#1 .00TIFF Normal [facility] IntraOperative Documents [id number]#1 .00TIFF Normal [facility] Pre-Op Checkliston Pre-Op Checklist [id number]#1 .00TIFF Normal [facility] Consent for Treatmenton 11-08 Consent for Treatment [id number]#1 .00TIFF [facility] Discharge Instructionson Discharge Instructions CHRISTAL CHEN [place] :1955 Visit Date:12/05/2023 Inpatient Discharge Instructions Your [...] 7 to 10 days Where: Shira Ramirez, [facility] [address] [address]- Business (1) Medications What How Much When Why Instructions Next Dose New acetaminophen-oxycodo ne (Percocet 5 mg-325 mg oral tablet) 1 Tablets By Mouth Every 6 hours Acute postoperative pain not to exceed 4000 mg acetaminophen per day take with food or milk Pickup at [facility] [id number] Unchanged amlodipine (amLODIPine 10 mg Tab) 1 [...] day as needed for Prophylaxis Pharmacy Information [facility] [id number]: [address] [place], [place] [phone] Education Materials Breast Biopsy, Care After The [...] these instructions at home: Medicines ? Take wjsa-rza-zegjtdh and prescription medicines only as told by [...] ? Fol (more content not included)... Normal [facility] Comment on above: Result Comment: Elec tronically Signed By: Berta MCDONALD, Diallo Eldridge\.br\Date and Time Signed: 12/05/23 13:54 EST Inpatient Patient Summaryon 12-05-2023 Inpatient Patient Summary [address] [address] [facility] Clinical Discharge Instructions PERSON INFORMATION Name: CHRISTAL CHEN [facility]#:[id number] PHYSICIANS Admitting Physician: Adrian JIMENEZ MD Attending Physician: Adrian JIMENEZ MD PCP: NI PATEL, QUINTON Malik Discharge Diagnosis: Breast cancer of upper-outer quadrant of left female breast Comment: PATIENT EDUCATION INFORMATION Instructions: Post Op Patient Instructions - FT (CUSTOM) Medication Leaflets: Follow up: With: Address: When: Adrian JIMENEZ [address] [place] [address], [facility] [address] [address] Business (1) Within 7 to 10 days MEDICATION LIST New Medications [facility] [id number], [address] [place] [phone], [phone] acetaminophen-oxycodo ne (Percocet 5 mg-325 mg oral [...] every day as needed Prophylaxis. Comment: Normal [facility] Breast Needle Loc w/ Guid ance, Lefton 12-05-2023 [place] Breast Needle Loc w/ Guidance, Left Exam Date/Time: 12/05/2023 09:54 EST Reason for Exam: BREAST CANCER Report [facility] [phone] IMPRESSION: PREOPERATIVE LOCALIZATION PROCEDURE LEFT BREAST. CLINICAL [...] Morataya M.D. Transcribed by: EFRAIN Technologist: RUBI Houser [facility] Surgical Specimen Lefton 12-05-2023 MA Surgical Specimen Left Exam Date/Time: 12/05/2023 12:50 EST Reason for Exam: Biopsy Report [facility] [phone] IMPRESSION: BIOPSY CLIP IN THE LEFT BREAST [...] Jeff Morataya M.D. Transcribed by: EFRAIN Technologist: [facility] Main OR PACU I Recordon 11-08 Main OR PACU I Record PACU Phase I Docum ent Type FT Summary Primary Physician: Adrian JIMENEZ MD Finalized Date/Time: 12/05/23 14:39:43 Pt. Name: MICHELLECHRISTAL./Sex: 1955 Female Med Rec #: [id number] Physician: Adrian JIMENEZ MD Financial #: [id number] Pt. Type: A Room/Bed: [place] [address] Admit/Disch: 12/05/23 06:51:15 - Institution: Case Times [...] By: Donna Manley RN 12/05/23 14:39 Normal [facility] Main OR Preoperative Recordo n 12-05-2023 Main OR Preoperative Record PreOp Document Type FT Summary Primary Physician: Adrian JIMENEZ MD Finalized Date/Time: 12/05/23 11:57:58 Pt. Name: CHRISTAL CHEN [place]/Sex: 1955 Female Med Rec #: [id number] Physician: Adrian JIMENEZ MD Financial #: [id number] Pt. Type: A Room/Bed: [place] [address] Admit/Disch: 12/05/23 06:51:15 - Institution: Case Times [...] By: Helen Robledo RN 12/05/23 11:57 Normal [facility] Monitor Recordon 12-05-2023 Monitor Record [id number]# 1.00TIFF Normal [facility] NM Lymphoscintigraphyon 11-08 NM Lymphoscintigraphy Exam Date/Time: [...] Comments Dose (mCi Tc99m Lymphoseek): 0.5 Normal [facility] Operative Reporton Operative Report SURGERY DATE: 12/05/2023 [...] sent to Recovery Room in good condition. Adrian Jimenez M.D. [facility] Dictated: 12/05/2023 [id number] Transcribed: 12/05/2023 cc:Quinton Dan M.D. [facility] Comment on above: Result Comment: Elec tronically Signed By: TONY PATEL, Adrian Hall\.br\Date and Time Signed: 12/05/23 14:37 EST Outpatient Surgery Discharge Instructionon 12-05-2023 Outpatient Surgery Discharge Instruction [place] [id number] Patient Discharge Instructions PERSON INFORMATION Name: CHRISTAL [...] THE NEAREST EMERGENCY ROOM OR CALL 911 IMICHELLE PATRICIA A, have received the attached patient education materials/instruction s and have verbalized understanding: May we do a follow up call? Yes No I was present when discharge instructions were given Patient Signature Date Clinican/Nurse Signature Date Follow up: With: Address: When: Adrian Silva [address], [address], [place] [phone] Business (1) Within 7 to 10 days Pharmacy Information: You may receive a survey from [employer] asking you to rate your care experience. Your feedback is important and will help us understand what we do well and how we can improve the quality of care we provide to you, your loved ones and our community. It?s an honor to serve you. Thank you for choosing [facility] HERE ARE THE MEDICATION CHANGES THAT OCCURRED DURING YOUR HOSPITAL STAY New Medications [facility] [id number], [address] [facility], [place] [phone], [phone] acetaminophen-oxycodo ne (Percocet 5 mg-325 mg oral [...] Prophylaxis. PATIENT EDUCATION INFORMATION Instructions: Medication Leaflets: [facility] Patient Education - Texton 0 12-05-2023 [...] these instructions at home: Medicines ? Take frbx-adp-nbcgjqo and prescription medicines only as told by [...] and water are not available, use hand breeder hen service technician. ? Change your dressing as told [...] provider. Document Revised: 08/17/2022 Document Reviewed: 07/03/2022 [employer] Patient Education ? 2022 [employer]. Normal [facility] RAD - MISCon 12-05-2023 RAD - MISC [id number] #1.00TIFF Normal [facility] Consultation Noteon 12-02-19 Consultation Note [id number]#1 .00TIFF Normal [facility] Consent for Procedure/Surger yon 11-20-2023 Consent for Procedure/Surgery [id number]#1 .00TIFF Normal [facility] Consultation Noteon 11-20-19 Consultation Note [id number]#1 .00TIFF Normal [facility] MRI Breast w/o and w/ Contra st, [...] Vueway Contrast amount in ml's: 7.5 Normal [facility] BMPon 11-19-2023 Anion gap [Moles/Vol] 13 mmol/L Normal 6-16 [facility] Comment on above: Performed By: #### 2 522330, 37457267, 1408332 ####[facility] [address] [place] [address] BUN/Creat Ratio 24 No Units High 10-20 [facility] Comment on above: Performed By: #### 2 521820, 59387638, 9466898 ####[facility] [address] [place] [address] Calcium [Mass/Vol] 9.7 mg/dL Normal 8.9-11.1 [facility] Comment on above: Performed By: #### 2 772673, 29570042, 8346738 ####[facility] [address] [place] [address] Chloride [Moles/Vol] 104 mmol/L Normal 101-111 [facility] Comment on above: Performed By: #### 2 265095, 36468703, 1937871 ####[facility] [address] [place] [address] CO2 [Moles/Vol] 26 mmol/L Normal 21-[address] [facility] Comment on above: Performed By: #### 2 383597, 62758972, 6741019 ####[facility] [address] [place] [address] Creatinine [Mass/Vol] 0.8 mg/dL Normal 0.5-1.3 [facility] Comment on above: Performed By: #### 2 927671, 22997694, 9937350 ####[facility] [address] [place] [address] Glucose [Mass/Vol] 145 mg/dL Normal 55-199 [facility] Comment on above: Performed By: #### 2 203539, 14683846, 5259717 ####[facility] [address] [place] [address] Potassium [Moles/Vol] 3.9 mmol/L Normal 3.5-5.3 [facility] Comment on above: Performed By: #### 2 335856, 89678039, 7170286 ####[facility] [address] [place] [address] Sodium [Moles/Vol] 139 mmol/L Normal 135-145 [facility] Comment on above: Performed By: #### 2 797351, 86988839, 3818970 ####[address] [address] Urea nitrogen [Mass/Vol] 19 mg/dL Normal 5-21 [facility] Comment on above: Performed By: #### 2 081972, 99392389, 3974568 ####[address] [address] CBC w/ Auto Diffon 4 Basophil Absolute 0.1 E9/L Normal 0.0-0.2 [facility] Comment on above: Performed By: #### 2 507122, 26521737, 0922246 ####[address] [address] Basophils/100 WBC (Bld) 1.0 % Normal 0.0-2.0 [facility] Comment on above: Performed By: #### 2 455905, 41114801, 2666834 ####[address] [address] Eos Absolute 0.1 E9/L Normal 0.0-0.5 [facility] Comment on above: Performed By: #### 2 011266, 85145986, 1581458 ####[address] [address] Eosinophils/100 WBC (Bld) 0.9 % Normal 0.0-8.0 [facility] Comment on above: Performed By: #### 2 798137, 35426817, 8975092 ####[address] [address] Erythrocyte distribution width (RBC) [Ratio] 13.5 % Normal 10.9-14.2 [facility] Comment on above: Performed By: #### 2 115281, 09667252, 3965126 ####[address] [place] [address] Hematocrit (Bld) [Volume fraction] 46.0 % Normal 34.0-46.0 [facility] Comment on above: Performed By: #### 2 928949, 69176855, 2298003 ####[address] [address] Hemoglobin (Bld) [Mass/Vol] 15.2 g/dL Normal 12.0-16.0 [facility] Comment on above: Performed By: #### 2 425713, 52904038, 7016823 ####[address] [address] Lymph Absolute 1.7 E9/L Normal 1.0-4.0 [facility] Comment on above: Performed By: #### 2 826946, 57579349, 1040896 ####[place] 9[address]457 Lymphocytes/100 WBC (Bld) 19.1 % Normal 14.0-50.0 [facility] Comment on above: Performed By: #### 2 243447, 63582717, 0545985 ####[address] [address] MCH (RBC) [Entitic mass] 29.8 pg Normal 27.0-34.0 [facility] Comment on above: Performed By: #### 2 990511, 02677486, 0219078 ####[address] [address] MCHC (RBC) [Mass/Vol] 33.3 g/dL Normal 31.4-36.0 [facility] Comment on above: Performed By: #### 2 750674, 02129547, 0434961 ####[address] [address] MCV (RBC) [Entitic vol] 89.5 fL Normal 80.0-100.0 [facility] Comment on above: Performed By: #### 2 506049, 00488906, 5768774 ####[address] [address] Loving Absolute 0.5 E9/L Normal 0.2-1.0 [facility] Comment on above: Performed By: #### 2 466264, 79361200, 5522021 ####[address] [address] Monocytes/100 WBC (Bld) 5.5 % Normal 4.0-14.0 [facility] Comment on above: Performed By: #### 2 386706, 39883260, 2814856 ####[address] [address] Neutro Absolute 6.5 E9/L Normal 2.0-7.[address] [facility] Comment on above: Performed By: #### 2 904892, 52341609, 7614401 ####[address] [address] Neutro Auto 73.5 % Normal 36.0-75.0 [facility] Comment on above: Performed By: #### 2 881640, 80995051, 1959514 ####[address] [address] Platelet 309.0 E9/L Normal 150.0-500.0 [facility] Comment on above: Performed By: #### 2 194727, 01941181, 7418062 ####[address] [address] Platelet mean volume (Bld) [Entitic vol] 8.7 fL Normal 6.4-10.8 [facility] Comment on above: Performed By: #### 2 356384, 84646080, 3222918 ####[address] [address] RBC 5.1 E12/L Normal 4.3-5.9 [facility] Comment on above: Performed By: #### 2 053644, 03966306, 9748566 ####[address] [place] [address] WBC 8.8 E9/L Normal 4.0-11.0 [facility] Comment on above: Performed By: #### 2 028207, 79773058, 9940982 ####[facility] [address] [place] [address] CHEMISTRYOrdered By: SYSTEM SYSTEM on 11-19-2023 Anion [...] Treatmenton 11-07 Consent for Treatment [id number]#1 .00TIFF Normal [facility] Consent for Treatment [id number]#1 .00TIFF Normal [facility] HEMATOLOGYOrdered By: SYSTEM SYSTEM on 11-19-2023 Basophil [...] Normal 80.0 - 100.0 fL Remisol Heme Loving Absolute 0.5 E9/L Normal 0.2 - 1.0 E9/L Remisol Heme Monocytes/100 WBC (Bld) 5.5 % Normal 4.0 - 14.0 % Remisol Heme Neutro Absolute 6.5 E9/L Normal 2.0 - 7.5 E9/L Remis ol Heme Neutro Auto 73.5 % Normal 36.0 - 75.0 % Remisol He me Platelet 309.0 E9/L Normal 150.0 - 500.0 E9/L Remisol Heme Platelet mean volume (Bld) [Entitic vol] 8.7 fL Normal 6.4 - 10.8 fL Remisol Heme RBC 5.1 E12/L Normal 4.3 - 5.9 E12/L Remisol H chely WBC 8.8 E9/L Normal 4.0 - 11.0 E9/L Remisol H chely RAD - MRI Screening Formon 0 11-19-2023 RAD - MRI Screening Form [id number]# 1.00TIFF Normal [facility] XR Chest 2 [facility] XR Chest 2 Views Exam Date/Time: 11/19/2023 [...] mGy = . DAP = . Normal [facility] eGFRon 11-19-2023 eGFR 80 mL/min/1.73 m2 Normal >=59 [facility] Comment on above: Order Comment: Order added by Discern Expert. Performed By: #### [id number] ####[facility] [address] [place] [address] Physician Orderon 11-18-2023 Physician Order [id number]# 1.00TIFF Normal [facility] Lab Reportson 11-15-2023 Lab Reports [id number]#1 .00TIFF Normal [facility] Ambulatory Visit Summaryon 0 11-14-2023 Ambulatory Visit Summary MICHELLE CHRISTAL A :1955 Visit Date:11/14/2023 Ambulatory Visit Instructions Your [...] pp_set_radiology _subspecialty, Not Required, Hermelindo...\.br\ [place] Lymphoscintigrap , 12/05/23, Routine, Transport Mode: Ambulatory, Reason: BREAST [...] for choosing us for your care.\.br\ \.br\ [facility] Consent for Procedure/Surger yon 11-14-2023 Consent for Procedure/Surgery [id number]#1 .00TIFF Normal [facility] Pathology Noteon 11-14-2023 Pathology Note [id number]#1 .00TIFF Normal [facility] Outside Mammographyon 2023 Outside Mammography [id number]#1 .00TIFF Normal [facility] Outside Mammographyon 2023 Outside Mammography [id number]#1 .00TIFF Normal [facility] Pathology Noteon 10-31-2023 Pathology Note [id number]#1 .00TIFF Normal [facility] RAD - Ultrasound Reporton RAD - Ultrasound Report [id number]. 00TIFF Normal [facility] Physician Referralon 024 Physician Referral [id number]#1. 00TIFF Normal [facility] Cytology Cervical or vaginal smear or scraping studyOrdered By: Leslie Jimenez on 06-20-2023 [facility] Alanine aminotransferase [En zymatic activity/volume] in Serum or PlasmaOrdered By: Rodney Peña on 04-16-2023 ALT [Catalytic activity/Vol] 24 U/L 7-52 [facility] Albumin [Mass/volume] in Ser um or Plasma by Bromocresol green (BCG) dye binding methoOrdered By: Rodney Peña on 04-16-2023 Albumin BCG dye [Mass/Vol] 4.4 g/dL 3.5-5.7 [facility] Alkaline phosphatase [Enzyma tic activity/volume] in Serum or PlasmaOrdered By: Rodney Peña on 04-16-2023 ALP [Catalytic activity/Vol] 86 U/L 34-104 [facility] Aspartate aminotransferase [ Enzymatic activity/volume] in Serum or PlasmaOrdered By: Rodney Peña on 04-16-2023 AST [Catalytic activity/Vol] 18 U/L 13-39 [facility] Basophils Auto (Bld) [#/Vol] Ordered By: Rodney Peña on 04-16-2023 Basophils (Bld) [#/Vol] 0.1 10*3/uL 0.0-0.2 [facility] Basophils/100 WBC Auto (Bld) Ordered By: Rodney Peña on 04-16-2023 Basophils/100 WBC (Bld) 0.6 % . [facility] Bilirubin.total [Mass/volume ] in Serum or PlasmaOrdered By: Rodney Peña on 04-16-2023 Bilirubin [Mass/Vol] 0.5 mg/dL 0.3-1.0 [facility] Calcium [Mass/volume] in Ser um or PlasmaOrdered By: Rodney Peña on 04-16-2023 Calcium [Mass/Vol] 9.5 mg/dL 8.6-10.3 [facility] Carbon dioxide, total [Moles /volume] in Serum or PlasmaOrdered By: Rodney Peña on 04-16-2023 CO2 [Moles/Vol] 23.3 mmol/L 21.0-31.0 [facility] Chloride [Moles/volume] in S sophia or PlasmaOrdered By: Rodney Peña on 04-16-2023 Chloride [Moles/Vol] 105 mmol/L 98-107 [facility] Creatinine [Mass/volume] in Serum or PlasmaOrdered By: Rodney Peña on 04-16-2023 Creatinine [Mass/Vol] 0.63 mg/dL 0.60-1.20 [facility] Eosinophils Auto (Bld) [#/Vo l]Ordered By: Rodney Peña on 04-16-2023 Eosinophils (Bld) [#/Vol] 0.1 10*3/uL 0.0-0.45 [facility] Eosinophils/100 WBC Auto (Bl d)Ordered By: Rodney Peña on 04-16-2023 Eosinophils/100 WBC (Bld) 0.7 % . [facility] Erythrocyte distribution wid th Auto (RBC) [Ratio]Ordered By: Rodney Peña on 04-16-2023 Erythrocyte distribution width (RBC) [Ratio] 12.9 % 11.9-15.3 [facility] Globulin Calc (S) [Mass/Vol] Ordered By: Rodney Peña on 04-16-2023 Globulin (S) [Mass/Vol] 3.0 g/dL [facility] Glucose [Mass/volume] in Ser um or PlasmaOrdered By: Rodney Peña on 04-16-2023 Glucose [Mass/Vol] 124 mg/dL 70-100 [facility] Comment on above: ADA recommended refe rence range Glucose mean value [Mass/vol ume] in Blood Estimated from glycated hemoglobinOrdered By: Rodney Peña on 04-16-2023 Average glucose Estimated from glycated hemoglobin (Bld) [Mass/Vol] 151 mg/dL [facility] Hematocrit Auto (Bld) [Volum e fraction]Ordered By: Rodney Peña on 04-16-2023 Hematocrit (Bld) [Volume fraction] 44.4 % 34.0-46.4 [facility] Hemoglobin [Mass/volume] in BloodOrdered By: Rodney Peña on 04-16-2023 Hemoglobin (Bld) [Mass/Vol] 14.8 g/dL 11.8-15.4 [facility] Laboratory - Hematology and Cell countsOrdered By: Rodney Peña on 04-16-2023 HbA1c (Bld) [Mass fraction] 6.9 % 4.3-5.6 [facility] Comment on above: Increased risk for d iabetes: 5.7 - 6.4diabetes: >6.4glycemic control for adults with diabetes: <7.0 Leukocytes [#/volume] correc eulalia for nucleated erythrocytes in Blood by Automated counOrdered By: Rodney Peña on 04-16-2023 WBC corrected for nucl RBC Auto (Bld) [#/Vol] 9.1 10*3/uL 3.8-11.6 [facility] Lymphocytes Auto (Bld) [#/Vo l]Ordered By: Rodney Peña on 04-16-2023 Lymphocytes (Bld) [#/Vol] 1.7 10*3/uL 1.00-4.8 [facility] Lymphocytes/100 WBC Auto (Bl d)Ordered By: Rodney Pñea on 04-16-2023 Lymphocytes/100 WBC (Bld) 18.2 % . [facility] MCH Auto (RBC) [Entitic mass ]Ordered By: Rodney Peña on 04-16-2023 MCH (RBC) [Entitic mass] 29.5 pg 24.7-34.3 [facility] MCHC Auto (RBC) [Mass/Vol]Or dered By: Rodney Peña on 04-16-2023 MCHC (RBC) [Mass/Vol] 33.3 g/dL 32.0-35.0 [facility] MCV Auto (RBC) [Entitic vol] Ordered By: Rodney Peña on 04-16-2023 MCV (RBC) [Entitic vol] 88.6 fL 80-100 [facility] Monocytes Auto (Bld) [#/Vol] Ordered By: Rodney Peña on 04-16-2023 Monocytes (Bld) [#/Vol] 0.4 10*3/uL 0.0-0.8 [facility] Monocytes/100 WBC Auto (Bld) Ordered By: Rodney Peña on 04-16-2023 Monocytes/100 WBC (Bld) 4.1 % . [facility] Neutrophils Auto (Bld) [#/Vo l]Ordered By: Rodney Peña on 04-16-2023 Neutrophils (Bld) [#/Vol] 6.9 10*3/uL 1.8-7.7 [facility] Neutrophils/100 WBC Auto (Bl d)Ordered By: Rodney Peña on 04-16-2023 Neutrophils/100 WBC (Bld) 76.4 % . [facility] No Panel InformationOrdered By: Rodney Peña on 04-16-2023 Estimated GFR (CKD-EPI) > 60.0 mL/Min [facility] Creatinine Clearance (Chem N/A [facility] Nucleated erythrocytes [Pres ence] in Blood by Automated countOrdered By: Rodney Peña on 04-16-2023 Nucleated RBC Auto Ql (Bld) 0.0 /100{WBC} 0-0.5 [facility] Platelet mean volume Auto (B ld) [Entitic vol]Ordered By: Rodney Peña on 04-16-2023 Platelet mean volume (Bld) [Entitic vol] 8.0 fL 6.3-10.7 [facility] Platelets Auto (Bld) [#/Vol] Ordered By: Rodney Peña on 04-16-2023 Platelets (Bld) [#/Vol] 338 10*3/uL 150-450 [facility] Potassium [Moles/volume] in Serum or PlasmaOrdered By: Rodney Peña on 04-16-2023 Potassium [Moles/Vol] 4.0 mmol/L 3.5-5.1 [facility] Protein [Mass/volume] in Ser um or PlasmaOrdered By: Rodney Peña on 04-16-2023 Protein [Mass/Vol] 7.4 g/dL 6.4-8.9 [facility] RBC Auto (Bld) [#/Vol]Ordere d By: Rodney Peña on 04-16-2023 RBC (Bld) [#/Vol] 5.00 10*6/uL 3.60-5.00 [facility] Serum or plasma albumin/glob ulin mass ratioOrdered By: Rodney Peña on 04-16-2023 Albumin/Globulin [Mass ratio] 1.5 {ratio} [facility] Serum or plasma anion gap de terminationOrdered By: Rodney Peña on 04-16-2023 Anion gap [Moles/Vol] 14.7 mmol/L 6.0-15.0 [facility] Sodium [Moles/volume] in Ser um or PlasmaOrdered By: Rodney Peña on 04-16-2023 Sodium [Moles/Vol] 139 mmol/L 136-145 [facility] Urea nitrogen [Mass/volume] in Serum or PlasmaOrdered By: Rodney Peña on 04-16-2023 Urea nitrogen [Mass/Vol] 13 mg/dL 7-25 [facility] WBC Auto (Bld) [#/Vol]Ordere d By: Rodney Peña on 04-16-2023 WBC (Bld) [#/Vol] 9.1 10*3/uL 3.8-11.6 [facility] AMYLASEon 08-29-2022 Amylase [Catalytic activity/Vol] 70 U/L Normal 25-115 [facility] Comment on above: Performed By: #### C MP, TEENA, LIPA #### [facility] [address] [place] [address] Dr. Joe Vargas CBC AUTO DIFFon 08-29-2022 BASO # 0.1 103/ul Normal 0.0-0.1 [facility] Comment on above: Performed By: #### C BC #### [facility] [address] [address] [address] Joe Vargas Basophils/100 WBC (Bld) 0.7 % Normal 0.2-2.0 [facility] Comment on above: Performed By: #### C BC #### [facility] [address] [address] [address] Joe Vargas EO # 0.1 103/ul Normal 0.0-0.7 [facility] Comment on above: Performed By: #### C BC #### [facility] [address] [place] [address] Dr. Joe Vargas Eosinophils/100 WBC (Bld) 0.9 % Normal 0.9-7.0 [facility] Comment on above: Performed By: #### C BC #### [facility] [address] [place] [address] Dr. Joe Vargas Erythrocyte distribution width (RBC) [Ratio] 12.6 % Normal 11.0-15.0 [facility] Comment on above: Performed By: #### C BC #### [facility] [address] [place] [address] Dr. Joe Vargas Hematocrit (Bld) [Volume fraction] 45.5 % Normal 36.0-48.0 [facility] Comment on above: Performed By: #### C BC #### [facility] [address] [place] [address] Dr. Joe Vargas Hemoglobin (Bld) [Mass/Vol] 15.4 g/dL Normal 12.0-16.0 [facility] Comment on above: Performed By: #### C BC #### [facility] [address] [place] [address] Dr. Joe Vargas IG # 0.04 10e3/ul Critically high 0.00-0.03 [facility] Comment on above: Performed By: #### C BC #### [facility] [address] [place] [address] Dr. Joe Vargas IG % 0.4 % Normal 0.0-0.5 [facility] Comment on above: Performed By: #### C BC #### [facility] [address] [place] [address] Dr. Joe Vargas LYMPH # 1.9 103/ul Normal 1.2-3.8 [facility] Comment on above: Performed By: #### C BC #### [facility] [address] [place] [address] Dr. Joe Vargas Lymphocytes/100 WBC (Bld) 20.5 % Normal 20.5-60.0 [facility] Comment on above: Performed By: #### C BC #### [facility] [address] [place] [address] Dr. Joe Vargas MANUAL DIFF REQ NO Normal [facility] Comment on above: Performed By: #### C BC #### [facility] [address] [place] [address] Dr. Joe Vargas MCH (RBC) [Entitic mass] 30.1 pg Normal 26.7-34.0 [facility] Comment on above: Performed By: #### C BC #### [facility] [address] [place] [address] Dr. Joe Vargas MCHC (RBC) [Mass/Vol] 33.8 g/dL Normal 29.9-35.2 [facility] Comment on above: Performed By: #### C BC #### [facility] [address] [place] [address] Dr. Joe Vargas MCV (RBC) [Entitic vol] 88.9 fL Normal 81.0-99.0 [facility] Comment on above: Performed By: #### C BC #### [facility] [address] [place] [address] Dr. Joe Vargas MONO # 0.6 103/ul Normal 0.3-0.8 [facility] Comment on above: Performed By: #### C BC #### [facility] [address] [place] [address] Dr. Joe Vargas Monocytes/100 WBC (Bld) 6.2 % Normal 1.7-12.0 [facility] Comment on above: Performed By: #### C BC #### [facility] [address] [place] [address] Dr. Joe Vargas NEUT # 6.7 103/ul Critically high 1.4-6.5 [facility] Comment on above: Performed By: #### C BC #### [facility] [address] [place] [address] Dr. Joe Vargas Neutrophils/100 WBC (Bld) 71.3 % Normal 43.0-75.[address] [facility] Comment on above: Performed By: #### C BC #### [facility] [address] [address] [address] Joe Vargas Platelet mean volume (Bld) [Entitic vol] 11.1 fL Normal 9.5-13.5 [facility] Comment on above: Performed By: #### C BC #### [facility] [address] [address] [address] Joe Vargas PLT 277 103/ul Normal 150-450 [facility] Comment on above: Performed By: #### C BC #### [facility] [address] [address] [address] Joe Vargas RBC 5.12 106/ul Normal 4.20-5.40 [facility] Comment on above: Performed By: #### C BC #### [facility] [address] [place] [address] Dr. Joe Vargas WBC 9.4 103/ul Normal 4.0-11.0 [facility] Comment on above: Performed By: #### C BC #### [facility] [address] [place] [address] ABD/PELV W CONon 08-29-20 CT ABD/PELV [...] SAVANNAH RIVAS Date: 2022-08-29 09:33 Normal [facility] ER URINE PROFILEon 2 Bilirubin Ql (U) Negative Normal NEGATIVE [facility] Comment on above: Performed By: #### E RUR #### [facility] [address] [place] [address] Dr. Joe Vargas Clarity (U) CLEAR Normal CLEAR [facility] Comment on above: Performed By: #### E RUR #### [facility] [address] [place] [address] Dr. Joe Vargas Color (U) LT. YELLOW Normal YELLOW [facility] Comment on above: Performed By: #### E RUR #### [facility] [address] [place] [address] Dr. Joe Vargas ERUAHJacinto A micrscopic examination will be performed if indicated. Normal [facility] Comment on above: Performed By: #### E RUR #### [facility] [address] [place] [address] Dr. Joe Vargas Glucose Ql (U) Negative Normal NEGATIVE [facility] Comment on above: Performed By: #### E RUR #### [facility] [address] [place] [address] Dr. Joe Vargas Hemoglobin Ql (U) Negative Normal NEGATIVE [facility] Comment on above: Performed By: #### E RUR #### [facility] [address] [place] [address] Dr. Joe Vargas Ketones Ql (U) Negative Normal NEGATIVE [facility] Comment on above: Performed By: #### E RUR #### [facility] [address] [place] [address] Dr. Joe Vargas LEUKOCYTES Negative Normal NEGATIVE [facility] Comment on above: Performed By: #### E RUR #### [facility] [address] [place] [address] Dr. Joe Vargas Nitrite Ql (U) Negative Normal NEGATIVE [facility] Comment on above: Performed By: #### E RUR #### [facility] [address] [place] [address] Dr. Joe Vargas pH (U) 6.0 [pH] Normal 5-[address] [facility] Comment on above: Performed By: #### E RUR #### [facility] [address] [place] [address] Dr. Joe Vargas SPEC GRAVITY <=1.005 Abnormal 1.005-<=1.025 [facility] Comment on above: Performed By: #### E RUR #### [facility] [address] [place] [address] Dr. Joe Vargas UA PROTEIN Negative Normal NEGATIVE/ TRACE [facility] Comment on above: Performed By: #### E RUR #### [facility] [address] [place] [address] Dr. Joe Vargas UR MICRO IND NOT INDICATED Normal [facility] Comment on above: Performed By: #### E RUR #### [facility] [address] [place] [address] Dr. Joe Vargas Urobilinogen Qn (U) 0.2 {Flora'U}/dL Normal 0.2 - 1. 0 [facility] Comment on above: Performed By: #### E RUR #### [facility] [address] [place] [address] Dr. Joe Vargas LIPASEon 08-29-2022 Lipase [Catalytic activity/Vol] 243.0 U/L Normal 73.0-393.0 [facility] Comment on above: Performed By: #### C MP, TEENA, LIPA #### [facility] [address] [address] [address] Joe Vargas PROF 14(COMP METB)on 022 Albumin [Mass/Vol] 4.0 g/dL Normal 3.4-5.0 [facility] Comment on above: Performed By: #### C MP, TEENA, LIPA #### [facility] [address] [address] [address] Joe Vargas Albumin/Globulin [Mass ratio] 1.0 {ratio} Normal [facility] Comment on above: Performed By: #### C MP, TEENA, LIPA #### [facility] [address] [place] [address] Dr. Joe Vargas ALP [Catalytic activity/Vol] 92 U/L Normal 46-116 [facility] Comment on above: Performed By: #### C MP, TEENA, LIPA #### [facility] [address] [address] [address] Joe Vargas ALT [Catalytic activity/Vol] 43 U/L Normal 14-59 [facility] Comment on above: Performed By: #### C MP, TEENA, LIPA #### [facility] [address] [address] [address] Joe Vargas Anion gap [Moles/Vol] 10.4 mmol/L Normal [facility] Comment on above: Performed By: #### C MP, TEENA, LIPA #### [facility] [address] [address] [address] Joe Vargas AST [Catalytic activity/Vol] 18 U/L Normal 15-37 [facility] Comment on above: Performed By: #### C MP, TEENA, LIPA #### [facility] [address] [address] [address] Joe Vargas Bilirubin [Mass/Vol] 0.4 mg/dL Normal 0.2-1.0 [facility] Comment on above: Performed By: #### C MP, TEENA, LIPA #### [facility] [address] [address] [address] Joe Vargas Calcium [Mass/Vol] 9.2 mg/dL Normal 8.5-10.1 [facility] Comment on above: Performed By: #### C MP, TEENA, LIPA #### [facility] [address] [place] [address] Dr. Joe Vargas Chloride [Moles/Vol] 104 mmol/L Normal 98-107 [facility] Comment on above: Performed By: #### C MP TEENA, LIPA #### [facility] [address] [place] [address] Dr. Joe Vargas CO2 [Moles/Vol] 28.5 mmol/L Normal 21.0-32.0 [facility] Comment on above: Performed By: #### C MP TEENA, LIPA #### [facility] [address] [place] [address] Dr. Joe Vargas Creatinine [Mass/Vol] 0.65 mg/dL Normal 0.55-1.02 [facility] Comment on above: Performed By: #### C TOMEKA TEENA, LIPA #### [facility] [address] [place] [address] Dr. Joe Vargas EGFR-AF CYMRAES >60 Normal >=60 [facility] Comment on above: Performed By: #### C MP TEENA, LIPA #### [facility] [address] [place] [address] Dr. Joe Vargas EGFR-NON AF CYMRAES >60 Normal >=60 [facility] Comment on above: Performed By: #### C MP, TEENA, LIPA #### [facility] [address] [place] [address] Dr. Joe Vargas Globulin (S) [Mass/Vol] 4.0 g/dL Normal [facility] Comment on above: Performed By: #### C MP, TEENA, LIPA #### [facility] [address] [place] [address] Dr. Joe Vargas Glucose [Mass/Vol] 129 mg/dL Critically high 74-106 [facility] Comment on above: Performed By: #### C TEENA ECKERT LIPA #### [facility] [address] [place] [address] Dr. Joe Vargas Potassium [Moles/Vol] 4.5 mmol/L Normal 3.5-5.1 [facility] Comment on above: Performed By: #### C TEENA ECKERT LIPA #### [facility] [address] [place] [address] Dr. Joe Vargas Protein [Mass/Vol] 8.0 g/dL Normal 6.4-8.2 [facility] Comment on above: Performed By: #### C TEENA ECKERT LIPA #### [facility] [address] [place] [address] Dr. Joe Vargas Sodium [Moles/Vol] 141 mmol/L Normal 136-145 [facility] Comment on above: Performed By: #### C TEENA ECKERT LIPA #### [facility] [address] [place] [address] Dr. Joe Vargas Urea nitrogen [Mass/Vol] 17.0 mg/dL Normal 7.0-18.0 [facility] Comment on above: Performed By: #### C TEENA ECKERT LIPA #### [facility] [address] [place] [address] Dr. Joe Vargas Urea nitrogen/Creatinine [Mass ratio] 26.1 mg/mg Normal [facility] Comment on above: Performed By: #### C TEENA ECKERT LIPA #### [facility] [address] [place] [address] Dr. Joe Vargas US PELVIS AND TRANSVAGon [...] by: EDGAR KEYES Date: 2022-07-26 17:19 Normal [facility] PAP ACOG PANEL 2: 30 to 65on 06-25-2022 . . Normal [facility] Comment on above: Performed By: #### [id number] #### [facility] [address] [place] [address] Dr. Joe Vargas Age Gdln ACOG Testing Comment [facility] Comment on above: Result Comment: <21 or >65 or no age provided Performed By: #### [id number] #### [facility] [address] [place] [address] Dr. Joe Vargas DIAGNOSIS: Comment [facility] Comment on above: Result Comment: NEGA TIVE FOR INTRAEPITHELIAL LESION OR MALIGNANCY. Performed By: #### [id number] #### [facility] [address] [place] [address] Dr. Joe Vargas Methodology: Comment [facility] Comment on above: Result Comment: This liquid based ThinPrep(R) pap test was screened with the use of an image guided system. Performed By: #### [id number] #### [facility] [address] [place] [address] Dr. Joe Vargas Note: Comment [facility] Comment on above: Result Comment: The Pap smear is a screening test designed to aid in the detection of premalignant and malignant conditions of the uterine cervix. It is not a diagnostic procedure and should not be used as the sole means of detecting cervical cancer. Both false-positive and false-negative reports do occur. . Performed By: #### [id number] #### [facility] [address] [place] [address] Dr. Joe Vargas Performed by: Comment Normal [facility] Comment on above: Result Comment: Farrah Glover, Software Engineering Supervisor (ASCP) Performed By: #### [id number] #### [facility] [address] [place], [place] [address] Dr. Joe Vargas Specimen adequacy: Comment Normal [facility] Comment on above: Result Comment: Sati sfactory for evaluation. Endocervical and/or squamous metaplastic cells (endocervical component) are present. Performed By: #### [id number] #### [facility] [address] [place], [place] [address] Dr. Joe Vargas Q - CULTURE,URINE,ROUTINEon 11-23-2021 CULTURE, URINE, ROUTINE SEE NOTE Abnormal [facility] Developer Comment on above: Order Comment: [facility] Testing performed at: [employer], [address] [place] [address], [address] [place] [address], [id number], Pilot: Herve Sahni MD [facility] Collection Date/Time: [facility] Results Received Date/Time: [facility] Reported Date/Time: FASTING: NO Result Comment: CULT URE, URINE, ROUTINE Micro Number: [id number] Test Status: Final Specimen Source: Urine Specimen [...] organism has been confirmed as an [employer] producer. Performed By: #### [id number] #### [facility] [address] [place] [id number] Comprehensive Metabolic Pane [facility] 09-20-2021 Albumin [Mass/Vol] 4.6 g/dL Normal 3.6-5.1 [facility] Comment on above: Performed By: #### L IPD, CMP, LDLD #### [facility] [address] [place], [place] [id number] Albumin/Globulin [Mass ratio] 1.8 {ratio} Normal 1.0-2.5 [facility] Comment on above: Performed By: #### L IPD, CMP, LDLD #### [facility] [address] [place], [place] [id number] ALP [Catalytic activity/Vol] 99 U/L Normal 35-119 [facility] Specialist Comment on above: Performed By: #### L IPD, CMP, LDLD #### [facility] [address] [place], [place] [id number] ALT [Catalytic activity/Vol] 61 U/L High 6-33 [facility] Comment on above: Result Comment: 09/06 Female reference range changed. Performed By: #### L IPD, CMP, LDLD #### [facility] [address] [place], [place] [id number] Anion gap [Moles/Vol] 19 mmol/L Normal 12-20 [facility] Comment on above: Result Comment: Effe ctive 10/12/2019 reference range changed. Performed By: #### L IPD, CMP, LDLD #### [facility] [address] [place], [place] [id number] AST [Catalytic activity/Vol] 33 U/L Normal 9-34 [facility] Specialist Comment on above: Performed By: #### L IPD, CMP, LDLD #### [facility] [address] [place], [place] [id number] Bilirubin [Mass/Vol] 0.36 mg/dL Normal 0.30-1.20 [facility] Comment on above: Performed By: #### L IPD, CMP, LDLD #### [facility] [address] [place], [place] [id number] BUN/CREA 26 Ratio High 6-22 [facility] Comment on above: Performed By: #### L IPD, CMP, LDLD #### [facility] [address] [place], [place] [id number] Calcium [Mass/Vol] 9.7 mg/dL Normal 8.6-10.2 [facility] Specialist Comment on above: Performed By: #### L IPD, CMP, LDLD #### [facility] [address] [place], [place] [id number] Chloride [Moles/Vol] 101 mmol/L Normal 98-107 [facility] Comment on above: Performed By: #### L IPD, CMP, LDLD #### [facility] [address] [place], [place] [id number] CO2 [Moles/Vol] 24 mmol/L Normal 20-31 [facility] Comment on above: Performed By: #### L IPD, CMP, LDLD #### [facility] [address] [place], [place] [id number] Creatinine [Mass/Vol] 0.6 mg/dL Normal 0.6-1.4 [facility] Comment on above: Performed By: #### L IPD, CMP, LDLD #### [facility] [address] [place], [place] [id number] eGFRAA 117 mL/min/1.73m2 Normal >60 [facility] Specialist Comment on above: Performed By: #### L IPD, CMP, LDLD #### [facility] [address] [place], [place] [id number] eGFRNAA 97 mL/min/1.73m2 Normal >60 [facility] Specialist Comment on above: Performed By: #### L IPD, CMP, LDLD #### [facility] [address] [place], [place] [id number] Globulin (S) [Mass/Vol] 2.5 g/dL Normal 1.9-3.7 [facility] Developer Comment on above: Performed By: #### L IPD, CMP, LDLD #### [facility] [address] [facility] [place] [place] [id number] Glucose [Mass/Vol] 128 mg/dL High 65-99 [facility] Specialist Comment on above: Result Comment: For FASTING Glucose --- ADA reference ranges: Normal 65-99 mg/dl Prediabetes 100-125 Diabetes >/= 126 Performed By: #### L IPD, CMP, LDLD #### [facility] [address] [place], [place] [id number] Potassium [Moles/Vol] 4.3 mmol/L Normal 3.5-5.5 [facility] Comment on above: Performed By: #### L IPD, CMP, LDLD #### [facility] [address] [place], [place] [id number] Protein [Mass/Vol] 7.1 g/dL Normal 6.1-8.1 [facility] Specialist Comment on above: Performed By: #### L IPD, CMP, LDLD #### [facility] [address] [place], [place] [id number] Sodium [Moles/Vol] 140 mmol/L Normal 135-146 [facility] Hl7 Developer Comment on above: Performed By: #### L IPD, CMP, LDLD #### [facility] [address] [place], [place] [id number] Urea nitrogen [Mass/Vol] 16 mg/dL Normal 7-25 [facility] Specialist Comment on above: Performed By: #### L IPD, CMP, LDLD #### [facility] [address] [facility] [place] [id number] LDL-Directon 09-20-2021 Cholesterol in LDL [Mass/Vol] 166 mg/dL Normal [facility] Specialist Comment on above: Result Comment: LDL ATP III CLASSIFICATION LDL less than 100 mg/dl Optimal LDL 100-129 mg/dl Near or above optimal LDL 130-159 Borderline high LDL 160-189 High LDL greater than 189 mg/dl Very High Performed By: #### L IPD, CMP, LDLD #### [facility] [address] [place], [place] [id number] Lipid Panelon 09-20-2021 Cholesterol [Mass/Vol] 292 mg/dL High 125-200 [facility] Developer Comment on above: Result Comment: Low risk < 200mg/dL Borderline risk 201-239 mg/dl High risk > or equal to 240 Performed By: #### L IPD, CMP, LDLD #### [facility] [address] [place], [place] [id number] Cholesterol in HDL [Mass/Vol] 46 mg/dL Normal >40 [facility] Developer Comment on above: Result Comment: High Cardiovascular Risk HDL <40 mg/dL Low Cardiovascular Risk HDL > or equal to 60 mg/dl Performed By: #### L IPD, CMP, LDLD #### [facility] [address] [place], [place] [id number] Cholesterol in VLDL [Mass/Vol] 88 mg/dL Normal [facility] Developer Comment on above: Performed By: #### L IPD, CMP, LDLD #### [facility] [address] [place], [place] [id number] Cholesterol.total/Cho lesterol in HDL [Mass ratio] 6 {ratio} Normal [facility] Specialist Comment on above: Performed By: #### L IPD, CMP, LDLD #### [facility] [address] [place], [place] [id number] LDLD REFLEX LDL-DIRECT Normal [facility] Specialist Comment on above: Performed By: #### L IPD, CMP, LDLD #### [facility] [address] [place], [place] [id number] Triglyceride [Mass/Vol] 441 mg/dL High 30-150 [facility] Developer Comment on above: Result Comment: TRIG ATPIII CLASSIFICATIONS TRIG less than 150 mg/dl Normal TRIG 150-199 mg/dl Borderline High TRIG 200-500 mg/dl High TRIG greather than 500 mg/dl Very High Performed By: #### L IPD, CMP, LDLD #### [facility] [address] [place], [place] [id number] Vital Signs Date Time Vital Sign Value Performing Clinician Facility 06-28-2025 08:39-0400 Body mass index (BMI) [Ratio] 29.18 kg/m2 Crow Uriah DO Work Phone: [facility] 06-28-2025 08:39-0400 Body weight 77.11 kg Crow Uriah DO Work Phone: [facility] 06-28-2025 08:39-0400 Diastolic blood pressure 78 mm[Hg] Crow Uriah DO Work Phone: [facility] 06-28-2025 08:39-0400 Systolic blood pressure 122 mm[Hg] Crow Uriah DO Work Phone: [facility] 03-29-2025 08:23-0400 Body height 162.6 cm Quinton Dan MD Work Phone: [facility] 03-29-2025 08:23-0400 Body mass index (BMI) [Ratio] 29.18 kg/m2 Quinton Dan MD Work Phone: [facility] 03-29-2025 08:23-0400 Body weight 77.11 kg Quinton Dan MD Work Phone: [facility] 03-29-2025 08:23-0400 Diastolic blood pressure 70 mm[Hg] Quinton Dan MD Work Phone: [facility] 03-29-2025 08:23-0400 Heart rate 78 /min Quinton Dan MD Work Phone: [facility] 03-29-2025 08:23-0400 SaO2% (BldA) [Mass fraction] 98 % Quinton Dan MD Work Phone: [facility] 03-29-2025 08:23-0400 Systolic blood pressure 122 mm[Hg] Quinton Dan MD Work Phone: [facility] 02-22-2025 08:15-0400 Body height 162.6 cm Quinton Dan MD Work Phone: [facility] 02-22-2025 08:15-0400 Body mass index (BMI) [Ratio] 29.35 kg/m2 Quinton Dan MD Work Phone: [facility] 02-22-2025 08:15-0400 Body weight 77.56 kg Quinton Dan MD Work Phone: [facility] 02-22-2025 08:15-0400 Diastolic blood pressure 80 mm[Hg] Quinton Dan MD Work Phone: [facility] 02-22-2025 08:15-0400 Heart rate 82 /min Quinton Dan MD Work Phone: [facility] 02-22-2025 08:15-0400 SaO2% (BldA) [Mass fraction] 97 % Quinton Dan MD Work Phone: [facility] 02-22-2025 08:15-0400 Systolic blood pressure 128 mm[Hg] Quinton Dan MD Work Phone: [facility] 01-26-2025 11:45-0400 Body height 162.6 cm Quinton Dan MD Work Phone: [facility] 01-26-2025 11:45-0400 Body mass index (BMI) [Ratio] 28.67 kg/m2 Quinton Dan MD Work Phone: [facility] 01-26-2025 11:45-0400 Body weight 75.75 kg Quinton Dan MD Work Phone: [facility] 11-24-2024 11:00-0500 Body height 162.6 cm Quinton Dan MD Work Phone: [facility] 11-24-2024 11:00-0500 Body mass index (BMI) [Ratio] 28.67 kg/m2 Quinton Dan MD Work Phone: [facility] 11-24-2024 11:00-0500 Body weight 75.75 kg Quinton Dan MD Work Phone: [facility] 09-28-2024 09:00-0500 Body height 162.6 cm Quinton Dan MD Work Phone: [facility] 09-28-2024 09:00-0500 Body mass index (BMI) [Ratio] 28.67 kg/m2 Quinton Dan MD Work Phone: [facility] 09-28-2024 09:00-0500 Body weight 75.75 kg Quinton Dan MD Work Phone: [facility] 09-28-2024 09:00-0500 Diastolic blood pressure 72 mm[Hg] Quinton Dan MD Work Phone: [facility] 09-28-2024 09:00-0500 Heart rate 82 /min Quinton Dan MD Work Phone: [facility] 09-28-2024 09:00-0500 SaO2% (BldA) [Mass fraction] 98 % Quinton Dan MD Work Phone: [facility] 09-28-2024 09:00-0500 Systolic blood pressure 122 mm[Hg] Quinton Dan MD Work Phone: [facility] 08-14-2024 14:18-0500 Body mass index (BMI) [Ratio] 27.46 kg/m2 Quintinyoli Harrington REPULPING SUPERVISOR Work Phone: [facility] 08-14-2024 14:18-0500 Body temperature 98.01 [degF] Quintinyoli Zepedaok REPULPING SUPERVISOR Work Phone: [facility] 08-14-2024 14:18-0500 Body weight 72.58 kg Quintinyoli Zepedaok REPULPING SUPERVISOR Work Phone: [facility] 08-14-2024 14:18-0500 Diastolic blood pressure 70 mm[Hg] Quintin [place] REPULPING SUPERVISOR Work Phone: [facility] 08-14-2024 14:18-0500 Heart rate 66 /min Qiuntin Ginny REPULPING SUPERVISOR Work Phone: [facility] 08-14-2024 14:18-0500 SaO2% (BldA) [Mass fraction] 98 % Quintinyoli Zepedaok REPULPING SUPERVISOR Work Phone: [facility] 08-14-2024 14:18-0500 Systolic blood pressure 120 mm[Hg] Quintin Ginny REPULPING SUPERVISOR Work Phone: [facility] 07-30-2024 09:52-0400 Body height 162.6 cm Quinton Dan MD Work Phone: [facility] 07-30-2024 09:52-0400 Body mass index (BMI) [Ratio] 27.46 kg/m2 Quinton Dan MD Work Phone: [facility] 07-30-2024 09:52-0400 Body weight 72.58 kg Quinton Dan MD Work Phone: [facility] 06-25-2024 08:37-0400 Body mass index (BMI) [Ratio] 27.11 kg/m2 Crow Uriah DO Work Phone: [facility] 06-25-2024 08:37-0400 Body weight 72.76 kg Crow Uriah DO Work Phone: [facility] 06-25-2024 08:37-0400 Diastolic blood pressure 72 mm[Hg] Crow Uriah DO Work Phone: [facility] 06-25-2024 08:37-0400 Systolic blood pressure 120 mm[Hg] Crow Uriah DO Work Phone: [facility] 02-27-2024 10:42-0400 Body weight 75.29 kg MD Quinton Dan Work Phone: [facility] 02-27-2024 10:42-0400 Diastolic blood pressure 89 mm[Hg] MD Quinton Dan Work Phone: [facility] 02-27-2024 10:42-0400 Heart rate 77 /min MD Quinton Dan Work Phone: [facility] 02-27-2024 10:42-0400 Respiratory rate 18 /min MD Quinton Dan Work Phone: [facility] 02-27-2024 10:42-0400 SaO2% (BldA) [Mass fraction] 97 % MD Quinton Dan Work Phone: [facility] 02-27-2024 10:42-0400 Systolic blood pressure 145 mm[Hg] MD Quinton Dan Work Phone: [facility] 12-26-2023 13:03-0400 Body height 162.56 cm MD Quinton Dan Work Phone: [facility] 12-26-2023 13:03-0400 Body mass index (BMI) [Ratio] 27.8 kg/m2 MD Quinton Dan Work Phone: [facility] 12-26-2023 13:03-0400 Body weight 73.48 kg MD Quinton Dan Work Phone: [facility] 12-26-2023 13:03-0400 Diastolic blood pressure 62 mm[Hg] MD Quinton Dan Work Phone: [facility] 12-26-2023 13:03-0400 Heart rate 87 /min MD Quinton Dan Work Phone: [facility] 12-26-2023 13:03-0400 Respiratory rate 16 /min MD Quinton Dan Work Phone: [facility] 12-26-2023 13:03-0400 SaO2% (BldA) [Mass fraction] 99 % MD Quinton Dan Work Phone: [facility] 12-26-2023 13:03-0400 Systolic blood pressure 148 mm[Hg] MD Quinton Dan Work Phone: [facility] 12-05-2023 17:13-0500 Heart rate 73 /min Adrian JIMENE[facility] 12-05-2023 17:13-0500 SaO2% (BldA) [Mass fraction] 96 % Adrian JIMENEZ [facility] 12-05-2023 17:13-0500 Respiratory rate 18 /min Adrian NILL [facility] 12-05-2023 17:12-0500 Diastolic blood pressure 86 mm[Hg] Adrian NILL [facility] 12-05-2023 17:12-0500 Mean blood pressure 101 mm[Hg] Adrian NILL [facility] 12-05-2023 17:12-0500 Systolic blood pressure 132 mm[Hg] Adrian NILL [facility] 12-05-2023 14:37-0500 Heart rate 88 /min Adrian NILL [facility] 12-05-2023 14:37-0500 SaO2% (BldA) [Mass fraction] 98 % Adrian NILL [facility] 12-05-2023 14:35-0500 Respiratory rate 16 /min Adrian NILL [facility] 12-05-2023 14:34-0500 Diastolic blood pressure 76 mm[Hg] Adrian NILL [facility] 12-05-2023 14:34-0500 Mean blood pressure 91 mm[Hg] Adrian NILL [facility] 12-05-2023 14:34-0500 Systolic blood pressure 119 mm[Hg] Adrian NILL [facility] 12-05-2023 14:25-0500 Blood Pressure Location Adrian NILL [facility] 12-05-2023 14:25-0500 Body temperature 97.16 [degF] Adrian N[facility] 12-05-2023 14:25-0500 Mean blood pressure 87 mm[Hg] Adrian NILL [facility] 12-05-2023 14:25-0500 Respiratory rate 10 /min Adrian NILL [facility] 12-05-2023 14:10-0500 Blood Pressure Location Adrian NILL [facility] 12-05-2023 14:10-0500 Mean blood pressure 82 mm[Hg] Adrian NILL [facility] 12-05-2023 14:10-0500 Respiratory rate 12 /min Adrian N[facility] 12-05-2023 14:00-0500 Mean blood pressure 79 mm[Hg] Adrian NILL [facility] 12-05-2023 13:14-0500 Body temperature 97.52 [degF] Adrian NILL [facility] 12-05-2023 07:09-0500 Body temperature 97.7 [degF] Adrian NILL [facility] 11-20-2023 08:27-0500 Body height 163.8 cm Quinton Dan MD Work Phone: [facility] 11-20-2023 08:27-0500 Body mass index (BMI) [Ratio] 27.04 kg/m2 Quinton Dan MD Work Phone: [facility] 11-20-2023 08:27-0500 Body weight 72.58 kg Quinton Dan MD Work Phone: [facility] 11-19-2023 10:05-0500 Diastolic blood pressure 81 mm[Hg] Adrian NILL [facility] 11-19-2023 10:05-0500 Heart rate 90 /min Adrian NILL [facility] 11-19-2023 10:05-0500 Mean blood pressure 97 mm[Hg] Adrian NILL [facility] 11-19-2023 10:05-0500 Systolic blood pressure 128 mm[Hg] Adrian NILL [facility] 11-19-2023 10:05-0500 Heart rate 88 /min Adrian NILL [facility] 11-19-2023 10:05-0500 SaO2% (BldA) [Mass fraction] 96 % Adrian NILL [facility] 11-19-2023 10:04-0500 Diastolic blood pressure 76 mm[Hg] Adrian NILL [facility] 11-19-2023 10:04-0500 Mean blood pressure 90 mm[Hg] Adrian NILL [facility] 11-19-2023 10:04-0500 Systolic blood pressure 119 mm[Hg] Adrian NILL [facility] 11-19-2023 10:04-0500 Respiratory rate 18 /min Adrian NILL [facility] 11-14-2023 09:37-0500 Blood Pressure Location Adrian NILL [facility] [place] 11-14-2023 09:37-0500 Diastolic blood pressure 85 mm[Hg] Adrian NILL [facility] [place] 11-14-2023 09:37-0500 Heart rate 91 /min Adrian NILL [facility] [place] 11-14-2023 09:37-0500 Respiratory rate 16 /min Adrian NILL [facility] [place] 11-14-2023 09:37-0500 Systolic blood pressure 138 mm[Hg] Adrian NILL [facility] [place] 10-21-2023 11:05-0500 Body temperature 98.2 [degF] MD Quinton Dan Work Phone: [facility] 10-21-2023 11:05-0500 Diastolic blood pressure 83 mm[Hg] MD Quinton Dan Work Phone: [facility] 10-21-2023 11:05-0500 Heart rate 102 /min MD Quinton Dan Work Phone: [facility] 10-21-2023 11:05-0500 Respiratory rate 20 /min MD Quinton Dan Work Phone: [facility] 10-21-2023 11:05-0500 SaO2% (BldA) [Mass fraction] 99 % MD Quinton Dan Work Phone: [facility] 10-21-2023 11:05-0500 Systolic blood pressure 143 mm[Hg] MD Quinton Dan Work Phone: [facility] 06-12-2023 08:00-0400 Body height 167.64 cm Rodney Mariana Other [employer] [facility] [employer] Other 06-12-2023 08:00-0400 Body mass index (BMI) [Ratio] 26.79 kg/m2 Rodney Mariana Other [employer] Other 06-12-2023 08:00-0400 Body weight 75.3 kg Rodney Peña Other [employer] Other 04-30-2023 13:47-0400 Body height 163.83 cm MD Quinton Dan Work Phone: [facility] 04-30-2023 13:47-0400 Body mass index (BMI) [Ratio] 28.3 kg/m2 MD Quinton Dan Work Phone: [facility] 04-30-2023 13:47-0400 Body weight 76 kg MD Quinton Dan Work Phone: [facility] 04-30-2023 12:20-0400 Diastolic blood pressure 76 mm[Hg] MD Quinton Dan Work Phone: [facility] 04-30-2023 12:20-0400 Heart rate 73 /min MD Quinton Dan Work Phone: [facility] 04-30-2023 12:20-0400 Respiratory rate 16 /min MD Quinton Dan Work Phone: [facility] 04-30-2023 12:20-0400 SaO2% (BldA) [Mass fraction] 96 % MD Quinton Dan Work Phone: [facility] 04-30-2023 12:20-0400 Systolic blood pressure 132 mm[Hg] MD Quinton Dan Work Phone: [facility] 04-30-2023 11:25-0400 Body temperature 97 [degF] MD Quinton Dan Work Phone: [facility] 04-30-2023 11:00-0400 Inhaled oxygen flow rate 10 L/min MD Quinton Dan Work Phone: [facility] 04-05-2023 11:00-0400 Body height 167.64 cm Rodney Peña Other [employer] [facility] [employer] Other 04-05-2023 11:00-0400 Body mass index (BMI) [Ratio] 26.63 kg/m2 Rodney Peña Other [employer] [facility] [employer] Other 04-05-2023 11:00-0400 Body weight 74.84 kg Rodney Peña Other [employer] Other Encounters Encounter Date Encounter Type Care Provider Facility Start: 06-28-2025 End: 06-28-2025 Parveenkaterineo vinayingrid Kruse DO Work Phone: [facility] Start: 06-28-2025 End: 06-28-2025 Bamboo flowsheet Crow Kruse DO Work Phone: [facility] Start: 06-28-2025 End: 06-28-2025 Patient encounter procedure Crow Kruse DO Work Phone: [facility] Comment on above: Well woman exam with routine gynecological exam; Osteoporosis, post-menopausal Start: 06-14-2025 End: 06-14-2025 Clinisync Result Encounter Generic External Data Provider [facility] External Department Unsolicited Start: 06-14-2025 End: 06-14-2025 Clinisync Result Encounter Generic External Data Provider [facility] External Department Unsolicited Start: 03-29-2025 End: 03-29-2025 Bamboo flowsheet Quinton Dan MD Work Phone: [facility] Start: 03-29-2025 End: 03-29-2025 Bamboo flowsheet Quinton Dan MD Work Phone: [facility] Start: 03-29-2025 End: 03-29-2025 Office outpatient visit 25 minutes Quinton Dan MD Work Phone: [facility] Comment on above: Heart murmur (Primar y Dx); Primary hypertension ; Hypertensive nephropathy ; Mixed hyperlipidemia ; Former smoker; Overweight with body mass index (BMI) 25.0-29.9 Start: 03-29-2025 End: 03-29-2025 ambulatory QUINTON DAN Not Available Start: 02-22-2025 End: 02-22-2025 Bamboo flowsheet Quinton Dan MD Work Phone: [facility] Start: 02-22-2025 End: 02-22-2025 Bamboo flowsheet Quinton Dan MD Work Phone: [facility] Start: 02-22-2025 End: 02-22-2025 Patient encounter procedure Quinton Dan MD Work Phone: [facility] Comment on above: Encounter for Medica re annual wellness exam (Primary Dx); Advance directive in chart; Encounter for screening for other disorder; Screening for alcohol problem; Overweight with body mass index (BMI) 25.0-29.9; Primary hypertension (CMS/HCC); Hypertensive nephropathy (CMS/HCC); Mixed hyperlipidemia (CMS/HCC); Carcinoma of lower-outer quadrant of left breast in female, estrogen receptor positive (CMS/HCC); Cardiovascular event risk Start: 02-22-2025 End: 02-22-2025 ambulatory QUINTON DAN Not Available Start: 01-26-2025 End: 01-26-2025 Bamboo flowsheet Quinton Dan MD Work Phone: [facility] Start: 01-26-2025 End: 01-26-2025 Bamkaterineo aftab Dan MD Work Phone: [facility] Start: 01-26-2025 End: 01-26-2025 Office outpatient visit 15 minutes Quinton Dan MD Work Phone: [facility] Comment on above: Glossitis (Primary D x) Start: 01-26-2025 End: 01-26-2025 ambulatory QUINTON DAN Not Available Start: 12-07-2024 End: 12-07-2024 Clinisync Result Encounter Generic External Data Provider [facility] External Department Unsolicited Start: 12-07-2024 End: 12-07-2024 Clinisync Result Encounter Generic External Data Provider [facility] External Department Unsolicited Start: 11-30-2024 End: 11-30-2024 Patient encounter procedure Quinton Dan MD Work Phone: [facility] Work Phone: Start: 11-30-2024 End: 11-30-2024 ambulatory Quinton Dan MD Work Phone: [facility] Work Phone: Start: 11-24-2024 End: 11-24-2024 Bamboo aftab aDn MD Work Phone: [facility] Start: 11-24-2024 End: 11-24-2024 Bamboo flowsheet Quinton Dan MD Work Phone: [facility] Start: 11-24-2024 End: 11-24-2024 Office outpatient visit 15 minutes Quinton Dan MD Work Phone: [facility] Comment on above: Acute recurrent maxi llary sinusitis (Primary Dx) Start: 11-24-2024 End: 11-24-2024 ambulatory QUINTON DAN Not Available Start: 09-28-2024 End: 09-28-2024 Bamboo flowsheet Quinton Dan MD Work Phone: [facility] Start: 09-28-2024 End: 09-28-2024 Bamboo flowsheet Quinton Dan MD Work Phone: [facility] Start: 09-28-2024 End: 09-28-2024 Office outpatient visit 25 minutes Quinton Dan MD Work Phone: [facility] Comment on above: Mixed hyperlipidemia (CMS/HCC); Primary hypertension (CMS/HCC) Start: 09-28-2024 End: 09-28-2024 ambulatory QUINTON DAN Not Available Start: 08-17-2024 End: 08-17-2024 Office outpatient visit 5 minutes Stef Gomez DO Work Phone: [facility] Comment on above: Dysuria Start: 08-17-2024 End: 08-17-2024 ambulatory QUINTON DAN Not Available Start: 08-14-2024 End: 08-14-2024 Office outpatient visit 25 minutes Qunitin Harrington NP Work Phone: [facility] Comment on above: Acute vaginitis (Cassy guille Dx) Start: 08-14-2024 End: 08-14-2024 ambulatory QUINTIN HARRINGTON Not Available Start: 07-30-2024 End: 07-30-2024 Bamboo flowsheet Quinton Dan MD Work Phone: [facility] Start: 07-30-2024 End: 07-30-2024 Bamboo flowsheet Quinton Dan MD Work Phone: [facility] Start: 07-30-2024 End: 07-30-2024 Office outpatient visit 25 minutes Quinton Dan MD Work Phone: [facility] Comment on above: Acute cystitis with hematuria (Primary Dx); Pelvic pain; Mixed hyperlipidemia (CMS/HCC); Hyperkalemia Start: 07-30-2024 End: 07-30-2024 ambulatory QUINTON DAN Not Available Start: 07-27-2024 End: 07-27-2024 Patient encounter procedure MD Quinton Dan Work Phone: [facility] Work Phone: Start: 07-27-2024 End: 07-27-2024 ambulatory MD Quinton Dan Work Phone: [facility] Work Phone: Start: 06-25-2024 End: 06-25-2024 Bamboo flowsheet Crow Uriah DO Work Phone: [facility] Start: 06-25-2024 End: 06-30-2024 Bamboo flowsheet Crow Uriah DO Work Phone: [facility] Start: 06-25-2024 End: 06-30-2024 Clinisync Result Encounter Generic External Data Provider [facility] Department Unsolicited Start: 06-25-2024 End: 06-25-2024 Patient encounter procedure Crow Uriah DO Work Phone: [facility] Comment on above: Well woman exam with routine gynecological exam; Postmenopausal state Start: 06-25-2024 End: 06-25-2024 ambulatory CROW URIAH Not Available Start: 06-16-2024 End: 06-16-2024 Patient encounter procedure MD Quinton Dan Work Phone: [facility] Work Phone: Start: 06-16-2024 End: 06-16-2024 ambulatory MD Quinton Dan Work Phone: [facility] Work Phone: Start: 04-27-2024 End: 04-27-2024 ambulatory QUINTON DAN Not Available Start: 04-06-2024 End: 04-06-2024 ambulatory QUINTON DAN Not Available Start: 02-27-2024 End: 02-27-2024 ambulatory MD Quinton Dan Work Phone: [facility] Work Phone: Start: 02-27-2024 End: 02-27-2024 Patient encounter procedure MD Quinton Dan Work Phone: [facility] Work Phone: Start: 02-27-2024 Registered Recurring MD Quinton Dan [facility] Work Phone: Start: 02-27-2024 ambulatory Silvia Babar Facility :[facility] Start: 01-20-2024 Non-patient / Non-visit MD Aimee Dan Work Phone: [facility] Work Phone: Start: 01-16-2024 Non-patient / Non-visit MD Aimee Dan Work Phone: [facility] Work Phone: Start: 01-07-2024 Non-patient / Non-visit MD Aimee Dan Work Phone: [facility] Work Phone: Start: 12-26-2023 Registered Recurring MD Quinton Dan Work Phone: [facility] Work Phone: Start: 12-26-2023 End: 12-26-2023 ambulatory MD Quinton Dan Work Phone: [facility] Work Phone: Start: 12-26-2023 End: 12-26-2023 Patient encounter procedure MD Quinton [facility] Work Phone: Start: 12-24-2023 End: 12-25-2023 ambulatory Adrian R NILL Facility: [facility] Start: 12-24-2023 End: 12-24-2023 Patient encounter procedure Adrian R NILL General Surgery Nill/[facility] Start: 12-13-2023 End: 12-14-2023 ambulatory Adrian R NILL Facility: [place] Start: 12-13-2023 End: 12-13-2023 Patient encounter procedure Adrian R NILL General Surgery Nill/Said [place] Start: 12-05-2023 End: 12-05-2023 ambulatory Adrian R NILL Facility:[facility] Start: 12-05-2023 End: 12-05-2023 Admission to same day surgery center Adrian R NILL [facility] Start: 11-20-2023 Bamboo flowsheet Quinton albright MD Work Phone: [facility] Start: 11-20-2023 Bamboo flowsheet Quinton albright MD Work Phone: [facility] Start: 11-20-2023 End: 11-20-2023 Office outpatient visit 25 minutes Quinton Dan MD Work Phone: [facility] Comment on above: Diverticulitis (Prim emy Dx); Diverticulosis of colon Start: 11-19-2023 Chart abstracting Edward J Hem eyer MD Work Phone: [facility] Start: 11-19-2023 End: 11-20-2023 ambulatory Adrian R NILL Facility:[facility] Start: 11-19-2023 End: 11-20-2023 ambulatory Adrian R NILL Facility:[facility] Start: 11-19-2023 End: 11-19-2023 Patient encounter procedure Adrian R NILL [facility] Start: 11-19-2023 End: 11-19-2023 Patient encounter procedure Adrian R NILL [facility] Start: 11-14-2023 End: 11-15-2023 ambulatory Crow R URIAH Facility:[facility] Start: 11-14-2023 End: 11-14-2023 Patient encounter procedure Adrian Hall NILL [facility] General Surgery [place] Start: 11-11-2023 ambulatory Crow URIAH Facility:[facility] Start: 11-10-2023 Chart abstracting Quinton huerta MD Work Phone: [facility] Start: 10-29-2023 ambulatory Crow URIAH Facility:[facility] Start: 10-21-2023 End: 10-21-2023 Admission to same day surgery center MD Quinton Dan Work Phone: [facility] for [facility] Car Start: 10-21-2023 End: 10-21-2023 ambulatory MD Quinton Dan Work Phone: [facility] Work Phone: Start: 10-09-2023 End: 10-09-2023 ambulatory MD Quinton Dan Work Phone: [facility] Work Phone: Start: 10-09-2023 End: 10-09-2023 Patient encounter procedure MD Quinton Dan Work Phone: [facility] Work Phone: Start: 09-19-2023 End: 09-19-2023 ambulatory MD Quinton Dan Work Phone: [facility] Work Phone: Start: 09-19-2023 End: 09-19-2023 Patient encounter procedure MD Quinton Dan Work Phone: [facility] Work Phone: Start: 06-27-2023 End: 06-27-2023 ambulatory MD Quinton Dan Work Phone: [facility] Work Phone: Start: 06-27-2023 End: 06-27-2023 Discharged Recurring MD Quinton Dan Work Phone: [facility]-Physical Therapy [place] Work Phone: Start: 06-12-2023 End: 06-12-2023 ambulatory Rodney Peña Other [employer] Other Start: 06-12-2023 Postop follow up vis it related to original px Rodney Peña [facility] Start: 05-07-2023 End: 05-07-2023 ambulatory Cecilia Vital Other [employer] Other Start: 05-07-2023 Postop follow up vis it related to original px Cecilia Vital [facility] Start: 05-02-2023 End: 05-02-2023 ambulatory Rodney Peña Other [employer] Other Start: 05-02-2023 Telephone encounter Rodney SUAZO [facility] Start: 04-30-2023 End: 04-30-2023 Admission to same day surgery center MD Quinton Dan Work Phone: [facility]-Surgery Center [place] Start: 04-16-2023 End: 04-16-2023 ambulatory MD Quinton Dan Work Phone: [facility] Work Phone: Start: 04-16-2023 End: 04-16-2023 Patient encounter procedure MD Quinton Dan Work Phone: [facility]-Pre-Surgical Testing Work Phone: Start: 04-05-2023 End: 04-05-2023 ambulatory Rodney Peña Other [employer] Other Start: 04-05-2023 Encounter for other preprocedural examination Rodney Peña [facility] Start: 04-05-2023 Office outpatient ne w 45 minutes Rodney Peña [facility] Start: 03-08-2023 End: 03-08-2023 ambulatory MD Quinton Dan Work Phone: [facility] Work Phone: Start: 03-08-2023 End: 03-08-2023 Patient encounter procedure MD Quinton Dan Work Phone: [facility]-XRay [address] Work Phone: Start: 08-29-2022 End: 08-29-[address] QUINTON DAN Facility:[facility] Start: 07-26-2022 End: 07-27-[address] CROW KRUSE Facility:[facility] Start: 07-26-2022 End: 07-26-2022 ambulatory MD Quinton Dan Work Phone: [facility] Work Phone: Start: 07-26-2022 End: 07-26-2022 Patient encounter procedure MD Quinton Dan [facility] Start: 06-19-2022 End: 06-19-[address] CROW KRUSE Facility:[facility] Procedures Date Procedure Procedure Detail Performing Clinician Start: 06-14-2025 ALL CBC WITH AUTO DIFF Generic External Data Provider Start: 12-07-2024 ALL CBC WITH AUTO DIFF Generic External Data Provider Start: 11-30-2024 Bilateral mammography E mónica Dan MD Work Phone: Start: 08-17-2024 URINARY TRACT INFECT ION (HTRX) Quintin Harrington [employer]PING SUPERVISOR Work Phone: Start: 08-14-2024 VAGINITIS (HTRX) Quintin Harrington [employer]PING SUPERVISOR Work Phone: Start: 07-30-2024 Urnls dip stick/tabl et rgnt non-auto w/o micrscp Quinton Dan MD Work Phone: Start: 07-27-2024 Dual energy X-ray absorptiometry MD Quinton Dan Work Phone: Start: 06-25-2024 IGP,APTIMA HPV,AGE GDLN Crow Kruse DO Work Phone: Start: 06-16-2024 Mammography of left breast MD [...] breasts MD Quinton Dan Work Phone: Start: 06-20-2023 Cytp cerv/vag auto t hin layer prep mnl screen Crow Kruse DO Work Phone: Start: 04-30-2023 Arthroscopy of knee MD Quinton Dan Work Phone: Start: 03-08-2023 X-ray of right knee MD Quinton Dan Work Phone: Start: 11-07-2022 Colonoscopy Quinton huerta MD Work Phone: Start: 07-26-2022 Dual energy X-ray absorptiometry MD Quinton Dan Work Phone: Start: 07-26-2022 Screening mammograph y of bilateral breasts MD Quinton Dan Work Phone: Biopsy of breast Adrian NIL L section Adrian NIL L section Adrian NIL L Closed reduction of nasal fracture Adrian NILL Colonoscopy Adrian NILL Repair of meniscus Adrian SANDS Tonsillectomy and adenoidectomy Adrian NILL Tympanotomy Adrian NILL wisdom teeth Adrian NILL Plan of Treatment Date Care Activity Detail Author Start: 11-07-2032 Screening for malign ant neoplasm of colon [facility] Start: 07-04-2026 End: 07-04-2026 Patient encounter procedure 07/04/2026 10:00 AM EDT Procedure Visit [facility] [address] [place] [address] Crow Kruse DO [address] [place] [address] [facility] Start: 02-24-2026 End: 02-24-2026 Patient encounter procedure [facility] Start: 02-22-2026 Medicare Annual Well ness (AWV) Medicare Annual Wellness (AWV) [facility] Start: 09-27-2025 End: 09-27-2025 Patient encounter procedure [facility] Start: 08-29-2025 End: 03-29-2026 Comprehensive metabolic 2000 panel - Serum or Plasma Comprehensive metabolic panel Lab Routine Primary hypertension Hypertensive nephropathy Expected: 08/29/2025, Expires: 03/29/2026 [facility] Work Phone: Comment on above: Expected: 08/29/2025 , Expires: 03/29/2026 Start: 08-29-2025 End: 03-29-2026 Lipid 1996 panel - Serum or Plasma Lipid panel Lab Routine Mixed hyperlipidemia Expected: 08/29/2025, Expires: 03/29/2026 [facility] Comment on above: Expected: 08/29/2025 , Expires: 03/29/2026 Start: 06-28-2025 End: 06-28-2026 DXA Skeletal system Views for bone density DEXA bone density Imaging Routine Osteoporosis, post-menopausal Expected: 06/28/2025 (Approximate), Expires: 06/28/2026 [facility] Work Phone: Comment on above: Expected: 06/28/2025 (Approximate), Expires: 06/28/2026 Start: 06-28-2025 End: 06-28-2025 Patient encounter procedure [facility] Comment on above: Arrived Start: 06-07-2025 Influenza vaccination [facility] Start: 03-29-2025 End: 03-29-2025 Patient encounter procedure [facility] Comment on above: Primary hypertension ; Hypertensive nephropathy ; Mixed hyperlipidemia ; Former smoker; Overweight with body mass index (BMI) 25.0-29.9 Start: 03-25-2025 End: 03-25-2025 Patient encounter procedure 03/25/2025 8:30 AM EDT Office Visit [facility] [address] [place] [address] Quinton Dan MD [address] [place] [address] (Fax) [facility] Start: 02-22-2025 End: 02-22-2025 Patient encounter procedure [facility] Comment on above: Encounter for Medica re annual wellness exam; Advance directive in chart; Encounter for screening for other disorder; Screening for alcohol problem; Overweight with body mass index (BMI) 25.0-29.9 Start: 01-26-2025 End: 01-26-2025 Patient encounter procedure 01/26/2025 11:45 AM EDT Office Visit [facility] [address] [place] [address] Quinton Dan MD [address] [place] [address] (Fax) Arrived [facility] Comment on above: Arrived Start: 11-24-2024 End: 11-24-2024 Patient encounter procedure 11/24/2024 11:00 AM EST Office Visit [facility] [address] [place] [address] Quinton Dan MD [address] [place] [address] (Fax) Arrived [facility] Comment on above: Arrived Start: 10-06-2024 End: 10-06-2024 Patient encounter procedure 10/06/2024 8:30 AM EST Office Visit [facility] [address] [place] [address] Quinton Dan MD [address] [place] [address] (Fax) [facility] Start: 09-28-2024 End: 09-28-2024 Patient encounter procedure [facility] Comment on above: Arrived Start: 07-30-2024 End: 07-30-2025 Comprehensive metabolic 2000 panel - Serum or Plasma Comprehensive metabolic panel Lab Routine Mixed hyperlipidemia (CMS/HCC) Hyperkalemia Expected: 07/30/2024 (Approximate), Expires: 07/30/2025 [facility] Work Phone: Comment on above: Expected: 07/30/2024 (Approximate), Expires: 07/30/2025 Start: 07-30-2024 End: 07-30-2025 Lipid 1996 panel - Serum or Plasma Lipid panel Lab Routine Mixed hyperlipidemia (CMS/HCC) Expected: 07/30/2024 (Approximate), Expires: 07/30/2025 [facility] Comment on above: Expected: 07/30/2024 (Approximate), Expires: 07/30/2025 Start: 07-30-2024 End: 07-30-2024 Patient encounter procedure 07/30/2024 10:00 AM EDT Office Visit [facility] [address] [address] Quinton aDn MD [address] [place] [address] Arrived [facility] Comment on above: Arrived Start: 06-25-2024 End: 06-25-2025 DXA Skeletal system Views for bone density DEXA bone density Imaging Routine Postmenopausal state Expected: 06/25/2024 (Approximate), Expires: 06/25/2025 [facility] Comment on above: Expected: 06/25/2024 (Approximate), Expires: 06/25/2025 Start: 06-25-2024 End: 06-25-2024 Patient encounter procedure [facility] Comment on above: Arrived Start: 06-20-2024 Medicare Annual Well ness (AWV) Medicare Annual Wellness (AWV) [facility] Start: 06-07-2024 Influenza vaccination Influenza Vacc ine (#1) [facility] Start: 04-06-2024 End: 04-06-2024 Patient encounter procedure 04/06/2024 8:30 AM EDT Office Visit [facility] [address] [place] [address] Quinton Dan MD [address] [facility] [place] [address] (Fax) [facility] Start: 11-20-2023 End: 11-20-2023 Patient encounter procedure [facility] Comment on above: Arrived Start: 11-11-2023 End: 11-11-2023 Patient encounter procedure 11/11/2023 9:00 AM EST Office Visit [facility] [address] [facility] [place] [address] Quinton Dan MD [address] [facility] [place] [address] (Fax) [facility] Start: 06-07-2023 Influenza vaccination Influenza Vacc ine (#1) [facility] Start: 04-30-2023 [facility] Start: 04-30-2023 [facility] Start: 02-09-2021 Pneumococcal Vaccine : 65+ Years (1 - PCV) Pneumococcal Vaccine: 65+ Years (1 - PCV) [facility] Start: 02-09-2021 Pneumococcal Vaccine : 65+ Years (1 of 1 - PCV) Pneumococcal Vaccine: 65+ Years (1 of 1 - PCV) [facility] Start: 02-09-2006 Pneumococcal Vaccine : 65+ Years (1 of 1 - PCV) Pneumococcal Vaccine: 65+ Years (1 of 1 - PCV) [facility] Start: 02-09-1962 Pneumococcal Vaccine : 65+ Years (1 of 2 - PCV) Pneumococcal Vaccine: 65+ Years (1 of 2 - PCV) [facility] Start: 1955 Screening for malign ant neoplasm of colon [facility] Computed tomography for radiotherapy planning [facility] Patient referral [facility] Work Phone: THIN PREP TIS PAP AN D HR HPV DNA THIN PREP TIS PAP AND HR HPV DNA Pathology and Cytology Routine Well woman exam with routine gynecological exam Ordered: 06/25/2024 [facility] Work Phone: Comment on above: Ordered: 06/25/2024 THIN PREP TIS PAP AN D HR HPV DNA THIN PREP TIS PAP AND HR HPV DNA Pathology and Cytology Routine Well woman exam with routine gynecological exam Ordered: 06/28/2025 [facility] Comment on above: Ordered: 06/28/2025 Immunizations Immunization Date Immunization Notes Care Provider Bravo alicea 07-21-2018 influenza, injectable, quadrivalent, preservative free Quinton Dan MD Work Phone: [facility] 07-21-2018 influenza virus vaccine, unspecified formulation Quinton Dan MD Work Phone: [facility] 07-17-2018 Influenza, injectable, Madin Betsy Canine Kidney, preservative free, quadrivalent Quinton Dan MD Work Phone: [facility] 09-03-2015 influenza, seasonal, injectable, preservative free Quinton Dan MD Work Phone: [facility] 07-08-2015 influenza, injectable, quadrivalent, preservative free Quinton Dan MD Work Phone: [facility] 07-14-2014 influenza, seasonal, injectable Quinton Dan MD Work Phone: [facility] 08-15-2013 influenza, seasonal, injectable, preservative free Quinton Dan MD Work Phone: [facility] 08-11-2013 tetanus toxoid, reduced diphtheria toxoid, and acellular pertussis vaccine, adsorbed Quinton Dan MD Work Phone: [facility] NEGATED: Highlighted row has not occurred!11-14-2023 influenza virus vaccine, unspecified formulation Adrian JIMENEZ [facility] General Surgery [place] Payers Date Payer Category Payer Self-pay [id number] 2021 Medicare [id number] 2021 Private Health Insurance [id number] 2021 Unknown [id number] 2012 Unknown [id number] [id number] [id number] 1959 Medicare [id number] 1959 Unknown [id number] 1956 Unknown [id number] 2.16.840.1.009633.3.579.2.593 1956 Unknown [id number] 2.16.840.1.079626.3.579.2.59 1956 Unknown [id number] 2.16.840.1.238121.3.579.2.59 1956 Unknown [id number] 2.16.840.1.506825.3.579.2.72 1956 Unknown [id number] 2.16.840.1.751522.3.579.2.72 1956 Unknown [id number] 2.16.840.1.425035.3.579.2.72 1956 Unknown [id number] 2.16.840.1.456321.3.579.2.72 1956 Unknown [id number] 2.16.840.1.563511.3.579.2.72 1956 Unknown [id number] 2.16.840.1.028940.3.579.2.72 1956 Unknown [id number] 2.16.840.1.797641.3.579.2.72 1956 Unknown [id number] 2.16.840.1.783606.3.579.2.1259 1956 Unknown [id number] 2.16.840.1.449105.3.579.2.1259 1956 Unknown [id number] 2..840.1.701452.3.579.2.1258 1956 Unknown [id number] 2.16.840.1.885934.3.579.2.1258 1956 Unknown [id number] 2.16.840.1.117251.3.579.2.1258 1956 Unknown [id number] 2..840.1.871820.3.579.2.1258 1956 Unknown [id number] 2..840.1.947016.3.579.2.1258 1956 Unknown [id number] 2.840.1.346351.3.579.2.1258 1956 Unknown [id number] 2.840.1.580658.3.579.2.1258 1956 Unknown [id number] 2.840.1.685685.3.579.2.1258 1956 Unknown [id number] 2.840.1.714122.3.579.2.1259 Private Health Insurance [facility] [id number] Private Health Insurance [id number] Unknown Regular Insurance [id number] Unknown [id number] 2.16.8 [id number] Unknown [id number] 2.16.840.1.820011.3.579.2.531 Unknown [id number] 2.16.840.1.280628.3.579.2.531 Unknown [id number] 2.16.840.1.341306.3.579.2.531 Unknown [id number] 2.16.840.1.957489.3.579.2.531 Social History Date Type Detail Facility Start: 11-10-2021 End: 10-21-2023 Tobacco smoking status NHIS Never smoked tobacco (finding) [facility] Start: 1955 Sex Assigned At Female F [facility] Start: 04-21-2023 End: 03-29-2025 Sex Assigned At [facility] Start: 10-02-2023 End: 02-22-2025 Tobacco smoking status NHIS Ex-smoker [facility] History of tobacco use Current smoker [facility] History of tobacco use Cigarette Smoker N [facility] Start: 10-02-2023 End: 02-22-2025 Tobacco use and exposure Smokeless tobacco non-user [facility] Start: 11-10-2023 End: 06-28-2025 Alcohol intake Ex-drinker (finding) [facility] Start: 04-21-2023 End: 03-29-2025 History of Social function [facility] Within the last year , have you been afraid of your partner or ex-partner? Patient refused [facility] Are you now , , , , never or living with a partner? Refused [facility] Do you feel stress - tense, restless, nervous, or anxious, or unable to sleep at night because your mind is troubled all the time - these days [OSQ] Only a little [facility] (I/We) worried wheth er (my/our) food would run out before (I/we) got money to buy more. DK or Refused [facility] Start: 04-19-2023 Alcohol Comment Caffeine intak e: coffee [facility] Start: 1955 Sex Assigned At Not on file [facility] Start: 12-01-2024 Sex Female (finding) [facility] Goals Date Patient Goal Desired Activity /State Functional Status Date Assessment Result Facility 03-29-2025 Patient Health Quest ionnaire 2 item (PHQ-2) [Reported] [facility] 11-19-2023 Functional Status No [facility] 11-14-2023 Functional Status N/A [facility] General Surgery [place] Clinical Notes 04-05-2023 to 06-28-2025 Kellieleonel Cano NP - 06/28/2025 8:30 AM Mark Dan MD - 03/29/2025 8:30 AM Mark Dan MD - 02/22/2025 8:00 AM Mark Dan MD - 01/26/2025 11:45 AM EDTRadiology Note Date & Type Note Facility 06-28-2025 History of Present illness Narrative Reason for Appointment: Patient ID: Christal Chen is a 70 y.o. female who [...] abd pain OTHER SURGICAL HISTORY 03/06/2006 [facility] TONSILLECTOMY & ADENOIDECTOMY <AGE 13 REVIEW OF [...] nursing note reviewed. Exam conducted with a research administrator present. Vitals: Estimated body mass index is 29.18 kg/m as calculated from the following: Height as [...] Crow Kruse DO documented in this encounter [facility] 03-29-2025 History of Present illness Narrative Images from the original note were not included. Patient ID: Christal Chen is a 70 y.o. female who presents for: Hypertension Patient is here for follow-up of elevated blood pressure. She is exercising and is adherent to a low-salt diet. Blood pressure is well controlled at home. Cardiac symptoms: none. Patient denies chest pain, dyspnea, irregular heart beat, lower extremity edema, and palpitations. Cardiovascular risk factors: advanced age (older than 55 for men, 65 for women), dyslipidemia, hypertension, and smoking/ tobacco exposure. Use of agents associated with hypertension: none. History of target organ damage: chronic kidney disease. Hyperlipidemia Pt who presents for follow-up of dyslipidemia. A repeat fasting lipid profile was not done. The patient does not use medications that may worsen dyslipidemias (corticosteroids, progestins, anabolic steroids, diuretics, beta-blockers, amiodarone, cyclosporine, olanzapine). Exercise: weekly. Review of Systems Constitutional: Negative for activity change and fatigue. Respiratory: Negative for cough, shortness of breath and wheezing. Cardiovascular: Negative for chest pain, palpitations and leg swelling. Neurological: Negative for light-headedness and headaches. Objective The patient is pleasant and in no acute distress. The neck is supple and trachea is midline. No masses are appreciated. The heart is regular rate and rhythm without S3, S4. Grade 1-2 systolic soft murmur, heard only at the right 2nd interspace The patient has normal respiratory pattern. The breath sounds are symmetrical without evidence of rhonchi or rales. No wheezing. The skin is warm and dry. The lower extremities have trace edema. The patient has good eye contact and speech is clear. Appropriate affect. 07/30/2024 9:52 AM 08/14/2024 2:18 PM 09/28/2024 9:00 AM 11/24/2024 11:00 AM 01/26/2025 11:45 AM 02/22/2025 8:15 AM 03/29/2025 8:23 AM Vitals BMI 27.46 kg/m2 27.46 kg/m2 28.67 kg/m2 28.67 kg/m2 28.67 kg/m2 29.35 kg/m2 29.18 kg/m2 BSA (m2) 1.81 m2 1.81 m2 1.85 m2 1.85 m2 1.85 m2 1.87 m2 1.87 m2 Systolic 120 122 128 122 Diastolic 70 72 80 70 Heart Rate 66 82 82 78 SpO2 98 % 98 % 97 % 98 % Temp 98 F Height (in) 5' 4 5' 4 5' 4 5' 4 5' 4 5' 4 Weight (lb) 160 160 167 167 167 171 170 Visit Report Report Report Report Report Report Report Report Allergies Allergen Reactions Amoxicillin Other Reaction(s): Welts / Rash Amoxicillin-Pot Clavulanate Other Reaction(s): Unknown Erythromycin Base Other Reaction(s): Abdominal Pain Homatropine Other Reaction(s): vomiting Hydrocodone Other Reaction(s): vomiting Sulfamethoxazole Other Reaction(s): Nausea Tramadol Other Reaction(s): nausea and vomiting Tricor [Fenofibrate] myalgias Current Outpatient Medications on File Prior to Visit Medication Sig Dispense Refill amLODIPine (Norvasc) 10 MG tablet Take 1 tablet (10 mg) by mouth Daily 90 tablet 1 anastrozole (Arimidex) 1 MG chemo tablet Take 1 mg by mouth Daily. atorvastatin (Lipitor) 20 MG tablet Take 1 tablet (20 mg) by mouth Daily 30 tablet 2 calcium citrate (Calcitrate) 950 (200 Ca) MG tablet Take 950 mg by mouth Daily Elderberry 500 MG capsule Take 500 mg by mouth Daily losartan (Cozaar) 100 MG tablet Take 1 tablet (100 mg) by mouth Daily 90 tablet 1 Multiple Vitamins-Minerals (Alive Energy 50+) tablet Take 50 mg by mouth Daily nebivolol (Bystolic) 5 MG tablet Take 1 tablet (5 mg) by mouth Daily 90 tablet 1 No current facility-administered medications on file prior to visit. 1. Primary hypertension Chronic problem, stable, to goal. - amLODIPine (Norvasc) 10 MG tablet; Take 1 tablet (10 mg) by mouth Daily Dispense: 90 tablet; Refill: 1 - nebivolol (Bystolic) 5 MG tablet; Take 1 tablet (5 mg) by mouth Daily Dispense: 90 tablet; Refill: 1 - losartan (Cozaar) 100 MG tablet; Take 1 tablet (100 mg) by mouth Daily Dispense: 90 tablet; Refill: 1 - Comprehensive metabolic panel; Future - Comprehensive metabolic panel 2. Hypertensive nephropathy - Comprehensive metabolic panel; Future - Comprehensive metabolic panel 3. Mixed hyperlipidemia Chronic problem In prescribing a renewal to their current medication, consideration of the following encompasses moderate decision making; the current prescriptions and supplements, the current allergies and medication intolerances, current medical conditions, and potential drug interactions. The patient was given a chance to ask questions today and all questions were answered. - atorvastatin (Lipitor) 20 MG tablet; Take 1 tablet (20 mg) by mouth Daily Dispense: 90 tablet; Refill: 1 - Lipid panel; Future - Lipid panel 4. Former smoker Continue not smoking 5. Overweight with body mass index (BMI) 25.0-29.9 Continue lifestyle changes 6. Heart murmur (Primary) New, chronic issue. I discussed with her that this is a very benign sounding murmur. It is in the region of the aortic valve. She is otherwise asymptomatic. At this point we really do not need to start a workup. We will continue to monitor this over time and I discussed with her if the murmur changes significantly or she developed some symptoms we will further evaluate at that time. documented in this encounter [facility] 02-22-2025 History of Present illness Narrative Images from the original note were not included. Christal Chen is a 70 y.o. female presents with chief complaint of Annual Exam HPI: History of Present Illness I have reviewed and reconciled the history and medication list with the patient today. CURRENT PCP/CARE TEAM: Patient Care Team: Quinton Dan MD as PCP - General (Family Medicine) Quinton Dan MD as PCP - ACO Reach Crow Kruse DO as Referring Physician (Obstetrics and Gynecology) Rodney Peña MD as Referring Physician (Orthopaedic Surgery) Silvia Eckert MD as Referring Physician (Oncology) Over the past 2 weeks, how often have you been bothered by any of the following problems? Little interest or pleasure in doing things: Not at all Feeling down, depressed, or hopeless: Not at all Patient Health Questionnaire-2 Score: 0 Lau Fall Risk History of Falling, Immediate or Within 3 Months: No Health Risk Assessment Form Do you need help eating, bathing, using the toilet, dressing, or getting around your home?: No Can you prepare your own meals?: Yes Can you do your own housework without help?: Yes Can you shop for groceries or clothes without help?: Yes Do you exercise for about 20 minutes 3 or more days a week?: Yes How confident are you that you can control and manage most of your health problems?: Very confident Can you mange your money, credit cards and accounts, pay bills and taxes?: Yes Vision Screening: Yes, 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 Hearing Screening: Has some hearing loss Cognitive Screening Self Assessment: No concerns rasied by family members, friends, or caretakers Three Word Registration: Banana, [place], Chair Clock Drawing: Normal Clock - 2 Three Word Recall: 2/3 words correct - 2 Total Score (0-5 Points): 4 Pain Assessment Pain Score: 0 - No pain HISTORIES: PAST MEDICAL HISTORY: Past Medical History: Diagnosis Date Arthritis Bladder infection 10/2013 Breast cancer ([facility]/HCC) Chicken pox Chronic kidney disease (CKD), stage II (mild) Diverticulitis 2013 ESS (euthyroid sick syndrome) Mixed dyslipidemia (CMS/HCC) Overweight Seizure disorder (CMS/HCC) Thyroid disease (CMS/[facility]) Type 2 diabetes mellitus without complication, without long-term current use of insulin Unspecified perforation of tympanic membrane, left ear White matter disease on CT SURGICAL HISTORY: Past Surgical History: Procedure Laterality Date BI US GUIDED BREAST LOCALIZATION AND BIOPSY LEFT Left 11/08/2023 BI US GUIDED BREAST LOCALIZATION AND BIOPSY LEFT SECTION, LOW TRANSVERSE COLONOSCOPY 2006 COLONOSCOPY 11/07/2022 MYRINGOTOMY Left 01/11/2011 OTHER SURGICAL HISTORY 2013 Treatment bladder infection OTHER SURGICAL HISTORY 08/08/2014 ER visit for abd pain OTHER SURGICAL HISTORY 03/06/2006 [facility] [place] TONSILLECTOMY & ADENOIDECTOMY <AGE 13 SOCIAL HISTORY: Social History Tobacco Use Smoking status: Former Types: Cigarettes Smokeless tobacco: Never Vaping Use Vaping status: Never Used Substance Use Topics Alcohol use: Not Currently Comment: Caffeine intake: coffee Drug use: Never Depression: Not at risk (02/19/2025) PHQ-2 PHQ-2 Score: 0 FAMILY HISTORY: Family History Problem Relation Name Age of Onset Cancer Mother Heart disease Father Hypertension Son Hyperlipidemia Son Coronary artery disease Other Cancer Other Diabetes Other MEDICATIONS: Current Outpatient Medications Medication Instructions amLODIPine (NORVASC) 10 mg, Oral, Daily anastrozole (ARIMIDEX) 1 mg, Daily atorvastatin (LIPITOR) 20 mg, Oral, Daily calcium citrate (CALCITRATE) 950 mg, Daily clotrimazole (MYCELEX) 10 mg, Oral, 4 times daily, After meals and before bedtime suck on lozenger Elderberry 500 mg, Daily fluconazole (DIFLUCAN) 200 mg, Oral, Daily losartan (COZAAR) 100 mg, Oral, Daily Multiple Vitamins-Minerals (Alive Energy 50+) tablet 50 mg, Daily nebivolol (BYSTOLIC) 5 mg, Oral, Daily ALLERGIES: Allergies Allergen Reactions Amoxicillin Other Reaction(s): Welts / Rash Amoxicillin-Pot Clavulanate Other Reaction(s): Unknown Erythromycin Base Other Reaction(s): Abdominal Pain Homatropine Other Reaction(s): vomiting Hydrocodone Other Reaction(s): vomiting Sulfamethoxazole Other Reaction(s): Nausea Tramadol Other Reaction(s): nausea and vomiting Tricor [Fenofibrate] myalgias PHYSICAL EXAM: Visit Vitals BP 128/80 Pulse 82 Ht 5' 4 Wt 171 lb SpO2 97% BMI 29.35 kg/m OB Status Postmenopausal Smoking Status Former BSA 1.87 m BP Readings from Last 3 Encounters: 02/22/25 128/80 09/28/24 122/72 08/14/24 120/70 Wt Readings from Last 3 Encounters: 02/22/25 171 lb 01/26/25 167 lb 11/24/24 167 lb ASCVD 10-Year Risk Score Current as of a minute ago 10.8% 0 to < 5%: Low Risk 5 to < 7.5%: Borderline Risk 7.5 to < 20%: Intermediate Risk 20 to 100%: High Risk Last Change: An Atherosclerotic Cardiovascular Disease (ASCVD) event is defined as myocardial infarction, CHD , or stroke. The ASCVD risk score (Robert LARSON, et al., 2019, 2020 [employer]) returns the percentage likelihood of a first time ASCVD event. Age: 70 Legal Sex: Female Non- : No Smokes Tobacco: No Has Diabetes Excluding Gestational Diabetes: No Systolic BP: 128 HDL: 65 mg/dL Total cholesterol: 195 mg/dL Is BP Treated: Yes Physical Exam The patient is pleasant and in no acute distress The patient has good eye contact and clear speech Results ASSESSMENT AND PLAN: Assessment/Plan 1. Encounter for Medicare annual wellness exam (Primary) The patient is here for their Annual Medicare Wellness visit. Demographics were updated. Self-assessment was completed and reviewed. Past medical, family, and social history were updated. The medication list updated and reviewed by the doctor. A list of other current medical providers is established and updated. Time was spent discussing health maintenance issues, ordering testing as appropriate, and a schedule was reviewed regarding recommended screening. We discussed safety issues and fall risk. Depression screening was completed and addressed as appropriate. Fall screening was completed and addressed. Cognitive function was assessed by direct observation, cognitive screening as indicated, and assessment of ability to perform ADL's. The BMI and discussed. Major risk factors for chronic disease including family history were discussed. An after visit summary is made available to the patient 2. Advance directive in chart No changes to advanced directives 3. Encounter for screening for other disorder Clinically insignificant depression screening 4. Screening for alcohol problem Negative alcohol screening 5. Overweight with body mass index (BMI) 25.0-29.9 Urged to continue lifestyle changes 6. Primary hypertension (CMS/HCC) Chronic problem, stable, monitored longitudinally. 7. Hypertensive nephropathy (CMS/HCC) Chronic problem, stable, monitored longitudinally. 8. Mixed hyperlipidemia (CMS/HCC) Chronic problem, stable, monitored longitudinally. 9. Carcinoma of lower-outer quadrant of left breast in female, estrogen receptor positive (CMS/HCC) Chronic problem, stable, monitored longitudinally. Comanaged with Oncology. 10. Cardiovascular event risk The patient has ASCVD risk factors, but does not currently have a cardiovascular disease diagnosis. A standardized, evidence-based ASCVD risk assessment, is generated during the office visit. Each section is reviewed individually with the patient and a discussion concerning any modifiable risk factors. This discussion lasted approximately 5-10 minutes documented in this encounter [facility] 01-26-2025 History of Present illness Narrative Images from the original note were not included. Patient ID: Christal Chen is a 69 y.o. female who presents for: Pt is unsure if she has oral thrush or possibly a wheat allergy. She states she keeps getting red around the lips and they itch. She states the tip of her tongue is more red. She also gets a tingling sensation inside both cheeks. She does states that when she has toast she will get this little tickle/Cough in her throat, this is not choking or true dysphagia. Her tongue Also feels swollen. Review of Systems She has some minimal abdominal complaints of bloating intermittently that she can not link to anything. Interestingly she gave me several examples of foods that trigger the above-mentioned reaction. All of these examples included milk, eggs, and weight which are the top 3 food allergens. Objective The patient is pleasant and in no acute distress The patient has good eye contact and clear speech Her lips appear a little bit chapped to me but otherwise unremarkable. No ulcerations or vesicles. Her tongue does have a fairly significant whitish coat over it. None of the areas are denuded or ulcers. She does have a midline fissure that is moderate. She does have rather distinct scalloping all around the borders of her tongue. In these areas you can certainly see that there is some erythema of her tongue. No buccal mucosa lesions noted. Other than a mildly injected pharynx there are no other lesions or thrush of the pharynx. Shotty anterior cervical adenopathy without masses. Visit Vitals Ht 5' 4 Wt 167 lb BMI 28.67 kg/m OB Status Postmenopausal Smoking Status Former BSA 1.85 m Allergies Allergen Reactions Amoxicillin Other Reaction(s): Welts / Rash Amoxicillin-Pot Clavulanate Other Reaction(s): Unknown Erythromycin Base Other Reaction(s): Abdominal Pain Homatropine Other Reaction(s): vomiting Hydrocodone Other Reaction(s): vomiting Sulfamethoxazole Other Reaction(s): Nausea Tramadol Other Reaction(s): nausea and vomiting Tricor [Fenofibrate] myalgias Current Outpatient Medications on File Prior to Visit Medication Sig Dispense Refill amLODIPine (Norvasc) 10 MG tablet Take 1 tablet (10 mg) by mouth Daily 90 tablet 1 anastrozole (Arimidex) 1 MG chemo tablet Take 1 mg by mouth Daily. atorvastatin (Lipitor) 20 MG tablet Take 1 tablet (20 mg) by mouth Daily calcium citrate (Calcitrate) 950 (200 Ca) MG tablet Take 950 mg by mouth Daily Elderberry 500 MG capsule Take 500 mg by mouth Daily losartan (Cozaar) 100 MG tablet Take 1 tablet (100 mg) by mouth Daily 90 tablet 1 Multiple Vitamins-Minerals (Alive Energy 50+) tablet Take 50 mg by mouth Daily nebivolol (Bystolic) 5 MG tablet Take 1 tablet (5 mg) by mouth Daily 90 tablet 1 No current facility-administered medications on file prior to visit. 1. Glossitis (Primary) We did discuss that I think it is some combination of food allergy and potentially a yeast overgrowth not infection. I did discuss traditional referral to ENT for 2nd opinion and she declined. We did discuss and she is interested in doing food challenge testing to wheat, milk, egg. I described how to do this in detail and answered all her questions. Once she has all 3 of these food groups identified she will contact us back and let us know. As far as the glossitis I would like to see how this is doing assuming she has food allergens and she is avoiding them. We will make further evaluation and/or treatment decisions at that time. documented in this encounter [facility] 11-24-2024 History of Present illness Narrative Images from the original note were not included. Patient ID: Christal Cehn is a 69 y.o. female who presents for: Upper Respiratory Infection Patient complains of symptoms of a URI. Symptoms include left ear pressure/pain, congestion, nasal congestion, sinus pressure, and sore throat. Onset of symptoms was 3 days ago, and has been gradually worsening since that time. Treatment to date: sudagest . Review of Systems Constitutional: Negative for chills and fever. Respiratory: Negative for cough, shortness of breath and wheezing. Cardiovascular: Negative for chest pain and palpitations. Gastrointestinal: Negative for abdominal pain. Genitourinary: Negative for frequency and urgency. Objective In general the patient is pleasant and in no acute distress. Bilateral ears, canals are within normal limits. Right TM is transparent and somewhat retracted. Left TM is transparent and somewhat retracted. No fluid layer. Bilateral nares demonstrate inflamed mucosa. Oropharynx has moist mucosa there is no specific evidence of thrush. There is mild erythema of the pharynx. Shoddy bilateral anterior cervical adenopathy. No signs of respiratory distress. Patient is speaking full sentences. There are symmetrical breath sounds. No rhonchi or rales are appreciated. No wheezes. Skin is warm and dry Visit Vitals Ht 5' 4 Wt 167 lb BMI 28.67 kg/m OB Status Postmenopausal Smoking Status Former BSA 1.85 m Allergies Allergen Reactions Amoxicillin Other Reaction(s): Welts / Rash Amoxicillin-Pot Clavulanate Other Reaction(s): Unknown Erythromycin Base Other Reaction(s): Abdominal Pain Homatropine Other Reaction(s): vomiting Hydrocodone Other Reaction(s): vomiting Sulfamethoxazole Other Reaction(s): Nausea Tramadol Other Reaction(s): nausea and vomiting Tricor [Fenofibrate] myalgias Current Outpatient Medications on File Prior to Visit Medication Sig Dispense Refill amLODIPine (Norvasc) 10 MG tablet Take 1 tablet (10 mg) by mouth Daily 90 tablet 1 anastrozole (Arimidex) 1 MG chemo tablet Take 1 mg by mouth Daily. atorvastatin (Lipitor) 20 MG tablet Take 1 tablet (20 mg) by mouth Daily calcium citrate (Calcitrate) 950 (200 Ca) MG tablet Take 950 mg by mouth Daily Elderberry 500 MG capsule Take 500 mg by mouth Daily losartan (Cozaar) 100 MG tablet Take 1 tablet (100 mg) by mouth Daily 90 tablet 1 Multiple Vitamins-Minerals (Alive Energy 50+) tablet Take 50 mg by mouth Daily nebivolol (Bystolic) 5 MG tablet Take 1 tablet (5 mg) by mouth Daily 90 tablet 1 No current facility-administered medications on file prior to visit. 1. Acute recurrent maxillary sinusitis (Primary) Recurrent problem. She is not using nasal saline irrigations, and we discussed this again. Both for current treatment and then preventatively. In prescribing a new medication consideration of the following encompasses moderate decision making: the current prescriptions and supplements, the current allergies and medication intolerances, the current medical conditions, and potential drug interactions. Risks, benefits, and reason for starting their medication were discussed. The patient was given a chance to ask questions today and all questions were answered. The patient is to contact us if any other questions arise or if any problems occur with the adjustment in their medication. - cefuroxime (Ceftin) 500 MG tablet; Take 1 tablet (500 mg) by mouth in the morning and 1 tablet (500 mg) before bedtime. Do all this for 7 days. Dispense: 14 tablet; Refill: 0 documented in this encounter [facility] 09-28-2024 History of Present illness Narrative Images from the original note were not included. Patient ID: Christal Chen is a 69 y.o. female who presents for: Hypertension Patient is here for follow-up of elevated blood pressure. She is not exercising and is adherent to a low-salt diet. Blood pressure is well controlled at home. Cardiac symptoms: none. Patient denies chest pain, dyspnea, irregular heart beat, lower extremity edema, and palpitations. Cardiovascular risk factors: advanced age (older than 55 for men, 65 for women), dyslipidemia, and hypertension. Use of agents associated with hypertension: none. History of target organ damage: none. Hyperlipidemia Pt who presents for follow-up of dyslipidemia. A repeat fasting lipid profile was not done. The patient does not use medications that may worsen dyslipidemias (corticosteroids, progestins, anabolic steroids, diuretics, beta-blockers, amiodarone, cyclosporine, olanzapine). Exercise: rarely. Review of Systems Constitutional: Negative for activity change and fatigue. Respiratory: Negative for cough, shortness of breath and wheezing. Cardiovascular: Negative for chest pain, palpitations and leg swelling. Neurological: Negative for light-headedness and headaches. Objective The patient is pleasant and in no acute distress. The neck is supple and trachea is midline. No masses are appreciated. The heart is regular rate and rhythm without S3, S4. No murmur. The patient has normal respiratory pattern. The breath sounds are symmetrical without evidence of rhonchi or rales. No wheezing. The skin is warm and dry. The lower extremities have trace edema. The patient has good eye contact and speech is clear. Appropriate affect. Visit Vitals BP 122/72 Pulse 82 Ht 5' 4 Wt 167 lb SpO2 98% BMI 28.67 kg/m OB Status Postmenopausal Smoking Status Former BSA 1.85 m Laboratories reviewed. Allergies Allergen Reactions Amoxicillin Other Reaction(s): Welts / Rash Amoxicillin-Pot Clavulanate Other Reaction(s): Unknown Erythromycin Base Other Reaction(s): Abdominal Pain Homatropine Other Reaction(s): vomiting Hydrocodone Other Reaction(s): vomiting Sulfamethoxazole Other Reaction(s): Nausea Tramadol Other Reaction(s): nausea and vomiting Tricor [Fenofibrate] myalgias Current Outpatient Medications on File Prior to Visit Medication Sig Dispense Refill amLODIPine (Norvasc) 10 MG tablet Take 1 tablet (10 mg) by mouth Daily 90 tablet 1 anastrozole (Arimidex) 1 MG chemo tablet Take 1 mg by mouth Daily. atorvastatin (Lipitor) 40 MG tablet Take 1 tablet (40 mg) by mouth Daily (Patient taking differently: Take 20 mg by mouth Daily) 90 tablet 0 calcium citrate (Calcitrate) 950 (200 Ca) MG tablet Take 950 mg by mouth Daily Elderberry 500 MG capsule Take 500 mg by mouth Daily losartan (Cozaar) 100 MG tablet Take 1 tablet (100 mg) by mouth Daily 90 tablet 1 Multiple Vitamins-Minerals (Alive Energy 50+) tablet Take 50 mg by mouth Daily nebivolol (Bystolic) 5 MG tablet Take 1 tablet (5 mg) by mouth Daily 30 tablet 5 [DISCONTINUED] niacin (Slo-Niacin) 500 MG ER tablet Take 500 mg by mouth at bedtime Do not crush or chew. (Patient not taking: Reported on 09/28/2024) No current facility-administered medications on file prior to visit. 1. Mixed hyperlipidemia (CMS/HCC) Chronic problem, stable, she is actually doing quite well. She has a improved numbers as compared to 6 months ago. I reviewed these individually on the computer with her. Encouraged her to continue with all her lifestyle changes and we talked about some other improvement she could make. Because she was off the higher dose of the atorvastatin due to myalgias and then has been splitting her 40 mg dose, she has plenty for right now. I have adjusted her dosing in the record. - atorvastatin (Lipitor) 20 MG tablet; Take 1 tablet (20 mg) by mouth Daily 2. Primary hypertension (CMS/HCC) Chronic problem, stable, to goal. In prescribing a renewal to their current medication, consideration of the following encompasses moderate decision making; the current prescriptions and supplements, the current allergies and medication intolerances, current medical conditions, and potential drug interactions. Any changes to risks, benefits, and reason for renewing their current medication due to the above were discussed. The patient was given a chance to ask questions today and all questions were answered. The patient is to contact us if any other questions arise or if any problems occur. (Utilizing the original 1994/1996 guidelines or the 2020 office/outpatient code guidelines for selecting the level of E/M service, In both sets of guidelines, prescription drug management appears in the moderate medical decision making (MDM) row. Neither the original guidelines nor the new guidelines state that a new prescription or change is needed in order to credit prescription drug management) - losartan (Cozaar) 100 MG tablet; Take 1 tablet (100 mg) by mouth Daily Dispense: 90 tablet; Refill: 1 - nebivolol (Bystolic) 5 MG tablet; Take 1 tablet (5 mg) by mouth Daily Dispense: 90 tablet; Refill: 1 - amLODIPine (Norvasc) 10 MG tablet; Take 1 tablet (10 mg) by mouth Daily Dispense: 90 tablet; Refill: 1 Chronic problem The patient meets the criteria for polypharmacy; 5 or more prescriptions or multi-morbidity defined as 5 or more diagnoses. Polypharmacy can significantly increase the risk of preventable adverse drug events and negatively impact adherence. Consideration of diverse factors such as clinician agreement, patient perspective, and de-prescribing, as appropriate can improve patient outcomes while simplifying care. This requires longitudinal monitoring as there is at least a moderate risk of morbidity and requires at least a moderate degree of evaluation and management. documented in this encounter [facility] 08-17-2024 History of Present illness Narrative Pt presents to provide urine for UA send out. documented in this encounter [facility] 08-14-2024 History of Present illness Narrative HPI: Historian of HPI: patient Christal Chen is a 69 y.o. female who presents today to the Urgent Care with the following complaints and denials which have been present for 1 week(s) C/O Denies Symptom Comments [] [x] Dysuria [] [x] hematuria [x] [] Urinary frequency [] [x] Urinary incontinence [x] [] Urinary urgency [x] [] Genital irritation [] [x] Genital discharge [] [x] Back pain [] [x] Abd pain Additional Comments: Pt was given Ceftin for her UTI from her PCP for the UTI and she finished it with no improvement in symptoms. Pt c/o vaginal irritation and sensation of full bladder and pressure. ROS: A complete system ROS was performed and negative aside from the pertinent positives noted in the HPI and PE. IH Testing: An In-House UA has been obtianed: Collected by clean catch REFERENCE RANGE Leukocytes: Negative Nitrite: Negative Protein: Negative PH: 6.0 Blood: Negative Specific [place]: 1.010 Ketone: Negative Glucose: Negative Neg Neg Neg - Trace mg/dl 5.0-8.0 Neg 1.005-1.030 Neg Neg Examination General Examination: General examination: alert, oriented, normal affect, well-appearing, in no acute distress, well developed, well nourished. Head: normocephalic, atraumatic Eyes: sclera non-icteric Skin: normal Heart: no murmurs, regular rate and rhythm, S1, S2 normal Lungs: clear to auscultation bilaterally, good air movement, no wheezes, rales, rhonchi Abdomen: no Suprapubic tenderness. No cva tenderness Musculoskeletal: FROM Extremities: no edema, no cyanosis Neurologic: nonfocal Psych: alert, oriented, cognitive function intact, cooperative with exam. 1. Acute vaginitis (Primary) Diagnosis and treatment discussed. Rest and push fluids. Medication instructions and potential s/e discussed. To ER for fever, chills, nausea, vomiting, or severe back/abd pain. Follow-up with PCP if no improvement in 3 days. Discussed urinalysis results. Urine sent for culture. Will call with results when available - fluconazole (Diflucan) 150 MG tablet; Take 1 tablet (150 mg) by mouth 1 (one) time for 1 dose Dispense: 1 tablet; Refill: 0 - VAGINITIS (HTRX) documented in this encounter [facility] 07-30-2024 History of Present illness Narrative Images from the original note were not included. Patient ID: Christal Chen is a 69 y.o. female who presents for: Urinary Tract Infection Patient complains of intermittent sensation in pelvis like she has been holding her urine . He/She has had symptoms for a few days. Patient also complains of none . Patient denies fever. Patient does have a history of recurrent UTI. Patient does not have a history of pyelonephritis. Review of Systems Constitutional: Negative for chills and fever. Respiratory: Negative for cough, shortness of breath and wheezing. Cardiovascular: Negative for chest pain and palpitations. Gastrointestinal: Negative for abdominal pain. Genitourinary: Negative for frequency and urgency. Objective The patient is pleasant and in no acute distress No CVA tenderness The patient has good eye contact and clear speech Visit Vitals Ht 5' 4 Wt 160 lb BMI 27.46 kg/m OB Status Postmenopausal Smoking Status Former BSA 1.81 m Allergies Allergen Reactions Amoxicillin Other Reaction(s): Welts / Rash Amoxicillin-Pot Clavulanate Other Reaction(s): Unknown Erythromycin Base Other Reaction(s): Abdominal Pain Homatropine Other Reaction(s): vomiting Hydrocodone Other Reaction(s): vomiting Sulfamethoxazole Other Reaction(s): Nausea Tramadol Other Reaction(s): nausea and vomiting Tricor [Fenofibrate] myalgias Current Outpatient Medications on File Prior to Visit Medication Sig Dispense Refill amLODIPine (Norvasc) 10 MG tablet Take 1 tablet (10 mg) by mouth Daily 90 tablet 1 anastrozole (Arimidex) 1 MG chemo tablet Take 1 mg by mouth Daily. atorvastatin (Lipitor) 40 MG tablet Take 1 tablet (40 mg) by mouth Daily 90 tablet 0 calcium citrate (Calcitrate) 950 (200 Ca) MG tablet Take 950 mg by mouth Daily Elderberry 500 MG capsule Take 500 mg by mouth Daily losartan (Cozaar) 100 MG tablet Take 1 tablet (100 mg) by mouth Daily 90 tablet 1 Multiple Vitamins-Minerals (Alive Energy 50+) tablet Take 50 mg by mouth Daily nebivolol (Bystolic) 5 MG tablet Take 1 tablet (5 mg) by mouth Daily 30 tablet 5 niacin (Slo-Niacin) 500 MG ER tablet Take 500 mg by mouth at bedtime Do not crush or chew. No current facility-administered medications on file prior to visit. Office Visit on 07/30/2024 Component Date Value Ref Range Status Color, UA 07/30/2024 Light Yellow Final Clarity, UA 07/30/2024 Clear Final Glucose, UA 07/30/2024 Negative Negative - 1999(110) ++++ mg/dL Final Bilirubin, UA 07/30/2024 Negative Negative - 4(70) +++ mg/dL Final Ketones, UA 07/30/2024 Negative Negative - 160(16) ++++ mg/dL Final Spec Grav, UA 07/30/2024 1.005 1 - 1.03 Final Blood, UA 07/30/2024 Positive Negative - 50 Kevin/mcL Final pH, UA 07/30/2024 6.0 5 - 9 Final Protein, UA 07/30/2024 Trace Negative - 1999(20) ++++ mg/dL Final Urobilinogen, UA 07/30/2024 0.2 0.2 - 12 mg/dL Final Leukocytes, UA 07/30/2024 2+ Negative - 500+++ Prashant/mcL Final Nitrite, UA 07/30/2024 Negative Negative - Positive Final 1. Pelvic pain After discussion we have mutually agreed to proceed with urinalysis. As noted above it has abnormalities. - POCT urinalysis dipstick manually resulted 2. Acute cystitis with hematuria (Primary) Acute problem. Encouraged patient to stay very well hydrated over the next several days. In prescribing a new medication consideration of the following encompasses moderate decision making: the current prescriptions and supplements, the current allergies and medication intolerances, the current medical conditions, and potential drug interactions. Risks, benefits, and reason for starting their medication were discussed. The patient was given a chance to ask questions today and all questions were answered. The patient is to contact us if any other questions arise or if any problems occur with the adjustment in their medication. - cefuroxime (Ceftin) 250 MG tablet; Take 1 tablet (250 mg) by mouth in the morning and 1 tablet (250 mg) before bedtime. Do all this for 10 days. Dispense: 20 tablet; Refill: 0 3. Mixed hyperlipidemia (CMS/HCC) Upon review she does need orders for laboratory testing. - Comprehensive metabolic panel; Future - Lipid panel; Future - Comprehensive metabolic panel - Lipid panel 4. Hyperkalemia She had this previously and we will need to recheck it. - Comprehensive metabolic panel; Future - Comprehensive metabolic panel documented in this encounter [facility] 06-25-2024 History of Present illness Narrative Reason for Appointment: Patient ID: Christal Chen is a 69 y.o. female who presents for Well Women Visit Patient presents today for Annual Exam. MEDICATIONS Current Outpatient Medications Medication Instructions amLODIPine (NORVASC) 10 mg, Oral, Daily anastrozole (ARIMIDEX) 1 mg, Oral, Daily atorvastatin (LIPITOR) 40 mg, Oral, Daily calcium citrate (CALCITRATE) 950 mg, Oral, Daily Elderberry 500 mg, Oral, Daily losartan (COZAAR) 100 mg, Oral, Daily Multiple Vitamins-Minerals (Alive Energy 50+) tablet 50 mg, Oral, Daily nebivolol (BYSTOLIC) 5 mg, Oral, Daily niacin (SLO-NIACIN) 500 mg, Oral, Nightly, Do not crush or chew. ALLERGIES Allergies Allergen Reactions Amoxicillin Other Reaction(s): Welts / Rash Amoxicillin-Pot Clavulanate Other Reaction(s): Unknown Erythromycin Base Other Reaction(s): Abdominal Pain Homatropine Other Reaction(s): vomiting Hydrocodone Other Reaction(s): vomiting Sulfamethoxazole Other Reaction(s): Nausea Tramadol Other Reaction(s): nausea and vomiting Tricor [Fenofibrate] myalgias PROBLEMS Active Ambulatory Problems Diagnosis Date Noted Primary hypertension ([facility]) 07/08/2015 Cardiovascular event risk 06/12/2022 Chronic fatigue syndrome 06/29/2016 Hypertensive nephropathy ([facility]) 04/14/2020 Diverticulosis of colon 06/12/2022 Former smoker 08/15/2017 Mixed conductive and sensorineural hearing loss of left ear with restricted hearing of right ear 08/11/2019 Mixed hyperlipidemia ([facility]) 08/19/2015 Overweight with body mass index (BMI) 25.0-29.9 06/12/2022 Perforation of tympanic membrane 12/28/2017 Right bundle branch block 07/08/2015 Sick-euthyroid syndrome 08/19/2015 Stage 2 chronic kidney disease 10/10/2020 Tinnitus of left ear 08/11/2019 Vertigo 06/29/2016 White matter disease 07/23/2018 Lobular carcinoma of left breast ([facility]) 10/29/2023 Resolved Ambulatory Problems Diagnosis Date Noted Overweight 08/15/2017 Past Medical History: Diagnosis Date Arthritis Bladder infection 10/2013 Breast cancer ([facility]) Chicken pox Chronic kidney disease (CKD), stage II (mild) Diverticulitis 2013 ESS (euthyroid sick syndrome) Mixed dyslipidemia ([facility]) Seizure disorder ([facility]) Thyroid disease ([facility]) Type 2 diabetes mellitus without complication, without long-term current use of insulin ([facility]) Unspecified perforation of tympanic membrane, left ear HISTORY PAST MEDICAL HISTORY SOCIAL HISTORY Past Medical History: Diagnosis Date Arthritis Bladder infection 10/2013 Breast cancer ([facility]) Chicken pox Chronic kidney disease (CKD), stage II (mild) Diverticulitis 2013 ESS (euthyroid sick syndrome) Mixed dyslipidemia ([facility]) Overweight Seizure disorder ([facility]) Thyroid disease ([facility]) Type 2 diabetes mellitus without complication, without long-term current use of insulin ([facility]) Unspecified perforation of tympanic membrane, left ear [...] AND BIOPSY LEFT SECTION, LOW TRANSVERSE COLONOSCOPY 2007 COLONOSCOPY 11/07/2022 MYRINGOTOMY Left 01/11/2011 OTHER SURGICAL HISTORY 2014 Treatment bladder infection OTHER SURGICAL HISTORY 08/08/2014 ER visit for abd pain OTHER SURGICAL HISTORY 03/06/2006 [facility] [place] TONSILLECTOMY & ADENOIDECTOMY <AGE 13 REVIEW OF SYSTEMS Review of Systems: Review of Systems All other systems reviewed and are negative. OBJECTIVE Objective: Physical Exam Constitutional: Appearance: Normal [...] nursing note reviewed. Exam conducted with a research administrator present. Vitals: Estimated body mass index is 27.11 kg/m as calculated from the following: Height as of 04/27/24: 5' 4.5 . Weight as of this encounter: 160 lb 6.4 oz. BP: 120/72 No LMP recorded. Patient is postmenopausal. ASSESSMENT & PLAN ICD-10-CM 1. Well woman exam with routine gynecological exam Z01.419 THIN PREP TIS PAP AND HR HPV DNA Annual: Patient presents today for an annual exam. Patient states she is doing well and has no complaints. Pap was obtained without difficulty and patient given mammogram order to have scheduled/obtained. Patient had surgery on 12/05/23 for left breast and no complaints. Follow Up: Patient is to return in one year for annual unless needed otherwise. Documented by Olga Rush LPN on behalf of: Crow Kruse DO documented in this encounter [facility] 12-05-2023 Hospital Discharge instructions Patient Education 12/05/2023 [...] Follow these instructions at home: Medicines Take urwh-mtt-ljsxbew and prescription medicines only as told by [...] and water are not available, use hand breeder hen service technician. ?Change your dressing as told by [...] provider. Document Revised: 08/17/2022 Document Reviewed: 07/03/2022 Elsevier Patient Education 2022 [employer]. 12/05/2023 13:22:39 Post Op Patient Instructions - FT (CUSTOM) Follow Up Care 11/19/2023 10:30:49 With:Adrian JIMENEZ Address: [address] [place] [address], [facility] [address] [phone] Business (1) When:7 to 10 days [facility] 12-05-2023 Note Patient: MARY CHEN Age: 68 years Sex: Female : 1955 Associated Diagnoses: None Author: Adrian JIMENEZ MD Subjective no changes to [facility] Comment on above: Result Comment: Elec tronically Signed By: Adrian JIMENEZ MD\.br\Date and Time Signed: 12/05/23 07:42 EST 11-20-2023 Note [id number] [facility] 11-20-2023 History of Present illness Narrative Patient [...] of colon I reviewed with her the terminal gauger diagnosis of diverticulosis. I discussed how this [...] for the diverticulosis. documented in this encounter [facility] 11-17-2023 Note HPI Staff 68 year old female presents on consultation from Dr. Kruse for invasive lobular carcinoma left breast. Denies [...] Oral, Daily Fish (more content not included)... [facility] Comment on above: Result Comment: Elec tronically Signed By: TONY PATEL, Adrian Goldsmith\Date and Time Signed: 11/17/23 11:29 EST 11-14-2023 Evaluation + Plan note Future Scheduled TestsMA Breast Needle Loc w/ Guidance, Left 11/14/23NM Lymphoscintigraphy 11/14/23 [facility] 06-12-2023 Evaluation note Encounter Date Diagnosis Assessment [...] as documented in the electronic medical record. [facility] Other 08-01-2023 Evaluation note* Encounter Date Diagnosis [...] remova l of sutures (ICD-10 - Z48.02) [facility] Other 06-30-2023 Evaluation note* Encounter Date Diagnosis [...] poor healing. I have advised against the terminal gauger use of narcotic pain medication. I have [...] as documented in the electronic medical record. [facility] Other Evaluation + Plan note Future Appointments Appointment Date:11/19/2023 09:30:00 AM Scheduled Provider: Location:[facility] Appointment Type:Surgical PAT FT Appointment Date:11/19/2023 01:00:00 PM Scheduled Provider: Location:.MRI Appointment Type:MRI Breast (FT) Appointment Date:12/05/2023 09:00:00 AM Scheduled Provider: Location:.MAMMOGRAM Appointment Type:MA Needle Loc (FT) Appointment Date:12/05/2023 09:30:00 AM Scheduled Provider: Location:.NUCLEAR MED Appointment Type:NM Lymphoscintigraphy (FT) Appointment Date:12/05/2023 11:30:00 AM Scheduled Provider: Location:[facility] Appointment Type:Surgery FT Future Scheduled Tests Radiology* MA Breast Needle Loc w/ Guidance, Left 11/14/23 * MA Breast Needle Loc w/ Guidance, Left 12/05/23 * MRI Breast w/o and w/ Contrast, Bilat 11/19/23 * NM Lymphoscintigraphy 11/14/23 * NM Lymphoscintigraphy 12/05/23 [facility] General Surgery [place] Evaluation + Plan note Future Appointments Appointment Date:12/05/2023 09:00:00 AM Scheduled Provider: Location:.MAMMOGRAM Appointment Type:MA Needle Loc (FT) Appointment Date:12/05/2023 09:30:00 AM Scheduled [facility] Type:NM Lymphoscintigraphy (FT) Appointment Date:12/05/2023 11:30:00 AM Scheduled Provider: Location:[facility] Appointment Type:Surgery FT Future Scheduled Tests Radiology* MA Breast Needle Loc w/ Guidance, Left 11/14/23 * MA Breast Needle Loc w/ Guidance, Left 12/05/23 * NM Lymphoscintigraphy 11/14/23 * NM [facility]intigraphy [facility]ments Appointment Date:12/24/2023 01:00:00 PM Scheduled Provider:Adrian JIMENEZ MD Location:[facility] Appointment Type: Post Op 15 Future Scheduled Tests Radiology* MA Breast Needle Loc w/ Guidance, Left 11/14/23 * NM Lymphoscintigraphy 11/14/23 General Surgery [place] Evwesation noteNo assessment information available [facility] Work Phone: [email or web address] noteNo InformationNort [employer] Other Evalugmcww note* Diagnosis Diverticulitis- Primary Diverticulitis of colon (without mention of hemorrhage) Diverticulosis of colon Diverticulosis of colon (without mention of hemorrhage) documented in [facility] encounter [facility]* Diagnosis Onset Date Resolution Status Left breast mass acute Breast cancer, left acute [facility] Work Phone: Evaluation note* Diagnosis Onset Date Resolution Status Breast cancer, left acute Breast cancer, left acute [facility] Work Phone: Evaluation note* Diagnosis Onset Date Resolution Status Left breast mass [facility] Work Phone: evaluation note* Diagnosis Acute cystitis with hematuria- Primary Pelvic pain Mixed hyperlipidemia (CMS/HCC) Mixed hyperlipidemia Hyperkalemia Hyperpotassemia [facility] Diagnosis Acute vaginitis- Primary Unspecified vaginitis and vulvovaginitis [facility]* Diagnosis Dysuria [facility]* Diagnosis Well woman exam with routine gynecological exam Routine gynecological examination Postmenopausal state Asymptomatic postmenopausal status (age-related) (natural) [facility]* Diagnosis Mixed hyperlipidemia (CMS/HCC) Mixed hyperlipidemia Primary hypertension (CMS/HCC) Unspecified essential hypertension [facility] Diagnosis Acute recurrent maxillary sinusitis- Primary [facility]* Diagnosis Glossitis- Primary [facility]* Diagnosis Encounter for Medicare annual wellness exam- Primary Advance directive in chart Encounter for screening for other disorder Screening for alcohol problem Screening for alcoholism Overweight with body mass index (BMI) 25.0-29.9 Primary hypertension (CMS/HCC) Unspecified essential hypertension Hypertensive nephropathy (CMS/HCC) Unspecified hypertensive kidney disease with chronic kidney disease stage I through stage IV, or unspecified Mixed hyperlipidemia (CMS/HCC) Mixed hyperlipidemia Carcinoma of lower-outer quadrant of left breast in female, estrogen receptor positive (CMS/HCC) Cardiovascular event risk [facility] Diagnosis Heart murmur- Primary Undiagnosed cardiac murmurs Primary hypertension Unspecified essential hypertension Hypertensive nephropathy Unspecified hypertensive kidney disease with chronic kidney disease stage I through stage IV, or unspecified Mixed hyperlipidemia Mixed hyperlipidemia Former smoker Personal history of tobacco use, presenting hazards to health Overweight with body mass index (BMI) 25.0-29.9 [facility]* Diagnosis Well woman exam with routine gynecological exam Routine gynecological examination Osteoporosis, post-menopausal Senile osteoporosis [facility] N[facility] - Reported* Type Description Date Medical History high blood pressure Surgical History csection Hospitalization History childbirth [facility] Other History general Narrative - Reported* Type Description Date Medical History high blood pressure Surgical History csection Surgical History Arthroscopic partial right medial meniscectomy, medial femoral chondroplasty 2022 Hospitalization History childbirth [facility] Other Hospital course Narrative No data available for this section [facility] General Surgery [place] [facility] Discharge instructions No data available for this section [facility] General Surgery [place] progress note No data available for this section [facility] General Surgery [place] progress note Author Addison Hamm [facility] December 26, 2023 1:37pm Note Date/Time December 26, 2023 12: 15pm [facility] [place] [address] Cancer Center Note Signed Patient: Christal Chen MR#: [id number] : 1955 Acct:[id number] Age/Sex: 68 / F Type: REG AMB Date of Service: 12/26/23 Copies to: MD Quinton Corey MD Michael R Nill, MD FACS~ Assessment & Plan (1) Breast cancer, left: Plan: CT simulation prone position (wait at least 2 weeks for healing) -plan for wholebreast radiation 26 Bender in 5 fractions daily Assessment: 68-year-old female with pT1cN0 invasive lobular carcinoma of the left breast, ERpositive FL negative HER2 negative. On December 05, 2023 [...] favorable pathology however it is lobular and FL negative. Patient is agreeable to whole breast [...] invasive lobular carcinoma, grade 1. ER positive FL negative HER2 was 0. Oncotype testing returned [...] radiation treatment options for left breast cancer. [facility] Medical History Medical History (Updated 12/26/23 @ [...] <Electronically signed by Addison Hamm MD> 12/26/23 [id number] [facility] Work Phone: Progress note Author Addison Hamm [facility] February 27, 2024 11:12am Note Date/Time February 27, 2024 9:54a m [facility] [place] [address] Cancer Center Note Signed Patient: Christal Chen MR#: [id number] : 1955 Acct:[id number] Age/Sex: 69 / F Type: DEP AMB Date of Service: 02/27/24 Copies to: MD Quinton Corey MD~ Assessment & Plan (1) Breast cancer, left: Plan: Return to clinic as needed Assessment: 68-year-old female with pT1cN0 invasive lobular carcinoma of the left breast, ERpositive FL negative HER2 negative. On December 05, 2023 [...] invasive lobular carcinoma, grade 1. ER positive FL negative HER2 was 0. Oncotype testing returned [...] tramadol Adverse Reaction (Verified 04/30/23 08:21) Vomiting [facility] Medical History Medical History (Updated 12/26/23 @ [...] signed by Addison Hamm MD> 02/27/24 [id number] [facility] Work Phone: Summary Purpose Family History Relationship Condition Age at Onset Recorded Date/T [...] Malignant neoplasm Unknown Leukemia Unknown Advance Directives Advance Directive Response Recorded Date/ Time Advance Directives No March 04 9:30am Advance Directive Response Recorded Date/ Time Advance Directives No March 04 8:30am Documents on File Type Date Recorded Patient Clean In Places Operator Expl anation Advance Directives and Living Will 04/14/2020 2019-12-01 Power Of Powder Worker Advance Directives and Living Will 04/14/2020 2019-12-01 [...] Chief Complaint hx left sided breast ca Chief Complaint hx left sided breast ca Z78.0 Chief Complaint Admit Date z85.3 November 30, 2024 7:52am Additional Source Comments INFORMATION SOURCE (unrecogn ized section and content) DATE CREATED AUTHOR 11/26/2021 [facility] dical Specialist DATE CREATED AUTHOR AUTHOR'S ORGANIZ ATION 09/03/2022 [facility] DATE CREATED AUTHOR AUTHOR'S ORGANIZ ATION 02/11/2024 Casarez Uinta [facility] DATE CREATED AUTHOR AUTHOR'S ORGANIZ ATION 09/29/2024 [facility] DATE CREATED AUTHOR AUTHOR'S ORGANIZ ATION 12/03/2024 [facility] DATE CREATED AUTHOR AUTHOR'S ORGANIZ ATION 03/30/2025 [facility] dical Specialists EPIC Care Teams (unrecognized sec tion and content) [...] Active Rodney Peña DO Attending Provider Active Stroboroma Operator Relationship Specialty Start Date End Date Quinton Dan MD [address] [place] [phone] PCP - General Family Medicine 02/21/23 Quinton Dan MD [address] [place] [address] PCP - ACO Reach 02/28/23 Stroboroma Operator Relationship Specialty Start Date End Date Quinton Dan MD [address] [place] [phone] PCP - General Family Medicine 02/21/23 Quinton Dan MD [address] [place] [address] (Fax) PCP - ACO Reach 02/28/23 Crow Kruse DO [address] [place] [address] [place] [address] Referring Physician Obstetrics and Gynecology 11/14/23 Rodney Peña MD [address] [place] [phone] Referring Physician Orthopaedic Surgery 11/14/23 Stroboroma Operator Relationship Specialty Start Date End Date Quinton Dan MD [address] [place] [phone] PCP - General Family Medicine 02/21/23 Quinton Dan MD [address] [place] [address] PCP - ACO Reach 02/28/23 Crow Kruse DO [address] [facility] [place] [address] Referring Physician Obstetrics and Gynecology 11/14/23 Rodney Peña MD [address] [place] [phone] Referring Physician Orthopaedic Surgery 11/14/23 Team Status: Inactive Member Role Status Dates Quinton Dan MD Primary Care Provider Active Start: October 09, 2023 End: October 09, 2023 Crow Kruse Attending Provider Active Start: Elfego hall 2023 End: October 09, 2023 Team Status: Inactive Member Role Status Dates Quinton Dan MD Primary Care Provider Active Start: October 21, 2023 End: October 21, 2023 Crow Kruse Attending Provider Active Start: Elfego emy 2023 End: October 21, 2023 Team Status: [...] June 16, 2024 End: June 16, 2024 Team Status: Inactive Member Role Status Dates Quinton Dan MD Primary Care Provider Active Start: July 27, 2024 End: July 27, 2024 Crow Kruse DO Attending Provider Active Start : July 27, 2024 End: July 27, 2024 Silvia Eckert MD Referring Provider Active St art: July 27, 2024 End: July 27, 2024 Stroboroma Operator Relationship Specialty Start Date End Date Quinton Dan MD [address] [place] [address] PCP - General Family Medicine 02/21/23 Quinton Dan MD [address] [place] [address] (Fax) PCP - ACO Reach 02/28/23 Crow Kruse DO [address] [place], [place] [address] [place] [address] Referring Physician Obstetrics and Gynecology 11/14/23 Rodney Peña MD [address] [place] [phone] Referring Physician Orthopaedic Surgery 11/14/23 Stroboroma Operator Relationship Specialty Start Date End Date Quinton Dan MD (Fax) PCP - General Family Medicine 02/21/23 Quinton Dan MD [address] [place] [address] (Fax) PCP - ACO Reach 02/28/23 Crow Kruse, [address] [place], [place] [address] [place] [address] Referring Physician Obstetrics and Gynecology 11/14/23 Rodney Peña MD [address] [place] [phone] Referring Physician Orthopaedic Surgery 11/14/23 Stroboroma Operator Relationship Specialty Start Date End Date Quinton Dan MD (Fax) PCP - General Family Medicine 02/21/23 Quinton Dan MD [address] [place] [phone] (Fax) PCP - ACO Reach 02/28/23 Crow Kruse, DO [address] [place] [address] Referring Physician Obstetrics and Gynecology 11/14/23 Rodney Peña MD [address] [place] [address] Referring Physician Orthopaedic Surgery 11/14/23 Stroboroma Operator Relationship Specialty Start Date End Date Quinton Dan MD (Fax) PCP - General Family Medicine 02/21/23 Quinton Dan MD [address] [phone] (Fax) PCP - ACO Reach 02/28/23 Crow Kruse, DO [address] [facility] [place] [address] Referring Physician Obstetrics and Gynecology 11/14/23 Rodney Peña MD [address] [place] [phone] Referring Physician Orthopaedic Surgery 11/14/23 Stroboroma Operator Relationship Specialty Start Date End Date Quinton Dan MD [address] [place] [phone] PCP - General Family Medicine 02/21/23 Quinton Dan MD [address] [place] [facility] [place] [address] (Fax) PCP - ACO Reach 02/28/23 Crow Kruse, [address] [facility] [place] [address] Referring Physician Obstetrics and Gynecology 11/14/23 Rodney Peña MD [address] [place] [address] Referring Physician Orthopaedic Surgery 11/14/23 Stroboroma Operator Relationship Specialty Start Date End Date Quinton Dan MD [address] [place] [phone] PCP - General Family Medicine 02/21/23 Quinton Dan MD [address] [place] [address] (Fax) PCP - ACO Reach 02/28/23 Crow Kruse, DO [address] [place] [address] Referring Physician Obstetrics and Gynecology 11/14/23 Rodney Peña MD [address] [place] [phone] Referring Physician Orthopaedic Surgery 11/14/23 Stroboroma Operator Relationship Specialty Start Date End Date Quinton Dan MD (Fax) PCP - General Family Medicine 02/21/23 Quinton Dan MD [address] [phone] (Fax) PCP - ACO Reach 02/28/23 Crow Kruse DO [address] [place] [address] Referring Physician Obstetrics and Gynecology 11/14/23 Rodney Peña MD [address] [place] [address] Referring Physician Orthopaedic Surgery 11/14/23 Stroboroma Operator Relationship Specialty Start Date End Date Quinton Dan MD (Fax) PCP - General Family Medicine 02/21/23 Quinton Dan MD [address] [place] [phone] (Fax) PCP - ACO Reach 02/28/23 Crow Kruse DO [address] [place] [address] Referring Physician Obstetrics and Gynecology 11/14/23 Rodney Pñea MD [address] [place] [address] Referring Physician Orthopaedic Surgery 11/14/23 Team Status: Inactive Member Role Status Dates Quinton Dan MD Primary Care Provider Active Start: November 30, 2024 End: November 30, 2024 Crow Kruse DO Attending Provider Active Start : November 30, 2024 End: November 30, 2024 Stroboroma Operator Relationship Specialty Start Date End Date Quinton Dan MD (Fax) PCP - General Family Medicine 02/21/23 Quinton Dan MD [address] [phone] (Fax) PCP - ACO Reach 02/28/23 Crow Kruse DO [address] [place] [address] Referring Physician Obstetrics and Gynecology 11/14/23 Rodney Peña MD [address] [place] [address] Referring Physician Orthopaedic Surgery 11/14/23 Stroboroma Operator Relationship Specialty Start Date End Date Quinton Dan MD (Fax) PCP - General Family Medicine 02/21/23 Quinton Dan MD [address] [phone] (Fax) PCP - ACO Reach 02/28/23 Crow Kruse DO [address] [place] [address] Referring Physician Obstetrics and Gynecology 11/14/23 Rodney Peña MD [address] [place] [phone] Referring Physician Orthopaedic Surgery 11/14/23 Stroboroma Operator Relationship Specialty Start Date End Date Quinton Dan MD (Fax) PCP - General Family Medicine 02/21/23 Quinton Dan MD [address] [address] (Fax) PCP - ACO Reach 02/28/23 Crow Kruse, DO [address] [place] [address] Referring Physician Obstetrics and Gynecology 11/14/23 Rodney Peña MD [address] [place] [address] Referring Physician Orthopaedic Surgery 11/14/23 Stroboroma Operator Relationship Specialty Start Date End Date Quinton Dan MD (Fax) PCP - General Family Medicine 02/21/23 Quinton Dan MD [address] [facility] [address] [place] [address] (Fax) PCP - ACO Reach 02/28/23 Crow Kruse DO [address] [place] [address] Referring Physician Obstetrics and Gynecology 11/14/23 Rodney Peña MD [address] [place] [address] Referring Physician Orthopaedic Surgery 11/14/23 Stroboroma Operator Relationship Specialty Start Date End Date Quinton Dan MD (Fax) PCP - General Family Medicine 02/21/23 Quinton Dan MD [address] [place] [address] (Fax) PCP - ACO Reach 02/28/23 Crow Kruse DO [address] [place] [address] Referring Physician Obstetrics and Gynecology 11/14/23 Rodney Peña MD [address] [facility] [place] [address] Referring Physician Orthopaedic Surgery 11/14/23 Stroboroma Operator Relationship Specialty Start Date End Date Quinton Dan MD (Fax) PCP - General Family Medicine 02/21/23 Quinton Dan MD [address] [place] [address] (Fax) PCP - ACO Reach 02/28/23 Crow Kruse, [address] [facility] [place] [address] Referring Physician Obstetrics and Gynecology 11/14/23 Rodney Peña MD [address] [facility] [place] [phone] Referring Physician Orthopaedic Surgery 11/14/23 Silvia Eckert MD [address] [place] [address] Referring Physician Oncology 02/22/25 Stroboroma Operator Relationship Specialty Start Date End Date Quinton Dan MD (Fax) PCP - General Family Medicine 02/21/23 Quinton Dan MD [address] [place] [address] (Fax) PCP - ACO Reach 02/28/23 rCow Kruse, [address] [facility] [place] [address] Referring Physician Obstetrics and Gynecology 11/14/23 Rodney Peña MD [address] [place] [address] Referring Physician Orthopaedic Surgery 11/14/23 Silvia Eckert MD [address] [place] [address] Referring Physician Oncology 02/22/25 Stroboroma Operator Relationship Specialty Start Date End Date Quinton Dan MD (Fax) PCP - General Family Medicine 02/21/23 Quinton Dan MD [address] [place] [address], [place] [address] (Fax) PCP - ACO Reach 02/28/23 Crow Kruse DO [address] [place] [address] Referring Physician Obstetrics and Gynecology 11/14/23 Rodney Peña MD [address] [place] [address] Referring Physician Orthopaedic Surgery 11/14/23 Silvia Eckert MD [address] [place] [address] Referring Physician Oncology 02/22/25 Stroboroma Operator Relationship Specialty Start Date End Date Quinton Dan MD (Fax) PCP - General Family Medicine 02/21/23 Quinton Dan MD [address] [place] [address] (Fax) PCP - ACO Reach 02/28/23 Crow Kruse DO [address] [place] [address] Referring Physician Obstetrics and Gynecology 11/14/23 Rodney Peña MD [address] [place] [address] Referring Physician Orthopaedic Surgery 11/14/23 Silvia Eckert MD [address] [place] [address] Referring Physician Oncology 02/22/25 Stroboroma Operator Relationship Specialty Start Date End Date Quinton Dan MD (Fax) PCP - General Family Medicine 02/21/23 Quinton Dan MD [address] [place] [address] [address] [place] [address] (Fax) PCP - ACO Reach 02/28/23 Crow Kruse DO [address] [place] [address] Referring Physician Obstetrics and Gynecology 11/14/23 Rodney Peña MD [address] [place] [address] Referring Physician Orthopaedic Surgery 11/14/23 Silvia Eckert MD [address] [place] [address] Referring Physician Oncology 02/22/25 Goals (unrecognized section and content) Goals may [...] section and content) Reason Comments Abdominal Pain Reason Comments Well Women Visit Reason Comments Hypertension Hyperlipidemia Reason Comments URI Reason Comments Thrush Reason Comments Annual Exam Reason Comments Gynecologic Exam FOR RECORDS PERTAINING TO PATIENTS WHO ARE [...] BE BASED ON THE PRIMARY CLINICAL RECORDS. [employer] provides no warranty or guarantee of the accuracy or completeness of information in this document.
[2025-07-02 14:08] LABS: Age Gdln ACOG Testing Note (.); Pap IG (Image Guided) Note (.)
== END 2025-06-28 12:53 | disposition home or self-care (01) ==
LOC: LAB 12:52
PROVIDERS: PCP Family Medicine; Visit Provider Obstetrics & Gynecology
DX: Z01.419 Encounter for gynecological examination (general) (routine) without abnormal findings (principal)
CPT/HCPCS: 88175